=== PATIENT | male | born 1955 | race Caucasian/White ===

== ENCOUNTER 2016-12-05 09:45 | Day surgery (SDC) | payer MEDICARE, SELFPAY ==
[~2016-12-05] VITALS: Ht 180.3 cm; Wt 113.8 kg
[~2016-12-05 09:45] MED LIST: BUPRENORPHINE HC8 MG SL; CEFTIN500 MG PO; CEFUROXIME500 MG PO; COMBIVENT RESPIM4 GM INH; COUGHTAB 400400 MG PO; FLUTICASONE PRO16 GM NAS; GABAPENTIN600 MG; GABAPENTIN600 MG PO; GABAPENTIN800 MG PO; HUMALOG100 UNIT/1 SUB-Q; IBUPROFEN400 MG PO; LANTUS SOL100 UNIT/1; LANTUS100 UNIT/1 SUB-Q; LANTUS100 UNITS/ SUB-Q; LEVAQUIN500 MG PO; LEVAQUIN750 MG PO; METFORMIN HCL1000 MG PO; NAPROSYN500 MG PO; NICOTINE LOZENGE4 MG BUCCAL; NICOTINE PATCH1 EAC1 TD; NORCO 5-325 TA1 EACH PO; NORVASC10 MG PO; PREDNISONE20 MG PO; SERTRALINE HCL50 MG PO; SUDOGEST30 MG PO; SULFAMETHOXAZO1 EAC1 PO; ZOFRAN ODT8 MG PO
[2016-12-05] MEDS ORDERED: MAPAP325 MG PO (14:50)
[2016-12-05] MEDS ORDERED: IBUPROFEN600 MG PO (14:50)
--- NOTE | 2016-12-05 14:50 | NUR ---
12/05/16 1450 Suzanne Jaramillo 1440 PATIENT AWAKE, BUT DROWSY. C/O MILD PAIN. NC AT 3 LITERS. RESP EVEN AND UNLABORED.
[2016-12-05] MEDS ORDERED: NORCO 7.5-3251 EACH PO (14:51)
--- NOTE | 2016-12-21 10:25 | OR ---
[facility] [address], [place] [address] Signed DATE OF SERVICE: 12/05/2016 PREOPERATIVE DIAGNOSES: Stage III squamous cell carcinoma of the lung. History of heroin addiction on buprenorphine maintenance. Poor peripheral access. Hepatitis C. POSTOPERATIVE DIAGNOSES: Stage III squamous cell carcinoma of the lung. History of heroin addiction on buprenorphine maintenance. Poor peripheral access. Hepatitis C. PROCEDURE: Right internal jugular central venous catheter placement (arrow blue tip triple-lumen catheter) for intravenous sedation and administration. Placement of left subclavian BardPort catheter for chemotherapy. Surgeon-directed fluoroscopy. SURGEON: Trish Fermin MD. ANESTHESIA: Local with monitored anesthesia care. ANESTHESIOLOGIST: Nima Kim CRNA and local 1% lidocaine. INDICATION: This 61-year-old white man, who is a patient of Dr. Horta and found to have right-sided lung cancer with extensive carinal adenopathy. He has undergone bronchoscopy by me in the past confirming squamous cell carcinoma of the lung. He has seen Dr. Marcano and a plan for chemotherapy and Palliative Unit intervention has been outlined. The patient does have a complex past medical history, including poor peripheral access related to long-standing IV heroin use and now in a rehabilitation maintenance program with buprenorphine managed by Dr. Martinez in [place]. As he will be undergoing chemotherapy, a Port-A-Cath device is recommended by Dr. Marcano for chemotherapy. As he does have poor peripheral access essentially impossible actually, a preliminary IV access will be necessary to allow for his IV sedation ultimately placement of a permanent left subclavian BardPort device. He understands the risks of bleeding, infection, pneumothorax, and other unforeseen complications related to placement of the device and wished to proceed. Electronically Signed By: TRISH FERMIN MD 12/21/16 1025 PATIENT NAME: SAMAN FELDER OPERATIVE REPORT DATE OF : 55 PHYSICIAN: TRISH FERMIN MD REPORT #: [id number] REPORT IS CONFIDENTIAL AND NOT TO BE RELEASED WITHOUT AUTHORIZATION [facility] [address], [place] [address] Signed FINDINGS: Placement of a right central venous catheter into the jugular vein was without difficulty showing dark nonpulsatile blood in good function. The left subclavian BardPort device was placed without problem as well. Good function is noted at the conclusion of the procedure. Chest x-ray has been performed, but not yet reviewed by me. DESCRIPTION OF PROCEDURE: The patient was brought to the operating room, placed in supine position. His head was turned to the left with arms at the side. The right neck was prepared with a chlorhexidine solution and draped sterilely. 1% lidocaine was injected locally. Using a Seldinger technique, the right internal jugular vein was easily accessed on single pass showing dark nonpulsatile blood. A flexible J-wire was passed down the needle and the needle was removed. The site was incised with an 11 blade and dilated with a balloon dilator enclosed in the Arrow blue tip triple-lumen catheter. He previously inspected and irrigated catheter system was passed over the wire. The wire removed with aspiration and the distal port showed dark nonpulsatile blood. The catheter was flushed with heparinized saline. There was gently withdrawn and an enclosed collar device applied and it was sutured in place with the silk suture and an Opsite was applied. At this point, plans were t hen made for the Port-A-Cath itself. Intravenous antibiotics were administered through the central venous catheter and intravenous sedation administered as well. His head was now placed to the right side. The left upper chest and neck were clipped and prepped with chlorhexidine solution and draped sterilely. 1% lidocaine was injected in the infraclavicular space using Seldinger technique, the left subclavian vein easily accessed showing dark nonpulsatile blood. A flexible J-wire was passed down the needle and the needle was removed. Fluoroscopy was used to confirm that the wire was in the right heart system. A transverse incision was made over the left pectoralis muscle. Dissection was carried through the subcutaneous tissue identifying the pectoralis fascia. A pocket was created inferiorly. At the puncture site with the wire emanating from it, the site was incised with an 11 blade dilator and peel-away introducer were passed over the wire. The wire and dilator were removed showing vigorous retrograde dark nonpulsatile bleeding. Groshong catheter, which was previously inspected and flushed was passed through this peel-away sheath introducer and the sheath removed without problem. The table was ascertained to be in a neutral position and under fluoroscopic control at the tip of the catheter was difficult to identifying it for a small amount of intravenous contrast was applied showing the tip of the catheter well passed to the Electronically Signed By: TRISH FERMIN MD 12/21/16 1025 PATIENT NAME: SAMAN FELDER OPERATIVE REPORT DATE OF : 55 PHYSICIAN: TRISH FERMIN MD REPORT #: [id number] REPORT IS CONFIDENTIAL AND NOT TO BE RELEASED WITHOUT AUTHORIZATION [address] [address] Signed right heart. The catheter was withdrawn under direct visualization and situated in the superior vena cava. Using the dilating tunneling device, the catheter was delivered to the pocket inferiorly trimmed to the appropriate length and secured to the port device using the enclosed collar device per tube inspector's instructions. The port had previously been partially secured to the pectoralis fascia with interrupted 2-0 Vicryl suture. The port was well positioned and additionally secured to the pectoralis fascia with 2-0 Vicryl, so as to avoid migration or flipping of the catheter. Access to the port using an angled Brooks needle showed dark nonpulsatile blood and easy flushing. The pocket was secured with interrupted 2-0 Vicryl and skin closed with running subcuticular 3-0 Vicryl. Angled Brooks needle was once again passed into the device and aspirated and flushed well. Contrast was used to ascertain that the catheter was without any kinks or untoward appearance. Steri-Strips were applied. There was a Mepilex silver sponge dressing. The right internal jugular catheter is left in situ for post-operative management. MD BERNARDO Cruz/Amarjit /[id number] cc: Bart Marcano MD Electronically Signed By: TRISH FERMIN MD 12/21/16 1025 PATIENT NAME: SAMAN FELDER OPERATIVE REPORT DATE OF : 55 PHYSICIAN: TRISH FERMIN MD REPORT #: [id number] REPORT IS CONFIDENTIAL AND NOT TO BE RELEASED WITHOUT AUTHORIZATION
[2017-03-14] MEDS ORDERED: AMOX TR-K400 MG/5 M PO (08:52)
[2017-03-14] MEDS ORDERED: NIFEDIPINE ER60 M1 PO (08:52)
[2017-03-14] MEDS ORDERED: OXYCODONE HCL20 M1 PO (08:54)
[2017-03-14] MEDS ORDERED: ONDANSETRON ODT8 MG PO (08:56)
[2017-03-14] MEDS ORDERED: DEXAMETHASONE4 MG PO (08:57)
[2017-03-14] MEDS ORDERED: LORAZEPAM1 MG PO (08:58)
[2017-05-09] MEDS ORDERED: LASIX20 MG PO (09:13)
== END 2016-12-05 15:25 | disposition home or self-care (01) ==
LOC: OPS 09:45 → DS 09:45 → OPS 11:00 → DS 11:00 → OPS 15:25
PROVIDERS: Surgery
PROC: 05H633Z Insertion of Infusion Device into Left Subclavian Vein, Percutaneous Approach (ICD-10-PCS; 2016-12-05)
PROC: B517YZA Fluoroscopy of Left Subclavian Vein using Other Contrast, Guidance (ICD-10-PCS; 2016-12-05)
PROC: 05HM33Z Insertion of Infusion Device into Right Internal Jugular Vein, Percutaneous Approach (ICD-10-PCS; principal; 2016-12-05 11:00)
PROC: 3E0433Z Introduction of Anti-inflammatory into Central Vein, Percutaneous Approach (ICD-10-PCS; 2016-12-05 11:00)
DX: C34.91 Malignant neoplasm of unspecified part of right bronchus or lung (principal); E11.9 Type 2 diabetes mellitus without complications; F17.210 Nicotine dependence, cigarettes, uncomplicated; F11.20 Opioid dependence, uncomplicated; Z86.19 Personal history of other infectious and parasitic diseases; Z85.118 Personal history of other malignant neoplasm of bronchus and lung; Z90.49 Acquired absence of other specified parts of digestive tract
CPT/HCPCS: 00532; 71010; 77001; C1788; J0690; J1644; J2704; J3010

== ENCOUNTER 2017-03-06 09:17 | Emergency (ER) | payer MEDICARE ==
[~2017-03-06] VITALS: Ht 180.3 cm; Wt 111.4 kg
[~2017-03-06 09:17] MED LIST changes: +IBUPROFEN600 MG PO; +MAPAP325 MG PO; +NORCO 7.5-3251 EACH PO
--- OUTSIDE RECORDS SUMMARY | 2017-03-06 09:23 | XMS ---
Demographics + + + | Address | [address] | | | [place] [address] | + + + | Preferred Language | Unknown | + + + | Marital Status | Unknown | + + + | Scientology Affiliation | Unknown | + + + | Race | Unknown | + + + | Ethnic Group | Unknown | + + + Author + + + | Author | [facility] | + + + | Organization | [facility] | + + + | Address | [address] | | | [place] [address] | + + + | Phone | | + + + Care Team Providers + + + + | Care Airplane Dispatch Clerk Name | Role | Phone | + + + + Unavailable | Unavailable | + + + + PROBLEMS +---------+ + + +--------+ + + | Type | Condition | ICD9-CM | HUS08-AO | Onset | Condition | SNOMED | | | | Code | Code | Dates | Status | Code | +---------+ + + +--------+ + + | Problem | Tobacco | 305.1 | | | Active | 03614376 | | | abuse | | | | | | +---------+ + + +--------+ + + | Problem | Hypertensi | | I10 | | Active | 01429054 | | | on | | | | | | +---------+ + + +--------+ + + | Problem | CHRONIC | 338.29 | | | Active | 94800030 | | | PAIN NEC | | | | | | +---------+ + + +--------+ + + | Problem | Diabetic | E11.42 | | | Active | 688578878 | | | peripheral | | | | | | | | | | | | | | | | neuropathy | | | | | | +---------+ + + +--------+ + + | Problem | Diabetes | E11.9 | | | Active | 540743792 | | | mellitus | | | | | | | | type 2 in | | | | | | | | nonobese | | | | | | +---------+ + + +--------+ + + | Problem | Type 2 | | E11.22 | | Active | 389767369 | | | diabetes | | | | | | | | mellitus | | | | | | | | with | | | | | | | | diabetic | | | | | | | | chronic | | | | | | | | kidney | | | | | | | | disease | | | | | | +---------+ + + +--------+ + + | Problem | Insulin | E10.9 | | | Active | 63410677 | | | dependent | | | | | | | | diabetes | | | | | | | | mellitus | | | | | | | | type IA | | | | | | +---------+ + + +--------+ + + | Problem | Cellulitis | | L03.90 | | Active | 693815502 | +---------+ + + +--------+ + + | Problem | Type 2 | | E11.9 | | Active | 969401229 | | | diabetes | | | | | | | | mellitus | | | | | | | | without | | | | | | | | complicati | | | | | | | | ons | | | | | | +---------+ + + +--------+ + + | Problem | Drug | 304.90 | | | Active | 6871700 | | | addiction | | | | | | | | NOS | | | | | | +---------+ + + +--------+ + + | Problem | Chronic | 338.21 | | | Active | 323083366 | | | pain due | | | | | | | | to trauma | | | | | | +---------+ + + +--------+ + + | Problem | Hepatitis | 070.70 | | | Active | 80736041 | | | C without | | | | | | | | hepatic | | | | | | | | coma, not | | | | | | | | otherwise | | | | | | | | specified | | | | | | +---------+ + + +--------+ + + | Problem | Diabetes | 250.00 | | | Active | 29816754 | | | mellitus | | | | | | | | type II | | | | | | +---------+ + + +--------+ + + | Problem | OPIOID | 304.01 | | | Active | 183154807 | | | DEPENDENCE | | | | | | | | -CONTIN | | | | | | +---------+ + + +--------+ + + ALLERGIES + + + + +---------+ | Substance | Reaction | Event Type | Date | Status | + + + + +---------+ | NZainabKAllanA. | Unknown | Non Drug | Oct, | Unknown | | | | Allergy | | | + + + + +---------+ SOCIAL HISTORY No smoking Hx information available PLAN OF CARE + +---------+ | Activity | Details | + +---------+ +---+ | | +---+ + + + | Follow Up | prn Reason:null | + + + VITAL SIGNS + + + + | Height | 72 in | 2016-11-07 | + + + + | Weight | 255.0 lbs | 2016-11-07 | + + + + | BMI | 34.58 kg/m2 | 2016-11-07 | + + + + | Temperature | 98.8 degrees Fahrenheit | 2016-11-07 | + + + + | Heart Rate | 67 /min | 2016-11-07 | + + + + | Blood pressure systolic | 149 mm Hg | 2016-11-07 | + + + + | Blood pressure diastolic | 76 mm Hg | 2016-11-07 | + + + + MEDICATIONS + + + + + + + +--------+ | Medicati | Instruct | Dosage | Frequenc | Start | End Date | Duration | Status | | on | ions | | y | Date | | | | + + + + + + + +--------+ | Buprenor | Sublingu | 1 tablet | 8h | | | | Active | | phine | al TID | under | | | | | | | HCl 8 MG | | the | | | | | | | | | tongue | | | | | | | | | and | | | | | | | | | allow to | | | | | | | | | | | | | | | | | | dissolve | | | | | | + + + + + + + +--------+ | BD | | USE TO | | | | | Active | | Insulin | | INJECT 5 | | | | | | | Syringe | | TIMES | | | | | | | 30G X | | DAILY | | | | | | | 1/2 | | | | | | | | + + + + + + + +--------+ | Metformi | oral 2 x | TAKE ONE | | | | 30 | Active | | n HCl | a day | TABLET | | | | | | | 1000 MG | | BY MOUTH | | | | | | | Tablet | | TWICE | | | | | | | | | DAILY | | | | | | + + + + + + + +--------+ | Gabapent | | TAKE TWO | | | | | Active | | in 800 | | TABLETS | | | | | | | MG | | BY | | | | | | | | | MOUTH | | | | | | | | | EVERY | | | | | | | | | MORNING | | | | | | | | | AND TWO | | | | | | | | | EVERY | | | | | | | | | EVENING | | | | | | + + + + + + + +--------+ | Ibuprofe | Orally | 1 tablet | 6h | | | | Active | | n 200 MG | every 6 | as | | | | | | | | hrs | needed | | | | | | + + + + + + + +--------+ | Zofran 4 | Orally | 1 tab | | 03 September, | | 10 d | Active | | MG | is take | | | 2017 | | | | | | in am | | | | | | | | | may | | | | | | | | | repeat | | | | | | | | | in 4 hr | | | | | | | + + + + + + + +--------+ | Lantus | subq bid | inject | 12h | | | 30 | Active | | 100UNIT/ | | 30 units | | | | | | + + + + + + + +--------+ | Sertrali | | TAKE ONE | | | | | Active | | ne HCl | | TABLET | | | | | | | 50 MG | | BY MOUTH | | | | | | | | | EVERY | | | | | | | | | DAY | | | | | | + + + + + + + +--------+ RESULTS No Results PROCEDURES + + + + + | Procedure | Date Ordered | Related Diagnosis | Body Site | + + + + + | Est Level III | November 07, 2016 | | | | Intermediate | | | | + + + + + IMMUNIZATIONS No Known Immunizations"
--- NOTE | 2017-03-07 09:56 | EKG ---
[facility] [address] [place] [address] Signed Normal sinus rhythm Normal ECG When compared with ECG of 30-OCT-2016 10:15, Vent. rate has increased BY 36 BPM Confirmed by TREVA HINES MD ([id number]) on 03/07/2017 9:56:00 AM Electronically Signed By: TREVA HINES MD 03/07/17 0956 PATIENT NAME: SAMAN FELDER Electrocardiogram DATE OF : 55 PHYSICIAN: TREVA HINES MD REPORT #: [id number] REPORT IS CONFIDENTIAL AND NOT TO BE RELEASED WITHOUT AUTHORIZATION
[2017-03-14] MEDS ORDERED: NIFEDIPINE ER60 M1 PO (08:52)
[2017-03-14] MEDS ORDERED: AMOX TR-K400 MG/5 M PO (08:52)
[2017-03-14] MEDS ORDERED: OXYCODONE HCL20 M1 PO (08:54)
[2017-03-14] MEDS ORDERED: ONDANSETRON ODT8 MG PO (08:56)
[2017-03-14] MEDS ORDERED: DEXAMETHASONE4 MG PO (08:57)
[2017-03-14] MEDS ORDERED: LORAZEPAM1 MG PO (08:58)
[2017-05-09] MEDS ORDERED: LASIX20 MG PO (09:13)
== END 2017-03-06 15:50 | disposition short-term general hospital (02) ==
LOC: ED 09:17
DX: S01.311A Laceration without foreign body of right ear, initial encounter (principal); C34.90 Malignant neoplasm of unspecified part of unspecified bronchus or lung; R06.00 Dyspnea, unspecified; R79.89 Other specified abnormal findings of blood chemistry; E11.649 Type 2 diabetes mellitus with hypoglycemia without coma; F17.200 Nicotine dependence, unspecified, uncomplicated; R91.8 Other nonspecific abnormal finding of lung field; Z90.49 Acquired absence of other specified parts of digestive tract; Z79.899 Other long term (current) drug therapy; Z79.4 Long term (current) use of insulin; Z79.84 Long term (current) use of oral hypoglycemic drugs; X58.XXXA Exposure to other specified factors, initial encounter
CPT/HCPCS: 36415; 36600; 70450; 71010; 71250; 80053; 82803; 83615; 84484; 85025; 93005; 93010; 94640; 96374; 96376; 99285; G0480; J0295

== ENCOUNTER 2018-06-09 10:43 | Emergency (ER) | payer MEDICARE ==
[~2018-06-09] VITALS: Ht 180.3 cm; Wt 113.4 kg
[~2018-06-09 10:43] MED LIST changes: +ADULT LOW DOSE81 MG PO; +AMOX TR-K400 MG/5 M PO; +DEXAMETHASONE4 MG PO; +FUROSEMIDE80 MG PO; +LASIX20 MG PO; +LORAZEPAM1 MG PO; +MAVYRET 100-401 EACH PO; +NIFEDIPINE ER60 M1 PO; +ONDANSETRON ODT8 MG PO; +OXYCODONE HCL20 M1 PO; +OXYCONTIN40 MG PO
== END 2018-06-09 17:10 | disposition short-term general hospital (02) ==
LOC: ED 10:43
DX: L03.116 Cellulitis of left lower limb (principal); E11.22 Type 2 diabetes mellitus with diabetic chronic kidney disease; N18.6 End stage renal disease; J18.9 Pneumonia, unspecified organism; C34.90 Malignant neoplasm of unspecified part of unspecified bronchus or lung; Z99.2 Dependence on renal dialysis; Z86.19 Personal history of other infectious and parasitic diseases; F17.210 Nicotine dependence, cigarettes, uncomplicated; Z99.81 Dependence on supplemental oxygen; Z90.49 Acquired absence of other specified parts of digestive tract; Z79.4 Long term (current) use of insulin; Z79.82 Long term (current) use of aspirin; Z79.899 Other long term (current) drug therapy
CPT/HCPCS: 36415; 36600; 71045; 74176; 80053; 81001; 82803; 83605; 85025; 87040; 87077; 87186; 93971; 94640; 96365; 96375; 99284-25; J2060; J2543; J7060

== ENCOUNTER 2018-06-30 12:07 | Emergency (ER) | payer MEDICARE ==
[~2018-06-30] VITALS: Ht 180.3 cm; Wt 113.8 kg
--- OUTSIDE RECORDS SUMMARY | 2018-06-30 12:10 | XMS ---
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 E.D. VISIT COUNT (12 MO.) 2 [facility] 1 [facility] 2 [facility] TOTAL 5 NOTE: Visits indicate total known visits. ED/UCC VISIT TRACKING (12 MO.) 06/30/2018 12:08 [facility] [place] TYPE: Emergency COMPLAINT: - POSS MEDICATION OD 06/09/2018 10:44 [facility] [place] TYPE: Emergency COMPLAINT: - BACK PAIN/NO INJURY DIAGNOSES: - Left lower quadrant pain - Dependence on renal dialysis - Acquired absence of other specified parts of digestive tract - examining chair assembler (current) use of aspirin - End stage renal disease - Malignant neoplasm of unspecified part of unspecified bronchus or lung - Personal history of other infectious and parasitic diseases - Type 2 diabetes mellitus with diabetic chronic kidney disease - Cellulitis of left lower limb - Pneumonia, unspecified organism - Dependence on supplemental oxygen - Nicotine dependence, cigarettes, uncomplicated - FDC (current) use of insulin - Other chcf (current) drug therapy [facility]2018 [facility] DIAGNOSES: - Other complication of vascular dialysis catheter, initial encounter - End stage renal disease - Vascular Access Problem - port access problems - Dependence on renal dialysis 04/04/2018 14:19 [facility] [place] TYPE: Emergency DIAGNOSES: - "Im supposed to have this thing in my chest for dialysis changed out, they tried a week ago and today I went for dialysis but they couldnt get it to work" - Cellulitis of left lower limb - Unspecified complication of internal prosthetic device, implant and graft, initial encounter - Vascular Access Problem [facility]2018 [facility] DIAGNOSES: - Pneumonia, unspecified organism - Sepsis, unspecified organism - Respiratory Distress - End stage renal disease - poss OD - Respiratory failure, unspecified, unspecified whether with hypoxia or hypercapnia - Altered Mental Status INPATIENT VISIT TRACKING (12 MO.) 06/09/2018 19:[address] TYPE: Medical Surgical COMPLAINT: - PEUNMONIA DIAGNOSES: 0. Pain in left hip 1. Bloodstream infection due to central venous catheter, initial encounter 2. Pneumonia, unspecified organism 3. Metabolic encephalopathy 4. Psoas muscle abscess 5. Sepsis due to Methicillin resistant Staphylococcus aureus 6. End stage renal disease 7. Hypertensive chronic kidney disease with stage 5 chronic kidney disease or end stage renal disease 8. Malignant neoplasm of unspecified part of unspecified bronchus or lung 9. Osteomyelitis of vertebra, lumbar region 10. Infective myositis, other site 11. Type 2 diabetes mellitus with diabetic chronic kidney disease 12. Hypokalemia 13. Opioid use, unspecified, uncomplicated 14. Disorder of bone, unspecified 15. Type 2 diabetes mellitus with diabetic nephropathy 16. Spinal stenosis, lumbar region without neurogenic claudication 17. Discitis, unspecified, lumbar region 18. Type 2 diabetes mellitus with other specified complication 19. Other disorders of phosphorus metabolism 20. Chronic viral hepatitis C 21. Anemia in chronic kidney disease 22. Dependence on renal dialysis 23. Patient's noncompliance with renal dialysis 24. examining chair assembler (current) use of insulin 04/06/2018 18:42 [facility] TYPE: General Medicine DIAGNOSES: - Other complication of vascular dialysis catheter, initial encounter - End stage renal disease - Hypertensive chronic kidney disease with stage 1 through stage 4 chronic kidney disease, or unspecified chronic kidney disease - Essential (primary) hypertension - Type 2 diabetes mellitus with diabetic chronic kidney disease - Dependence on renal dialysis 01/21/2018 11:46 [facility] TYPE: Medical Surgical DIAGNOSES: - Nephrotic syndrome with unspecified morphologic changes - Opioid dependence with unspecified opioid-induced disorder - Chronic pain syndrome - Chronic viral hepatitis C - Other psychoactive substance abuse, uncomplicated - Pneumonia due to Hemophilus influenzae - Malignant neoplasm of unspecified part of unspecified bronchus or lung - Chronic obstructive pulmonary disease with (acute) exacerbation - Lobar pneumonia, unspecified organism - Malignant neoplasm of unspecified part of right bronchus or lung - Pneumonia, unspecified organism - Type 2 diabetes mellitus without complications - Respiratory failure, unspecified, unspecified whether with hypoxia or hypercapnia - Nicotine dependence, unspecified, uncomplicated - Sepsis, unspecified organism - Acute respiratory failure with hypoxia - Chronic kidney disease, stage 5 - Opioid dependence with other opioid-induced disorder - Personal history of other specified conditions - Essential (primary) hypertension - Acute kidney failure, unspecified - End stage renal disease - Anemia, unspecified - Acute respiratory failure with hypercapnia - Chronic obstructive pulmonary disease, unspecified [email or web address]
== END 2018-06-30 17:30 | disposition home or self-care (01) ==
LOC: ED 12:07
DX: T40.2X1A Poisoning by other opioids, accidental (unintentional), initial encounter (principal); N18.6 End stage renal disease; M86.9 Osteomyelitis, unspecified; E11.9 Type 2 diabetes mellitus without complications; F17.200 Nicotine dependence, unspecified, uncomplicated; Z79.899 Other long term (current) drug therapy; Z79.4 Long term (current) use of insulin; Z79.891 Long term (current) use of opiate analgesic
CPT/HCPCS: 70450; 71045; 80053; 83605; 85025; 96374; 99284-25; J2997

== ENCOUNTER → 2018-07-20 | Emergency (ER) | payer MEDICARE ==
[~2018-07-20] VITALS: Ht 180.3 cm; Wt 97.6 kg
--- OUTSIDE RECORDS SUMMARY | 2018-07-20 10:54 | XMS ---
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 Care History Medical/Surgical 07/06/2018 [facility] Patient is now at [facility] Confirmed 07/06/18 07/01/2018 [facility] - Patient is currently established with [facility]. If patient is seen in the ED during business hours. Please contact CHWs at [facility]. Care Recommendation: This patient has had 5 or more Emergency Department visits in the last 12 months.\\T\\nbsp; Patient requires education on the scope and purpose of the ED as an acute care provider not a Primary Care Provider and should not be utilized for chronic conditions.\\T\\nbsp; These are guidelines and the provider should exercise clinical judgment when providing care. E.D. VISIT COUNT (12 MO.) 2 [facility] 1 [facility] 3 [facility] TOTAL 6 NOTE: Visits indicate total known visits. ED/C VISIT TRACKING (12 MO.) 07/20/2018 10:39 [facility] [place] TYPE: Emergency COMPLAINT: - LETHARGIC/LOW OXYGEN 06/30/2018 12:08 [facility] [place] TYPE: Emergency COMPLAINT: - POSS MEDICATION OD DIAGNOSES: - End stage renal disease - Nicotine dependence, unspecified, uncomplicated - Other remote computer terminal operator (current) drug therapy - Weakness - Poisoning by other opioids, accidental (unintentional), initial encounter - retirement (current) use of opiate analgesic - Osteomyelitis, unspecified - Type 2 diabetes mellitus without complications - oysterman (current) use of insulin 06/09/2018 10:44 [facility] TYPE: Emergency COMPLAINT: - BACK PAIN/NO INJURY DIAGNOSES: - Left lower quadrant pain - Dependence on renal dialysis - Acquired absence of other specified parts of digestive tract - oysterman (current) use of aspirin - End stage renal disease - Malignant neoplasm of unspecified part of unspecified bronchus or lung - Personal history of other infectious and parasitic diseases - Type 2 diabetes mellitus with diabetic chronic kidney disease - Cellulitis of left lower limb - Pneumonia, unspecified organism - Dependence on supplemental oxygen - Nicotine dependence, cigarettes, uncomplicated - oysterman (current) use of insulin - Other remote computer terminal operator (current) drug therapy 04/06/2018 18:42 [facility] TYPE: Emergency DIAGNOSES: - Other complication of vascular dialysis catheter, initial encounter - End stage renal disease - Vascular Access Problem - port access problems - Dependence on renal dialysis [facility]2018 [facility] DIAGNOSES: - "Im supposed to have this thing in my chest for dialysis changed out, they tried a week ago and today I went for dialysis but they couldnt get it to work" - Cellulitis of left lower limb - Unspecified complication of internal prosthetic device, implant and graft, initial encounter - Vascular Access Problem [facility]2018 [facility] DIAGNOSES: - Pneumonia, unspecified organism - Sepsis, unspecified organism - Respiratory Distress - End stage renal disease - poss OD - Respiratory failure, unspecified, unspecified whether with hypoxia or hypercapnia - Altered Mental Status INPATIENT VISIT TRACKING (12 MO.) 06/09/2018 19:15 [facility] [place] TYPE: Medical Surgical COMPLAINT: - PEUNMONIA DIAGNOSES: [...] 23. Patient's noncompliance with renal dialysis 24. oysterman (current) use of insulin 04/06/2018 18:42 [facility] TYPE: General Medicine DIAGNOSES: - Other complication of vascular dialysis catheter, initial encounter - End stage renal disease - Hypertensive chronic kidney disease with stage 1 through stage 4 chronic kidney disease, or unspecified chronic kidney disease - Essential (primary) hypertension - Type 2 diabetes mellitus with diabetic chronic kidney disease - Dependence on renal dialysis 01/21/2018 11:46 [facility] [place] [facility] DIAGNOSES: - Nephrotic syndrome [...] hypercapnia - Chronic obstructive pulmonary disease, unspecified [email or web address]
== END ==
LOC: ED 10:39
DX: J96.90 Respiratory failure, unspecified, unspecified whether with hypoxia or hypercapnia (principal); E11.22 Type 2 diabetes mellitus with diabetic chronic kidney disease; N18.6 End stage renal disease; C34.90 Malignant neoplasm of unspecified part of unspecified bronchus or lung; F17.200 Nicotine dependence, unspecified, uncomplicated; Z79.4 Long term (current) use of insulin; Z79.899 Other long term (current) drug therapy; Z79.82 Long term (current) use of aspirin; Z79.891 Long term (current) use of opiate analgesic; Z99.2 Dependence on renal dialysis
CPT/HCPCS: 36600; 71045; 71250; 80053; 82803; 83605; 85025; 94640; 96365; 96366; 99285-25; J2543; J7060

== ENCOUNTER 2018-08-05 10:26 | Emergency (ER) | payer MEDICARE ==
[~2018-08-05] VITALS: Ht 180.3 cm; Wt 93.9 kg
--- OUTSIDE RECORDS SUMMARY | ~2018-08-05 | XMS | Clinical Summary ---
Demographics + + + | Address | [address] | | | [place] [address] | + + + | Home Phone [...] + | Author | [facility] | + + + | Organization | [facility] | + + + | Address | Unknown | + + + | Phone | Unavailable | + + + Support + + +---------+ + | Name | Relationship | Address | Phone | + + +---------+ + | Sole Gleason | ECON | Unknown | | + + +---------+ + Care Team Providers + +------+ + | Care Ethnic Origins Teacher Name | Role | Phone | + +------+ + | Tigre Dwyer DO | PP | | + +------+ + Source Comments CADEN is fully live on both [facility] and [facility] Allergies No Known Allergies Current Medications + + +-------+---------+------+------+-------+ | Prescription | Sig. | Disp. | Refills | Star | End | Statu | | | | | | t | Date | s | | | | | | Date | | | + + +-------+---------+------+------+-------+ | INSULIN | Inject under the | | | | | Activ | | GLARGINE,HUM.REC.ANL | skin (SUBC). 40units | | | | | e | | OG (LANTUS SUBQ) | 1-2 times daily | | | | | | + + +-------+---------+------+------+-------+ | metformin 1,000 mg | Take 1,000 mg by | | | | | Activ | | Oral Tablet | mouth two times | | | | | e | | | daily. | | | | | | + + +-------+---------+------+------+-------+ | glimepiride 4 mg | Take 4 mg by mouth | | | 05/0 | | Activ | | Oral Tablet | two times daily. | | | 7/20 | | e | | | | | | 10 | | | + + +-------+---------+------+------+-------+ | | Place 1 Tab under | | | | | Activ | | buprenorphine-naloxo | tongue. Take 2 | | | | | e | | ne (SUBOXONE) 8-2 mg | tablets twice daily | | | | | | | Sublingual Tablet, | | | | | | | | Sublingual | | | | | | | + + +-------+---------+------+------+-------+ Active Problems + + + | Problem | Noted Date | + + + | Lumbago | 09/23/2009 | + + + | Low back pain | 09/23/2009 | + + + | Lumbosacral spondylosis without myelopathy | 09/22/2009 | + + + Encounters +--------+--------+ + + + | Date | Type | Specialty | Care Team | Description | +--------+--------+ + + + | 06/17/ | Intake | | | N/A | | 2019 | | | | | +--------+--------+ + + + from Last 3 Months Family History + + +------+ + | [...] on file | | + + + Last Filed Vital Signs + + + + | Vital Sign | Reading | Time Taken | + + + + | Blood Pressure | 119/83 | 09/22/2009 3:02 PM PDT | + + + + | Pulse | 91 | 09/22/2009 3:02 PM PDT | + + + + | Temperature | 36.7 C (98 F) | 09/22/2009 3:02 PM PDT | + + + + | Respiratory Rate | 16 | 09/22/2009 3:02 PM PDT | + + + + | Oxygen Saturation | 97% | 09/22/2009 3:02 PM PDT | + + + + | Inhaled Oxygen | - | - | | Concentration | | | + + + + | Weight | 114.3 kg (252 lb) | 09/22/2009 3:02 PM PDT | + + + + | Height | 180.3 cm (5' 11") | 09/22/2009 3:02 PM PDT | + + + + | Body Mass Index | 35.15 | 09/22/2009 3:02 PM PDT | + + + + Plan of Treatment + + + + + | Health Maintenance | Due Date | Last Done | Comments | + + + + + | Pneumococcal (Adult) | | | | | (1 of 1 - PPSV23) | 5 | | | + + + + + | Influenza (Flu) | | | | | vaccination (#1) | 8 | | | + + + + + Results Not on filefrom Last 3 Months
--- OUTSIDE RECORDS SUMMARY | ~2018-08-05 | XMS | Encounter Summary ---
Demographics + + + | Address | [address] | | | [place] [address] | + + + | Home Phone | | + + + | Preferred Language | Unknown | + + + | Marital Status | Single | + + + | Spiritism Affiliation | 1061 | + + + | Race | Unknown | + + + | Ethnic Group | Unknown | + + + Author + + + | Author | [facility] | + + + | Organization | [facility] | + + + | Address | Unknown | + + + | Phone | Unavailable | + + + Support + + + + + | Name | Relationship | Address | Phone | + + + + + | Sole Gleason | ECON | [place] | | | | | [address] | | + + + + + | Sruthi Gleason | ECON | [place] | | | | | [address] | | + + + + + Care Team Providers + +------+ + | Care Rn Admit Name | Role | Phone | + +------+ + | None, Per Pt | PCP | 000-0000 | + +------+ + Encounter Details +--------+ + + + + | Date | Type | Department | Care Team | Description | +--------+ + + + + | 07/22/ | Procedure | [facility] | | | | 2019 | Pass | [facility] | | | | | | [facility] | | | | | | [address] [facility] | | | | | | [place] [address] | | | | | | [phone] | | | +--------+ + + + + Social History + +-------+ +--------+------+ | Tobacco Use | Types | Packs/Day | Years | Date | | | | | Used | | + +-------+ +--------+------+ | Current Every Day | | 0.5 | 45 | | | Smoker | | | | | + +-------+ +--------+------+ + +---+---+---+ | Smokeless Tobacco: | | | | | Never Used | | | | + +---+---+---+ + + +---------+ + | Alcohol Use | Drinks/We | oz/Week | Comments | | | ek | | | + + +---------+ + | No | | | | + + +---------+ + + + + | Sex Assigned at | Date Recorded | | | | + + + | Not on file | | + + + as of this encounter Plan of Treatment Not on fileas of this encounter Visit Diagnoses Not on filein this encounter"
--- OUTSIDE RECORDS SUMMARY | ~2018-08-05 | XMS | Encounter Summary ---
Demographics + + + | Address | [address] | | | [place] [address] | + + + | Home Phone | | + + + | Preferred Language | Unknown | + + + | Marital Status | Single | + + + | Oriental Orthodox Affiliation | 1061 | + + + | Race | Unknown | + + + | Ethnic Group | Unknown | + + + Author + + + | Author | [facility] | + + + | Organization | [facility] | + + + | Address | Unknown | + + + | Phone | Unavailable | + + + Support + + + + + | Name | Relationship | Address | Phone | + + + + + | Sole Gleason | ECON | [place] | | | | | [address] | | + + + + + | Sruthi Gleason | ECON | [place] | | | | | [address] | | + + + + + Care Team Providers + +------+ + | Care Weed Controller Name | Role | Phone | + +------+ + | None, Per Pt | PCP | 000-0000 | + +------+ + Encounter Details +--------+ + + + + | Date | Type | Department | Care Team | Description | +--------+ + + + + | 06/15/ | Telephone | [facility] | Romelia Paula, | | | 2019 | | Vascular Surgery | [place] | | | | | [address] | | | | | | [place] | | | | | | [address] | | | | | | [phone] | | | +--------+ + + + [...]
--- OUTSIDE RECORDS SUMMARY | ~2018-08-05 | XMS | Encounter Summary ---
Demographics + + + | Address | [address] | | | [place] [address] | + + + | Home Phone | | + + + | Preferred Language | Unknown | + + + | Marital Status | | + + + | Buddhism Affiliation | 1061 | + + + | Race | Unknown | + + + | Ethnic Group | Unknown | + + + Author + + + | Author | [facility] | | | and [place] | + + + | Organization | [facility] | | | and [place] | + + + | Address | Unknown | + + + | Phone | Unavailable | + + + Support + + + + + | Name | Relationship | Address | Phone | + + + + + | Sole Gleason | ECON | [place] | | | | | [address] | | + + + + + | Sruthi Gleason | ECON | [place] | | | | | [address] | | + + + + + | Sole Gleason | ECON | [place] | | | | | [address] | | + + + + + Care Team Providers + +------+ + | Care Structural Biologist Name | Role | Phone | + +------+ + | Jack Durand DO | PCP | | + +------+ + Reason for Visit + + + | Reason | Comments | + + + | Medication Refill | | + + + Encounter Details +--------+--------+ + + + | Date | Type | Department | Care Team | Description | +--------+--------+ + + + | 06/29/ | Refill | [facility] | Krys, | Medication Refill | | 2019 | | [facility] | Bart Cade MD [address] | | | | | [facility] [address] [place] | | | | | [address] [place] | [place] [address] | | | | | [place] [address] | [phone] | | | | | [phone] | | | +--------+--------+ + + + [...] on fileas of this encounter Visit Diagnoses + + | Diagnosis | + + | Malignant neoplasm of lung, unspecified laterality, unspecified part of lung (HCC) - | | Primary | + +"
--- OUTSIDE RECORDS SUMMARY | ~2018-08-05 | XMS | Encounter Summary ---
Demographics + + + | Address | [address] | | | [place] [address] | + + + | Home Phone | | + + + | Preferred Language | Unknown | + + + | Marital Status | Single | + + + | Restoration Affiliation | 1061 | + + + | Race | Unknown | + + + | Ethnic Group | Unknown | + + + Author + + + | Author | [facility] | + + + | Organization | [facility] | + + + | Address | Unknown | + + + | Phone | Unavailable | + + + Support + + + + + | Name | Relationship | Address | Phone | + + + + + | Sole Gleason | ECON | [place] | | | | | [address] | | + + + + + | Sruthi Gleason | ECON | [place] | | | | | [address] | | + + + + + Care Team Providers + +------+ + | Care Manager Er Name | Role | Phone | + +------+ + | None, Per Pt | PCP | 000-0000 | + +------+ + Reason for Visit +--------+ + | Reason | Comments | +--------+ + | Other | HFU | +--------+ + Encounter Details +--------+ + + + + | Date | Type | Department | Care Team | Description | +--------+ + + + + | 07/28/ | Telephone | [facility] | Coby Weiner, | Other (HFU) | | 2018 | | Nephrology [address] | RN | | | | | [facility] | | | | | | [place] | | | | | | [address] | | | | | | [phone] | | | +--------+ + + + [...]
--- OUTSIDE RECORDS SUMMARY | ~2018-08-05 | XMS | Encounter Summary ---
Demographics + + + | Address | [address] | | | [place] [address] | + + + | Home Phone | | + + + | Preferred Language | Unknown | + + + | Marital Status | Single | + + + | Adventism Affiliation | 1061 | + + + | Race | Unknown | + + + | Ethnic Group | Unknown | + + + Author + + + | Author | [facility] | + + + | Organization | [facility] | + + + | Address | Unknown | + + + | Phone | Unavailable | + + + Support + + + + + | Name | Relationship | Address | Phone | + + + + + | Sole Gleason | ECON | [place] | | | | | [address] | | + + + + + | Sruthi Gleason | ECON | [place] | | | | | [address] | | + + + + + Care Team Providers + +------+ + | Care Registered Nurse Cardiac Telemetry Name | Role | Phone | + +------+ + | None, Per Pt | PCP | 000-0000 | + +------+ + Encounter Details +--------+ + + + + | Date | Type | Department | Care Team | Description | +--------+ + + + + | 05/13/ | Telephone | [facility] | Romelia Paula, | | | 2017 | | Vascular Surgery | [place] | | | | | [address] | | | | | | [place] | | | | | | [address] | | | | | | [phone] | | | +--------+ + + + [...] | | + +--------+ + + | US hemodialysis access fistula or | Routin | AVF (arteriovenous | Expected: 05/20/2018 | | graft | e | fistula) (HCC) | (Approximate), | | | | | Expires: 05/13/2019 | + +--------+ + + as of this encounter Visit Diagnoses + + | Diagnosis | + + | AVF (arteriovenous fistula) (HCC) - Primary | + + | Arteriovenous fistula, acquired | + +"
--- OUTSIDE RECORDS SUMMARY | ~2018-08-05 | XMS | Encounter Summary ---
Demographics + + + | Address | [address] | | | [place] [address] | + + + | Home Phone | | + + + | Preferred Language | Unknown | + + + | Marital Status | | + + + | Jainism Affiliation | 1061 | + + + | Race | Unknown | + + + | Ethnic Group | Unknown | + + + Author + + + | Author | [facility] | | | and [place] | + + + | Organization | [facility] | | | and [place] | + + + | Address | Unknown | + + + | Phone | Unavailable | + + + Support + + + + + | Name | Relationship | Address | Phone | + + + + + | Sole Gleason | ECON | [place] | | | | | [address] | | + + + + + | Sruthi Gleason | ECON | [place] | | | | | [address] | | + + + + + | Sole Gleason | ECON | [place] | | | | | [address] | | + + + + + Care Team Providers + +------+ + | Care Dump Grounds Checker Name | Role | Phone | + +------+ + | Jack Durand DO | PCP | | + +------+ + Encounter Details +--------+ + + + + | Date | Type | Department | Care Team | Description | +--------+ + + + + | 07/06/ | Documentati | [facility] [place] | Marcie Nelson | | | 2019 | on | NEPHROLOGY [address] | M, DO [address] | | | | | [address] | [place] | | | | | [place], [place] | [place] | | | | | [address] | [address] | | | | | [phone] | | | +--------+ + + + [...] + + + as of this encounter Progress Notes Katina Arvizu - 07/06/2018 0910 [facility] emergency room progress note, do s: 06-30-2018. Sent to scan.in this encounter Plan of Treatment Not on fileas of this encounter Visit Diagnoses Not on filein this encounter"
--- OUTSIDE RECORDS SUMMARY | ~2018-08-05 | XMS | Clinical Summary ---
Demographics + + + | Address | [address] | | | [place] [address] | + + + | Home Phone [...] Author + + + | Author | [facility] | + + + | Organization | [facility] | + + + | Address | Unknown | + + + | Phone | Unavailable | + + + Support + + + + + | Name | Relationship | Address | Phone | + + + + + | Sole Gleason | ECON | [place] | | | | | [phone] | | + + + + + | Sruthi Gleason | ECON | [place] | | | | | [phone] | | + + + + + Care Team Providers + +------+ + | Care Therapeutic Radiologist Name | Role | Phone | + +------+ + | None, Per Pt | PP | [phone] | + +------+ + Allergies No Known Allergies Current Medications + + + +---------+------+------+-------+ | Prescription | Sig. | Disp. | Refills | Star | End | Statu | | | | | | t | Date | s | | | | | | Date | | | + + + +---------+------+------+-------+ | B-D INS SYRINGE | | | | 07/1 | | Activ | | 0.5CC/30GX1/2" 30G X | | | | 3/20 | | e | | 1/2" 0.5 [...] by mouth 2 | | 5 | 09/ | | Activ | | (ZOFRAN) 8 [...] 80 MG tablet | | | | 07/08 | | e | | | | | | 18 | | | + + + +---------+------+------+-------+ | lisinopril | Take 10 mg by mouth. | | | 01/17 | | Activ | | (ZESTRIL) 10 MG | | | | 2/20 | | e | | tablet | | | | 18 | | | + + + +---------+------+------+-------+ | B Svqeyhu-E-Axgfw | Take 1 tablet by | | | 01/17 | | Activ | | Acid (DIALYVITE | mouth. | | | 08/05 | | e | | TABLET) TABS | | | | 18 | | | + + + +---------+------+------+-------+ | VELPHORO 500 MG | | | | 11/1 | | Activ | | chewable tablet | | | | 8/20 | | e | | | | | | 18 | | | + + + +---------+------+------+-------+ | Cholecalciferol | Take 1,000 Units by | | | | | Activ | | 1000 units capsule | mouth daily. | | | | | e | + + + +---------+------+------+-------+ | | Inhale 2 puffs into | 1 | 1 | 11/2 | 11/2 | Activ | | budesonide-formotero | the [...] | | | | | labs to [phone] | | | | | | + + + +---------+------+------+-------+ | nicotine (NICODERM | Place 1 patch onto | 28 | 0 | 03/0 | 04/0 | Activ | | CQ) 21 MG/24HR | the skin daily for | patch | | 01/05 | 12/05 | e | | | 30 days. | | | 19 | 19 | | + + + +---------+------+------+-------+ | dexamethasone | Take 4 mg by mouth 2 | | | 02/16 | 03/0 | Disco | | (DECADRON) 4 MG | (two) times daily. | | | 01/05 | 11/05 | ntinu | | tablet | | | | 17 | 19 | ed | + + + +---------+------+------+-------+ | oxycodone 20 MG | Take 0.5 tablets by | 28 each | 0 | 10/2 | 03/0 | Disco | | immediate release | mouth every 6 (six) | | | 1/20 | 7/20 | ntinu | | tablet | hours as needed. | | | 17 | 19 | ed | + + + +---------+------+------+-------+ | | Take 1 tablet by | 14 | 0 | 10/2 | 03/0 | Disco | | amoxicillin-clavulan | mouth 2 (two) times | tablet | | 1/20 | 7/20 | ntinu | | ate (AUGMENTIN) | daily. | | | 17 | 19 | ed | | 875-125 MG per | | | | | | | | tablet | | | | | | | + + + +---------+------+------+-------+ | NIFEdipine (ADALAT | Take 1 tablet by | 30 | 11 | 10/2 | 03/0 | Disco | | CC) 60 MG 24 hr | mouth daily. | tablet | | 1/20 | 7/20 | ntinu | | tablet | | | | 17 | 19 | ed | + + + +---------+------+------+-------+ | buprenorphine HCl | buprenorphine HCl 8 | | | | 03/0 | Disco | | 8 MG SUBL | mg sublingual tablet | | | | 7/20 | ntinu | | | | | | | 19 | ed | + + + +---------+------+------+-------+ | doxycycline | doxycycline | | | | 03/0 | Disco | | (MONODOX) 100 MG | monohydrate 100 mg | | | | 7/20 | ntinu | | capsule | capsule | | | | 19 | ed | + + + +---------+------+------+-------+ | furosemide (LASIX) | furosemide 20 mg | | | | 03/0 | Disco | | 20 MG tablet | tablet | | | | 6/20 | ntinu | | | | | | | 19 | ed | + + + +---------+------+------+-------+ | | Mavyret 100 mg-40 mg | | | | 03/0 | Disco | | Glecaprevir-Pibrenta | tablet | | | | 7/20 | ntinu | | svir (MAVYRET) | | | | | 19 | ed | | 100-40 MG TABS | | | | | | | + + + +---------+------+------+-------+ | | Inhale 2 puffs into | 1 | 0 | 11/2 | 03/0 | Disco | | budesonide-formotero | the lungs 2 (two) | Inhaler | | 2/20 | 6/20 | ntinu | | l (SYMBICORT) 80-4.5 | times daily. | | | 18 | 19 | ed | | MCG/ACT inhaler | | | | | | | + + + +---------+------+------+-------+ | oxyCODONE 10 MG | Take 1 tablet by | 30 | 0 | 12/1 | 03/0 | Disco | | tablet | mouth every 6 (six) | tablet | | 3/20 | 7/20 | ntinu | | | hours as needed for | | | 18 | 19 | ed | | | Pain. | | | | | | + [...] | ESRD (end stage renal disease) (HCC) | 04/06/2018 | + + + | Anemia | 04/06/2018 | + + + | Heroin abuse ([facility]) | 04/06/2018 | + + + | Medical non-compliance | 04/06/2018 | + + + | COPD (chronic obstructive pulmonary disease) ([facility]) | 04/06/2018 | + + + | Chronic pain syndrome | 03/06/2017 | + + + | Aspiration pneumonia ([facility]) | 03/06/2017 | + + + | [...] & Plan: Will refer patient to [facility] for | | eval and treat [...] Last Assessment & Plan: Treatment per Dr Cook. | + + [...] + + | 07/28/ | Telephone | | Coby Weiner, | Other (HFU) | | 2019 | | | RN | | +--------+ + + + + | 07/22/ | Procedure | | | | | 2019 | Pass | | | | +--------+ + + + + | 07/20/ | Hospital | | Abel Worrell DO | Sepsis, due to | | 2019 - | Encounter | | Pankaj, | unspecified organism | | | | | MD Naeem | ([facility]) (Primary Dx); | | 07/23/ | | | Saira Marquis MD | ESRD (end stage | | 2018 | | | | renal disease) | | | | | | ([facility]); Anemia, | | | | | | unspecified type; | | | | | | Chronic obstructive | | | | | | pulmonary disease, | | | | | | unspecified COPD | | | | | | type (HCC); Heroin | | | | | | abuse (HCC) | +--------+ + + + + +---+ + | | Discharge | | | Summaries | | | - Benitez, | | | Saira Lozano MD | | | - | | | 07/23/2018 | | | 1:25 PM | | | PST | | | Formatting | | | of this | | | note may be | | | different | | | from the | | | original.[facility] | | [facility] | | | ce: | | | Hospitalist | | | Physician | | | Discharge | | | Summary | | | Patient | | | ID:Shahbaz | | | [place] | | | [place] | | | : | | | [id number]/ | | | | | | y.o.Admit | | | date: | | | 07/20/2018Dis | | | charge | | | date: | | | 07/23/18Admit | | | ting | | | Physician: | | | Naeem | | | Christina | | | MD ephraim | | | Discharge | | | Physician: | | | Saira | | | Benitez, | | | MDConsultan | | | ts: | | | Treatment | | | Team: | | | Consulting | | | Physician: | | | Lior | | | Dm, | | | MDConsultin | | | g | | | Physician: | | | Tammy | | | Jake, | | | DOConsultin | | | g | | | Physician: | | | Michael Haas, | | | | | | MDAdmitting | | | Provider: | | | Naeem | | | [facility] | | | z, | | | MDPrimary | | | Discharge | | | Diagnoses: | | | Principal | | | Problem: | | | Parainfluen | | | zaActive | | | Problems: | | | Hypertensio | | | n Opiate | | | addiction | | | Lung cancer | | | (HCC) | | | COPD | | | (chronic | | | obstructive | | | pulmonary | | | disease) | | | (HCC) ESRD | | | (end stage | | | renal | | | disease) | | | (HCC) | | | Heroin | | | abuse (HCC) | | | Medical | | | non-complia | | | nceHPI and | | | Hospital | | | Course: Dr. | | | | | | [facility] | | | z: The | | | patient is | | | 62 | | | y.o. male | | | with | | | significant | | | past | | | medical | | | history of | | | IV drug | | | abuse, | | | hepatitis | | | C, medical | | | noncomplian | | | ce lung | | | cancer, | | | hypertensio | | | n, ESRD on | | | | | | hemodialysi | | | s, COPD, | | | DM, | | | diabetic | | | neuropathy | | | who | | | presents | | | with | | | dyspnea/tra | | | nsfer from | | | [facility] | | | due to | | | concerns | | | for sepsis | | | and acute | | | on chronic | | | respiratory | | | | | | failureLimi | | | wale | | | history. | | | Patient not | | | able to | | | respond to | | | verbal or | | | painful | | | stimuli. | | | Family at | | | bedside who | | | are | | | helping.Pat | | | ient with a | | | | | | complicated | | | history, | | | apparently, | | | 2 weeks | | | ago he was | | | diagnosed | | | with | | | bacteremia | | | that was | | | thought to | | | be related | | | to his | | | chemotherap | | | y port. It | | | was | | | discontinue | | | d and | | | antibiotic | | | therapy was | | | given | | | with/after | | | dialysis. | | | Subsequentl | | | y, due to | | | worsening | | | back pain, | | | he was seen | | | at [facility] | | | and? | | | vertrbal | | | osteomyelit | | | is versus | | | epidural | | | abscess was | | | diagnosed. | | | Initially, | | | they were | | | thinking | | | about | | | transferrin | | | g the | | | patient to | | | [facility] | | | but, at the | | | end, it | | | was decided | | | by patient | | | and family | | | to receive | | | | | | conservativ | | | e | | | management | | | only.In the | | | last 3 | | | days, the | | | patient has | | | become | | | increasingl | | | y weak, | | | falling and | | | breaking | | | right side | | | ribs. | | | Today, he | | | was found | | | confused, | | | not making | | | sense, and | | | a | | | subsequent | | | decrease in | | | mental | | | status to | | | the point | | | that, right | | | now, he is | | | not able | | | to respond | | | to verbal | | | or tactile | | | stimuli. | | | Positive | | | chills but | | | no | | | objective | | | fever at | | | home. | | | Family | | | denies any | | | new | | | abdominal | | | pain, | | | nausea, | | | vomiting or | | | | | | diarrhea.Fa | | | kita and | | | patient are | | | quite | | | consistent | | | with their | | | desires, | | | which are | | | congruent | | | with | | | paperwork | | | signed by | | | the | | | patient; | | | requesting | | | that the | | | patient is | | | DNR/DNI, | | | limited | | | interventio | | | n, i.e, | | | fluids, | | | antibiotics | | | but no | | | intensive | | | care unit, | | | pressors, | | | intubation, | | | CPR or | | | surgical | | | interventio | | | n. They are | | | clear that | | | they just | | | want a | | | trial of | | | fluids and | | | antibiotics | | | at this | | | point. 3/7 | | | /19 For | | | DischargePa | | | tient | | | admitted | | | for:Patient | | | is 62 y.o. | | | male with | | | | | | significant | | | past | | | medical | | | history of | | | IV drug | | | abuse, lung | | | cancer, | | | hypertensio | | | n, ESRD, | | | COPD, DM, | | | diabetic | | | neuropathy | | | who | | | presents | | | with | | | dyspnea/tra | | | nsfer from | | | [facility] | | | due to | | | concerns | | | for sepsis | | | and acute | | | on chronic | | | respiratory | | | failure. | | | Patient's | | | hemodynamic | | | s | | | stabilized | | | after 500 | | | cc of | | | fluids-CT | | | chest ([facility]p | | | ortal | | | visualizati | | | on. No | | | significant | | | change in | | | the | | | mediastinal | | | and right | | | hilar | | | adenopathy. | | | At least 2 | | | new | | | spiculated | | | nodules in | | | the left | | | lung.Inters | | | titial | | | thickening | | | in both | | | lungs. | | | fractures | | | in the | | | right | | | glenoid, | | | left 7 and | | | eighth | | | ribs, and | | | L1 | | | vertebra, | | | consistent | | | with | | | metastatic | | | disease. | | | Patient's | | | oncologist | | | is DrZainab | | | [place] | | | [place] He | | | has | | | appointment | | | in the | | | upcoming | | | week. -Par | | | ainfluenza | | | Virus with | | | cough and | | | Somnolence. | | | Sepsis | | | ruled | | | out-Complic | | | ated by | | | narcotic | | | drug | | | use--see | | | below for | | | explanation | | | .-Complicat | | | ed history | | | patient was | | | recently | | | found to | | | have | | | bacteremia | | | Lumbar | | | epidural | | | abscess, | | | seen by | | | [facility] who | | | manages | | | patient's | | | IV | | | Vancomycin. | | | -MRI | | | showed | | | continued | | | abscess, | | | therefore | | | Dr. Haas | | | will | | | continue | | | Vanc.-UA, | | | urine | | | culture, | | | BCx 2-MRSA | | | by PCR, | | | sputum | | | studies.-Re | | | spiratory | | | filmarray | | | showed | | | Resp. | | | Syncytial | | | Virus-Lacti | | | c acid | | | level--norm | | | alized-02 | | | sats upper | | | 90's--no | | | pna noted. | | | Somnolence | | | most | | | likely due | | | to narcotic | | | drug use. | | | Patient | | | became A&O | | | within 24 | | | or less | | | hours. He | | | remained | | | Afebrile. | | | Atrial | | | Fibrillatio | | | n with | | | RVRNow in | | | sinus | | | rhythm.No | | | CP, | | | dizziness, | | | or SOB | | | associatedT | | | rop slighly | | | elevated | | | but trended | | | down--most | | | likely due | | | to | | | tacycardia. | | | Last echo | | | 2017 showed | | | preserved | | | left | | | ventricular | | | | | | EF. Lung | | | cancer | | | stage IV. | | | With | | | worsening | | | metastasis, | | | per last | | | CT | | | scanMonitor | | | Patient has | | | upcoming | | | appointment | | | with Dr. | | | Krys | | | Acute on | | | chronic | | | hypoxic | | | respiratory | | | failure. | | | Initially-- | | | 02 sats | | | upper 90's. | | | Most | | | likely | | | secondary | | | to narcotic | | | pain | | | medication | | | COPD, | | | Chronic, | | | not in | | | acute | | | exacerbatio | | | nMonitored | | | ESRD on | | | HD. TIW in | | | [place] | | | [place] | | | logy | | | consulted | | | DM 2SSI | | | Insulin hx | | | of IV | | | heroine | | | abuse and | | | prescriptio | | | n pain | | | medicationP | | | atient has | | | received | | | narcotics | | | and benzos | | | from | | | numerous | | | physicans. | | | He states | | | he receives | | | Oxycontin | | | from Dr. | | | Quakenbush, | | | | | | oncologist, | | | but adds | | | that he may | | | have | | | manipulated | | | him to | | | give him | | | more than | | | needed and | | | as a | | | result, he | | | is not sure | | | he would | | | be welcomed | | | back to | | | his office. | | | His POA | | | stated that | | | in | | | addition to | | | the | | | Oxycontin, | | | he takes | | | Oxycodone | | | 20 mg, 5 | | | tabs q 4-6 | | | hours, PRN, | | | and | | | Oxycodone | | | 10 mg q | | | four hours | | | prn. | | | Patient is | | | uncertain | | | how much | | | oxycodone | | | he takes, | | | however, | | | family | | | member at | | | bedside | | | states he | | | only takes | | | what is | | | prescribed | | | and it is | | | given to | | | him by his | | | POA. It is | | | strongly | | | recommended | | | that | | | patient | | | receives | | | pain | | | medications | | | and benzos | | | from only | | | ONE | | | physician. | | | Hx of | | | hepatitis | | | CMonitor | | | All | | | questions | | | were | | | answered | | | for patient | | | who agreed | | | to plan. | | | Discharged | | | in stable, | | | but guarded | | | | | | condition.P | | | ast Medical | | | History: | | | Past | | | Medical | | | History | | | Diagnosis | | | Date | | | | | | Arthralgia | | | | | | Chronic | | | kidney | | | disease | | | Chronic | | | obstructive | | | pulmonary | | | disease | | | (HCC) | | | Diabetes | | | mellitus | | | type II | | | Diabetic | | | neuropathy | | | (HCC) | | | ESRD (end | | | stage | | | renal | | | disease) | | | (HCC) | | | Hepatitis | | | C | | | Heroin | | | abuse (HCC) | | | | | | | | | Hypertensio | | | n | | | Lung | | | cancer | | | (HCC) | | | Malignant | | | neoplasm | | | (HCC) | | | | | | 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) | | | | | | | | | Osteoarthri | | | tis | | | | | | Osteochondr | | | itis | | | Other | | | chronic | | | pain Past | | | Surgical | | | History | | | Procedure | | | Laterality | | | Date | | | | | | ADENOIDECTO | | | MY | | | AV | | | FISTULA | | | PLACEMENT | | | Right | | | 04/30/2018 | | | Procedure: | | | AV | | | FISTULA; | | | Surgeon: | | | Dallas Jye | | | Poi, MD; | | | Location: | | | [facility] | | | OR; | | | Service: | | | Vascular; | | | Laterality: | | | Right; | | | | | | COLONOSCOPY | | | | | | HARDWARE | | | PRESENT | | | | | | KNEE | | | SURGERY | | | for | | | osteochondr | | | clary | | | MEDIPORT | | | INSERTION, | | | SINGLE | | | UNLISTED | | | PROCEDURE | | | ARTHROSCOPY | | | | | | Discharged | | | Condition: | | | Stable for | | | discharge | | | as stated | | | above.Signi | | | ficant | | | Diagnostic | | | Studies:Mri | | | Lumbar | | | Spine | | | Without | | | ContrastRes | | | ult Date: | | | . | | | New disc | | | space | | | narrowing | | | with | | | increased | | | disc T2 | | | signal and | | | irregularit | | | y at L1-2. | | | Adjacent | | | abnormal | | | increased | | | marrow | | | endplate | | | signal. | | | Findings | | | highly | | | suspicious | | | for L1-2 | | | discitis/os | | | teomyelitis | | | . 2. | | | Progressive | | | disc space | | | narrowing | | | with | | | residual | | | increased | | | disc level | | | signal at | | | L2-3 since | | | 06/13/2018. | | | Residual | | | or | | | recurrent | | | discitis | | | not | | | excluded. | | | 3. There is | | | a new | | | anterior | | | wedge | | | deformity | | | at the | | | level of L2 | | | suggestive | | | of new | | | compression | | | fracture. | | | 4. | | | Increased | | | signal | | | within the | | | right | | | aspect of | | | the L4-5 | | | disc. | | | Early | | | discitis | | | not | | | excluded. | | | 5. There is | | | no | | | evidence of | | | an | | | epidural | | | abscess. 6. | | | The degree | | | of edema | | | and abscess | | | formation | | | within the | | | psoas | | | musculature | | | | | | bilaterally | | | is reduced | | | from prior | | | study. 7. | | | Multilevel | | | degenerativ | | | e disc | | | disease is | | | present | | | with | | | potential | | | impingement | | | of the | | | left L1, | | | bilateral | | | L2, left | | | L3, right | | | L4, | | | bilateral | | | L5 and left | | | S1 nerve | | | root. | | | Dictated | | | by: Madalyn, | | | Norman | | | Signed by: | | | Velasco, | | | Tremaine | | | Sign | | | Date/Time: | | | 07/23/2018 | | | 8:12 AM The | | | | | | radiologist | | | has | | | reviewed | | | the images | | | and | | | edited/appr | | | beena the | | | report. For | | | | | | interventio | | | nal | | | procedures, | | | the | | | signing | | | radiologist | | | was | | | present for | | | the nowak | | | portions of | | | the exam. | | | X-ray Chest | | | 1 | | | ViewResult | | | Date: | | | . | | | Worsening | | | aeration of | | | the right | | | lung which | | | may be | | | secondary | | | to | | | pulmonary | | | edema or | | | pneumonia. | | | 2. Small | | | bilateral | | | pleural | | | effusions. | | | Signed by: | | | Parvin, Jayy | | | Sign | | | Date/Time: | | | 07/22/2018 | | | 7:28 AMEcho | | | Cardiac | | | Adult | | | CompleteRes | | | ult Date: | | | . | | | Indication | | | for study | | | and thus | | | clinical | | | question is | | | unknown. | | | Results as | | | below.Disch | | | arge | | | Vitals:Harmony | | | ls: | | | 07/23/18 | | | 1100 | | | 07/23/18 | | | 1115 | | | 07/23/18 | | | 1125 | | | 07/23/18 | | | 1135 BP: | | | 150/66 | | | 150/73 | | | 175/69 | | | 167/70 BP | | | Location: | | | Left | | | forearm | | | Pulse: 84 | | | 84 77 84 | | | Resp: 18 | | | Temp: | | | 97.7 F | | | (36.5 C) | | | TempSrc: | | | Oral SpO2: | | | 99% 98% | | | 98% 98% | | | Weight: | | | 87.6 kg | | | (193 lb 2 | | | oz) | | | Height: | | | Discharge | | | Exam:Genera | | | l: Well | | | nourished.P | | | sych: | | | Alert and | | | oriented x | | | 3. Calm, | | | cooperative | | | .Cardiovasc | | | ular: | | | Regular | | | rate and | | | rhythm, no | | | murmurs, no | | | thrills. | | | Normal | | | PMI.Respira | | | tory: Clear | | | to | | | auscultatio | | | n, no | | | wheezing or | | | crackles, | | | breathing | | | non | | | labored.Gas | | | trointestin | | | al: Soft, | | | non-tender, | | | | | | non-distend | | | ed, | | | positive | | | bowel | | | sounds. No | | | HSM.Musculo | | | skeletal: | | | No edema in | | | bilateral | | | lower | | | extremities | | | . No joint | | | swelling.Sk | | | in: Warm | | | and dry, no | | | | | | rashes.Neck | | | : No JVD, | | | Trachea | | | midline.Jessica | | | rological: | | | Non focal. | | | Motor | | | grossly | | | intact.LABS | | | : Recent | | | LabsLab | | | | | | 4 | | | | | | 5 | | | | | | 5 WBC 10.57 | | | 17.21* | | | 15.60* RBC | | | 3.16* 3.05* | | | 3.13* HGB | | | 8.6* 8.3* | | | 8.5* HCT | | | 27.3* 26.3* | | | 27.2* MCV | | | 86.4 86.3 | | | 86.8 MCH | | | 27.3 27.1 | | | 27.1 MCHC | | | 31.6* 31.4* | | | 31.2* RDW | | | 48.6 46.8 | | | 50.3 PLT | | | 304 307 240 | | | MPV 7.8 | | | 7.5 7.0 | | | DIFFTYPE | | | AUTOMATED | | | AUTOMATED | | | AUTOMATED | | | Recent | | | LabsLab | | | | | | 4 | | | | | | 9 | | | | | | 5 | | | | | | 5 NA 136 | | | 140 139 143 | | | K 4.4 4.8 | | | 5.5* 5.7* | | | CL 99 100 | | | 101 103 CO2 | | | 28 26 25 | | | 26 BUN 47* | | | 38* 63* 57* | | | CREATININE | | | 5.9* 5.60* | | | 8.6* 7.65* | | | PROT 7.2 | | | -- 7.0 6.4 | | | BILITOT | | | 0.3 -- | | | 0.5 <0.2 | | | ALT 12 -- | | | 14 15 AST | | | 20 -- 31 | | | 36 GLUF | | | 111* 189* | | | 117* 153* | | | Recent | | | LabsLab | | | 75 | | | 0 | | | 20 | | | 9 | | | 52 | | | 9 | | | | | | 5 CKTOTAL | | | -- -- | | | -- 63 | | | TROPONINI | | | 0.053* | | | 0.053* | | | 0.059* -- | | | CKMBINDEX | | | -- -- | | | -- 2.9 No | | | results | | | for | | | input(s): | | | PHOS in the | | | last 168 | | | hours. | | | Recent | | | LabsLab | | | 50 | | | 5 MG 2.4 | | | Invalid | | | input(s): | | | ABGDisposit | | | ion: Home | | | or Self | | | CareFollow | | | up:Per Pt | | | NoneFareed | | | Arif, MD[address] | | | [address] | | | [place] | | | [place] | | | [place] | | | [phone] | | [phone] | | | week | | | Medication | | | List START | | | taking | | | these | | | medications | | | nicotine | | | 21 | | | MG/24HRQTY: | | | 28 | | | patchRefill | | | s: | | | 0Commonly | | | known as: | | | NICODERM | | | CQPlace 1 | | | patch onto | | | the skin | | | daily for | | | 30 | | | days.Start | | | taking on: | | | 07/24/2018 | | | vancomycin | | | 1000 mg | | | injectionQT | | | Y: 7 | | | eachRefills | | | : | | | 3Commonly | | | known as: | | | [id number] | | | 0 mg after | | | each | | | hemodialysi | | | s unitl | | | 08/23/18 [facility] | | | cmp esr crp | | | q | | | [place] | | | Vancomycin | | | trough q | | | Romel | | | Follow up | | | with DR. | | | Waldo in 1 | | | weeks | | | Please call | | | [phone] to | | | schedule | | | follow up | | | Please fax | | | all labs to | | | | | | [phone] | | | 1 CHANGE | | | how you | | | take these | | | medications | | | OxyCODONE | | | 40 MG 12 | | | hr | | | tabletRefil | | | ls: | | | 0Commonly | | | known as: | | | oxyCONTINWh | | | at changed: | | | Another | | | medication | | | with the | | | same name | | | was | | | removed. | | | Continue | | | taking this | | | | | | medication, | | | and follow | | | the | | | directions | | | you see | | | here. | | | CONTINUE | | | taking | | | these | | | medications | | | BD | | | Insulin | | | Syringe U/F | | | 30G X 1/2" | | | 0.5 ML | | | MiscRefills | | | : 0Generic | | | drug: | | | Insulin | | | Syringe-Nee | | | dle U-100 | | | budesonide- | | | formoterol | | | 80-4.5 | | | MCG/ACT | | | inhalerQTY: | | | 1 | | | InhalerRefi | | | lls: | | | 1Commonly | | | known as: | | | SYMBICORTIn | | | rodriguez 2 | | | puffs into | | | the lungs 2 | | | (two) | | | times | | | daily. | | | Cholecalcif | | | johnson 1000 | | | units | | | capsuleRefi | | | lls: 0 | | | DIALYVITE | | | TABLET | | | TabsRefills | | | : 0 | | | Doxercalcif | | | johnson 2 | | | MCG/ML | | | SolnRefills | | | : 0 | | | DULoxetine | | | [address] | | | capsuleRefi | | | lls: | | | 0Commonly | | | known as: | | | CYMBALTA | | | furosemide | | | 80 MG | | | tabletRefil | | | ls: | | | 0Commonly | | | known as: | | | LASIX | | | gabapentin | | | 800 MG | | | tabletRefil | | | ls: | | | 12Commonly | | | known as: | | | NEURONTIN | | | insulin | | | glargine | | | 100 UNIT/ML | | | | | | injectionQT | | | Y: 10 | | | mLRefills: | | | 12Commonly | | | known as: | | | | | | LANTUSInjec | | | t 30 Units | | | into the | | | skin | | | nightly. | | | lansoprazol | | | e 30 MG | | | capsuleRefi | | | lls: | | | 0Commonly | | | known as: | | | PREVACID | | | lisinopril | | | 10 MG | | | tabletRefil | | | ls: | | | 0Commonly | | | known as: | | | ZESTRIL | | | LORazepam | | | 0.5 MG | | | tabletRefil | | | ls: | | | 4Commonly | | | known as: | | | ATIVAN | | | ondansetron | | | 8 MG | | | tabletRefil | | | ls: | | | 5Commonly | | | known as: | | | ZOFRAN | | | sertraline | | | 50 MG | | | tabletRefil | | | ls: | | | 11Commonly | | | known as: | | | ZOLOFT | | | sevelamer | | | 800 MG | | | tabletRefil | | | ls: | | | 0Commonly | | | known as: | | | RENVELA | | | VELPHORO | | | 500 MG | | | chewable | | | tabletRefil | | | ls: | | | 0Generic | | | drug: | | | sucroferric | | | | | | oxyhydroxid | | | e You | | | might also | | | be taking | | | other | | | medications | | | not listed | | | above. If | | | you have | | | questions | | | about any | | | of your | | | other | | | medications | | | , talk to | | | the person | | | who | | | prescribed | | | them or | | | your | | | Primary | | | Care | | | Provider. | | | STOP | | | taking | | | these | | | medications | | | | | | amoxicillin | | | -clavulanat | | | e 875-125 | | | MG per | | | tabletCommo | | | nly known | | | as: | | | AUGMENTIN | | | buprenorphi | | | ne HCl 8 MG | | | Subl | | | doxycycline | | | 100 MG | | | capsuleComm | | | only known | | | as: | | | MONODOX | | | MAVYRET | | | 100-40 MG | | | TabsGeneric | | | drug: | | | Glecaprevir | | | -Pibrentasv | | | ir | | | NIFEdipine | | | 60 MG 24 hr | | | | | | tabletCommo | | | nly known | | | as: ADALAT | | | CC Where | | | to Get | | | Your | | | Medications | | | These | | | medications | | | were sent | | | to [facility] | | | #[phone] - | | | [place], | | | [place] - [address] | | [address], | | | [place] | | | [place] [address] | | | Phone: | | | [phone] | | | [phone] | | | nicotine 21 | | | MG/24HR | | | You can get | | | these | | | medications | | | from any | | | pharmacy | | | Bring a | | | paper | | | prescriptio | | | n for each | | | of these | | | medications | | | | | | vancomycin | | | 1000 mg | | | injection | | | Saira | | | Marquis, | | | MD07/23/2018 | | | 1:29 | | | PMDischarge | | | took >30 | | | minutes, to | | | include | | | final | | | examination | | | , | | | discussion | | | of | | | admission, | | | and | | | preparation | | | of | | | prescriptio | | | ns, | | | instruction | | | s for | | | ongoing | | | care, | | | follow up | | | and | | | dictation | | | of summary. | | | Discharge | | | Summaries | | | - | | | Peter, | | | David C, RN | | | - | | | 07/23/2018 | | | 4:54 PM | | | PST Pt | | | administere | | | d pain | | | medication | | | for pain | | | prior to | | | dishcarge; | | | VSS, | | | central | | | line | | | removed | | | prior to | | | discharge; | | | discharge | | | instruction | | | s and | | | prescriptio | | | ns handed | | | to | | | daughter; | | | pt taken to | | | daughter | | | POV by | | | escort | | | services. | | | David C | | | Peter, | | | RN | +---+ + +--------+ +---+ +---+ | 06/15/ | Telephone | | Romelia Paula, | | | 2018 | | | [place] | | +--------+ +---+ +---+ | 05/13/ | Telephone | | Romelia Paula, | | | 2017 | | | [place] | | +--------+ +---+ +---+ from Last 3 Months Immunizations + + [...] + + + | Blood Pressure | 167/70 | 07/23/2018 11:35 AM PST | + + + + | Pulse | 80 | 07/23/2018 3:32 PM PST | + + + + | Temperature | 36.5 C (97.7 F) | 07/23/2018 11:35 AM PST | + + + + | Respiratory Rate | 16 | 07/23/2018 3:32 PM PST | + + + + | Oxygen Saturation | 100% | 07/23/2018 3:32 PM PST | + + + + | Inhaled Oxygen | - | - | | Concentration | | | + + + + | Weight | 87.6 kg (193 lb 2 | 07/23/2018 11:25 AM PST | | | oz) | | + + + + | Height | 177.8 cm (5' 10") | 07/20/2018 10:02 PM PST | + + + + | Body Mass Index | 27.71 | 07/23/2018 11:25 AM PST | + + + + Plan of [...] | 03/07/2017 | | | (#1) | 8 | | | + + + + + | Hemoglobin A1c | | 07/21/2018 | | | | 9 | | | + + + + + Procedures + +--------+ + + + | Procedure Name | Priori | Date/Time | Associated Diagnosis | Comments | | | ty | | | | + +--------+ + + + | POCT GLUCOSE | Routin | 07/23/2018 | | Results for this | | | e | 4:26 PM | | procedure are in the | | | | PST | | results section. | + +--------+ + + + | POCT GLUCOSE | Routin | 07/23/2018 | | Results for this | | | e | 12:06 PM | | procedure are in the | | | | PST | | results section. | + +--------+ + + + | PROCALCITONIN | Routin | 07/23/2018 | | Results for this | | | e - AM | 7:24 AM | | procedure are in the | | | | PST | | results section. | + +--------+ + + + | SEDIMENTATION RATE, | Routin | 07/23/2018 | | Results for this | | AUTOMATED | e - AM | 7:24 AM | | procedure are in the | | | | PST | | results section. | + +--------+ + + + | C-REACTIVE PROTEIN | Routin | 07/23/2018 | | Results for this | | | e - AM | 7:24 AM | | procedure are in the | | | | PST | | results section. | + +--------+ + + + | COMPREHENSIVE | Routin | 07/23/2018 | | Results for this | | METABOLIC PANEL | e - AM | 7:24 AM | | procedure are in the | | | | PST | | results section. | + +--------+ + + + | CBC W/AUTO DIFF | Routin | 07/23/2018 | | Results for this | | (REFLEX TO MANUAL) | e | 7:24 AM | | procedure are in the | | | | PST | | results section. | + +--------+ + + + | POCT GLUCOSE | Routin | 07/23/2018 | | Results for this | | | e | 5:30 AM | | procedure are in the | | | | PST | | results section. | + +--------+ + + + | MRI LUMBAR SPINE WO | Routin | 07/23/2018 | | Results for this | | CONTRAST | e | 2:14 AM | | procedure are in the | | | | PST | | results section. | + +--------+ + + + | POCT GLUCOSE | Routin | 07/22/2018 | | Results for this | | | e | 8:46 PM | | procedure are in the | | | | PST | | results section. | + +--------+ + + + | POCT GLUCOSE | Routin | 07/22/2018 | | Results for this | | | e | 7:11 PM | | procedure are in the | | | | PST | | results section. | + +--------+ + + + | TROPONIN I | Timed | 07/22/2018 | | Results for this | | | | 5:50 PM | | procedure are in the | | | | PST | | results section. | + +--------+ + + + | POCT GLUCOSE | Routin | 07/22/2018 | | Results for this | | | e | 4:52 PM | | procedure are in the | | | | PST | | results section. | + +--------+ + + + | ECHO CARDIAC ADULT | Routin | 07/22/2018 | | Results for this | | COMPLETE | e | 2:38 PM | | procedure are in the | | | | PST | | results section. | + +--------+ + + + | POCT GLUCOSE | Routin | 07/22/2018 | | Results for this | | | e | 1:00 PM | | procedure are in the | | | | PST | | results section. | + +--------+ + + + | TROPONIN I | Timed | 07/22/2018 | | Results for this | | | | 12:09 PM | | procedure are in the | | | | PST | | results section. | + +--------+ + + + | POCT GLUCOSE | Routin | 07/22/2018 | | Results for this | | | e | 11:27 AM | | procedure are in the | | | | PST | | results section. | + +--------+ + + + | XR CHEST 1 VIEW | STAT | 07/22/2018 | | Results for this | | | | 7:19 AM | | procedure are in the | | | | PST | | results section. | + +--------+ + + + | HC CENTRAL VENOUS | Routin | 07/22/2018 | Sepsis, due to | Results for this | | CATH INSERT 5YR+ | e | 7:15 AM | unspecified organism | procedure are in the | | | | PST | ([facility]) ESRD (end | results section. | | | | | stage renal disease) | | | | | | ([facility]) Heroin abuse | | | | | | ([facility]) | | + +--------+ + + + | POCT GLUCOSE | Routin | 07/22/2018 | | Results for this | | | e | 5:31 AM | | procedure are in the | | | | PST | | results section. | + +--------+ + + + | BASIC METABOLIC | STAT | 07/22/2018 | | Results for this | | PANEL | | 5:29 AM | | procedure are in the | | | | PST | | results section. | + +--------+ + + + | TROPONIN I | Timed | 07/22/2018 | | Results for this | | | | 5:29 AM | | procedure are in the | | | | PST | | results section. | + +--------+ + + + | EKG STANDARD 12 LEAD | STAT | 07/22/2018 | | Results for this | | | | 5:28 AM | | procedure are in the | | | | PST | | results section. | + +--------+ + + + | POCT GLUCOSE | Routin | 07/21/2018 | | Results for this | | | e | 8:51 PM | | procedure are in the | | | | PST | | results section. | + +--------+ + + + | URINALYSIS (REFLEX | STAT | 07/21/2018 | | Results for this | | TO MICRO) | | 8:30 PM | | procedure are in the | | | | PST | | results section. | + +--------+ + + + | URINE CULTURE | Timed | 07/21/2018 | | Results for this | | | | 8:30 PM | | procedure are in the | | | | PST | | results section. | + +--------+ + + + | POCT GLUCOSE | Routin | 07/21/2018 | | Results for this | | | e | 4:31 PM | | procedure are in the | | | | PST | | results section. | + +--------+ + + + | [facility] SEPTIC LACTIC | STAT | 07/21/2018 | | Results for this | | ACID | | 3:03 PM | | procedure are in the | | | | PST | | results section. | + +--------+ + + + | POCT GLUCOSE | Routin | 07/21/2018 | | Results for this | | | e | 11:40 AM | | procedure are in the | | | | PST | | results section. | + +--------+ + + + | [facility]ACT[facility] | STAT | 07/21/2018 | | Results for this | | ACID | | 11:39 AM | | procedure are in the | | | | PST | | results section. | + +--------+ + + + | [facility] SEPT[facility] LACT[facility] | STAT | 07/21/2018 | | Results for this | | ACID | | 8:42 AM | | procedure are in the | | | | PST | | results section. | + +--------+ + + + | POCT GLUCOSE | Routin | 07/21/2018 | | Results for this | | | e | 6:29 AM | | procedure are in the | | | | PST | | results section. | + +--------+ + + + | [facility] SEPTIC LACTIC | STAT | 07/21/2018 | | Results for this | | ACID | | 5:10 AM | | procedure are in the | | | | PST | | results section. | + +--------+ + + + | HEPATITIS | STAT | 07/21/2018 | | Results for this | | PANEL,CHRONIC | | 5:05 AM | | procedure are in the | | | | PST | | results section. | + +--------+ + + + | BILIRUBIN, DIRECT | Routin | 07/21/2018 | | Results for this | | | e - AM | 5:05 AM | | procedure are in the | | | | PST | | results section. | + +--------+ + + + | HEMOGLOBIN A1C | Routin | 07/21/2018 | | Results for this | | | e - AM | 5:05 AM | | procedure are in the | | | | PST | | results section. | + +--------+ + + + | COMPREHENSIVE | Routin | 07/21/2018 | | Results for this | | METABOLIC PANEL | e - AM | 5:05 AM | | procedure are in the | | | | PST | | results section. | + +--------+ + + + | MAGNESIUM | Routin | 07/21/2018 | | Results for this | | | e - AM | 5:05 AM | | procedure are in the | | | | PST | | results section. | + +--------+ + + + | CBC W/AUTO DIFF | Routin | 07/21/2018 | | Results for this | | (REFLEX TO MANUAL) | e - AM | 5:05 AM | | procedure are in the | | | | PST | | results section. | + +--------+ + + + | POCT GLUCOSE | Routin | 07/21/2018 | | Results for this | | | e | 12:58 AM | | procedure are in the | | | | PST | | results section. | + +--------+ + + + | [facility] SEPT[facility] LACTIC | STAT | 07/21/2018 | | Results for this | | ACID | | 12:43 AM | | procedure are in the | | | | PST | | results section. | + +--------+ + + + | BLOOD CULTURE, SET 2 | Timed | 07/21/2018 | | Results for this | | | | 12:43 AM | | procedure are in the | | | | PST | | results section. | + +--------+ + + + | RESPIRATORY | Timed | 07/21/2018 | | Results for this | | FILMARRAY | | 12:41 AM | | procedure are in the | | | | PST | | results section. | + +--------+ + + + | MRSA BY PCR | Timed | 07/21/2018 | | Results for this | | | | 12:05 AM | | procedure are in the | | | | PST | | results section. | + +--------+ + + + | POCT GLUCOSE | Routin | 07/20/2018 | | Results for this | | | e | 10:14 PM | | procedure are in the | | | | PST | | results section. | + +--------+ + + + | [facility] SEPTIC LACTIC | STAT | 07/20/2018 | | Results for this | | ACID | | 8:05 PM | | procedure are in the | | | | PST | | results section. | + +--------+ + + + | [facility] CARD PANEL W/O | STAT | 07/20/2018 | | Results for this | | TRP (ED ONLY) | | 8:05 PM | | procedure are in the | | | | PST | | results section. | + +--------+ + + + | BLOOD CULTURE, SET 1 | STAT | 07/20/2018 | | Results for this | | | | 8:05 PM | | procedure are in the | | | | PST | | results section. | + +--------+ + + + | POC ARTERIAL BLOOD | Routin | 07/20/2018 | | Results for this | | GAS | e | 6:59 PM | | procedure are in the | | | | PST | | results section. | + +--------+ + + + | ABG DRAW | STAT | 07/20/2018 | | | | | | 6:43 PM | | | | | | PST | | | + +--------+ + + + | ED INFORMATION | Routin | 07/20/2018 | | Results for this | | EXCHANGE | e | 4:54 PM | | procedure are in the | | | | PST | | results section. | + +--------+ + + + from Last 3 Months Results POCT glucose (07/23/2018 4:26 PM)Only the most recent of 15 results within the time period is included. + + + + + | Component | Value | Ref Range | Performed At | + + + + + | GLUCOSE,POC SCREEN | 97Comment: Testing | 65 - 99 mg/dL | [facility] | | | performed at [facility];[address] [facility];[place], [place] | | | | | [address] | | | + + + + + + + + + + | Performing | Address | City/State/Zipcode | Phone Number | | Organization | | | | + + + + + | [facility] | [address] | [place] [address] | | + + + + + PROCALCITONIN (07/23/2018 7:24 AM) + + + + + | Component | Value | Ref Range | Performed At | + + + + + | PROCALCITONIN | 6.06 (H)Comment: | <0.5 ng/mL | [facility] | | | INTERPRETIVE | | | | | INFORMATION: PROCALCI | | | | | TONIN PCT <= 0.5 | | | | | ng/mL: Low risk | | | | | for progression to | | | | | severe | | | | | systemic bacteria | | | | | l infection (severe | | | | | sepsis/septic | | | | | shock). Does not | | | | | exclude an infection, | | | | | because | | | | | localized infecti | | | | | ons may be associated | | | | | with such low | | | | | levels. If PCT is | | | | | measured very early | | | | | after | | | | | bacterial challen | | | | | ge (usually <6 hours), | | | | | results may still | | | | | be low and should | | | | | re-assess PCT 6-24 | | | | | hours later. PCT >0.5 | | | | | and <= 2 | | | | | ng/mL: Moderate | | | | | risk for progression to | | | | | severe | | | | | systemic infectio | | | | | n (severe sepsis/septic | | | | | shock). Other | | | | | conditions are known to | | | | | elevate PCT, patient | | | | | should be | | | | | closely monitored both | | | | | clinically and | | | | | by re-assessing | | | | | PCT within 6-24 hours. | | | | | PCT > 2 | | | | | ng/mL: High | | | | | likelihood for | | | | | progression to severe | | | | | systemic bacteria | | | | | l infection (severe | | | | | sepsis/septic shock). | | | | | PCT >= 10 | | | | | ng/mL: High | | | | | likelihood of severe | | | | | sepsis or septic | | | | | shock.Testing performed | | | | | at [facility];[address] [place] [address] | | | | | [facility];[place] [address] | | | + + + + + + + + + + | Performing | Address | City/State/Zipcode | Phone Number | | Organization | | | | + + + + + | [facility] | [address] | [place] [address] | | + + + + + Sedimentation rate, automated (07/23/2018 7:24 AM) + + + + + | Component | Value | Ref Range | Performed At | + + + + + | ESR | 116 (H)Comment: Testing | 0 - 20 mm/Hr | [facility] | | | performed at [facility], [address] | LABORATORY | | | [address], | | | | | [place] [address] | | | + + + + + + + | Specimen | + + | Blood | + + + + + + + | Performing | Address | City/State/Zipcode | Phone Number | | Organization | | | | + + + + + | [facility] | [address] [facility] | [place] [address] | [phone] | | LABORATORY | [address] | | | + + + + + CBC w/auto diff (reflex to manual) (07/23/2018 7:24 AM)Only the most recent of 2 results w fredrickin the time period is included. + + + + + | Component | Value | Ref Range | Performed At | + + + + + | WBC | 10.57 | 3.80 - 11.00 K/uL | [facility] | | | | | LABORATORY | + + + + + | RBC | 3.16 (L) | 4.20 - 5.70 M/uL | [facility] | | | | | LABORATORY | + + + + + | HGB | 8.6 (L) | 13.2 - 17.0 g/dL | [facility] | | | | | LABORATORY | + + + + + | HCT | 27.3 (L) | 39.0 - 50.0 % | [facility] | | | | | LABORATORY | + + + + + | MCV | 86.4 | 80.0 - 100.0 fl | [facility] | | | | | LABORATORY | + + + + + | MCH | 27.3 | 27.0 - 34.0 pg | [facility] | | | | | LABORATORY | + + + + + | MCHC | 31.6 (L) | 32.0 - 35.5 g/dL | [facility] | | | | | LABORATORY | + + + + + | RDW SD | 48.6 | 37 - 53 fl | [facility] | | | | | LABORATORY | + + + + + | PLT | 304 | 150 - 400 K/uL | [facility] | | | | | LABORATORY | + + + + + | MPV | 7.8 | fl | [facility] | | | | | LABORATORY | + + + + + | DIFF TYPE | AUTOMATED | | [facility] | | | | | LABORATORY | + + + + + | NEUTROPHILS | 78.55 | % | [facility] | | | | | LABORATORY | + + + + + | LYMPHOCYTES | 14.30 | % | [facility] | | | | | LABORATORY | + + + + + | MONOCYTES | 6.76 | % | [facility] | | | | | LABORATORY | + + + + + | EOSINOPHILS | 0.01 | % | [facility] | | | | | LABORATORY | + + + + + | BASOPHILS | 0.38 | % | [facility] | | | | | LABORATORY | + + + + + | NEUTROPHILS ABS | 8.30 (H) | 1.90 - 7.40 K/uL | [facility] | | | | | LABORATORY | + + + + + | LYMPHOCYTES ABS | 1.51 | 1.00 - 3.90 K/uL | [facility] | | | | | LABORATORY | + + + + + | MONOCYTES ABS | 0.71 | 0.00 - 0.80 K/uL | [facility] | | | | | LABORATORY | + + + + + | EOSINOPHILS ABS | 0.00 | 0.00 - 0.50 K/uL | [facility] | | | | | LABORATORY | + + + + + | BASOPHILS ABS | 0.04Comment: Testing | 0.00 - 0.10 K/uL | [facility] | | | performed at [facility], [address] | LABORATORY | | | [address], | | | | | [place] [address] | | | + + + + + + + | Specimen | + + | Blood | + + + + + + + | Performing | Address | City/State/Zipcode | Phone Number | | Organization | | | | + + + + + | [facility] | [address] [place] [address] | [place] [address] | [phone] | | LABORATORY | [address] | | | + + + + + C-reactive protein (07/23/2018 7:24 AM) + + + + + | Component | Value | Ref Range | Performed At | + + + + + | CRP | 10.8 (H)Comment: Testing | <0.5 mg/dL | [facility] | | | performed at [facility], [address] | LABORATORY | | | [address], | | | | | [place] [address] | | | + + + + + + + | Specimen | + + | Blood | + + + + + + + | Performing | Address | City/State/Zipcode | Phone Number | | Organization | | | | + + + + + | [facility] | [address] [facility] | [place] [address] | [phone] | | LABORATORY | [address] | | | + + + + + Comprehensive metabolic panel (07/23/2018 7:24 AM)Only the most recent of 2 results within the time period is included. + + + + + | Component | Value | Ref Range | Performed At | + + + + + | SODIUM | 136 | 135 - 145 mmol/L | [facility] | | | | | LABORATORY | + + + + + | POTASSIUM | 4.4 | 3.5 - 4.9 mmol/L | [facility] | | | | | LABORATORY | + + + + + | CHLORIDE | 99 | 99 - 109 mmol/L | [facility] | | | | | LABORATORY | + + + + + | CO2 | 28 | 23 - 32 mmol/L | [facility] | | | | | LABORATORY | + + + + + | ANION GAP AGAP | 13 | 5 - 20 mmol/L | [facility] | | | | | LABORATORY | + + + + + | GLUCOSE | 111 (H) | 65 - 99 mg/dL | [facility] | | | | | LABORATORY | + + + + + | BUN | 47 (H) | 8 - 25 mg/dL | [facility] | | | | | LABORATORY | + + + + + | CREATININE | 5.9 (H) | 0.70 - 1.30 mg/dL | [facility] | | | | | LABORATORY | + + + + + | BUN/CREAT | 8 | | [facility] | | | | | LABORATORY | + + + + + | CALCIUM | 8.3 (L) | 8.5 - 10.5 mg/dL | [facility] | | | | | LABORATORY | + + + + + | TOTAL PROTEIN | 7.2 | 6.3 - 8.2 g/dL | [facility] | | | | | LABORATORY | + + + + + | Albumin | 1.7 (L) | 3.3 - 4.8 g/dL | [facility] | | | | | LABORATORY | + + + + + | GLOBULIN | 5.5 (H) | 1.3 - 4.9 g/dL | [facility] | | | | | LABORATORY | + + + + + | A/G | 0.3 (L) | 1.0 - 2.4 | [facility] | | | | | LABORATORY | + + + + + | TBIL | 0.3 | 0.1 - 1.5 mg/dL | [facility] | | | | | LABORATORY | + + + + + | ALK PHOS | 152 (H) | 35 - 115 U/L | [facility] | | | | | LABORATORY | + + + + + | AST | 20 | 10 - 45 U/L | [facility] | | | | | LABORATORY | + + + + + | ALT | 12 | 10 - 65 U/L | [facility] | | | | | LABORATORY | + + + + + | EGFR | 10 (L)Comment: GFR <60: | >60 mL/min/1.73m2 | [...] the | | | | | MDRD IDCA traceable | | | | | equation.Testing | | | | | performed at [facility], [address] | | | | [facility], | | | | | [place] [address] | | | + + + + + + + | Specimen | + + | Blood | + + + + + + + | Performing | Address | City/State/Zipcode | Phone Number | | Organization | | | | + + + + + | [facility] | [address] | [place] [address] | [phone] | | LABORATORY | [address] | | | + + + + + MRI lumbar spine without contrast (07/23/2018 2:14 AM) + + + | Impressions | Performed At | + + + | 1. New disc space narrowing with increased disc T2 signal and | [facility] | | irregularity at L1-2. Adjacent abnormal increased marrow endplate | RADIOLOGY | | signal. Findings highly suspicious for L1-2 discitis/osteomyelitis. | | | 2. Progressive disc space narrowing with residual increased disc | | | level signal at L2-3 since 06/13/2018. Residual or recurrent | | | discitis not excluded. 3. There is a new anterior wedge deformity at | | | the level of L2 suggestive of new compression fracture. 4. | | | Increased signal within the right aspect of the L4-5 disc. Early | | | discitis not excluded. 5. There is no evidence of an epidural | | | abscess. 6. The degree of edema and abscess formation within the | | | psoas musculature bilaterally is reduced from prior study. 7. | | | Multilevel degenerative disc disease is present with potential | | | impingement of the left L1, bilateral L2, left L3, right L4, bilateral | | | L5 and left S1 nerve root. Dictated by: Norman Bergman Signed by: | | | Tremaine Velasco Date/Time: 07/23/2018 8:12 AM The radiologist | | | has reviewed the images and edited/approved the report. For | | | interventional procedures, the signing radiologist was present for | | | the [place] portions of the exam. | | + + + + + + | Narrative | Performed At | + + + | MRI LUMBAR SPINE WITHOUT CONTRAST CLINICAL INFORMATION: Back | [facility] | | pain. History of epidural abscess. COMPARISON: MRI LUMBAR SPINE | RADIOLOGY | | WITHOUT CONTRAST (06/13/2018); PROCEDURE: Sagittal T2, axial T2, | | | sagittal T1, axial T1, sagittal STIR sequences. FINDINGS: Alignment: | | | Mild straightening of the normal lumbar lordosis is present. No | | | subluxation is present. Vertebrae and vertebral marrow signal: There | | | is progressive/new discogenic edema along the adjacent endplates of | | | L1-2. There is demonstration of a new anterior vertebral body | | | height compression deformity at the level of L2 with approximately | | | 30% vertebral body height loss. There is progressive edema noted | | | along the adjacent endplates of L2-3. T1 shortening along the | | | posterior body of L5 on the right is similar to prior study. There | | | is developing discogenic edema along the superior endplate of L5. | | | Conus and imaged portions of the caudal cord: Conus terminates at L1-2 | | | disc level. No epidural fluid collection. Lumbar disc levels: | | | L1-2: There is a large circumferential disc contributing to moderate | | | spinal canal and bilateral subarticular recess | | | stenosis. Surrounding perivertebral edema is progressed from | | | previous examination. There may be impingement of the transiting | | | bilateral L2 nerve roots secondary to subarticular recess | | | stenosis. There is moderate left and mild right neural foraminal | | | narrowing. Annular fissuring of the disc is present. There is | | | equivocal impingement of the exiting left L1 nerve root. L2-3: A | | | large circumferential disc is noted with mild bilateral facet | | | hypertrophy. This contributes to severe right and moderate left | | | subarticular recess stenosis. There is mild spinal canal narrowing | | | at this level. There is demonstration of moderate right and severe | | | left neural foraminal narrowing. There is potential impingement | | | of the left L2 nerve root, slightly worsened in appearance from | | | previous exam. L3-4: A moderate circumferential disc is noted with | | | moderate bilateral facet arthropathy. There is mild spinal | | | stenosis. Mild left and moderate right subarticular recess | | | narrowing is demonstrated. This appears similar to the comparison | | | examination with equivocal impingement of the transiting right L4 | | | nerve root. There is moderate left and mild right neural foraminal | | | stenosis. There is equivocal impingement of the exiting left L3 | | | nerve root, unchanged. L4-5: There is a moderate circumferential disc | | | with moderate bilateral facet arthropathy and ligamentum flavum | | | thickening. There is severe right and moderate left subarticular | | | recess narrowing. The transiting bilateral L5 nerve root contacts | | | disc material. There is moderate spinal stenosis at this | | | level. There is moderate right and mild left neural foraminal | | | narrowing. There is equivocal impingement of the exiting right L4 | | | nerve root, similar to prior study. L5-S1: There is a mild | | | circumferential disc with a prominent left lateral osteophyte. The | | | appearance is similar to prior study. There is severe left and | | | moderate right subarticular recess narrowing with equivocal | | | impingement of the transiting left S1 nerve root. This appears | | | similar to prior study. There is moderate left and mild right | | | neural foraminal stenosis. Paraspinal musculature and paravertebral | | | soft tissues: A fluid collection along the left psoas musculature | | | appears reduced in size from comparison examination. The degree of | | | edema within the left psoas is reduced. There is also edema noted | | | along the right psoas musculature. A small fluid collection to | | | the right of the L2-3 disc now measures 13 x 9 mm, reduced in | | | size. There is resolution of a fluid collection seen on the left | | | side at L2-3 from prior study. Multiple hyperintense T2 lesions are | | | seen throughout the renal cortex consistent with scattered | | | cysts. No hydronephrosis is noted. The visualized aorta and IVC | | | are normal. There is moderate fatty atrophy of the paraspinous | | | musculature. There is generalized paraspinous muscular edema | | | posteriorly, increased from previous exam. | | + + + + + | Procedure Note | + + | Eddi, Rad Results In - 07/23/2018 8:16 AM PST MRI LUMBAR SPINE WITHOUT CONTRAST | | CLINICAL INFORMATION: | | Back pain. History of epidural abscess. | | COMPARISON: | | MRI LUMBAR SPINE WITHOUT CONTRAST (06/13/2018); | | PROCEDURE: | | Sagittal T2, axial T2, sagittal T1, axial T1, sagittal STIR sequences. | | FINDINGS: | | Alignment: Mild straightening of the normal lumbar lordosis is present. | | No subluxation is present. | | Vertebrae and vertebral marrow signal: There is progressive/new | | discogenic edema along the adjacent endplates of L1-2. There is | | demonstration of a new anterior vertebral body height compression | | deformity at the level of L2 with approximately 30% vertebral body | | height loss. There is progressive edema noted along the adjacent | | endplates of L2-3. T1 shortening along the posterior body of L5 on the | | right is similar to prior study. There is developing discogenic edema | | along the superior endplate of L5. | | Conus and imaged portions of the caudal cord: Conus terminates at L1-2 | | disc level. No epidural fluid collection. | | Lumbar disc levels: | | L1-2: There is a large circumferential disc contributing to moderate | | spinal canal and bilateral subarticular recess stenosis. Surrounding | | perivertebral edema is progressed from previous examination. There may | | be impingement of the transiting bilateral L2 nerve roots secondary to | | subarticular recess stenosis. There is moderate left and mild right | | neural foraminal narrowing. Annular fissuring of the disc is present. | | There is equivocal impingement of the exiting left L1 nerve root. | | L2-3: A large circumferential disc is noted with mild bilateral facet | | hypertrophy. This contributes to severe right and moderate left | | subarticular recess stenosis. There is mild spinal canal narrowing at | | this level. There is demonstration of moderate right and severe left | | neural foraminal narrowing. There is potential impingement of the left | | L2 nerve root, slightly worsened in appearance from previous exam. | | L3-4: A moderate circumferential disc is noted with moderate bilateral | | facet arthropathy. There is mild spinal stenosis. Mild left and | | moderate right subarticular recess narrowing is demonstrated. This | | appears similar to the comparison examination with equivocal | | impingement of the transiting right L4 nerve root. There is moderate | | left and mild right neural foraminal stenosis. There is equivocal | | impingement of the exiting left L3 nerve root, unchanged. | | L4-5: There is a moderate circumferential disc with moderate bilateral | | facet arthropathy and ligamentum flavum thickening. There is severe | | right and moderate left subarticular recess narrowing. The transiting | | bilateral L5 nerve root contacts disc material. There is moderate | | spinal stenosis at this level. There is moderate right and mild left | | neural foraminal narrowing. There is equivocal impingement of the | | exiting right L4 nerve root, similar to prior study. | | L5-S1: There is a mild circumferential disc with a prominent left | | lateral osteophyte. The appearance is similar to prior study. There | | is severe left and moderate right subarticular recess narrowing with | | equivocal impingement of the transiting left S1 nerve root. This | | appears similar to prior study. There is moderate left and mild right | | neural foraminal stenosis. | | Paraspinal musculature and paravertebral soft tissues: A fluid | | collection along the left psoas musculature appears reduced in size | | from comparison examination. The degree of edema within the left psoas | | is reduced. There is also edema noted along the right psoas | | musculature. A small fluid collection to the right of the L2-3 disc | | now measures 13 x 9 mm, reduced in size. There is resolution of a | | fluid collection seen on the left side at L2-3 from prior study. | | Multiple hyperintense T2 lesions are seen throughout the renal cortex | | consistent with scattered cysts. No hydronephrosis is noted. The | | visualized aorta and IVC are normal. There is moderate fatty atrophy | | of the paraspinous musculature. There is generalized paraspinous | | muscular edema posteriorly, increased from previous exam. | | IMPRESSION: | | 1. New disc space narrowing with increased disc T2 signal and | | irregularity at L1-2. Adjacent abnormal increased marrow endplate | | signal. Findings highly suspicious for L1-2 discitis/osteomyelitis. | | 2. Progressive disc space narrowing with residual increased disc level | | signal at L2-3 since 06/13/2018. Residual or recurrent discitis not | | excluded. | | 3. There is a new anterior wedge deformity at the level of L2 | | suggestive of new compression fracture. | | 4. Increased signal within the right aspect of the L4-5 disc. Early | | discitis not excluded. | | 5. There is no evidence of an epidural abscess. | | 6. The degree of edema and abscess formation within the psoas | | musculature bilaterally is reduced from prior study. | | 7. Multilevel degenerative disc disease is present with potential | | impingement of the left L1, bilateral L2, left L3, right L4, bilateral | | L5 and left S1 nerve root. | | Dictated by: Norman Bergman | | Signed by: Tremaine Velasco | | Sign Date/Time: 07/23/2018 8:12 AM | | The radiologist has reviewed the images and edited/approved | | the report. For interventional procedures, the signing | | radiologist was present for the nowak portions of the exam. | + + + + + + + | Performing | Address | City/State/Zipcode | Phone Number | | Organization | | | | + + + + + | [facility] | [address] | [place] [address] | | + + + + + Troponin I (07/22/2018 5:50 PM)Only the most recent of 3 results within the time period is included. + + + + + | Component | Value | Ref Range | Performed At | + + + + + | TROPONIN I | 0.053 (H)Comment: 0.04 | 0.00 - 0.04 ng/mL | [facility] | | | ng/mL or | | | | | less Nega | | | | | tive, repeat testing in | | | | | four to six hour if | | | | | clinically indicted0.05 | | | | | to 0.77 | | | | | ng/mL Keyla | | | | | picious for myocardial | | | | | injury. Serial | | | | | measurements may be | | | | | necessary to confirm or | | | | | exclude the diagnosis of | | | | | acute coronary | | | | | syndrome. Repeat testing | | | | | in four to six hours if | | | | | indicated.0.78 or | | | | | greater | | | | | ng/mL Consistent | | | | | with myocardial injury. | | | | | Clinical and laboratory | | | | | correlation recommended. | | | | | NOTE NEW REFERENCE | | | | | RANGETesting performed | | | | | at [facility];[address];[place] [address] | | | + + + + + + + | Specimen | + + | Blood | + + + + + + + | Performing | Address | City/State/Zipcode | Phone Number | | Organization | | | | + + + + + | [facility] | [address] | [place] [address] | | + + + + + Echo cardiac adult complete (07/22/2018 2:38 PM) + +-------+ + + | Component | Value | Ref Range | Performed At | + +-------+ + + | LV EF | 60 | 50 - 70 % | [facility] | | | | | RADIOLOGY | + +-------+ + + + + + | Impressions | Performed At | + + + | 1. Indication for study and thus clinical question is unknown. | [facility] | | Results as below. | RADIOLOGY | + + + + + + | Narrative | Performed At | + + + | Patient Name: SHAHBAZ GLEASON Date of : 1955 | [facility] | | Performing Physician: Kilo | RADIOLOGY | | Sandra GALLEGO | | | | | | ------REPORT ADDENDED------ INDICATIONS abnormal ekg | | | CONCLUSIONS 1. Indication for study and thus clinical | | | question is unknown. Results as below. FINDINGS -------- [no | | | group]: Indication for study and thus clinical question is unknown. | | | Results as below. ECG rhythm: Sinus rhythm. Study: A 2-dimensional | | | transthoracic echocardiogram with m-mode, spectral and color flow | | | Doppler was perfomed. Study: This was a technically difficult study | | | with suboptimal views. Left Ventricle: Overall left ventricular | | | systolic function is normal with, an EF between 55 - 60 %. Left | | | Ventricle: The left ventricle cavity size is normal. Left Ventricle: | | | There is mild concentric left ventricular hypertrophy. Left | | | Ventricle: The diastolic filling pattern indicates impaired relaxation | | | consistent with mild dysfunction (Grade I). Right Ventricle: The | | | right ventricle is normal in size. Right Ventricle: The right | | | ventricular systolic function is normal. Left Atrium: The left atrial | | | size is normal Left Atrium: , and the LA measures 3.4cm. Right | | | Atrium: The right atrium is mildly enlarged. Right Atrium: and the | | | right atrium measures 5.6cm Mitral Valve: There is trace mitral | | | regurgitation. Mitral Valve: Mild thickening of the anterior mitral | | | valve leaflet. Mitral Valve: There is mild thickening of the | | | posterior mitral valve leaflet. Tricuspid Valve: The tricuspid valve | | | appears structurally normal. Tricuspid Valve: Trace tricuspid | | | regurgitation present. Pulmonic Valve: The pulmonic valve was not | | | well visualized. Pericardium: There is no pericardial effusion. | | | IVC/Hepatic Veins: The IVC is dilated (>2.5cm) and does not | | | collapse with sniff, consistent with central venous pressures of | | | >20mmHg. Aorta: The ascending aorta is dilated measuring up to {4.2 | | | cm}. Mass: No mass visualized Thrombus: No clot visualized | | | MEASUREMENTS Ao asc: 4.19 cm Ao sinus: 3.18 | | | cm Ao st junct: 2.83 cm IVC: 2.61 cm LA Major: 5.06 cm | | | EDV(Teich): 138.37 ml IVSd: 1.08 cm LVIDd: 5.35 cm | | | LVPWd: 0.97 cm LVOT Diam: 2.08 cm %FS: 22.35 % | | | EF(Teich): 44.64 % ESV(Teich): 76.59 ml IVSs: 1.28 cm | | | LVIDs: 4.15 cm LVPWs: 1.57 cm SV(Teich): 61.77 ml RA | | | Major: 5.57 cm RVIDd: 3.63 cm RVOT Diam: 6.01 cm LVEF | | | MOD A2C: 49.89 % SV MOD A2C: 37.69 ml LVEF MOD A4C: | | | 48.79 % SV MOD A4C: 86.68 ml EF Biplane: 55.01 % LVEDV MOD | | | BP: 145.48 ml LVESV MOD BP: 65.44 ml LVEDV MOD A2C: | | | 75.54 ml LVLd A2C: 8.41 cm LVEDV MOD A4C: 177.62 ml LVLd | | | A4C: 9.57 cm LVESV MOD A2C: 37.85 ml LVLs A2C: 7.32 cm | | | LVESV MOD A4C: 90.94 ml LVLs A4C: 8.60 cm LAESV(A-L): | | | 41.75 ml LAESV Index (A-L): 20.26 ml/m2 LAAs A2C: 13.44 cm2 | | | LAESV A-L A2C: 38.63 ml LALs A2C: 3.97 cm LAAs A4C: | | | 14.53 cm2 LAESV A-L A4C: 37.19 ml LALs A4C: 4.82 cm | | | Nancy: 17.39 cm2 RAEDV A-L: 50.29 ml RAEDV MOD: 48.76 ml | | | RALd: 5.10 cm Ao Diam: 3.33 cm AV Cusp: 1.52 cm LA | | | Diam: 3.39 cm LA/Ao: 1.02 TAPSE: 1.62 cm HR: | | | 101.11 BPM AV maxP.30 mmHg AV meanP.07 mmHg AV | | | Vmax: 1.14 m/s AV Vmean: 0.83 m/s AV VTI: 19.34 cm KELLY | | | Vmax: 2.47 cm2 KELLY (VTI): 2.27 cm2 AVAI Vmax: 0.00 | | | cm2/m2 AVAI (VTI): 0.00 cm2/m2 LVCI Dopp: 1.67 l/minm2 LVCO | | | Dopp: 3.44 l/min HR: 78.14 BPM LVOT maxP.77 mmHg | | | LVOT meanP.41 mmHg LVSI Dopp: 21.37 ml/m2 LVSV Dopp: | | | 44.03 ml LVOT Vmax: 0.83 m/s LVOT Vmean: 0.55 m/s LVOT | | | VTI: 12.95 cm MV A Shin: 0.81 m/s MV DecT: 232.36 ms MV | | | E Shin: 0.73 m/s MV E/A Ratio: 0.89 MV PHT: 54.88 ms | | | MVA By PHT: 4.00 cm2 MV A Dur: 154.13 ms MV maxP.70 | | | mmHg MV meanP.25 mmHg MV Vmax: 0.82 m/s MV Vmean: | | | 0.53 m/s MV VTI: 23.23 cm MVA (VTI): 1.89 cm2 Septal | | | e': 0.05 m/s Septal E/e': 13.85 Lateral e': 0.09 m/s | | | Lateral E/e': 7.48 HR: 81.15 BPM PV maxP.16 mmHg | | | PV meanP.74 mmHg PV Vmax: 0.54 m/s PV Vmean: 0.42 | | | m/s PV VTI: 10.23 cm RAP: 20 mmHg RVSP: 41.30 mmHg TR | | | maxP.30 mmHg TR Vmax: 2.30 m/s Test Examiner: AB | | | Authenticated by: Kilo Bowens MD Report Date/Time: 07-22-2018 | | | 16:53:19 | | + + + + + | Procedure Note | + + | Eddi, Rad Results In - 07/22/2018 4:53 PM PST Patient Name: Paolo GLEASON of | | : 1955ccession: [id number] Physician: Kilo Bowens | | MD ------REPORT | | ADDENDED------INDICATIONS abnormal ekgCONCLUSIONS 1. Indication for | | study and thus clinical question is unknown. Results as below.FINDINGS--------[no | | group]: Indication for study and thus clinical question is unknown. Results as below.ECG | | rhythm: Sinus rhythm.Study: A 2-dimensional transthoracic echocardiogram with m-mode, | | spectral and color flow Doppler was perfomed. Study: This was a technically difficult | | study with suboptimal views.Left Ventricle: Overall left ventricular systolic function | | is normal with, an EF between 55 - 60 %. Left Ventricle: The left ventricle cavity size | | is normal. Left Ventricle: There is mild concentric left ventricular hypertrophy. Left | | Ventricle: The diastolic filling pattern indicates impaired relaxation consistent with | | mild dysfunction (Grade I).Right Ventricle: The right ventricle is normal in size. Right | | Ventricle: The right ventricular systolic function is normal.Left Atrium: The left | | atrial size is normalLeft Atrium: , and the LA measures 3.4cm.Right Atrium: The right | | atrium is mildly enlarged. Right Atrium: and the right atrium measures 5.6cmMitral | | Valve: There is trace mitral regurgitation. Mitral Valve: Mild thickening of the | | anterior mitral valve leaflet. Mitral Valve: There is mild thickening of the posterior | | mitral valve leaflet.Tricuspid Valve: The tricuspid valve appears structurally normal. | | Tricuspid Valve: Trace tricuspid regurgitation present.Pulmonic Valve: The pulmonic | | valve was not well visualized.Pericardium: There is no pericardial effusion.IVC/Hepatic | | Veins: The IVC is dilated (>2.5cm) and does not collapse with sniff, consistent with | | central venous pressures of >20mmHg.Aorta: The ascending aorta is dilated measuring up | | to {4.2 cm}.Mass: No mass visualizedThrombus: No clot | | visualizedMEASUREMENTS Ao asc: 4.19 cmAo sinus: 3.[address] junct: | | 2.83 cmIVC: 2.61 cmLA Major: 5.06 cmEDV(Teich): 138.37 mlIVSd: 1.08 cmLVIDd: | | 5.35 cmLVPWd: 0.97 cmLVOT Diam: 2.08 cm%FS: 22.35 %EF(Teich): 44.64 %ESV(Teich): | | 76.59 mlIVSs: 1.28 cmLVIDs: 4.15 cmLVPWs: 1.57 cmSV(Teich): 61.77 mlRA Major: | | 5.57 cmRVIDd: 3.63 cmRVOT Diam: 6.01 cmLVEF MOD A2C: 49.89 %SV MOD A2C: 37.69 | | mlLVEF MOD A4C: 48.79 %SV MOD A4C: 86.68 mlEF Biplane: 55.01 %LVEDV MOD BP: | | 145.48 mlLVESV MOD BP: 65.44 mlLVEDV MOD A2C: 75.54 mlLVLd A2C: 8.41 cmLVEDV MOD | | A4C: 177.62 mlLVLd A4C: 9.57 cmLVESV MOD A2C: 37.85 mlLVLs A2C: 7.32 cmLVESV MOD | | A4C: 90.94 mlLVLs A4C: 8.60 cmLAESV(A-L): 41.75 mlLAESV Index (A-L): 20.26 | | ml/m2LAAs A2C: 13.44 [id number] A-L A2C: 38.63 mlLALs A2C: 3.97 cmLAAs A4C: 14.53 | | [id number] A-L A4C: 37.19 mlLALs A4C: 4.82 cmRAAd: 17.39 [id number] A-L: 50.29 | | mlRAEDV MOD: 48.76 mlRALd: 5.10 cmAo Diam: 3.33 cmAV Cusp: 1.52 cmLA Diam: | | 3.39 cmLA/Ao: 1.02 TAPSE: 1.62 cmHR: 101.11 BPMAV maxP.30 mmHgAV meanPG: | | 3.07 mmHgAV Vmax: 1.14 m/Donna Vmean: 0.83 m/Donna VTI: 19.34 cmAVA Vmax: 2.47 | | cm2AVA (VTI): 2.27 [id number] Vmax: 0.00 cm2/m2AVAI (VTI): 0.00 cm2/m2LVCI Dopp: | | 1.67 l/[id number] Dopp: 3.44 l/minHR: 78.14 BPMLVOT maxP.77 mmHgLVOT meanPG: | | 1.41 mmHgLVSI Dopp: 21.37 ml/m2LVSV Dopp: 44.03 mlLVOT Vmax: 0.83 m/sLVOT Vmean: | | 0.55 m/sLVOT VTI: 12.95 cmMV A Shin: 0.81 m/sMV DecT: 232.36 msMV E Shin: 0.73 | | m/sMV E/A Ratio: 0.89 MV PHT: 54.88 msMVA By PHT: 4.00 cm2MV A Dur: 154.13 msMV | | maxP.70 mmHgMV meanP.25 mmHgMV Vmax: 0.82 m/sMV Vmean: 0.53 m/sMV VTI: | | 23.23 cmMVA (VTI): 1.89 pp7Bdcdnd e': 0.05 m/sSeptal E/e': 13.85 Lateral e': | | 0.09 m/sLateral E/e': 7.48 HR: 81.15 BPMPV maxP.16 mmHgPV meanP.74 | | mmHgPV Vmax: 0.54 m/sPV Vmean: 0.42 m/sPV VTI: 10.23 cmRAP: 20 mmHgRVSP: 41.30 | | mmHgTR maxP.30 mmHgTR Vmax: 2.30 m/sSonographer: ABAuthenticated by: | | Kilo Bowens MDReport Date/Time: 07-22-2018 16:53:19IMPRESSION:1. Indication for | | study and thus clinical question is unknown. Results as below. | |Ao st junct: 2.83 cm | |IVC: 2.61 cm | |LA Major: 5.06 cm | |EDV(Teich): 138.37 ml | |IVSd: 1.08 cm | |LVIDd: 5.35 cm | |LVPWd: 0.97 cm | |LVOT Diam: 2.08 cm | |%FS: 22.35 % | |EF(Teich): 44.64 % | |ESV(Teich): 76.59 ml | |IVSs: 1.28 cm | |LVIDs: 4.15 cm | |LVPWs: 1.57 cm | |SV(Teich): 61.77 ml | |RA Major: 5.57 cm | |RVIDd: 3.63 cm | |RVOT Diam: 6.01 cm | |LVEF MOD A2C: 49.89 % | |SV MOD A2C: 37.69 ml | |LVEF MOD A4C: 48.79 % | |SV MOD A4C: 86.68 ml | |EF Biplane: 55.01 % | |LVEDV MOD BP: 145.48 ml | |LVESV MOD BP: 65.44 ml | |LVEDV MOD A2C: 75.54 ml | |LVLd A2C: 8.41 cm | |LVEDV MOD A4C: 177.62 ml | |LVLd A4C: 9.57 cm | |LVESV MOD A2C: 37.85 ml | |LVLs A2C: 7.32 cm | |LVESV MOD A4C: 90.94 ml | |LVLs A4C: 8.60 cm | |LAESV(A-L): 41.75 ml | |LAESV Index (A-L): 20.26 ml/m2 | |LAAs A2C: 13.44 cm2 | |LAESV A-L A2C: 38.63 ml | |LALs A2C: 3.97 cm | |LAAs A4C: 14.53 cm2 | |LAESV A-L A4C: 37.19 ml | |LALs A4C: 4.82 cm | |Nancy: 17.39 cm2 | |RAEDV A-L: 50.29 ml | |RAEDV MOD: 48.76 ml | |RALd: 5.10 cm | |Ao Diam: 3.33 cm | |AV Cusp: 1.52 cm | |LA Diam: 3.39 cm | |LA/Ao: 1.02 | |TAPSE: 1.62 cm | |HR: 101.11 BPM | |AV maxP.30 mmHg | |AV meanP.07 mmHg | |AV Vmax: 1.14 m/s | |AV Vmean: 0.83 m/s | |AV VTI: 19.34 cm | |KELLY Vmax: 2.47 cm2 | |KELLY (VTI): 2.27 cm2 | |AVAI Vmax: 0.00 cm2/m2 | |AVAI (VTI): 0.00 cm2/m2 | |LVCI Dopp: 1.67 l/minm2 | |LVCO Dopp: 3.44 l/min | |HR: 78.14 BPM | |LVOT maxP.77 mmHg | |LVOT meanP.41 mmHg | |LVSI Dopp: 21.37 ml/m2 | |LVSV Dopp: 44.03 ml | |LVOT Vmax: 0.83 m/s | |LVOT Vmean: 0.55 m/s | |LVOT VTI: 12.95 cm | |MV A Shin: 0.81 m/s | |MV DecT: 232.36 ms | |MV E Shin: 0.73 m/s | |MV E/A Ratio: 0.89 | |MV PHT: 54.88 ms | |MVA By PHT: 4.00 cm2 | |MV A Dur: 154.13 ms | |MV maxP.70 mmHg | |MV meanP.25 mmHg | |MV Vmax: 0.82 m/s | |MV Vmean: 0.53 m/s | |MV VTI: 23.23 cm | |MVA (VTI): 1.89 cm2 | |Septal e': 0.05 m/s | |Septal E/e': 13.85 | |Lateral e': 0.09 m/s | |Lateral E/e': 7.48 | |HR: 81.15 BPM | |PV maxP.16 mmHg | |PV meanP.74 mmHg | |PV Vmax: 0.54 m/s | |PV Vmean: 0.42 m/s | |PV VTI: 10.23 cm | |RAP: 20 mmHg | |RVSP: 41.30 mmHg | |TR maxP.30 mmHg | |TR Vmax: 2.30 m/s | | | |Test Examiner: AB | |Authenticated by: Kilo Bowens MD | |Report Date/Time: 07-22-2018 16:53:19 | | | |IMPRESSION: | |1. Indication for study and thus clinical question is unknown. Results as below. | + + + + + + + | Performing | Address | City/State/Zipcode | Phone Number | | Organization | | | | + + + + + | [facility] | [address] | [place] [address] | | + + + + + X-ray chest 1 view (07/22/2018 7:19 AM) + + + | Impressions | Performed At | + + + | 1. Worsening aeration of the right lung which may be secondary to | [facility] | | pulmonary edema or pneumonia. 2. Small bilateral pleural effusions. | RADIOLOGY | | Signed by: Jayy Melendrez Sign Date/Time: 07/22/2018 7:28 AM | | + + + + + + | Narrative | Performed At | + + + | CHEST ONE VIEW CLINICAL INFORMATION: Tube and line position. | [facility] | | COMPARISON: XR CHEST 1 VIEW (04/06/2018); IR TUNNELED CATHETER | RADIOLOGY | | REPLACEMENT SAME ACCESS (03/27/2018); FINDINGS: The heart is mildly | | | enlarged. Dual lumen central venous catheter tip terminates at the | | | level of the superior vena cava. The catheter appears mildly | | | retracted from the prior exam. Central pulmonary venous | | | congestion. Bilateral interstitial prominence, right greater than | | | left. Right mid and lower lung airspace opacities. Small | | | bilateral pleural effusions. No pneumothorax is seen. | | + + + + + | Procedure Note | + + | Melecio Montague Results In - 07/22/2018 7:31 AM PST CHEST ONE VIEW | | CLINICAL INFORMATION: | | Tube and line position. | | COMPARISON: | | XR CHEST 1 VIEW (04/06/2018); IR TUNNELED CATHETER REPLACEMENT SAME | | ACCESS (03/27/2018); | | FINDINGS: | | The heart is mildly enlarged. Dual lumen central venous catheter tip | | terminates at the level of the superior vena cava. The catheter | | appears mildly retracted from the prior exam. Central pulmonary venous | | congestion. Bilateral interstitial prominence, right greater than | | left. Right mid and lower lung airspace opacities. Small bilateral | | pleural effusions. No pneumothorax is seen. | | IMPRESSION: | | 1. Worsening aeration of the right lung which may be secondary to | | pulmonary edema or pneumonia. | | 2. Small bilateral pleural effusions. | | Signed by: Jayy Melendrez | | Sign Date/Time: 07/22/2018 7:28 AM | + + + + + + + | Performing | Address | City/State/[facility] | Phone Number | | Organization | | | | + + + + + | [facility] | [address] | [place] [address] | | + + + + + Central line (07/22/2018 7:15 AM) + + + | Narrative | Performed At | + + + | Tammy Campuzano DO 07/22/2018 7:46 AM Central Line | | | Date/Time: 07/22/2018 7:05 AM Performed by: TAMMY CAMPUZANO Authorized | | | by: TAMMY CAMPUZANO Consent: Verbal consent obtained. Written consent | | | obtained. Risks and benefits: risks, benefits and alternatives were | | | discussed Consent given by: patient Patient understanding: patient | | | states understanding of the procedure being performed Patient | | | consent: the patient's understanding of the procedure matches | | | consent given Required items: required blood products, implants, | | | devices, and special equipment available Patient identity | | | confirmed: verbally with patient Time out: Immediately prior to | | | procedure a "time out" was called to verify the correct patient, | | | procedure, equipment, office support assistant and site/side marked as | | | required. Indications: vascular access Anesthesia: Local | | | Anesthetic: lidocaine 1% without epinephrine Sedation: Patient | | | sedated: no Preparation: skin prepped with ChloraPrep Skin prep | | | agent dried: skin prep agent completely dried prior to procedure | | | Sterile barriers: all five maximum sterile barriers used - cap, mask, | | | sterile gown, sterile gloves, and large sterile sheet Hand hygiene: | | | hand hygiene performed prior to central venous catheter insertion | | | Location details: right internal jugular Patient position: flat | | | Catheter type: triple lumen Catheter size: 7 Fr Ultrasound guidance: | | | yes Sterile ultrasound techniques: sterile gel and sterile probe | | | covers were used Number of attempts: 1 Successful placement: yes | | | Post-procedure: line sutured Assessment: placement verified by | | | x-ray, no pneumothorax on x-ray, blood return through all | | | ports and free fluid flow (guidewire verified in vein; picture in | | | chart) Patient tolerance: Patient tolerated the procedure well with | | | no immediate complications | | + + + Basic metabolic panel (07/22/2018 5:29 AM) + + + + + | Component | Value | Ref Range | Performed At | + + + + + | SODIUM | 140 | 135 - 145 mmol/L | [facility] | + + + + + | POTASSIUM | 4.8 | 3.5 - 4.9 mmol/L | [facility] | + + + + + | CHLORIDE | 100 | 99 - 109 mmol/L | [facility] | + + + + + | CO2 | 26 | 23 - 32 mmol/L | [facility] | + + + + + | ANION GAP AGAP | 19 | 5 - 20 mmol/L | [facility] | + + + + + | GLUCOSE | 189 (H) | 65 - 99 mg/dL | [facility] | + + + + + | BUN | 38 (H) | 8 - 25 mg/dL | [facility] | + + + + + | CREATININE | 5.60 (H) | 0.70 - 1.30 mg/dL | [facility] | + + + + + | BUN/CREAT | 7 | | [facility] | + + + + + | CALCIUM | 7.8 (L) | 8.5 - 10.5 mg/dL | [facility] | + + + + + | EGFR | 10 (L)Comment: GFR <60: | >60 mL/min/1.73m2 | [facility] | | | CHRONIC KIDNEY DISEASE, [...] the | | | | | MDRD IDCA traceable | | | | | equation.Testing | | | | | performed at [facility];[address] | | | | | [facility];[place], [place] | | | | | [address] | | | + + + + + + + | Specimen | + + | Blood | + + + + + + + | Performing | Address | City/State/Zipcode | Phone Number | | Organization | | | | + + + + + | [facility] | [address] | [place] [address] | | + + + + + EKG STANDARD 12 LEAD (07/22/2018 5:28 AM) + + + + + | Component | Value | Ref Range | Performed At | + + + + + | Ventricular Rate | 147 | BPM | [facility] | + + + + + | Atrial Rate | 214 | BPM | [facility] | + + + + + | QRS Duration | 94 | ms | [facility] | + + + + + | Q-T Interval | 312 | ms | [facility] | + + + + + | QTC Calculation | 488 | ms | [facility] | | (Bezet) | | | | + + + + + | Calculated R [place] | -50 | degrees | [facility] | + + + + + | Calculated T [place] | 54 | degrees | [facility] | + + + + + | Diagnosis | Atrial fibrillation with | | [facility] | | | rapid ventricular | | | | | responseLeft anterior | | | | | fascicular | | | | | blockNonspecific ST and | | | | | T wave | | | | | abnormalityAbnormal | | | | | ECGWhen compared with | | | | | ECG of 06-APR-2018 | | | | | 19:38,Atrial | | | | | fibrillation has | | | | | replaced Sinus | | | | | rhythmVent. rate has | | | | | increased BY 66 | | | | | BPMNonspecific T wave | | | | | abnormality now evident | | | | | in Anterior | | | | | leadsConfirmed by SANDRA | | | | | TEJINDER GALLEGO ([id number]) on | | | | | 07/22/2018 3:08:01 PM | | | + + + + + + + + + + | Performing | Address | City/State/Zipcode | Phone Number | | Organization | | | | + + + + + | [facility] | [address] | [place] [address] | | + + + + + Urinalysis (reflex to micro) (07/21/2018 8:30 PM) + + + + + | Component | Value | Ref Range | Performed At | + + + + + | COLOR UA | ANNMARIE | | [facility] | + + + + + | CLARITY | CLOUDY | | [facility] | + + + + + | Specific Greer, UA | 1.020 | 1.002 - 1.030 | [facility] | + + + + + | LEUKOCYTE ESTERASE | TRACE (A) | NEGATIVE | [facility] | + + + + + | NITRITE | NEGATIVE | NEGATIVE | [facility] | + + + + + | UROBILINOGEN | NORMAL | <1.1 mg/dL | [facility] | + + + + + | PROTEIN | 100 (A) | NEGATIVE mg/dL | [facility] | + + + + + | PH,URINE | 6.0 | 5.0 - 8.0 | [facility] | + + + + + | BLOOD | MODERATE (A) | NEGATIVE | [facility] | + + + + + | KETONES | NEGATIVE | NEGATIVE mg/dL | [facility] | + + + + + | BILIRUBIN | NEGATIVE | NEGATIVE | [facility] | + + + + + | GLUCOSE | 50 (A) | NEGATIVE mg/dL | [facility] | + + + + + | WBC | 26-49 | 0 - 5 /hpf | [facility] | + + + + + | RBC | 16-25 | 0 - 2 /hpf | [facility] | + + + + + | BACTERIA | 1+ (A) | NONE SEEN | [facility] | + + + + + | EPITHELIAL | 26-49 | /lpf | [facility] | + + + + + | Mucus, UA | 1+ | | [facility] | + + + + + | Hyaline Cast | 3-5Comment: Testing | | [facility] | | | performed at [facility] | | | | | [address];[place] | | | | | [address] | | | + + + + + + + | Specimen | + + | Urine - Urine, Clean | | Catch | + + + + + + + | Performing | Address | City/State/Zipcode | Phone Number | | Organization | | | | + + + + + | [facility] | [address] | [place] [address] | | + + + + + Urine culture (07/21/2018 8:30 PM) + + + + + | Component | Value | Ref Range | Performed At | + + + + + | Specimen Description | URINE,CLEAN CATCH | | [facility] | | | | | [facility] | + + + + + | CULTURE | NO GROWTH | | [facility] | | | | | [facility] | + + + + + + + | Specimen | + + | Urine - Urine, Clean | | Catch | + + + + + + + | Performing | Address | City/State/Zipcode | Phone Number | | Organization | | | | + + + + + | [facility] | [address] | [place] [address] | [phone] | | LABORATORY | [address] | | | + + + + + Septic Lactic Acid (07/21/2018 3:03 PM)Only the most recent of 6 results within the time sarthak rajput is included. + + + + + | Component | Value | Ref Range | Performed At | + + + + + | LACTIC ACID | 1.4Comment: Testing | 0.4 - 2.0 mmol/L | [facility] | | | performed at [facility] | | | | | [facility];[place], [place] | | | | | [address] | | | + + + + + + + + + + | Performing | Address | City/State/Zipcode | Phone Number | | Organization | | | | + + + + + | [facility] | [address] | [place] [address] | | + + + + + Hepatitis panel, Chronic (Reflex) (07/21/2018 5:05 AM) + + + + + | Component | Value | Ref Range | Performed At | + + + + + | Hep A Total Ab | NON REACTIVE | NON REACTIVE | [facility] | | | | | [facility] | + + + + + | HEP B SURFACE AG | NON REACTIVE | NON REACTIVE | [facility] | | | | | [facility] | + + + + + | HEP B CORE AB,TOTAL | NON REACTIVE | NON REACTIVE | [facility] | | | | | LAB[facility] | + + + + + | HEP B SURFACE | <0.35Comment: | <1.00 IV | [facility] | | ANTIBODY | <1.00 | | LABORATORY | | | Non Immune1.00 OR | | | | | MORE Indicates | | | | | vaccine response or | | | | | response to HBV | | | | | infection. An Index | | | | | Value (IV) of 1.00 is | | | | | equivalent to 10 | | | | | mIU/mL. Samples with | | | | | an IV of 1.00 or greater | | | | | are considered reactive | | | | | (protected) in | | | | | accordance with CDC | | | | | Guidelines. | | | + + + + + | HEPATITIS C | REACTIVE (A)Comment: | NON REACTIVE | [facility] | | | THIS IS A REPORTABLE | | LAB[facility]ATORY | | | DISEASE. PLEASE CONTACT | | | | | YOUR COUNTY/STATE | | | | | HEALTH DEPARTMENT. | | | + + + + + | HEPATITIS INTERP | Serology suggests | | [facility] | | | current or past HCV | | LABORATORY | | | infection, by initial | | | | | screening, false | | | | | positive screening | | | | | reactions are known to | | | | | occur. No evidence of | | | | | HAV or HBV | | | | | infection.Comment: | | | | | Testing performed at | | | | | [facility], [address] [place] [address] | | | | | [place] | | | | | [address] | | | + + + + + + + + + + | Performing | Address | City/State/Zipcode | Phone Number | | Organization | | | | + + + + + | [facility] | [address] | [place] [address] | [phone] | | LABORATORY | [address] | | | + + + + + Magnesium (07/21/2018 5:05 AM) + + + + + | Component | Value | Ref Range | Performed At | + + + + + | MAGNESIUM | 2.4Comment: Testing | 1.7 - 2.4 mg/dL | [facility] | | | performed at [facility], [address] | | LABORATORY | | | [place], | | | | | [place] [address] | | | + + + + + + + | Specimen | + + | Blood | + + + + + + + | Performing | Address | City/State/Zipcode | Phone Number | | Organization | | | | + + + + + | [facility] | [address] | [place] [address] | [phone] | | LABORATORY | [address] | | | + + + + + Glycohemoglobin A1C (07/21/2018 5:05 AM) + + + + + | Component | Value | Ref Range | Performed At | + + + + + | HEMOGLOBIN A1C | 5.6Comment: HbA1c method | 4.0 - 6.0 % | [facility] | | | is certified by [employer] | | LABORATORY | | | and traceable to the | | | | | DCCT reference | | | | | method.ADA guidelines | | | | | indicate: | | | | | Prediabetes: 5.7 - | | | | | 6.4 Diabetes: | | | | | >6.4 Glycemic | | | | | control for adults with | | | | | diabetes: <7.0Effective | | | | | 06/03/2018: Note New | | | | | Method | | | + + + + + | ESTIMATED AVG | 114Comment: Estimated | <154 mg/dL | [facility] | | GLUCOSE | Average Glucose | | LABORATORY | | | calculated from | | | | | hemoglobin A1c by use of | | | | | the ADA recommended | | | | | formula.Testing | | | | | performed at [facility], [address] | | | | | [facility], | | | | | [place] [address] | | | + + + + + + + | Specimen | + + | Blood | + + + + + + + | Performing | Address | City/State/Zipcode | Phone Number | | Organization | | | | + + + + + | [facility] | [address] | [place] [address] | [phone] | | LABORATORY | [address] | | | + + + + + Bili, direct (07/21/2018 5:05 AM) + + + + + | Component | Value | Ref Range | Performed At | + + + + + | BILI, DIRECT | 0.1Comment: Testing | 0.0 - 0.3 mg/dL | [facility] | | | performed at [facility], [address] | | LABORATORY | | | [facility], | | | | | [place] [address] | | | + + + + + + + + + + | Performing | Address | City/State/Zipcode | Phone Number | | Organization | | | | + + + + + | [facility] | [address] | [place] [address] | [phone] | | LABORATORY | [address] | | | + + + + + Blood Culture Set 2 (07/21/2018 12:43 AM) + + + + + | Component | Value | Ref Range | Performed At | + + + + + | Specimen Description | BLOOD | | [facility] | | | | | LABORATORY | + + + + + | SPECIAL REQUESTS | R FOOT | | [facility] | + + + + + | CULTURE | NO GROWTH 6 DAYS | | [facility] | | | | | LABORATORY | + + + + + + + | Specimen | + + | Blood - Blood | + + + + + + + | Performing | Address | City/State/Zipcode | Phone Number | | Organization | | | | + + + + + | [facility] | [address] | [place] [address] | [phone] | | LABORATORY | [address]vd. | | | + + + + + | [facility] | [address] | [place] [address] | | + + + + + Respiratory Filmarray (07/21/2018 12:41 AM) + + + + + | Component | Value | Ref Range | Performed At | + + + + + | ADENOVIRUS | Not Detected | Not Detected | [facility] | | | | | LABORATORY | + + + + + | CORONAVIRUS 229E | Not Detected | Not Detected | [facility] | | | | | LABORATORY | + + + + + | CORONAVIRUS HKU1 | Not Detected | Not Detected | [facility] | | | | | LABORATORY | + + + + + | CORONAVIRUS NL63 | Not Detected | Not Detected | [facility] | | | | | LABORATORY | + + + + + | CORONAVIRUS OC43 | Not Detected | Not Detected | [facility] | | | | | LABORATORY | + + + + + | HUMAN | Not Detected | Not Detected | [facility] | | METAPNEUMOVIRUS | | | LABORATORY | + + + + + | HUMAN RHINO/ENTERO | Not Detected | Not Detected | [facility] | | | | | LABORATORY | + + + + + | INFLUENZA A | Not Detected | Not Detected | [facility] | | | | | LABORATORY | + + + + + | INFLUENZA B | Not Detected | Not Detected | [facility] | | | | | LABORATORY | + + + + + | PARAINFLUENZA 1 | Not Detected | Not Detected | [facility] | | | | | LABORATORY | + + + + + | PARAINFLUENZA 2 | Not Detected | Not Detected | [facility] | | | | | LABORATORY | + + + + + | PARAINFLUENZA 3 | Not Detected | Not Detected | [facility] | | | | | LABORATORY | + + + + + | PARAINFLUENZA 4 | Not Detected | Not Detected | [facility] | | | | | LABORATORY | + + + + + | RESP SYNCYTIAL VIRUS | DETECTED (A) | Not Detected | [facility] | | | | | LABORATORY | + + + + + | BORDETELLA PERTUSSIS | Not Detected | Not Detected | [facility] | | | | | LABORATORY | + + + + + | CHLAMYDIAE | Not Detected | Not Detected | [facility] | | PNEUMONIAE | | | LABORATORY | + + + + + | MYCOPLASMA | Not Detected | Not Detected | [facility] | | PNEUMONIAE | | | LABORATORY | + + + + + | RESP PANEL INTERP | Testing performed by | | [facility] | | | Molecular | | LABORATORY | | | MethodologyComment: | | | | | Testing performed at | | | | | [facility], [address] | | | | | [place] | | | | | [address] | | | + + + + + + + | Specimen | + + | Nasal Swab | + + + + + + + | Performing | Address | City/State/Zipcode | Phone Number | | Organization | | | | + + + + + | [facility] | [address] | [place] [address] | [phone] | | LABORATORY | [address] | | | + + + + + MRSA by PCR (07/21/2018 12:05 AM) + + + + + | Component | Value | Ref Range | Performed At | + + + + + | SOURCE | NARES(NOSE) | | [facility] | + + + + + | MRSA PCR | NEGATIVEComment: Testing | NEGATIVE | [facility] | | | performed at [facility];[address] | | | | | [address];[place] | | | | | [address] | | | + + + + + + + | Specimen | + + | Nasopharyngeal - | | Michaeles(Nose) | + + + + + + + | Performing | Address | City/State/Zipcode | Phone Number | | Organization | | | | + + + + + | [facility] | [address] | [place] [address] | | + + + + + Cardiac Panel (07/20/2018 8:05 PM) + + + + + | Component | Value | Ref Range | Performed At | + + + + + | WBC | 15.60 (H) | 3.80 - 11.00 K/uL | [facility] | + + + + + | RBC | 3.13 (L) | 4.20 - 5.70 M/uL | [facility] | + + + + + | HGB | 8.5 (L) | 13.2 - 17.0 g/dL | [facility] | + + + + + | HCT | 27.2 (L) | 39.0 - 50.0 % | [facility] | + + + + + | MCV | 86.8 | 80.0 - 100.0 fl | [facility] | + + + + + | MCH | 27.1 | 27.0 - 34.0 pg | [facility] | + + + + + | MCHC | 31.2 (L) | 32.0 - 35.5 g/dL | [facility] | + + + + + | RDW SD | 50.3 | 37 - 53 fl | [facility] | + + + + + | PLT | 240 | 150 - 400 K/uL | [facility] | + + + + + | MPV | 7.0 | fl | [facility] | + + + + + | DIFF TYPE | AUTOMATED | | [facility] | + + + + + | NEUTROPHILS | 73.03 | % | [facility] | + + + + + | LYMPHOCYTES | 19.21 | % | [facility] | + + + + + | MONOCYTES | 7.15 | % | [facility] | + + + + + | EOSINOPHILS | 0.07 | % | [facility] | + + + + + | BASOPHILS | 0.54 | % | [facility] | + + + + + | NEUTROPHILS ABS | 11.40 (H) | 1.90 - 7.40 K/uL | [facility] | + + + + + | LYMPHOCYTES ABS | 3.00 | 1.00 - 3.90 K/uL | [facility] | + + + + + | MONOCYTES ABS | 1.12 (H) | 0.00 - 0.80 K/uL | [facility] | + + + + + | EOSINOPHILS ABS | 0.01 | 0.00 - 0.50 K/uL | [facility] | + + + + + | BASOPHILS ABS | 0.09 | 0.00 - 0.10 K/uL | [facility] | + + + + + | SODIUM | 143 | 135 - 145 mmol/L | [facility] | + + + + + | POTASSIUM | 5.7 (H) | 3.5 - 4.9 mmol/L | [facility] | + + + + + | CHLORIDE | 103 | 99 - 109 mmol/L | [facility] | + + + + + | CO2 | 26 | 23 - 32 mmol/L | [facility] | + + + + + | ANION GAP AGAP | 20 | 5 - 20 mmol/L | [facility] | + + + + + | GLUCOSE | 153 (H) | 65 - 99 mg/dL | [facility] | + + + + + | BUN | 57 (H) | 8 - 25 mg/dL | [facility] | + + + + + | CREATININE | 7.65 (H) | 0.70 - 1.30 mg/dL | [facility] | + + + + + | BUN/CREAT | 7 | | [facility] | + + + + + | CALCIUM | 7.5 (L) | 8.5 - 10.5 mg/dL | [facility] | + + + + + | TOTAL PROTEIN | 6.4 | 6.3 - 8.2 g/dL | [facility] | + + + + + | Albumin | 2.5 (L) | 3.3 - 4.8 g/dL | [facility] | + + + + + | GLOBULIN | 3.9 | 1.3 - 4.9 g/dL | [facility] | + + + + + | A/G | 0.6 (L) | 1.0 - 2.4 | [facility] | + + + + + | TBIL | <0.2 | 0.1 - 1.5 mg/dL | [facility] | + + + + + | ALK PHOS | 172 (H) | 35 - 115 U/L | [facility] | + + + + + | AST | 36 | 10 - 45 U/L | [facility] | + + + + + | ALT | 15 | 10 - 65 U/L | [facility] | + + + + + | EGFR | 7 (L)Comment: GFR <60: | >60 mL/min/1.73m2 | [facility] | | | CHRONIC KIDNEY DISEASE, [...] IDMS traceable | | | | | equation. | | | + + + + + | CPK | 63 | 55 - 400 U/L | [facility] | + + + + + | INR | 1.1Comment: REFERENCE | | [facility] | | | RANGE:0.9 - | | | | | 1.2 NON-ANTICOAGULATE | | | | | D2.0 - 3.0 ALL OTHER | | | | | THERAPEUTIC | | | | | INDICATIONS2.5 - 3.5 | | | | | MECHANICAL HEART VALVES, | | | | | RECURRENT OR SYSTEMIC | | | | | EMBOLISM | | | + + + + + | APTT | 29 | 23 - 32 seconds | [facility] | + + + + + | MMB | 1.8 | 0.5 - 3.6 ng/mL | [facility] | + + + + + | CK-MB Index | 2.9Comment: CK INDEX | | [facility] | | | INTERPRETATION: | | | | | MMB | | | | | ng/mL & Relative | | | | | IndexNon-AMI | | | | | < or = | | | | | 5.0 N | | | | | AGray Zone | | | | | >5.0 < | | | | | or = | | | | | 4.0AMI | | | | | | | | | | >5.0 | | | | | >4.0Testing | | | | | performed at [facility];[address] | | | | | [address];[place] | | | | | [address] | | | + + + + + + + + + + | Performing | Address | City/State/Zipcode | Phone Number | | Organization | | | | + + + + + | [facility] | [address] | [place] [address] | | + + + + + Blood Culture Set 1 (07/20/2018 8:05 PM) + + + + + | Component | Value | Ref Range | Performed At | + + + + + | Specimen Description | BLOOD | | [facility] | | | | | LABORATORY | + + + + + | SPECIAL REQUESTS | LAC | | [facility] | + + + + + | CULTURE | NO GROWTH 6 DAYS | | [facility] | | | | | LABORATORY | + + + + + + + | Specimen | + + | Blood - Blood | + + + + + + + | Performing | Address | City/State/Zipcode | Phone Number | | Organization | | | | + + + + + | [facility] | [address] | [place] [address] | [phone] | | LABORATORY | [address] | | | + + + + + | [facility] | [address] | [place] [address] | | + + + + + POC Arterial Blood Gas (07/20/2018 6:59 PM) + + + + + | Component | Value | Ref Range | Performed At | + + + + + | POC FIO2 | 70 | % | [facility] | + + + + + | pH, Art | 7.347 (L) | 7.350 - 7.450 | [facility] | + + + + + | POC PCO2 | 48 (H) | 35 - 45 mmHg | [facility] | + + + + + | POC p02 | 102 | 80 - 105 mmHg | [facility] | + + + + + | POC HCO3 | 27 (H) | 22 - 26 mmol/L | [facility] | + + + + + | POC TCO2 | 28 (H) | 23 - 27 mEq/L | [facility] | + + + + + | POC BASE EXCESS | 1 | 0 - 3 mEq/L | [facility] | + + + + + | POC S02 | 97 | 95 - 98 % | [facility] | + + + + + | POC COMMENTS | Modified Hari Test | | [facility] | | | passedComment: Testing | | | | | performed at [facility] | | | | | [address];[place], [place] | | | | | [address] | | | + + + + + + + + + + | Performing | Address | City/State/Zipcode | Phone Number | | Organization | | | | + + + + + | [facility] | [address] | [place] [address] | | + + + + + ED INFORMATION EXCHANGE (07/20/2018 4:54 PM) + + + | Narrative | Performed At | + + + | [id number] Criteria Met Care | ED | | Guidelines 2 in 2 Security and Safety Date Location Type | INFORMATION | | Specifics 06/30/18 12:08 PM [facility] Physical | EXCHANGE | | Other Details: IRIS CREATED Security Events (18 Mo.) | | | Count Physical 1 Total 1 ED Care Guidelines There are | | | currently no ED Care Guidelines for this patient. Please check your | | | facility's medical records system. Care History Medical/Surgical | | | 07/06/18 12:00 AM [facility] Patient is now at [facility]. Confirmed 07/06/18 07/01/18 12:00 AM [facility] | | | [facility] Patient is currently established with | | | [facility]. If patient is seen in the ED during business hours. | | | Please contact [facility] at [facility]. Care Recommendation: | | | This patient has had 5 or more Emergency Department visits in the last | | | 12 months.Patient requires education on the scope and purpose of the | | | ED as an acute care provider not a Primary Care Provider and should | | | not be utilized for chronic conditions. These are guidelines and the | | | provider should exercise clinical judgment when providing care. | | | Prescription Drug Report (12 Mo.) PDMP query found no report. | | | E.D. Visit Count (12 mo.) Facility Visits Low Acuity [facility] | | | [facility] 3 0 [facility] 1 0 | | | [facility] 3 0 Total 7 0 Note: Visits indicate | | | total known visits. Medicaid Low Acuity Dx are the number of primary | | | diagnoses on the Medicaid's Low Acuity dx list. Recent | | | Emergency Department Visit Summary Date Facility City State Type | | | Diagnoses or Chief Complaint Jul 20, 2018 [facility] Susan Tijerina. | | | [place] [facility] [place] | | | Emergency Chief Complaint: LETHARGIC/LOW OXYGEN [facility] 2018 [facility] [place] 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 [place] [facility] Left lower | | | quadrant pain Dependence on renal dialysis Acquired | | | absence of other specified parts of digestive tract ferry terminal agent | | | (current) use of aspirin End stage renal disease | | | Malignant neoplasm of unspecified part of unspecified bronchus or lung | | | Personal history of other infectious and parasitic diseases | | | Type 2 diabetes mellitus with diabetic chronic kidney disease | | | Cellulitis of left lower limb Pneumonia, unspecified | | | organism Apr 06, 2018 [facility] Susan [place]. [place] | | | Emergency port access problems Vascular Access Problem | | | End stage renal disease Dependence on renal dialysis | | | Other complication of vascular dialysis catheter, initial | | | encounter Apr 04, 2018 [facility] [place]. [place] | | | Emergency "Im supposed to have this thing in my chest for | | | dialysis changed out, they tried a week ago and today I went for | | | dialysis but they couldnt get it to work" Vascular Access | | | Problem Cellulitis of left lower limb Unspecified | | | complication of internal prosthetic device, implant and graft, initial | | | encounter Jan 21, 2018 [facility] [place]. [place] | | | Emergency poss OD Respiratory Distress Altered | | | Mental Status Pneumonia, unspecified organism | | | Respiratory failure, unspecified, unspecified whether with hypoxia or | | | hypercapnia Sepsis, unspecified organism End stage renal | | | disease Recent Inpatient Visit Summary Date Facility City | | | State Type Diagnoses or Chief Complaint Jun 09, 2018 [facility] | | | [place]. [place] Medical Surgical 0. Pain in left hip | | | 1. Bloodstream infection due to central venous catheter, | | | initial encounter 2. Pneumonia, unspecified organism 3. | | | Metabolic encephalopathy 4. Psoas muscle abscess 5. | | | Sepsis due to Methicillin resistant Staphylococcus aureus 6. | | | End stage renal disease 7. Hypertensive chronic kidney disease | | | with stage 5 chronic kidney disease or end stage renal disease | | | 8. Malignant neoplasm of unspecified part of unspecified bronchus or | | | lung 9. Osteomyelitis of vertebra, lumbar region Apr 06, | | | 2017 [facility] [place]. [place] General Medicine Other | | | complication of vascular dialysis catheter, initial encounter | | | End stage renal disease Dependence on renal dialysis | | | Hypertensive chronic kidney disease with stage 1 through stage 4 | | | chronic kidney disease, or unspecified chronic kidney disease | | | Essential (primary) hypertension Type 2 diabetes mellitus with | | | diabetic chronic kidney disease Jan 21, 2018 [facility] | | | [place]. [place] Medical Surgical End stage renal disease | | | Sepsis, unspecified organism Respiratory failure, | | | unspecified, unspecified whether with hypoxia or hypercapnia | | | Pneumonia, unspecified organism Acute kidney failure, | | | unspecified Acute respiratory failure with hypoxia | | | Nicotine dependence, unspecified, uncomplicated Chronic | | | obstructive pulmonary disease, unspecified Opioid dependence | | | with other opioid-induced disorder Chronic kidney disease, | | | stage 5 Care Providers Provider PRC Type Phone Fax Service | | | Dates RAKAN HOFF DO Internal Medicine Jul 01, 2018 - | | | Current JOHN OQUENDO Primary Care Nov 16, 2013 - | | | Current mycirQle Portal This patient has registered at the | | | [facility] Emergency Department For more | | | information visit: | | | [email or web address] | | | [email or web address] The above information is provided for the sole purpose of | | | patient treatment. Use of this information beyond the terms of Data | | | Sharing Memorandum of Understanding and License Agreement is | | | prohibited. In certain cases not all visits may be represented. | | | Consult the aforementioned facilities for additional information. | | | 2019 [facility] - [place], [place] - | | | [email or web address] | | + + + + + | Procedure Note | + + | Interface, Lab - 07/20/2018 4:56 PM PST Formatting of this note may be different | | from the original.[id number] [facility] Care Guidelines 2 in | | 2Security and SafetyDate Location Type Specifics 06/30/18 12:08 PM [facility] | | Hospital Physical Other Details: IRIS CREATED Security Events (18 Mo.) Count Physical | | 1 Total 1 ED Care GuidelinesThere are currently no ED Care Guidelines for this patient. | | Please check your facility's medical records system.Care HistoryMedical/Surgical07/06/18 | | [facility] | | Confirmed 12:00 AM [facility] Patient is currently | | established with [facility]. If patient is seen in the ED during business hours. | | Please contact [facility]Ws at [facility].Care Recommendation:This patient has had 5 or | | more Emergency Department visits in the last 12 months.Patient requires education on the | | scope and purpose of the ED as an acute care provider not a Primary Care Provider and | | should not be utilized for chronic conditions.These are guidelines and the provider | | should exercise clinical judgment when providing care.Prescription Drug Report (12 | | Mo.)PDMP query found no report.E.D. Visit Count (12 mo.)Facility Visits Low Acuity | | [facility] 3 0 [facility] 1 0 [facility]. | | [facility] 3 0 Total 7 0 Note: Visits indicate total known visits. Medicaid Low | | Acuity Dx are the number of primary diagnoses on the Medicaid's Low Acuity dx list. | | Recent Emergency Department Visit SummaryDate Facility City State Type Diagnoses or | | Chief Complaint Jul 20, 2018 [facility] [place] Emergency Jul [facility], [facility] [place] Emergency Chief Complaint: LETHARGIC/LOW OXYGEN Jun 30, 2018 | | 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 [place]. [place] Emergency Left lower quadrant pain Dependence on | | renal dialysis Acquired absence of other specified parts of digestive tract Long | | term (current) use of aspirin End stage renal disease Malignant neoplasm of | | unspecified part of unspecified bronchus or lung Personal history of other infectious | | and parasitic diseases Type 2 diabetes mellitus with diabetic chronic kidney disease | | Cellulitis of left lower limb Pneumonia, unspecified organism Apr 06, 2018 | | [facility] [place] [place] Emergency port access problems Vascular Access | | Problem End stage renal disease Dependence on renal dialysis Other complication | | of vascular dialysis catheter, initial encounter Apr 04, 2018 [facility] [place] | | [place] Emergency "Im supposed to have this thing in my chest for dialysis changed | | out, they tried a week ago and today I went for dialysis but they couldnt get it to | | work" Vascular Access Problem Cellulitis of left lower limb Unspecified | | complication of internal prosthetic device, implant and graft, initial encounter [facility] | [facility] [place] [facility] OD Respiratory Distress | | Altered Mental Status Pneumonia, unspecified organism Respiratory failure, | | unspecified, unspecified whether with hypoxia or hypercapnia Sepsis, unspecified | | organism End stage renal disease Recent Inpatient Visit SummaryDate Facility City | | State Type Diagnoses or Chief Complaint Jun 09, 2018 [place]. [place] | | Medical Surgical 0. Pain in left hip 1. Bloodstream infection due to central | | venous catheter, initial encounter 2. Pneumonia, unspecified organism 3. Metabolic | | encephalopathy 4. Psoas muscle abscess 5. Sepsis due to Methicillin resistant | | Staphylococcus aureus 6. End stage renal disease 7. Hypertensive chronic kidney | | disease with stage 5 chronic kidney disease or end stage renal disease 8. Malignant | | neoplasm of unspecified part of unspecified bronchus or lung 9. Osteomyelitis of | | vertebra, lumbar region Apr 06, 2018 [facility] [place]. [place] General [place] | | Other complication of vascular dialysis catheter, initial encounter End stage renal | | disease Dependence on renal dialysis Hypertensive chronic kidney disease with | | stage 1 through stage 4 chronic kidney disease, or unspecified chronic kidney disease | | Essential (primary) hypertension Type 2 diabetes mellitus with diabetic chronic | | kidney disease [facility] [place] [facility] End | | stage renal disease Sepsis, unspecified organism Respiratory failure, unspecified, | | unspecified whether with hypoxia or hypercapnia Pneumonia, unspecified organism | | Acute kidney failure, unspecified Acute respiratory failure with hypoxia Nicotine | | dependence, unspecified, uncomplicated Chronic obstructive pulmonary disease, | | unspecified Opioid dependence with other opioid-induced disorder Chronic kidney | | disease, stage 5 Care ProvidersProvider PRC Type Phone Fax Service Dates RAKAN HOFF, | | DO Internal Medicine Jul 01, 2018 - Current [facility]QUENDO Primary Care Nov 16, | | 2013 [facility] | [facility] Emergency Department For more information visit: | | [email or web address] The above | | information is provided for the sole purpose of patient treatment. Use of this | | information beyond the terms of Data Sharing Memorandum of Understanding and License | | Agreement is prohibited. In certain cases not all visits may be represented. Consult the | | aforementioned facilities for additional information. 2018 [employer] | | [employer] - [place], [place] - [email or web address] | | Cellulitis of left lower limb | | Pneumonia, unspecified organism | | | |Apr 06, 2018 [facility] [place]. [place] Emergency | | port access problems | | Vascular Access Problem | | End stage renal disease | | Dependence on renal dialysis | | Other complication of vascular dialysis catheter, initial encounter | | | |Apr 04, 2018 [facility] [place]. [place] Emergency | | "Im supposed to have this thing in my chest for dialysis changed out, they tried a week a go and today I went for dialysis but they couldnt get it to work" | | Vascular Access Problem | | Cellulitis of left lower limb | | Unspecified complication of internal prosthetic device, implant and graft, initial encou nter | | | |[facility] [place] [facility] | | poss OD | | Respiratory Distress | | Altered Mental Status | | Pneumonia, unspecified organism | | Respiratory failure, unspecified, unspecified whether with hypoxia or hypercapnia | | Sepsis, unspecified organism | | End stage renal disease | | | | | | | |Recent Inpatient Visit Summary | |Date Facility [facility] State Type Diagnoses or Chief Complaint | |Jun 09, 2018 [place] Medical Surgical | | 0. Pain in left hip | | 1. Bloodstream infection due to central venous catheter, initial encounter | | 2. Pneumonia, unspecified organism | | 3. Metabolic encephalopathy | | 4. Psoas muscle abscess | | 5. Sepsis due to Methicillin resistant Staphylococcus aureus | | 6. End stage renal disease | | 7. Hypertensive chronic kidney disease with stage 5 chronic kidney disease or end stage renal disease | | 8. Malignant neoplasm of unspecified part of unspecified bronchus or lung | | 9. Osteomyelitis of vertebra, lumbar region | | | |Apr 06, 2018 [facility] [place] General Medicine | | Other complication of vascular dialysis catheter, initial encounter | | End stage renal disease | | Dependence on renal dialysis | | Hypertensive chronic kidney disease with stage 1 through stage 4 chronic kidney disease, or unspecified chronic kidney disease | | Essential (primary) hypertension | | Type 2 diabetes mellitus with diabetic chronic kidney disease | | | |Jan 21, 2018 [place] [facility] [place] Medical [place] | | End stage renal disease | | Sepsis, unspecified organism | | Respiratory failure, unspecified, unspecified whether with hypoxia or hypercapnia | | Pneumonia, unspecified organism | | Acute kidney failure, unspecified | | Acute respiratory failure with hypoxia | | Nicotine dependence, unspecified, uncomplicated | | Chronic obstructive pulmonary disease, unspecified | | Opioid dependence with other opioid-induced disorder | | Chronic kidney disease, stage 5 | | | | | | | |Care Providers | |Provider PRC Type Phone Fax Service Dates | |RAKAN HOFF DO Internal Medicine Jul 01, 2018 - Current | |JOHN OQUENDO Primary Care Nov 16, 2013 - Current | | | |mycirQle Portal | |This patient has registered at the [facility] Emergency Department | |For more information visit: [email or web address] | |The above information is provided for the sole purpose of patient treatment. Use of this in formation beyond the terms of Data Sharing Memorandum of Understanding and License Agreement is prohibited. In | |certain cases not all visits may be represented. Consult the aforementioned facilities for additional information. | |2019 [facility] - [place], [place] - [email or web address] | + + + +---------+ + + | Performing | Address | City/State/Zipcode | Phone Number | | Organization | | | | + +---------+ + + | ED INFORMATION | | | | | EXCHANGE | | | | + +---------+ + [...] [place] - MOD[place] | [place] - | [id number] | [employer] | | | | | [...] | Self | [birth year] | Home: | [address] | | | al/Fam | | [phone] | [phone] [place] | | | [place] | | | [phone] | [address] | + +--------+ +--------+ + +
--- OUTSIDE RECORDS SUMMARY | ~2018-08-05 | XMS | Encounter Summary ---
Demographics + + + | Address | [address] | | | [place] [address] | + + + | Home Phone | | + + + | Preferred Language | Unknown | + + + | Marital Status | Single | + + + | Taoist Affiliation | Unknown | + + + | Race | White | + + + | Ethnic Group | Not or | + + + Author + + + | Author | [facility] | + + + | Organization | [facility] | + + + | Address | Unknown | + + + | Phone | Unavailable | + + + Support + + +---------+ + | Name | Relationship | Address | Phone | + + +---------+ + | Sole Gleason | ECON | Unknown | | + + +---------+ + Care Team Providers + +------+ + | Care Skin Fitter Name | Role | Phone | + [...] | | | | | [place], | | | | | | [place] [address] | | | +--------+--------+ + + + [...]
--- OUTSIDE RECORDS SUMMARY | ~2018-08-05 | XMS | Encounter Summary ---
Demographics + + + | Address | [address] | | | [place] [address] | + + + | Home Phone | | + + + | Preferred Language | Unknown | + + + | Marital Status | | + + + | Zoroastrian Affiliation | 1061 | + + + | Race | Unknown | + + + | Ethnic Group | Unknown | + + + Author + + + | Author | [facility] | | | and [place] | + + + | Organization | [facility] | | | and [place] | + + + | Address | Unknown | + + + | Phone | Unavailable | + + + Support + + + + + | Name | Relationship | Address | Phone | + + + + + | Sole Gleason | ECON | [place] | | | | | [address] | | + + + + + | Sruthi Gleason | ECON | [place] | | | | | [address] | | + + + + + | Sole Gleason | ECON | [place] | | | | | [address] | | + + + + + Care Team Providers + +------+ + | Care High School Social Studies Tutor Name | Role | Phone | + [...] + + + | Authorized | | Nephrology | Diagnoses | Kizzy, | Omar, | | | | | ESRD (end | DO Jack | Marcie Lozano DO | | | | | stage renal | [address] | [address] | | | | | disease) on | [address] | [place]ar [place] | | | | | dialysis | [address] | [address] | | | | | ([facility]) | [place], | [place] | | | | | Procedures | [place] | [address] Phone: | | | | | [place] OFFICE | [address] | [phone] | | | | | OUTPATIENT | Phone: | Fax: | | | | | VISIT 25 | [phone] | [phone] | | | | | MINUTES CT | Fax: | | | | | | ESRD RELATED | [phone] | | | | | | SVC MONTHLY | | | | | | | 20&/> YR | | | | | | | OLD 4/> | | | | | | | VISITS | | | + +--------+ + + + + Encounter Details +--------+ + + + + | Date | Type | Department | Care Team | Description | +--------+ + + + + | 07/10/ | Off-Site | [facility] | Marcie Nelson | ESRD (end stage | | 2019 | Visit | NEPHROLOGY [address] | M, DO [address] | renal disease) ([facility]) | | | | [address] | [place] | (Primary Dx) | | | | [place] | [place] | | | | | [address] | [address] | | | | | [phone] | | | +--------+ + + + [...] + + + | Blood Pressure | 120/53 | 07/10/20186 PST | + + + + | Pulse | - | - | + + + + | Temperature | 36.1 C (97 F) | 07/10/20186 PST | + + + + | Respiratory Rate | - | - | + + + + | Oxygen Saturation | - | - | + + + + | Inhaled Oxygen | - | - | | Concentration | | | + + + + | Weight | - | - | + + + + | Height | - | - | + + + + | Body Mass Index | - | - | + + + + in this encounter Marcie Christian DO - 07/10/2018 8285 PSTFormatting of this note may be different from the original. Subjective: DIALYSIS NOTE Patient ID: Shahbaz Gleason is a 62 y.o. male. 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 Due to unstable home environment he was admitted earlier this month to [facility]. However, he checked himself out AMA. Unfortunately, here on dialysis Shahbaz is repeatedly somnolent, difficult to arouse with re current myoclonus and evidence of untreated JOSEPH. He frequently moves his fistula arm during treatment in an unsafe manner and has come close to dislodging his dialysis needles, multip le times. I discussed with him that I don't think his current level of benzodiazepines and opiates are in his best interest. I also discussed with him that I think he would be better served in a more structured environment but he refuses to accept this. He still unfortunat dale, has very high intradialytic weight gains which placed him at risk for a dilated Cardiomyopathy, or ventricular arrhythmias, long-term. PAST MEDICAL HISTORY: 1. 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 2. History of Hypertension 1 year per the patient. 3. History of HCV with serum cryoglobulins in the past. 4. History IVDA, verbally states that he is in abstinence. 5. Ongoing nicotine addiction with probable background COPD. 6. History of CKD secondary to above, with the pt beginning thrice weekly HD on 01/23/2018. Outpatient Prescriptions Marked as Taking for the 07/10/18 encounter (Off-Site Visit) with Marta Nelson, DO Medication Sig Dispense Refill DULoxetine (CYMBALTA) 60 [...] tablet 0 LORazepam (ATIVAN) 0.5 mg tablet Take 2 tablets by mouth every 4 hours as needed (for n ausea, anxiety or restlessness). 60 tablet 4 methoxy polyethylene glycol-epoetin beta (MIRCERA) 50 mcg/0.3 mL injection Inject 0.45 mLs under the skin every 14 days. oxyCODONE (ROXICODONE) 5 mg tablet Take 1 tablet by mouth every 6 hours as needed. 30 t ablet 0 renal multivitamin (DIALYVITE, VOL-CARE) TABS Take 1 tablet by mouth Daily. 30 tablet 0 Review of Systems Objective: BP 120/53 | Temp 36.1 C (97 F) EDW 88.5 kg Physical Exam Heart: Regular rate and rhythm with no S3, S4, murmur or rub. Lungs: Prolonged expiratory phase, with fine inspiratory rales lower 1/4 both lungs, no wh eezes. Abdomen: soft, obese, nontender, NABS. Extremities: 1-2+ edema, dystrophic skin changes from old heroin use, however,(+) AVF in R UE with a strong bruit and thrill. LAB: BUN 57, Cr 7.4, K+ 5.1, HCO3 25, albumin 2.1, Hb 8.2, TSat = 11%, ferritin 1001, HbA1 c not listed?, spKT/V = 1.09 Assessment: 1. ESRD-- below target . However, he frequently signs himself off before completion of h is entire 4 hour treatment . I discussed with him at length that he would be better served with 4.5-5 hour treatments to help optimize his adequacy, urea clearance, and fluid removal. However he is declining these today 2. Hypertension-- good control, however hampered by excessive intradialytic fluid gains. 3. 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 I think it ma y be reasonable to give him modest doses of erythropoietin beta to target his Hb >10 g/dl. 4. Nutrition--His nutrition is suboptimal likely due to under dialysis and noncompliance with her treatment schedule? 5. COPD with ongoing nicotine addiction-- unfortunately still smokes minimally despite adv ice to quit. 6. Transplantation-- his opiate dependence and lack of social support would be barriers, a s well as active bronchogenic CA. 7. NSCLC-- managed by Dr. Bart Marcano. 8. Type 2 DM-- will reorder his HbA1c. Not clear if he performs home glucoscans. He decl maria guadalupe to bring in a home glucose log despite multiple requests? Plan: 1. Will recheck his HbA1c in the next 2 weeks. 2. I discussed with Shahbaz that I think he would be better served in a structured environm ent i.e. SNF, or an assisted living center? I think a minimum this could help with his nutr ition? 3. Clinically, he believes that his NSCLC is in remission. Will recheck him in one week. : [employer] [place], [place] Bart Buchanan MD, FACS in this encounter Plan of Treatment Not on fileas of this encounter Visit Diagnoses + + | Diagnosis | + + | ESRD (end stage renal disease) (HCC) - Primary | + + | End stage renal disease | + +
--- OUTSIDE RECORDS SUMMARY | ~2018-08-05 | XMS | Encounter Summary ---
Demographics + + + | Address | [address] | | | [place] [address] | + + + | Home Phone | | + + + | Preferred Language | Unknown | + + + | Marital Status | Single | + + + | Lutheran Affiliation | [id number] | + + + | Race | Unknown | + + + | Ethnic Group | Unknown | + + + Author + + + | Author | [facility] | + + + | Organization | [facility] | + + + | Address | Unknown | + + + | Phone | Unavailable | + + + Support + + + + + | Name | Relationship | Address | Phone | + + + + + | Sole Gleason | ECON | [place] | | | | | [address] | | + + + + + | Sruthi Gleason | ECON | [place], [place] | | | | | [address] | | + + + + + Care Team Providers + +------+ + | Care Engineer Conductor Name | Role | Phone | + +------+ + | None, Per Pt | PCP | [id number] | + +------+ + Reason for Visit + + + | Reason | Comments | + + + | Shortness of Breath | Xfer from [facility] d/t DONNA, possible pneumonia. Hx Lung CA. | + + + Auth/Cert +--------+--------+ + + + + | Status | Reason | Specialty | Diagnoses / | Referred By | Referred To | | | | | Procedures | Contact | Contact | +--------+--------+ + + + + | | | Internal | | | [facility] | | | | Medicine | | | [facility] | | | | | | | [facility] [address] | | | | | | | [address] | | | | | | | [place], [place] | | | | | | | [address] Phone: | | | | | | | [phone] | +--------+--------+ + + + + Encounter Details +--------+ + + + + | Date | Type | Department | Care Team | Description | +--------+ + + + + | 07/20/ | Hospital | [facility] | Abel Worrell, DO | Sepsis, due to | | 2019 - | Encounter | [facility] | Emergency | unspecified organism | | | | [facility] | Department [address] | (HCC) (Primary Dx); | | 07/23/ | | [address] | [address] | ESRD (end stage | | 2019 | | [place] [address] | [place] [address] | renal disease) | | | | [phone] | [phone] | ([facility]); Anemia, | | | | | | unspecified type; | | | | | Pankaj, | Chronic obstructive | | | | | MD Naeem [address] | pulmonary disease, | | | | | [address] | unspecified COPD | | | | | [place] [address] | type ([facility]); Heroin | | | | | [phone] | abuse ([facility]) | | | | | | | | | | | Saira Marquis MD | | | | | | [address] | | | | | | [place] [address] | | | | | | [phone] | | | | | | | | +--------+ + [...] AM PST | + + + + in this encounter Discharge Summaries David Green RN - 07/23/2018 4:54 PM PSTPt administered pain medication for pain henny or to dishcarge; VSS, central line removed prior to discharge; discharge instructions and pr escriptions handed to daughter; pt taken to daughter POV by escort services. DONYA Golden Dawn M, MD - 07/23/2018 1:25 PM PSTFormatting of this note may be different from the original. [facility] Service: Hospitalist Physician Discharge Summary Patient ID: Shahbaz Gleason [id number] y.o. Admit date: 07/20/2018 Discharge date: 07/23/18 Admitting Physician: Naeem Lira MD Discharge Physician: Saira Marquis MD Consultants: Treatment Team: Consulting Physician: Lior Carvalho MD Consulting Physician: Tammy Campuzano DO Consulting Physician: Michael Haas MD Admitting Provider: Naeem Lira MD Primary Discharge Diagnoses: Principal Problem: Parainfluenza Active Problems: Hypertension Opiate addiction Lung cancer (HCC) COPD (chronic obstructive pulmonary disease) (HCC) ESRD (end stage renal disease) (HCC) Heroin abuse (HCC) Medical non-compliance HPI and Hospital Course: Dr. Lira: The patient is 62 y.o.malewith significant past medical history of I V drug abuse, hepatitis C, medical noncompliance lung cancer, hypertension, ESRDon hemodia lysis, COPD, DM, diabetic neuropathywho presents with dyspnea/transfer from [facility] due to concerns for sepsis and acute on chronic respiratory failure Limited history. Patient not able to respond to verbal or painful stimuli. Family at [facility] who are helping. Patient with a complicated history, apparently, 2 weeks ago he was diagnosed with bacteremi a that was thought to be related to his chemotherapy port. It was discontinued and antibioti c therapy was given with/after dialysis. Subsequently, due to worsening back pain, he was se en at [facility] and? vertrbal osteomyelitis versus epidural abscess was diagnosed. Inemlvina potter, they were thinking about transferring the patient to [place] but, at the end, it was decided by patient and family to receive conservative management only. In the last 3 days, the patient has become increasingly weak, falling and breaking right si de ribs. Today, he was found confused, not making sense, and a subsequent decrease in mental status to the point that, right now, he is not able to respond to verbal or tactile stimuli . Positive chills but no objective fever at home. Family denies any new abdominal pain, naus ea, vomiting or diarrhea. Family and patient are quite consistent with their desires, which are congruent with paperw ork signed by the patient; requesting that the patient is DNR/DNI, limited intervention, i.e , fluids, antibiotics but no intensive care unit, pressors, intubation, CPR or surgical inte rvention. They are clear that they just want a trial of fluids and antibiotics at this point . 07/23/18 For Discharge Patient admitted for: Patient is 62 y.o. malewith significant past medical history of IV drug abuse, lung cance r, hypertension, ESRD, COPD, DM, diabetic neuropathywho presents with dyspnea/transfer [facility] due to concerns for sepsis and acute on chronic respiratory failure. Patient's hemodynamics stabilized after 500 cc of fluids -CT chest ([facility])-portal visualization. No significant change in the mediast inal and right hilar adenopathy. At least 2 new spiculated nodules in the left lung.Intersti tial thickening in both lungs. fracturesin the right glenoid, left 7 and eighth ribs, and L1 vertebra, consistent with metastatic disease. Patient's oncologist is Dr. Marcano of [place]. He has appointment in the upcoming week. -Parainfluenza Virus with cough and Somnolence. Sepsis ruled out -Complicated by narcotic drug use--see below for explanation. -Complicated history patient was recently found to have bacteremia Lumbar epidural abscess , seen by Dr. Haas who manages patient's IV Vancomycin. -MRI showed continued abscess, therefore Dr. Haas will continue Vanc. -UA, urine culture, BCx 2 -MRSA by PCR, sputum studies. -Respiratory filmarray showed Resp. Syncytial Virus -Lactic acid level--normalized -02 sats upper 90's--no pna noted. Somnolence most likely due to narcotic drug use. Patien t became A&O within 24 or less hours. He remained Afebrile. Atrial Fibrillation with RVR Now in sinus rhythm. No CP, dizziness, or SOB associated Trop slighly elevated but trended down--most likely due to tacycardia. Last echo 2017 showed preserved left ventricular EF. Lung cancer stage IV. With worsening metastasis, per last CT scan Monitor Patient has upcoming appointment with Dr. Marcano Acute on chronic hypoxic respiratory failure. Initially--02 sats upper 90's. Most likely secondary to narcotic pain medication COPD, Chronic, not in acute exacerbation Monitored ESRD on HD. TIW in [place] Nephrology consulted DM 2 SSI Insulin hx of IV heroine abuse and prescription pain medication Patient has received narcotics and benzos from numerous physicans. He states he receives Ox ycontin from Dr. Escalante, oncologist, but adds that he may have manipulated him to give h im more than needed and as a result, he is not sure he would be welcomed back to his office. His POA stated that in addition to the Oxycontin, he takes Oxycodone 20 mg, 5 tabs q 4-6 ho urs, PRN, and Oxycodone 10 mg q four hours prn. Patient is uncertain how much oxycodone he takes, however, family member at bedside states he only takes what is prescribed and it is given to him by his POA. It is strongly recommended that patient receives pain medications and benzos from only ONE physician. Hx of hepatitis C Monitor All questions were answered for patient who agreed to plan. Discharged in stable, but guar ded condition. Past Medical History: Past Medical History Diagnosis Date Arthralgia Chronic kidney disease Chronic obstructive pulmonary disease (HCC) Diabetes mellitus type II Diabetic neuropathy (HCC) ESRD (end stage renal disease) (HCC) Hepatitis C Heroin abuse (HCC) Hypertension Lung cancer (HCC) Malignant neoplasm (HCC) Neuromyopathy (HCC) Osteoarthritis Osteochondritis Other chronic pain Past Surgical History Procedure Laterality Date ADENOIDECTOMY AV FISTULA PLACEMENT Right 04/30/2018 Procedure: AV FISTULA; Surgeon: Dallas Velasqeuz MD; Location: [facility] MAIN OR; Service: Vascu lar; Laterality: Right; COLONOSCOPY HARDWARE PRESENT KNEE SURGERY for osteochondroma MEDIPORT INSERTION, SINGLE UNLISTED PROCEDURE ARTHROSCOPY Discharged Condition: Stable for discharge as stated above. Significant Diagnostic Studies: Mri Lumbar Spine Without Contrast Result Date: 07/23/2018 1. New disc space narrowing with increased disc T2 signal and irregularity at L1-2. Adjace nt abnormal increased marrow endplate signal. Findings highly suspicious for L1-2 discitis/ osteomyelitis. 2. Progressive disc space narrowing with residual increased disc level signal at L2-3 since 06/13/2018. Residual or recurrent discitis not excluded. 3. There is a new a nterior wedge deformity at the level of L2 suggestive of new compression fracture. 4. Increa sed signal within the right aspect of the L4-5 disc. Early discitis not excluded. 5. There is no evidence of an epidural abscess. 6. The degree of edema and abscess formation within t he psoas musculature bilaterally is reduced from prior study. 7. Multilevel degenerative dis c disease is present with potential impingement of the left L1, bilateral L2, left L3, right L4, bilateral L5 and left S1 nerve root. Dictated by: Norman Bergman Signed by: Wolf Velasco Sign Date/Time: 07/23/2018 8:12 AM The radiologist has reviewed the images and edited/ approved the report. For interventional procedures, the signing radiologist was present for the nowak portions of the exam. X-ray Chest 1 View Result Date: 07/22/2018 1. Worsening aeration of the right lung which may be secondary to pulmonary edema or pneumo connor. 2. Small bilateral pleural effusions. Signed by: Jayy Melendrez Sign Date/Time: 07/22/2018 7:28 AM Echo Cardiac Adult Complete Result Date: 07/22/2018 1. Indication for study and thus clinical question is unknown. Results as below. Discharge Vitals: Vitals: 07/23/18 1100 07/23/18 1115 07/23/18 1125 07/23/18 1135 BP: 150/66 150/73 175/69 167/70 BP Location: Left forearm Pulse: 84 84 77 84 Resp: 18 Temp: 97.7 F (36.5 C) TempSrc: Oral SpO2: 99% 98% 98% 98% Weight: 87.6 kg (193 lb 2 oz) Height: Discharge Exam: General: Well nourished. Psych: Alert and oriented x 3. Calm, cooperative. Cardiovascular: Regular rate and rhythm, no murmurs, no thrills. Normal PMI. Respiratory: Clear to auscultation, no wheezing or crackles, breathing non labored. Gastrointestinal: Soft, non-tender, non-distended, positive bowel sounds. No HSM. Musculoskeletal: No edema in bilateral lower extremities. No joint swelling. Skin: Warm and dry, no rashes. Neck: No JVD, Trachea midline. Neurological: Non focal. Motor grossly intact. LABS: Recent Labs Lab 07/23/18 0707/21/18 0505 07/20/182004 WBC 10.57 17.21* 15.60* RBC 3.16* 3.05* 3.13* HGB 8.6* 8.3* 8.5* HCT 27.3* 26.3* 27.2* MCV 86.4 86.3 86.8 MCH 27.3 27.1 27.1 MCHC 31.6* 31.4* 31.2* RDW 48.6 46.8 50.3 PLT 304 307 240 MPV 7.8 7.5 7.0 DIFFTYPE AUTOMATED AUTOMATED AUTOMATED Recent Labs Lab 07/23/18 0724 07/22/18 0529 07/21/18 0505 07/20/182004 NA 136 140 139 143 K 4.4 4.8 5.5* 5.7* CL 99 100 101 103 CO2 28 26 25 26 BUN 47* 38* 63* 57* CREATININE 5.9* 5.60* 8.6* 7.65* PROT 7.2 -- 7.0 6.4 BILITOT 0.3 -- 0.5 <0.2 ALT 12 -- 14 15 AST 20 -- 31 36 GLUF 111* 189* 117* 153* Recent Labs Lab 07/22/18 1750 07/22/18 1209 07/22/18 0529 07/20/182004 CKTOTAL -- -- -- 63 TROPONINI 0.053* 0.053* 0.059* -- CKMBINDEX -- -- -- 2.9 No results for input(s): PHOS in the last 168 hours. Recent Labs Lab 07/21/18 0505 MG 2.4 Invalid input(s): ABG Disposition: Home or Self Care Follow up: Per Pt None Lior Carvalho MD [address] [facility] [address] In 1 week Medication List START taking these medications nicotine 21 MG/24HR QTY: 28 patch Refills: 0 Commonly known as: NICODERM CQ Place 1 patch onto the skin daily for 30 days. Start taking on: 07/24/2018 vancomycin 1000 mg injection QTY: 7 each Refills: 3 Commonly known as: VANCOCIN 1000 mg after each hemodialysis unitl 08/23/18 Cbc cmp esr crp q Fridayand Vancomycin trough q Friday Follow up with DR. Haas in 1 weeks Please call to schedule follow up Please fax all labs to [phone] CHANGE how you take these medications OxyCODONE 40 MG 12 hr tablet Refills: 0 Commonly known as: oxyCONTIN What changed: Another medication with the same name was removed. Continue taking this medi cation, and follow the directions you see here. CONTINUE taking these medications BD Insulin Syringe U/F 30G X 1/2" 0.5 ML Misc Refills: 0 Generic drug: Insulin Syringe-Needle U-100 budesonide-formoterol 80-4.5 MCG/ACT inhaler QTY: 1 Inhaler Refills: 1 Commonly known as: SYMBICORT Inhale 2 puffs into the lungs 2 (two) times daily. Cholecalciferol 1000 units capsule Refills: 0 DIALYVITE TABLET Tabs Refills: 0 Doxercalciferol 2 MCG/ML Soln Refills: [address] capsule Refills: 0 Commonly known as: CYMBALTA furosemide 80 MG tablet Refills: 0 Commonly known as: LASIX gabapentin 800 MG tablet Refills: 12 Commonly known as: NEURONTIN insulin glargine 100 UNIT/ML injection QTY: 10 mL Refills: 12 Commonly known as: LANTUS Inject 30 Units into the skin nightly. lansoprazole 30 MG capsule Refills: 0 Commonly known as: PREVACID lisinopril 10 MG tablet Refills: 0 Commonly known as: ZESTRIL LORazepam 0.5 MG tablet Refills: 4 Commonly known as: ATIVAN ondansetron 8 MG tablet Refills: 5 Commonly known as: ZOFRAN sertraline 50 MG tablet Refills: 11 Commonly known as: ZOLOFT sevelamer 800 MG tablet Refills: 0 Commonly known as: RENVELA VELPHORO 500 MG chewable tablet Refills: 0 Generic drug: sucroferric oxyhydroxide You might also be taking other medications not listed above. If you have questions about an y of your other medications, talk to the person who prescribed them or your Primary Care Pro vider. STOP taking these medications amoxicillin-clavulanate 875-125 MG per tablet Commonly known as: AUGMENTIN buprenorphine HCl 8 MG Subl doxycycline 100 MG capsule Commonly known as: MONODOX MAVYRET 100-40 MG Tabs Generic drug: Glecaprevir-Pibrentasvir NIFEdipine 60 MG 24 hr tablet Commonly known as: ADALAT CC Where to Get Your Medications These medications were sent to [id number] - [place], [place] - [address], [place] [address] nicotine 21 MG/24HR You can get these medications from any pharmacy Bring a paper prescription for each of these medications vancomycin 1000 mg injection Saira Marquis MD 07/23/2018 1:29 PM Discharge took >30 minutes, to include final examination, discussion of admission, and pre paration of prescriptions, instructions for ongoing care, follow up and dictation of summary . in this encounter Discharge Instructions David Green RN - 07/23/2018Formatting of this note may be different from the origina l. Diet for Chronic Kidney Disease Following a special diet when you have kidney disease can help you stay as healthy as possi power. Your healthcare provider or dietitian should make a special diet plan just for you. Eating right Here are some good eating rules to follow: Protein.Eating protein is important for your body. But too much protein can put a stra in on your kidneys. Eating less protein may slow the progression of chronic kidney disease. Foods high in protein include meat, fish, eggs, cheese, and other dairy products. A register ed dietitian can help you plan a diet that has the right amount of protein for you. Sodium. Having too much salt in your diet can make your body hold onto (retain) water. A sk your provider or dietitian how much sodium per day you are allowed. This will help you av oid fluid buildup in your body (fluid retention). It can also help control high blood pressu re. Learn to read food labels to know how much sodium is in one serving. Foods high in salt include processed meats, canned and boxed foods, sauces, salted chips and snacks, pickled fo ods, frozen dinners, and restaurant and fast food. Fluids. If you have advanced kidney disease, you will need to limit the water and fluids you drink. If you don t, then too much water will build up in your body. The exact amount of fluid you can drink depends on how well your kidneys are working. Ask your provider how much water you can safely drink each day. Potassium. In advanced kidney disease, your potassium level can go dangerously high. Thi s affects your heart. It can cause an irregular heartbeat (arrhythmia). Ask your provider or dietitian if you should limit potassium in your diet. Foods high in potassium include dairy products (milk, yogurt, cheese), dried beans, bananas, oranges, potatoes, tomatoes, spinach , cantaloupe, honeydew melon, dried fruits, and nuts. Calcium.Calcium is important to build strong bones. But foods high in calcium are also high in phosphorus, which can take calcium from your bones. Limiting foods high in phosphor us will help keep calcium in your bones. Ask your provider how much calcium you should get e ach day. Phosphorus. In advanced kidney disease, your phosphorus level can go dangerously high. T his affects many systems in the body and can damage your heart. Limit your intake of phospho rush-rich foods. These include dried beans and peas, nuts, peanut butter, cocoa, beer, cola d rinks, and dairy products. Date Last Reviewed: 12/18/201519997282-[address] [place] [address], [place] [address]. All righ ts reserved. This information is not intended as a substitute for professional medical care. Always follow your healthcare professional's instructions. Understanding the Risks and Side Effects of Opioid Medicines When opioids are taken as prescribed, they are usually safe and can help manage pain effect ively. But they do come with risks and side effects that are important to understand. Of the risks that can occur with opioid treatment, opioid overdoseis the most serious. Overdose means taking a too high dose. For this reason, it is critical that you and your loved ones u nderstand the signs and symptoms of an opioid overdose and what to do if it occurs. Risks of opioid medicines If you take opioids regularly for a long time, there is a risk of forming a tolerance or de pendence to the medicines. There is also the risk of forming an addiction. But this is much less common when opioids are taken as directed under the care of a healthcare provider. Unde rstanding the differences between tolerance, dependence, and addiction is important. This he lps you know what to expect when taking opioids and know what to do if you think you may be addicted. Tolerance means that your body needs higher doses than before to get the same pain relie f effects. Most people who take opioids for longer than a few weeks will form a tolerance. T his is normal. Your healthcare provider will work with you to manage tolerance and ensure th at your pain is still controlled. Dependence means your body will have withdrawal symptoms if you reduce or stop taking th e medicine. These symptoms can include sleeplessness, rapid heartbeat, rapid breathing, and diarrhea. Forming a dependence is common for people taking opioids regularly for a long time . When it is time to stop taking the medicine, your healthcare provider will work closely wi th you to taper the medicine to lessen withdrawal symptoms. You should never stop taking or reduce the amount of medicine you are used to taking without talking to your healthcare prov ider. Note: Dependence is not the same thing as addiction. Addiction occurs when a person has the urge to seek out the medicine and can't stop usin g it despite the harm and negative effects it might cause. Some people, such as those who villafuerte ve a history of drug misuse, are at higher risk for addiction. Your healthcare provider will follow up with you regularly and also monitor you for signs of addiction. If you think you are forming an addiction to your medicine, call your healthcare provider right away. What is opioid-use disorder? Opioid-use disorder is a risk of taking opioid medicines. It may be diagnosed if a person s hows a pattern of taking opioids despite negative consequences such as: The opioid interferes with life, family or work obligations (this includes avoiding situ ations because of opioid use) The opioid causes physical or psychological problems Continued and increased amount of time spent attempting to obtain, use and recover from opioid use Unsuccessful attempts to cut down or stop opioid use Using a higher amount of opioid than prescribed or using it in unsafe situations (such a s driving) Unmanaged signs and symptoms of tolerance or withdrawal If you or your family suspect opioid-use disorder, contact your healthcare provider right a way. They can help you assess the problem and provide treatment if needed. Risk for overdose Opioids affect the part of the brain that controls breathing. An overdose of opioids can sl ow breathing down too much and even stop a person s breathing. This can be fatal. Call 911 right away if an overdose is suspected in any person. Three nowak signs and symptoms of opioid overdose are: Narrowing of dark circles in the middle of eyes (pinpoint pupils) Slowed or stopped breathing Unconsciousness (this is when a person passes out and does not respond) Other signs and symptoms to look for include: Limp body Pale face Clammy skin Purple or blue color of the lips and fingernails Vomiting Your healthcare provider may prescribe a medicine called naloxone in case of opioid overdos e. When given within a certain period of time after an overdose, naloxone can help reverse t he life-threatening effects of the opioid. Emergency care will still be needed. Side effects of opioid medicines Some side effects are common when taking opioids. These include constipation, nausea, sleep iness, impaired motor skills, and problems emptying the bladder (urinary retention). Opioid medicines can also cause problems with memory, thinking, and judgment, especially in older a dults. If you have any of these side effects, talk with your healthcare provider or pharmacist. Th carmela can provide advice for managing them. This might include: Reducing the dose of your opioid medicine (never do this without talking with your healt hcare provider) Trying a different type or brand of opioid medicine Adding a drug to treat the side effect In some cases, your healthcare provider may take measures to help prevent side effects that are likely to occur. For instance, to help prevent constipation, your healthcare provider m ay prescribe a laxative or stool softener at the same time you start opioid treatment. More serious or longer-lasting side effects can occur when you don t take opioids exactly as directed. Misusing opioids can lead to liver and brain damage. To avoid these side effec ts: Never take more opioids than prescribed by your healthcare provider. Never combine opioids with non-prescribed medicines. Never use street drugs or drink alcohol while taking opioids. Don't take opioids in combination with benzodiazepines. Serious risks are associated wit h combining opioids with benzodiazepines. These risks include extreme sleepiness, slowed jenna athing, and . Let your healthcare provider know if you are taking benzodiazepines. When to call your healthcare provider You will be carefully monitored during treatment with opioid medicines. But you should call your healthcare provider right away if you have any of these symptoms: New pain, pain that gets worse, or pain that doesn t get better even after you take yo ur medicine Side effects, such as constipation or nausea, that keep you from daily activities Extreme sleepiness Breathing problems Date Last Reviewed: 12/17/[id number] [employer]. [address] [place] [address]. All righ ts reserved. This information is not intended as a substitute for professional medical care. Always follow your healthcare professional's instructions. Home Health: I certify that Shahbaz Gleason is under my care and that I had a face to face e ncounter on 07/23/18 that meets the physician [facility]. I certify that based on my findings , the patient is in need of intermittent skilled se rvices and a plan for furnishing these services to include, but not limited to the services listed in the questions below: Primary diagnosis for home health: pneumonia. Additional diagnosis: dyspnea. Services needed: Nursing- medication management, teaching- CKD, opioids. PT/OT- deconditio latrice- strength training/home regimen. ST-dysphagia- decrease risk of aspiration. Patient is homebound because he cannot leave home without assistance of another individual and leaving the home requires a considerable and taxing effort. Physician assuming care for Home Health services: Dr Hoff. Certifying/Referring Provider: Dr Marquis NPI # [id number] _ Date: ____5-3-96 The following attachments cannot be sent through Care Everywhere.Nicotine skin patches ([facility])Vancomycin injection (Spanish)in this encounter Medications at Time of Discharge + + + +---------+ + + | Medication | Sig. | Disp. | Refills | Start | End Date | | | | | | Date | | + + + +---------+ + + | B [id number] | Take 1 tablet by | | [...] + + + +---------+ + + | nicotine (NICODERM | Place 1 patch onto | 28 | 0 | 07/25/19 | | | CQ) 21 MG/24HR | the skin daily for | patch | | 19 | 9 | | | 30 days. | | | | | + + [...] | | | | | labs to [phone] | | | | | + + + +---------+ + + | VELPHORO 500 MG | | | | 04/05/20 | | | chewable tablet | | | | 18 | | + + + +---------+ + + as of this encounter Progress Notes Demi Robledo - 07/23/2018 4:54 PM PSTChaplain referral/follow up. Patient and family ex pressing relief that patient is being d/c today. No needs expressed.Kilo Hurtado, RP H - 07/23/2018 12:36 PM PSTFormatting of this note may be different from the original. Vancomycin Monitoring S: Pharmacy to dose vancomycin per protocol. Diagnosis: Sepsis, lumbar spine abscess and osteomyelitis Vancomycin Day: 42 O: Lab Results Component Value Date/Time CREATININE 5.9 (H) 07/23/2018 07:24 AM WBC 10.57 07/23/2018 07:24 AM Wt= 87.6 kg, CrCl= HD, Tmax afeb, Cultures= Urine NGTD, Bloodx2 [id number], Respiratory filmarray - Resp Syncytial Virus posi tive; MRSA PCR neg; . Other Abx= none. Current Vancomycin Dose = 1000 mg IV post HD A: Trough goal: 15- 20 ug/mL. Patient has been on vancomycin prior to hospitalization and the plan is to continue for another month. No documented levels have been listed. Will orde r a random level. It is unknown when the next HD session will be; will schedule a random lev el tonight to allow for post HD vancomycin dose to redistribute appropriately. P: Continue vancomycin 1000 mg IV post HD. Order written to draw level @ 2000 on 07/23/18. Pharmacist: Lior Zapien MD - 07/23/2018 9:42 AM PSTFormatting of this note may be different from the original. [facility] Service: NEPHROLOGY Dialysis/ Progress Note Shahbaz Mcpherson Victorino 62 y.o. [id number] male Per PT None Hospital Day: LOS: 3 days 62-year-old [place] patient gentleman with past medical history significant for lung canc er noncompliant, history of IV drug abuse, hepatitis C, end-stage renal disease on hemodialy sis, COPD, type II diabetes, diabetic neuropathy transferred from [facility] due to sepsis and respiratory failure. Per family and patient desire DO NOT RESUSCITATE/DO NOT INTUBATE with limited intervention including fluids antibiotic but no ICU care pressors intubation CPR or surgical intervention . Nephrology consulted for evaluation and management of ESRD ONSET Chronic severity severe Associated with fluid electrolyte acid base imbalances Assess need for hd/uf Seen and examined on hd with hd rn alexx tolerating hd/ uf well Access functioning well HD FLOW SHEET REVIEWED More awake and alert No cp, n, v, d, fever, h/a Past Medical History Diagnosis Date Arthralgia Chronic kidney disease Chronic obstructive pulmonary disease (HCC) Diabetes mellitus type II Diabetic neuropathy (HCC) ESRD (end stage renal disease) (HCC) Hepatitis C Heroin abuse (HCC) Hypertension Lung cancer (HCC) Malignant neoplasm (HCC) Neuromyopathy (HCC) Osteoarthritis Osteochondritis Other chronic pain Past Surgical History Procedure Laterality Date ADENOIDECTOMY AV FISTULA PLACEMENT Right 04/30/2018 Procedure: AV FISTULA; Surgeon: Dallas Velasquez MD; Location: [facility] MAIN OR; Service: Vascu lar; Laterality: Right; COLONOSCOPY HARDWARE PRESENT KNEE SURGERY for osteochondroma MEDIPORT INSERTION, SINGLE UNLISTED PROCEDURE ARTHROSCOPY Prescriptions Prior to Admission Medication Sig Dispense Refill Last Dose B Pglfjvp-U-Yswbn Acid (DIALYVITE TABLET) TABS Take 1 tablet by mouth. Taking at Unkn own time budesonide-formoterol (SYMBICORT) 80-4.5 MCG/ACT inhaler Inhale 2 puffs into the lungs 2 (two) times daily. 1 Inhaler 1 Taking at Unknown time doxycycline (MONODOX) 100 MG capsule doxycycline monohydrate 100 mg capsule Taking at Unknown time DULoxetine (CYMBALTA) [address] capsule Take 60 mg by mouth. Taking at Unknown time furosemide (LASIX) 80 MG tablet Take 80 mg by mouth. Taking at Unknown time gabapentin (NEURONTIN) 800 MG tablet Take 100 mg by mouth 2 (two) times daily. 12 Taki ng Different at Unknown time lisinopril (ZESTRIL) 10 MG tablet Take 10 mg by mouth. Taking at Unknown time LORazepam (ATIVAN) 0.5 MG tablet Take 0.5 mg by mouth every 4 (four) hours as needed fo r Anxiety (1-2 tablets). 4 Taking Different at Unknown time OxyCODONE (OXYCONTIN) 40 MG 12 hr tablet 0 Taking at Unknown time oxycodone 20 MG immediate release tablet Take 0.5 tablets by mouth every 6 (six) hours as needed. (Patient taking differently: Take 20 mg by mouth every 4 (four) hours as needed ( 2-3 tablets).) 28 each 0 Taking Different at Unknown time sevelamer (RENVELA) 800 MG tablet Take 800 mg by mouth 3 (three) times daily with meals . Taking at Unknown time amoxicillin-clavulanate (AUGMENTIN) 875-125 MG per tablet Take 1 tablet by mouth 2 (two ) times daily. (Patient not taking: Reported on 04/30/2018) 14 tablet 0 Not Taking at Unknow n time B-D INS SYRINGE 0.5CC/30GX1/2" 30G X 1/2" 0.5 ML MISC Not Taking at Unknown time buprenorphine HCl 8 MG SUBL buprenorphine HCl 8 mg sublingual tablet Not Taking at Un known time Cholecalciferol 1000 units capsule Take 1,000 Units by mouth daily. Not Taking at Unk nown time Doxercalciferol 2 MCG/ML SOLN Inject 0.5 mcg into the vein. Not Taking at Unknown dimitri e Glecaprevir-Pibrentasvir (MAVYRET) 100-40 MG TABS Mavyret 100 mg-40 mg tablet Not Pravin ing at Unknown time insulin glargine (LANTUS) 100 UNIT/ML injection Inject 30 Units into the skin nightly. (Patient not taking: Reported on 04/30/2018) 10 mL 12 Not Taking at Unknown time lansoprazole (PREVACID) 30 MG capsule Take 30 mg by mouth nightly. Not Taking at Unkn own time NIFEdipine (ADALAT CC) 60 MG 24 hr tablet Take 1 tablet by mouth daily. 30 tablet 11 at Unknown time ondansetron (ZOFRAN) 8 MG tablet Take 8 mg by mouth 2 (two) times daily as needed. 5 N ot Taking at Unknown time oxyCODONE 10 MG tablet Take 1 tablet by mouth every 6 (six) hours as needed for Pain. ( Patient not taking: Reported on 07/22/2018) 30 tablet 0 Not Taking at Unknown time sertraline (ZOLOFT) 50 MG tablet Take 50 mg by mouth daily. 11 Not Taking at Unknown t ivan VELPHORO 500 MG chewable tablet Not Taking at Unknown time No Known Allergies Family History Problem Relation Age of Onset Cancer Mother breast Diabetes Mother Cancer Father colon Malig hypertherm Neg Hx Social History Social History Marital status: Single Spouse name: N/A Number of children: 4 Years of education: N/A Occupational History Not on file. 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 Education: 11 yrs. Scheduled Medications budesonide-formoterol 2 puff Inhalation 2 times daily DULoxetine 60 mg Oral Daily famotidine 20 mg Oral Daily Or famotidine 20 mg Intravenous Daily gabapentin 100 mg Oral Nightly gabapentin 100 mg Oral See Admin Instructions heparin (porcine) 4,500 Units Intracatheter Once in dialysis heparin (porcine) 5000 unit/0.5mL 5,000 Units Subcutaneous 2 times per day insulin glargine 10 Units Subcutaneous Nightly insulin lispro (human) 0-3 Units Subcutaneous Nightly insulin lispro (human) 0-6 Units Subcutaneous TID AC ipratropium-albuterol 3 mL Nebulization Q6H lisinopril 10 mg Oral Daily nicotine 1 patch Transdermal Daily vancomycin 1,000 mg Intravenous See Admin Instructions Continuous Infusions dextrose diltiazem Stopped (07/22/18 0637) PRN Medications Allergy: No Known Allergies OBJECTIVE Vital Signs: BP 159/74 | Pulse 74 | Temp 97.6 F (36.4 C) (Oral) | Resp 18 | Ht 1.778 m (5' 10") | Wt 89.6 kg (197 lb 8.5 oz) | SpO2 97% | BMI 28.34 kg/m I&O Detailed Table: I/O last 3 completed shifts: In: - Out: 50 [Urine:50] Weight change: Examination: seen with hd rn alexx/ pt APPEARANCE: The patient is lying in no distress on O2, awake and alert VITALS: Reviewed as listed. HEENT: NC/AT. +ve pale conjunctiva LUNGS: GOOD A/E on auscultation bilaterally, no respiratory distress. HEART: S1, S2, no pericardial rub noted ABDOMEN: Full, soft, no tenderness. EXTREMITIES: no pedal edema noted. NEUROLOGIC: No gross focal motor deficit noted. PSYCH: cannot assess given change in MS/ obtunded R IJ Tunneled hd catheter functioning well LABS: Recent Results (from the past 24 hour(s)) POCT glucose Collection Time: 07/22/18 11:27 AM Result Value Ref Range GLUCOSE,POC SCREEN 155 (H) 65 - 99 mg/dL Troponin I Collection Time: 07/22/18 12:09 PM Result Value Ref Range TROPONIN I 0.053 (H) 0.00 - 0.04 ng/mL POCT glucose Collection Time: 07/22/18 1:00 PM Result Value Ref Range GLUCOSE,POC SCREEN 156 (H) 65 - 99 mg/dL Echo cardiac adult complete Collection Time: 07/22/18 2:38 PM Result Value Ref Range LV EF 60 50 - 70 % POCT glucose Collection Time: 07/22/18 4:52 PM Result Value Ref Range GLUCOSE,POC SCREEN 162 (H) 65 - 99 mg/dL Troponin I Collection Time: 07/22/18 5:50 PM Result Value Ref Range TROPONIN I 0.053 (H) 0.00 - 0.04 ng/mL POCT glucose Collection Time: 07/22/18 7:11 PM Result Value Ref Range GLUCOSE,POC SCREEN 174 (H) 65 - 99 mg/dL POCT glucose Collection Time: 07/22/18 8:46 PM Result Value Ref Range GLUCOSE,POC SCREEN 148 (H) 65 - 99 mg/dL POCT glucose Collection Time: 07/23/18 5:30 AM Result Value Ref Range GLUCOSE,POC SCREEN 153 (H) 65 - 99 mg/dL CBC w/auto diff (reflex to manual) Collection Time: 07/23/18 7:24 AM Result Value Ref Range WBC 10.57 3.80 - 11.00 K/uL RBC 3.16 (L) 4.20 - 5.70 M/uL HGB 8.6 (L) 13.2 - 17.0 g/dL HCT 27.3 (L) 39.0 - 50.0 % MCV 86.4 80.0 - 100.0 fl MCH 27.3 27.0 - 34.0 pg MCHC 31.6 (L) 32.0 - 35.5 g/dL RDW SD 48.6 37 - 53 fl PLT 304 150 - 400 K/uL MPV 7.8 fl DIFF TYPE AUTOMATED NEUTROPHILS 78.55 % LYMPHOCYTES 14.30 % MONOCYTES 6.76 % EOSINOPHILS 0.01 % BASOPHILS 0.38 % NEUTROPHILS ABS 8.30 (H) 1.90 - 7.40 K/uL LYMPHOCYTES ABS 1.51 1.00 - 3.90 K/uL MONOCYTES ABS 0.71 0.00 - 0.80 K/uL EOSINOPHILS ABS 0.00 0.00 - 0.50 K/uL BASOPHILS ABS 0.04 0.00 - 0.10 K/uL Comprehensive metabolic panel Collection Time: 07/23/18 7:24 AM Result Value Ref Range SODIUM 136 135 - 145 mmol/L POTASSIUM 4.4 3.5 - 4.9 mmol/L CHLORIDE 99 99 - 109 mmol/L CO2 28 23 - 32 mmol/L ANION GAP AGAP 13 5 - 20 mmol/L GLUCOSE 111 (H) 65 - 99 mg/dL BUN 47 (H) 8 - 25 mg/dL CREATININE 5.9 (H) 0.70 - 1.30 mg/dL BUN/CREAT 8 CALCIUM 8.3 (L) 8.5 - 10.5 mg/dL TOTAL PROTEIN 7.2 6.3 - 8.2 g/dL Albumin 1.7 (L) 3.3 - 4.8 g/dL GLOBULIN 5.5 (H) 1.3 - 4.9 g/dL A/G 0.3 (L) 1.0 - 2.4 TBIL 0.3 0.1 - 1.5 mg/dL ALK PHOS 152 (H) 35 - 115 U/L AST 20 10 - 45 U/L ALT 12 10 - 65 U/L EGFR 10 (L) >60 mL/min/1.73m2 C-reactive protein Collection Time: 07/23/18 7:24 AM Result Value Ref Range CRP 10.8 (H) <0.5 mg/dL Sedimentation rate, automated Collection Time: 07/23/18 7:24 AM Result Value Ref Range ESR 116 (H) 0 - 20 mm/Hr Procalcitonin Collection Time: 07/23/18 7:24 AM Result Value Ref Range PROCALCITONIN 6.06 (H) <0.5 ng/mL IMAGING: Mri Lumbar Spine Without Contrast Result Date: 07/23/2018 MRI LUMBAR SPINE WITHOUT CONTRAST CLINICAL INFORMATION: Back pain. History of epidural abs cess. COMPARISON: MRI LUMBAR SPINE WITHOUT CONTRAST (06/13/2018); PROCEDURE: Sagittal T2, axi al T2, sagittal T1, axial T1, sagittal STIR sequences. FINDINGS: Alignment: Mild straighteni ng of the normal lumbar lordosis is present. No subluxation is present. Vertebrae and verteb ral marrow signal: There is progressive/new discogenic edema along the adjacent endplates of L1-2. There is demonstration of a new anterior vertebral body height compression deformity at the level of L2 with approximately 30% vertebral body height loss. There is progressive edema noted along the adjacent endplates of L2-3. T1 shortening along the posterior body o f L5 on the right is similar to prior study. There is developing discogenic edema along the superior endplate of L5. Conus and imaged portions of the caudal cord: Conus terminates at L1-2 disc level. No epidural fluid collection. Lumbar disc levels: L1-2: There is a large c ircumferential disc contributing to moderate spinal canal and bilateral subarticular recess stenosis. Surrounding perivertebral edema is progressed from previous examination. There m ay be impingement of the transiting bilateral L2 nerve roots secondary to subarticular reces s stenosis. There is moderate left and mild right neural foraminal narrowing. Annular fiss uring of the disc is present. There is equivocal impingement of the exiting left L1 nerve ro ot. L2-3: A large circumferential disc is noted with mild bilateral facet hypertrophy. This contributes to severe right and moderate left subarticular recess stenosis. There is mild spinal canal narrowing at this level. There is demonstration of moderate right and severe l eft neural foraminal narrowing. There is potential impingement of the left L2 nerve root, s lightly worsened in appearance from previous exam. L3-4: A moderate circumferential disc is noted with moderate bilateral facet arthropathy. There is mild spinal stenosis. Mild left and moderate right subarticular recess narrowing is demonstrated. This appears similar to t he comparison examination with equivocal impingement of the transiting right L4 nerve root. There is moderate left and mild right neural foraminal stenosis. There is equivocal imping ement of the exiting left L3 nerve root, unchanged. L4-5: There is a moderate circumferentia l disc with moderate bilateral facet arthropathy and ligamentum flavum thickening. There is severe right and moderate left subarticular recess narrowing. The transiting bilateral L5 nerve root contacts disc material. There is moderate spinal stenosis at this level. There is moderate right and mild left neural foraminal narrowing. There is equivocal impingement of the exiting right L4 nerve root, similar to prior study. L5-S1: There is a mild circumfer ential disc with a prominent left lateral osteophyte. The appearance is similar to prior st udy. There is severe left and moderate right subarticular recess narrowing with equivocal i mpingement of the transiting left S1 nerve root. This appears similar to prior study. Ther e is moderate left and mild right neural foraminal stenosis. Paraspinal musculature and para vertebral soft tissues: A fluid collection along the left psoas musculature appears reduced in size from comparison examination. The degree of edema within the left psoas is reduced. There is also edema noted along the right psoas musculature. A small fluid collection to t he right of the L2-3 disc now measures 13 x 9 mm, reduced in size. There is resolution of a fluid collection seen on the left side at L2-3 from prior study. Multiple hyperintense T2 l esions are seen throughout the renal cortex consistent with scattered cysts. No hydronephro sis is noted. The visualized aorta and IVC are normal. There is moderate fatty atrophy of the paraspinous musculature. There is generalized paraspinous muscular edema posteriorly, i ncreased from previous exam. 1. New disc space narrowing with increased disc T2 signal and irregularity at L1-2. Adjace nt abnormal increased marrow endplate signal. Findings highly suspicious for L1-2 discitis/ osteomyelitis. 2. Progressive disc space narrowing with residual increased disc level signal at L2-3 since 06/13/2018. Residual or recurrent discitis not excluded. 3. There is a new a nterior wedge deformity at the level of L2 suggestive of new compression fracture. 4. Increa sed signal within the right aspect of the L4-5 disc. Early discitis not excluded. 5. There is no evidence of an epidural abscess. 6. The degree of edema and abscess formation within t he psoas musculature bilaterally is reduced from prior study. 7. Multilevel degenerative dis c disease is present with potential impingement of the left L1, bilateral L2, left L3, right L4, bilateral L5 and left S1 nerve root. Dictated by: Norman Bergman Signed by: Wolf Velasco Date/Time: 07/23/2018 8:12 AM The radiologist has reviewed the images and edited/ approved the report. For interventional procedures, the signing radiologist was present for the nowak portions of the exam. X-ray Chest 1 View Result Date: 07/22/2018 CHEST ONE VIEW CLINICAL INFORMATION: Tube and line position. COMPARISON: XR CHEST 1 VIEW (1 06/06/2017); IR TUNNELED CATHETER REPLACEMENT SAME ACCESS (03/27/2018); FINDINGS: The heart is mildly enlarged. Dual lumen central venous catheter tip terminates at the level of the sup erior vena cava. The catheter appears mildly retracted from the prior exam. Central pulmon jacky venous congestion. Bilateral interstitial prominence, right greater than left. Right m id and lower lung airspace opacities. Small bilateral pleural effusions. No pneumothorax i s seen. 1. Worsening aeration of the right lung which may be secondary to pulmonary edema or pneumo connor. 2. Small bilateral pleural effusions. Signed by: Jayy Melendrez Sign Date/Time: 07/22/2018 7:28 AM Echo Cardiac Adult Complete Result Date: 07/22/2018 Patient Name: SHAHBAZ GLEASON Date of : 1955 [facility] Geni jilliancian: Kilo Flores MD ------REPORT ADDENDED------ INDICATIONS abnormal ekg CONCLUSIONS --------- -- 1. Indication for study and thus clinical question is unknown. Results as below. FINDINGS -------- [no group]: Indication for study and thus clinical question is unknown. Results as below. ECG rhythm: Sinus rhythm. Study: A 2-dimensional transthoracic echocardiogram with m -mode, spectral and color flow Doppler was perfomed. Study: This was a technically difficult study with suboptimal views. Left Ventricle: Overall left ventricular systolic function is normal with, an EF between 55 - 60 %. Left Ventricle: The left ventricle cavity size is norm al. Left Ventricle: There is mild concentric left ventricular hypertrophy. Left Ventricle: T he diastolic filling pattern indicates impaired relaxation consistent with mild dysfunction (Grade I). Right Ventricle: The right ventricle is normal in size. Right Ventricle: The righ t ventricular systolic function is normal. Left Atrium: The left atrial size is normal Left Atrium: , and the LA measures 3.4cm. Right Atrium: The right atrium is mildly enlarged. Righ t Atrium: and the right atrium measures 5.6cm Mitral Valve: There is trace mitral regurgitat ion. Mitral Valve: Mild thickening of the anterior mitral valve leaflet. Mitral Valve: There is mild thickening of the posterior mitral valve leaflet. Tricuspid Valve: The tricuspid va lve appears structurally normal. Tricuspid Valve: Trace tricuspid regurgitation present. Pul maddi Valve: The pulmonic valve was not well visualized. Pericardium: There is no pericardia l effusion. IVC/Hepatic Veins: The IVC is dilated (>2.5cm) and does not collapse with sn iff, consistent with central venous pressures of >20mmHg. Aorta: The ascending aorta is dila wale measuring up to . Mass: No mass visualized Thrombus: No clot visualized MEASUREMENTS --- Ao asc: 4.19 cm Ao sinus: 3.[address] junct: 2.83 cm IVC: 2.61 cm LA Ma bhupinder: 5.06 cm EDV(Teich): 138.37 ml IVSd: 1.08 cm LVIDd: 5.35 cm LVPWd: 0.97 cm LVO T Diam: 2.08 cm %FS: 22.35 % EF(Teich): 44.64 % ESV(Teich): 76.59 ml IVSs: 1.28 cm LVIDs: 4.15 cm LVPWs: 1.57 cm SV(Teich): 61.77 ml RA Major: 5.57 cm RVIDd: 3.63 c m RVOT Diam: 6.01 cm LVEF MOD A2C: 49.89 % SV MOD A2C: 37.69 ml LVEF MOD A4C: 48.79 % SV MOD A4C: 86.68 ml EF Biplane: 55.01 % LVEDV MOD BP: 145.48 ml LVESV MOD BP: 65. 44 ml LVEDV MOD A2C: 75.54 ml LVLd A2C: 8.41 cm LVEDV MOD A4C: 177.62 ml LVLd A4C: 9 .57 cm LVESV MOD A2C: 37.85 ml LVLs A2C: 7.32 cm LVESV MOD A4C: 90.94 ml LVLs A4C: 8 .60 cm LAESV(A-L): 41.75 ml LAESV Index (A-L): 20.26 ml/m2 LAAs A2C: 13.44 cm2 LAESV A -L A2C: 38.63 ml LALs A2C: 3.97 cm LAAs A4C: 14.53 cm2 LAESV A-L A4C: 37.19 ml LALs A4C: 4.82 cm Nancy: 17.39 cm2 RAEDV A-L: 50.29 ml RAEDV MOD: 48.76 ml RALd: 5.10 cm Ao Diam: 3.33 cm AV Cusp: 1.52 cm LA Diam: 3.39 cm LA/Ao: 1.02 TAPSE: 1.62 cm HR: 101.11 BPM AV maxP.30 mmHg AV meanP.07 mmHg AV Vmax: 1.14 m/s AV Vmean: 0 .83 m/s AV VTI: 19.34 cm KELLY Vmax: 2.47 cm2 KELLY (VTI): 2.27 cm2 AVAI Vmax: 0.00 cm2/ m2 AVAI (VTI): 0.00 cm2/m2 LVCI Dopp: 1.67 l/minm2 LVCO Dopp: 3.44 l/min HR: 78.14 B PM LVOT maxP.77 mmHg LVOT meanP.41 mmHg LVSI Dopp: 21.37 ml/m2 LVSV Dopp: 44 .03 ml LVOT Vmax: 0.83 m/s LVOT Vmean: 0.55 m/s LVOT VTI: 12.95 cm MV A Shin: 0.81 m/ s MV DecT: 232.36 ms MV E Shin: 0.73 m/s MV E/A Ratio: 0.89 MV PHT: 54.88 ms MVA By P HT: 4.00 cm2 MV A Dur: 154.13 ms MV maxP.70 mmHg MV meanP.25 mmHg MV Vmax: 0.82 m/s MV Vmean: 0.53 m/s MV VTI: 23.23 cm MVA (VTI): 1.89 cm2 Septal e': 0.05 m/ s Septal E/e': 13.85 Lateral e': 0.09 m/s Lateral E/e': 7.48 HR: 81.15 BPM PV maxP.16 mmHg PV meanP.74 mmHg PV Vmax: 0.54 m/s PV Vmean: 0.42 m/s PV VTI: 10.23 cm RAP: 20 mmHg RVSP: 41.30 mmHg TR maxP.30 mmHg TR Vmax: 2.30 m/s Respiratory Supervisor : Authenticated by: Kilo Flores MD Report Date/Time: 07-22-2018 16:53:19 1. Indication for study and thus clinical question is unknown. Results as below. Patient's old records, imaging and labs were reviewed in detail and summarized. PROBLEM LIST Principal Problem: Sepsis (HCC) Active Problems: Hypertension COPD (chronic obstructive pulmonary disease) (HCC) ESRD (end stage renal disease) (HCC) Heroin abuse (HCC) ASSESSMENT & PLAN ESRD ON HD Seen and examined on hd tolerating hd/ uf well Access functioning well HD FLOW SHEET REVIEWED Assess daily for need for hd & uf Orders in the chart Fluid restriction 1.2 litres/24 hours Strict I & O Daily RFP Renal diet Daily weights will help with subsequent hd with uf Dose all meds per protocol for ESRD on hd HYPERKALEMIA improved Getting hd now Low k diet Watch k level closely Telemetry Lab Results Component Value Date K 4.4 07/23/2018 K 4.8 07/22/2018 K 5.5 (H) 07/21/2018 ANEMIA in ESRD improving EPOGEN TO KEEP HGB 10-11 on hd Lab Results Component Value Date HGB 8.6 (L) 07/23/2018 HGB 8.3 (L) 07/21/2018 HGB 8.5 (L) 07/20/2018 HYPERTENSION Controlled WATCH BP CLOSELY DURING HOSPITALIZATION LOW NA DIET Will adjust BP meds according to BP readings BP Readings from Last 3 Encounters: 07/23/18 159/74 04/30/18 182/81 04/30/18 123/70 DM-2 Optimum Glycemic Control HYPERPHOSPHATEMIA LOW P DIET Lab Results Component Value Date PHOS 5.0 (H) 04/07/2018 PHOS 3.3 03/08/2017 PHOS 3.6 03/07/2017 HYPOALBUMINEMIA INCREASE PROTEIN INTAKE Lab Results Component Value Date ALB 1.7 (L) 07/23/2018 ALB 1.5 (L) 07/21/2018 ALB 2.5 (L) 07/20/2018 CASE DISCUSSED IN DETAIL WITH PATIENT/ care team, ANSWERS ALL QUESTIONS IN DETAIL, VERBALIZ ES UNDERSTANDING LIOR CARVALHO MD 07/23/2018 Per PT None Seen earlier and charting completed later Dictation software, [employer], used which may contain error for similar sounding words even af ter review. Personal communication requested for any clarification. Jaylen Mota - 07/22/2018 6:31 PM PSTFamily-requested visit. Pt in bed on oxygen. Several f am members present, left soon to "let you guys talk." Pt said he's "dying soon," gave brief hx of illness over past 3 months. Chp provided compassionate, listening presence, empowering pt to explore unresolved fear, guilt, relationship problems. Pt quite open re: years-old co nflict w/best friend. Pt spoke of vivid dream/hallucination of being chased by 2 formerly cl ose friends. Chp helped explore feelings underneath dream experience. Pt quite thoughtful, s orting through forgiveness from friend(s), God, & himself - made good progress on end-of-lif e type inner conflicts. Further chap visits would be useful for pt. Group Exercise Class Instructor Lior Amaya MD - 07/22/2018 5:26 PM PSTFormatting of this note may be different from the original. [facility] Service: NEPHROLOGY Progress Note Shahbaz Gleason 62 y.o. [id number] male Per PT None Hospital Day: LOS: 2 days 62-year-old white[place] patient gentleman with past medical history significant for lung canc er noncompliant, history of IV drug abuse, hepatitis C, end-stage renal disease on hemodialy sis, COPD, type II diabetes, diabetic neuropathy transferred from [facility] due to sepsis and respiratory failure. Per family and patient desire DO NOT RESUSCITATE/DO NOT INTUBATE with limited intervention including fluids antibiotic but no ICU care pressors intubation CPR or surgical intervention . Nephrology consulted for evaluation and management of ESRD ONSET Chronic severity severe Associated with fluid electrolyte acid base imbalances Assess need for hd/uf Seen and examined Feels weak, more awake No cp, n, v, d, fever, h/a Past Medical History Diagnosis Date Arthralgia Chronic kidney disease Chronic obstructive pulmonary disease (HCC) Diabetes mellitus type II Diabetic neuropathy (HCC) ESRD (end stage renal disease) (HCC) Hepatitis C Heroin abuse (HCC) Hypertension Lung cancer (HCC) Malignant neoplasm (HCC) Neuromyopathy (HCC) Osteoarthritis Osteochondritis Other chronic pain Past Surgical History Procedure Laterality Date ADENOIDECTOMY AV FISTULA PLACEMENT Right 04/30/2018 Procedure: AV FISTULA; Surgeon: Dallas Velasquez MD; Location: [facility] MAIN OR; Service: Vascu lar; Laterality: Right; COLONOSCOPY HARDWARE PRESENT KNEE SURGERY for osteochondroma MEDIPORT INSERTION, SINGLE UNLISTED PROCEDURE ARTHROSCOPY Prescriptions Prior to Admission Medication Sig Dispense Refill Last Dose amoxicillin-clavulanate (AUGMENTIN) 875-125 MG per tablet Take 1 tablet by mouth 2 (two ) times daily. (Patient not taking: Reported on 04/30/2018) 14 tablet 0 Not Taking B Nmdatkb-J-Faldc Acid (DIALYVITE TABLET) TABS Take 1 tablet by mouth. 04/29/2018 at Unknown time B-D INS SYRINGE 0.5CC/30GX1/2" 30G X 1/2" 0.5 ML MISC Taking budesonide-formoterol (SYMBICORT) 80-4.5 MCG/ACT inhaler Inhale 2 puffs into the lungs 2 (two) times daily. 1 Inhaler 1 Taking at Unknown time budesonide-formoterol (SYMBICORT) 80-4.5 MCG/ACT inhaler Inhale 2 puffs into the lungs 2 (two) times daily. 1 Inhaler 0 04/28/2018 buprenorphine HCl 8 MG SUBL buprenorphine HCl 8 mg sublingual tablet Not Taking at Un known time Cholecalciferol 1000 units capsule Take 1,000 Units by mouth daily. 04/29/2018 at Unk nown time dexamethasone (DECADRON) 4 MG tablet Take 4 mg by mouth 2 (two) times daily. Taking a t Unknown time Doxercalciferol 2 MCG/ML SOLN Inject 0.5 mcg into the vein. Taking doxycycline (MONODOX) 100 MG capsule doxycycline monohydrate 100 mg capsule 12/12/201 8 at Unknown time DULoxetine (CYMBALTA) [address] capsule Take 60 mg by mouth. 04/29/2018 at Unknown dimitri e furosemide (LASIX) 20 MG tablet furosemide 20 mg tablet Taking at Unknown time furosemide (LASIX) 80 MG tablet Take 80 mg by mouth. 04/29/2018 at Unknown time gabapentin (NEURONTIN) 800 MG tablet Take 800 mg by mouth 2 (two) times daily. 12 04/18 at Unknown time Glecaprevir-Pibrentasvir (MAVYRET) 100-40 MG TABS Mavyret 100 mg-40 mg tablet 018 at Unknown time insulin glargine (LANTUS) 100 UNIT/ML injection Inject 30 Units into the skin nightly. (Patient not taking: Reported on 04/30/2018) 10 mL 12 Not Taking at Unknown time lansoprazole (PREVACID) 30 MG capsule Take 30 mg by mouth nightly. Not Taking at Unkn own time lisinopril (ZESTRIL) 10 MG tablet Take 10 mg by mouth. 04/29/2018 at Unknown time LORazepam (ATIVAN) 0.5 MG tablet 4 Taking Different at Unknown time NIFEdipine (ADALAT CC) 60 MG 24 hr tablet Take 1 tablet by mouth daily. 30 tablet 11 at Unknown time ondansetron (ZOFRAN) 8 MG tablet Take 8 mg by mouth 2 (two) times daily as needed. 5 T aking at Unknown time OxyCODONE (OXYCONTIN) 40 MG 12 hr tablet 0 Taking at Unknown time oxyCODONE 10 MG tablet Take 1 tablet by mouth every 6 (six) hours as needed for Pain. 3 0 tablet 0 oxycodone 20 MG immediate release tablet Take 0.5 tablets by mouth every 6 (six) hours as needed. 28 each 0 Taking Different at Unknown time sertraline (ZOLOFT) 50 MG tablet Take 50 mg by mouth daily. 11 04/29/2018 at Unknown t ivan VELPHORO 500 MG chewable tablet Not Taking at Unknown time No Known Allergies Family History Problem Relation Age of Onset Cancer Mother breast Diabetes Mother Cancer Father colon Malig hypertherm Neg Hx Social History Social History Marital status: Single Spouse name: N/A Number of children: 4 Years of education: N/A Occupational History Not on file. 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 Education: 11 yrs. Scheduled Medications budesonide-formoterol 2 puff Inhalation 2 times daily cefepime 1 g Intravenous Q24H dexamethasone 4 mg Oral BID WC DULoxetine 60 mg Oral Daily famotidine 20 mg Oral Daily Or famotidine 20 mg Intravenous Daily gabapentin 100 mg Oral Nightly gabapentin 100 mg Oral See Admin Instructions heparin (porcine) 5000 unit/0.5mL 5,000 Units Subcutaneous 2 times per day insulin glargine 10 Units Subcutaneous Nightly insulin lispro (human) 0-3 Units Subcutaneous Nightly insulin lispro (human) 0-6 Units Subcutaneous TID AC ipratropium-albuterol 3 mL Nebulization Q6H lisinopril 10 mg Oral Daily nicotine 1 patch Transdermal Daily vancomycin 1,000 mg Intravenous See Admin Instructions Continuous Infusions dextrose diltiazem Stopped (07/22/18 0637) PRN Medications Allergy: No Known Allergies OBJECTIVE Vital Signs: BP 176/77 (BP Location: Left upper arm) | Pulse 104 | Temp 98.1 F (36.7 C) (Oral) | Resp 20 | Ht 1.778 m (5' 10") | Wt 88.6 kg (195 lb 5.2 oz) | SpO2 91% | BMI 28.03 kg/m I&O Detailed Table: I/O last 3 completed shifts: In: 1700 [Other:1700] Out: 5550 [Urine:50; Other:5500] Weight change: 1.42 kg (3 lb 2.1 oz) Examination: seen with hd rn APPEARANCE: The patient is lying in no distress on O2, more awake and alert VITALS: Reviewed as listed. HEENT: NC/AT. +ve pale conjunctiva LUNGS: Scattered wheezes on auscultation bilaterally HEART: S1, S2, no pericardial rub noted. +ve tachycardia ABDOMEN: Full, soft, no tenderness. EXTREMITIES: no pedal edema noted. NEUROLOGIC: No gross focal motor deficit noted. R IJ Tunneled hd catheter in place LABS: Recent Results (from the past 24 hour(s)) Urinalysis (reflex to micro) Collection Time: 07/21/18 8:30 PM Result Value Ref Range COLOR UA ANNMARIE CLARITY CLOUDY Specific [place], UA 1.020 1.002 - 1.030 LEUKOCYTE ESTERASE TRACE (A) NEGATIVE NITRITE NEGATIVE NEGATIVE UROBILINOGEN NORMAL <1.1 mg/dL PROTEIN 100 (A) NEGATIVE mg/dL PH,URINE 6.0 5.0 - 8.0 BLOOD MODERATE (A) NEGATIVE KETONES NEGATIVE NEGATIVE mg/dL BILIRUBIN NEGATIVE NEGATIVE GLUCOSE 50 (A) NEGATIVE mg/dL WBC 26-49 0 - 5 /hpf RBC 16-25 0 - 2 /hpf BACTERIA 1+ (A) NONE SEEN EPITHELIAL 26-49 /lpf Mucus, UA 1+ Hyaline Cast 3-5 POCT glucose Collection Time: 07/21/18 8:51 PM Result Value Ref Range GLUCOSE,POC SCREEN 139 (H) 65 - 99 mg/dL EKG standard 12 lead Collection Time: 07/22/18 5:28 AM Result Value Ref Range Ventricular Rate 147 BPM Atrial Rate 214 BPM QRS Duration 94 ms Q-T Interval 312 ms QTC Calculation (Bezet) 488 ms Calculated R [employer] -50 degrees Calculated T [employer] 54 degrees Diagnosis Atrial fibrillation with rapid ventricular response Left anterior fascicular block Nonspecific ST and T wave abnormality Abnormal ECG When compared with ECG of 06-APR-2018 19:38, Atrial fibrillation has replaced Sinus rhythm Vent. rate has increased BY 66 BPM Nonspecific T wave abnormality now evident in Anterior leads Confirmed by TEJINDER FLORES MD ([id number]) on 07/22/2018 3:08:01 PM Troponin I Collection Time: 07/22/18 5:29 AM Result Value Ref Range TROPONIN I 0.059 (H) 0.00 - 0.04 ng/mL Basic metabolic panel Collection Time: 07/22/18 5:29 AM Result Value Ref Range SODIUM 140 135 - 145 mmol/L POTASSIUM 4.8 3.5 - 4.9 mmol/L CHLORIDE 100 99 - 109 mmol/L CO2 26 23 - 32 mmol/L ANION GAP AGAP 19 5 - 20 mmol/L GLUCOSE 189 (H) 65 - 99 mg/dL BUN 38 (H) 8 - 25 mg/dL CREATININE 5.60 (H) 0.70 - 1.30 mg/dL BUN/CREAT 7 CALCIUM 7.8 (L) 8.5 - 10.5 mg/dL EGFR 10 (L) >60 mL/min/1.73m2 POCT glucose Collection Time: 07/22/18 5:31 AM Result Value Ref Range GLUCOSE,POC SCREEN 186 (H) 65 - 99 mg/dL POCT glucose Collection Time: 07/22/18 11:27 AM Result Value Ref Range GLUCOSE,POC SCREEN 155 (H) 65 - 99 mg/dL Troponin I Collection Time: 07/22/18 12:09 PM Result Value Ref Range TROPONIN I 0.053 (H) 0.00 - 0.04 ng/mL POCT glucose Collection Time: 07/22/18 1:00 PM Result Value Ref Range GLUCOSE,POC SCREEN 156 (H) 65 - 99 mg/dL Echo cardiac adult complete Collection Time: 07/22/18 2:38 PM Result Value Ref Range LV EF 60 50 - 70 % POCT glucose Collection Time: 07/22/18 4:52 PM Result Value Ref Range GLUCOSE,POC SCREEN 162 (H) 65 - 99 mg/dL IMAGING: X-ray Chest 1 View Result Date: 07/22/2018 CHEST ONE VIEW CLINICAL INFORMATION: Tube and line position. COMPARISON: XR CHEST 1 VIEW (1 06/06/2017); IR TUNNELED CATHETER REPLACEMENT SAME ACCESS (03/27/2018); FINDINGS: The heart is mildly enlarged. Dual lumen central venous catheter tip terminates at the level of the sup erior vena cava. The catheter appears mildly retracted from the prior exam. Central pulmon jacky venous congestion. Bilateral interstitial prominence, right greater than left. Right m id and lower lung airspace opacities. Small bilateral pleural effusions. No pneumothorax i s seen. 1. Worsening aeration of the right lung which may be secondary to pulmonary edema or pneumo connor. 2. Small bilateral pleural effusions. Signed by: Jayy Melendrez Sign Date/Time: 07/22/2018 7:28 AM Echo Cardiac Adult Complete Result Date: 07/22/2018 Patient Name: SHAHBAZ GLEASON Date of : 1955 Judy carbajal: Kilo Flores MD ------REPORT ADDENDED------ INDICATIONS abnormal ekg CONCLUSIONS --------- -- 1. Indication for study and thus clinical question is unknown. Results as below. FINDINGS -------- [no group]: Indication for study and thus clinical question is unknown. Results as below. ECG rhythm: Sinus rhythm. Study: A 2-dimensional transthoracic echocardiogram with m -mode, spectral and color flow Doppler was perfomed. Study: This was a technically difficult study with suboptimal views. Left Ventricle: Overall left ventricular systolic function is normal with, an EF between 55 - 60 %. Left Ventricle: The left ventricle cavity size is norm al. Left Ventricle: There is mild concentric left ventricular hypertrophy. Left Ventricle: T he diastolic filling pattern indicates impaired relaxation consistent with mild dysfunction (Grade I). Right Ventricle: The right ventricle is normal in size. Right Ventricle: The righ t ventricular systolic function is normal. Left Atrium: The left atrial size is normal Left Atrium: , and the LA measures 3.4cm. Right Atrium: The right atrium is mildly enlarged. Righ t Atrium: and the right atrium measures 5.6cm Mitral Valve: There is trace mitral regurgitat ion. Mitral Valve: Mild thickening of the anterior mitral valve leaflet. Mitral Valve: There is mild thickening of the posterior mitral valve leaflet. Tricuspid Valve: The tricuspid va lve appears structurally normal. Tricuspid Valve: Trace tricuspid regurgitation present. Pul maddi Valve: The pulmonic valve was not well visualized. Pericardium: There is no pericardia l effusion. IVC/Hepatic Veins: The IVC is dilated (>2.5cm) and does not collapse with sn iff, consistent with central venous pressures of >20mmHg. Aorta: The ascending aorta is dila wale measuring up to . Mass: No mass visualized Thrombus: No clot visualized MEASUREMENTS --- Ao asc: 4.19 cm Ao sinus: 3.[address] junct: 2.83 cm IVC: 2.61 cm LA Ma bhupinder: 5.06 cm EDV(Teich): 138.37 ml IVSd: 1.08 cm LVIDd: 5.35 cm LVPWd: 0.97 cm LVO T Diam: 2.08 cm %FS: 22.35 % EF(Teich): 44.64 % ESV(Teich): 76.59 ml IVSs: 1.28 cm LVIDs: 4.15 cm LVPWs: 1.57 cm SV(Teich): 61.77 ml RA Major: 5.57 cm RVIDd: 3.63 c m RVOT Diam: 6.01 cm LVEF MOD A2C: 49.89 % SV MOD A2C: 37.69 ml LVEF MOD A4C: 48.79 % SV MOD A4C: 86.68 ml EF Biplane: 55.01 % LVEDV MOD BP: 145.48 ml LVESV MOD BP: 65. 44 ml LVEDV MOD A2C: 75.54 ml LVLd A2C: 8.41 cm LVEDV MOD A4C: 177.62 ml LVLd A4C: 9 .57 cm LVESV MOD A2C: 37.85 ml LVLs A2C: 7.32 cm LVESV MOD A4C: 90.94 ml LVLs A4C: 8 .60 cm LAESV(A-L): 41.75 ml LAESV Index (A-L): 20.26 ml/m2 LAAs A2C: 13.44 cm2 LAESV A -L A2C: 38.63 ml LALs A2C: 3.97 cm LAAs A4C: 14.53 cm2 LAESV A-L A4C: 37.19 ml LALs A4C: 4.82 cm Nancy: 17.39 cm2 RAEDV A-L: 50.29 ml RAEDV MOD: 48.76 ml RALd: 5.10 cm Ao Diam: 3.33 cm AV Cusp: 1.52 cm LA Diam: 3.39 cm LA/Ao: 1.02 TAPSE: 1.62 cm HR: 101.11 BPM AV maxP.30 mmHg AV meanP.07 mmHg AV Vmax: 1.14 m/s AV Vmean: 0 .83 m/s AV VTI: 19.34 cm KELLY Vmax: 2.47 cm2 KELLY (VTI): 2.27 cm2 AVAI Vmax: 0.00 cm2/ m2 AVAI (VTI): 0.00 cm2/m2 LVCI Dopp: 1.67 l/minm2 LVCO Dopp: 3.44 l/min HR: 78.14 B PM LVOT maxP.77 mmHg LVOT meanP.41 mmHg LVSI Dopp: 21.37 ml/m2 LVSV Dopp: 44 .03 ml LVOT Vmax: 0.83 m/s LVOT Vmean: 0.55 m/s LVOT VTI: 12.95 cm MV A Shin: 0.81 m/ s MV DecT: 232.36 ms MV E Shin: 0.73 m/s MV E/A Ratio: 0.89 MV PHT: 54.88 ms MVA By P HT: 4.00 cm2 MV A Dur: 154.13 ms MV maxP.70 mmHg MV meanP.25 mmHg MV Vmax: 0.82 m/s MV Vmean: 0.53 m/s MV VTI: 23.23 cm MVA (VTI): 1.89 cm2 Septal e': 0.05 m/ s Septal E/e': 13.85 Lateral e': 0.09 m/s Lateral E/e': 7.48 HR: 81.15 BPM PV maxP.16 mmHg PV meanP.74 mmHg PV Vmax: 0.54 m/s PV Vmean: 0.42 m/s PV VTI: 10.23 cm RAP: 20 mmHg RVSP: 41.30 mmHg TR maxP.30 mmHg TR Vmax: 2.30 m/s Respiratory Supervisor : Authenticated by: Kilo Flores MD Report Date/Time: 07-22-2018 16:53:19 1. Indication for study and thus clinical question is unknown. Results as below. Patient's old records, imaging and labs were reviewed in detail and summarized. PROBLEM LIST Principal Problem: Sepsis (HCC) Active Problems: Hypertension COPD (chronic obstructive pulmonary disease) (HCC) ESRD (end stage renal disease) (HCC) Heroin abuse (HCC) ASSESSMENT & PLAN ESRD ON HD No need for hd/ uf from fluid electrolyte acid base balance point of view Assess daily for need for hd & uf Plan for hd/ uf in am Orders in the chart Fluid restriction 1.2 litres/24 hours Strict I & O Daily RFP Renal diet Daily weights will help with subsequent hd with uf Dose all meds per protocol for ESRD on hd HYPERKALEMIA Improved s/p hd Low k diet Watch k level closely Lab Results Component Value Date K 4.8 07/22/2018 K 5.5 (H) 07/21/2018 K 5.7 (H) 07/20/2018 ANEMIA in ESRD stable EPOGEN TO KEEP HGB 10-11 on hd Lab Results Component Value Date HGB 8.3 (L) 07/21/2018 HGB 8.5 (L) 07/20/2018 HGB 12.2 (L) 04/09/2018 HYPERTENSION Labile WATCH BP CLOSELY DURING HOSPITALIZATION LOW NA DIET Will adjust BP meds according to BP readings BP Readings from Last 3 Encounters: 07/22/18 176/77 04/30/18 182/81 04/30/18 123/70 DM-2 Optimum Glycemic Control HYPERPHOSPHATEMIA Worsening LOW P DIET Lab Results Component Value Date PHOS 5.0 (H) 04/07/2018 PHOS 3.3 03/08/2017 PHOS 3.6 03/07/2017 HYPOALBUMINEMIA INCREASE PROTEIN INTAKE Lab Results Component Value Date ALB 1.5 (L) 07/21/2018 ALB 2.5 (L) 07/20/2018 ALB 2.6 (L) 04/09/2018 CASE DISCUSSED IN DETAIL WITH PATIENT/ care team, ANSWERS ALL QUESTIONS IN DETAIL, VERBALIZ ES UNDERSTANDING LIOR CARVALHO MD 07/22/2018 Per PT None Seen earlier and charting completed later Dictation software, [employer], used which may contain error for similar sounding words even af ter review. Personal communication requested for any clarification. Saira Marquis MD - 07/22/2018 5:38 AM PSTFormatting of this note may be different from the original. [facility] Service: Hospitalist Progress Note Hospital Day: LOS: 2 days SUBJECTIVE Patient Summary Dr. Lira: The patient is 62 y.o. male with significant past medical history of IV drug abuse, hepatitis C, medical noncompliance lung cancer, hypertensi on, ESRD on hemodialysis, COPD, DM, diabetic neuropathy who presents with dyspnea/transfer f [facility] due to concerns for sepsis and acute on chronic respiratory failure Limited history. Patient not able to respond to verbal or painful stimuli. Family at [facility] who are helping. Patient with a complicated history, apparently, 2 weeks ago he was diagnosed with bacteremi a that was thought to be related to his chemotherapy port. It was discontinued and antibioti c therapy was given with/after dialysis. Subsequently, due to worsening back pain, he was se en at [facility] and? vertrbal osteomyelitis versus epidural abscess was diagnosed. Sanchez potter, they were thinking about transferring the patient to [place] but, at the end, it was decided by patient and family to receive conservative management only. In the last 3 days, the patient has become increasingly weak, falling and breaking right si de ribs. Today, he was found confused, not making sense, and a subsequent decrease in mental status to the point that, right now, he is not able to respond to verbal or tactile stimuli . Positive chills but no objective fever at home. Family denies any new abdominal pain, naus ea, vomiting or diarrhea. Family and patient are quite consistent with their desires, which are congruent with paperw ork signed by the patient; requesting that the patient is DNR/DNI, limited intervention, i.e , fluids, antibiotics but no intensive care unit, pressors, intubation, CPR or surgical inte rvention. They are clear that they just want a trial of fluids and antibiotics at this point . 07/22/18 Appears frail, however more awake today. Afebrile. Scheduled Medications budesonide-formoterol 2 puff Inhalation 2 times daily cefepime 1 g Intravenous Q24H dexamethasone 4 mg Oral BID WC DULoxetine 60 mg Oral Daily famotidine 20 mg Oral Daily Or famotidine 20 mg Intravenous Daily gabapentin 100 mg Oral Nightly gabapentin 100 mg Oral See Admin Instructions heparin (porcine) 5000 unit/0.5mL 5,000 Units Subcutaneous 2 times per day insulin glargine 10 Units Subcutaneous Nightly insulin lispro (human) 0-3 Units Subcutaneous Nightly insulin lispro (human) 0-6 Units Subcutaneous TID AC ipratropium-albuterol 3 mL Nebulization Q6H lisinopril 10 mg Oral Daily nicotine 1 patch Transdermal Daily vancomycin 1,000 mg Intravenous See Admin Instructions Continuous Infusions dextrose diltiazem Stopped (07/22/18 0637) PRN Medications acetaminophen OR acetaminophen, dextrose, dextrose, dextrose, glucagon, glucagon, HYDRO morphone OR HYDROmorphone, ondansetron OR ondansetron, oxyCODONE, polyethylene glyco l, sodium chloride (bolus), zolpidem OBJECTIVE Vital Signs: BP 125/59 (BP Location: Left forearm) | Pulse 81 | Temp 98.4 F (36.9 C) (Oral) | Res p 18 | Ht 1.778 m (5' 10") | Wt 88.6 kg (195 lb 5.2 oz) | SpO2 94% | BMI 28.03 kg/m Patient Vitals for the past 24 hrs: BP Temp Temp src Pulse Resp SpO2 07/22/18 1308 - - - 81 18 94 % 07/22/18 1300 - - - 80 18 96 % 07/22/18 1126 125/59 98.4 F (36.9 C) Oral 81 18 98 % 07/22/18 0807 133/70 98.7 F (37.1 C) Oral 85 18 90 % 07/22/18 0729 - - - 90 18 95 % 07/22/18 0722 - - - 91 18 96 % 07/22/18 0645 141/69 - - 101 - - 07/22/18 0631 147/70 - - 101 - 96 % 07/22/18 0630 - - - 108 - (!) 77 % 07/22/18 0629 - - - 171 - - 07/22/18 0625 129/63 - - 177 - - 07/22/18 0620 120/67 - - 178 - 94 % 07/22/18 0616 123/72 - - 186 - 95 % 07/22/18 0611 (!) 169/105 - - 184 - 97 % 07/22/18 0607 92/62 - - 183 - 96 % 07/22/18 0604 (!) 88/53 - - 168 - 97 % 07/22/18 0600 95/55 - - 173 - 96 % 07/22/18 0555 96/55 - - 179 - 94 % 07/22/18 0553 (!) 86/62 - - 178 - 95 % 07/22/18 0549 109/65 - - 174 - 94 % 07/22/18 0544 109/69 - - 147 - 95 % 07/22/18 0540 109/69 - - 146 - - 07/22/18 0457 (!) 142/93 - - 155 - 95 % 07/22/18 0456 (!) 142/93 98 F (36.7 C) Oral 155 20 99 % 07/22/18 0455 - - - 157 - 100 % 07/22/18 0100 - - - - - (!) 89 % 07/22/18 0059 - - - 84 22 90 % 07/21/18 2340 141/68 99.4 F (37.4 C) Axillary 87 24 90 % 07/21/182048 131/75 98.5 F (36.9 C) - 101 20 95 % 07/21/18 1924 - - - 95 20 95 % 07/21/18 1620 128/65 98.1 F (36.7 C) Oral 92 20 90 % 07/21/18 1336 - - - 88 18 95 % Intake/Output Summary (Last 24 hours) at 07/22/181332 Last data filed at 07/21/182048 Gross per 24 hour Intake 0 ml Output 50 ml Net -50 ml Physical Exam Constitutional: No distress. Appears frail and older than stated age HENT: Head: Normocephalic and atraumatic. Eyes: Pupils are equal, round, and reactive to light. EOM are normal. No scleral icterus. Pulmonary/Chest: Effort normal. He has wheezes. Abdomina/Gl: Soft. Bowel sounds are normal. He exhibits no distension. There is no tenderne ss. There is no guarding. Skin: Skin is warm and dry. Psychiatric: He has a normal mood and affect. Judgment normal. Vitals reviewed. DATA Recent Labs Lab 07/21/1850407/20/182004 WBC 17.21* 15.60* RBC 3.05* 3.13* HGB 8.3* 8.5* HCT 26.3* 27.2* MCV 86.3 86.8 MCH 27.1 27.1 MCHC 31.4* 31.2* RDW 46.8 50.3 PLT 307 240 MPV 7.5 7.0 DIFFTYPE AUTOMATED AUTOMATED Recent Labs Lab 07/22/1829 07/21/18 0505 07/20/182004 NA 140 139 143 K 4.8 5.5* 5.7* CL 100 101 103 CO2 26 25 26 BUN 38* 63* 57* CREATININE 5.60* 8.6* 7.65* PROT -- 7.0 6.4 BILITOT -- 0.5 <0.2 ALT -- 14 15 AST -- 31 36 GLUF 189* 117* 153* Recent Labs Lab 07/22/18 1209 07/22/18 0529 07/20/182004 CKTOTAL -- -- 63 TROPONINI 0.053* 0.059* -- CKMBINDEX -- -- 2.9 No results for input(s): PHOS in the last 168 hours. Recent Labs Lab 07/21/18 0505 MG 2.4 Invalid input(s): ABG No results for input(s): CALCIUM in the last 168 hours. No results found. PROBLEM LIST Principal Problem: Sepsis (HCC) Active Problems: Hypertension COPD (chronic obstructive pulmonary disease) (HCC) ESRD (end stage renal disease) ([facility]) Heroin abuse ([facility]) ASSESSMENT & PLAN Patient is 62 y.o. male with significant past medical history of IV drug abuse, lung cancer , hypertension, ESRD, COPD, DM, diabetic neuropathy who presents with dyspnea/transfer from [facility] due to concerns for sepsis and acute on chronic respiratory failure. Rock carter's hemodynamics stabilized after 500 cc of fluids -CT chest ([facility])-portal visualization. No significant change in the mediast inal and right hilar adenopathy. At least 2 new spiculated nodules in the left lung.Intersti tial thickening in both lungs. fractures in the right glenoid, left 7 and eighth ribs, and L 1 vertebra, consistent with metastatic disease. Patient's oncologist is Dr. Marcano of [facility]. He has appointment in the upcoming week. -Sepsis. -Complicated history appears that patient was recently found to have bacteremia and ? Verte bral or epidural abscess seeding for the last 2 weeks. -Limited information from family and patient -Appreciate ID consult with Dr. Haas -Patient and family were clear with their wishes on admit-- they just wanted a trial of IV antibiotics and fluids. 07/22/18. Currently want full medical care, however DNR/I -NO surgical intervention -UA, urine culture, BCx 2 -MRSA by PCR, sputum studies. -Respiratory filmarray shows Resp. Syncytial Virus -Will follow lactic acid level--normalized -IV vancomycin and cefepime initiated. Further antibiotic management pending ID consult tomorrow -Since no surgery is needed (family and patient have agreed against it). Will not repeat im aging and wait for images from [facility] Atrial Fibrillation with RVR Overnight, now in sinus rhythm. Mo CP, dizziness, or SOB associated Trop slighly elevated but trending down--most likely due to tacycardia. Echo pending Last echo 2016 showed preserved left ventricular EF. Lung cancer stage IV. With worsening metastasis, per last CT scan Monitor Patient has upcoming appointment with Dr. Marcano Acute on chronic hypoxic respiratory failure. Due to above. Sepsis, Duonebs. Monitor COPD, Chronic, not in acute exacerbation Pneumonia. ? Pneumonia. ? Pulmonary seeding from line infection vs aspiration ESRD on HD. TIW in [place] Nephrology consult DM 2 SSI Insulin hx of IV heroine abuse Monitor Hx of hepatitis C Monitor DVT GI prophylaxis Code status - DNR DNI/ limited intervention - NO surgery, NO pressors, NO ICU, NO intubatio n or CPR Prognosis - Poor. Family aware Disposition: Code Status: DNR/DNI Saira Marquis MD 07/22/2018 1:33 PM Samantha Lozano, [facility] - 07/21/2018 12:49 PM PSTFormatting of this note may be different from the original. Clinical Pharmacy Note: Pharmacy Dosing Vancomycin; Day 2 Subjective: Shahbaz Gleason 62 y.o. male Objective: Ht Readings from Last 1 Encounters: 07/20/18 1.778 m (5' 10") Wt Readings from Last 1 Encounters: 07/21/18 93.5 kg (206 lb 2.1 oz) Serum creatinine: 8.6 mg/dL (H) 07/21/18 0505 Estimated creatinine clearance: 10.2 mL/min (A) No results found for: VANCORANDOM No results found for: VANCOTROUGH Assessment: INDICATION: Sepsis Patient received HD today. Once order for vancomycin 1000mg was given during the last hour of HD. Plan per Protocol: Will continue dose: Vancomycin 1000 mg during the last hour of HD. Pharmacy will continue to monitor for changes in renal function and adjust accordingly. Samantha Lozano PharmD 07/21/2018 12:47 PM Lior Carvalho MD - 07/21/2018 10:30 AM PSTFormatting of this note may be different from the original. [facility] Service: NEPHROLOGY Dialysis/ Progress Note Shahbaz Gleason 62 y.o. [id number] male Per PT None Hospital Day: LOS: 1 day 62-year-old [place] patient gentleman with past medical history significant for lung canc er noncompliant, history of IV drug abuse, hepatitis C, end-stage renal disease on hemodialy sis, COPD, type II diabetes, diabetic neuropathy transferred from [facility] due to sepsis and respiratory failure. Per family and patient desire DO NOT RESUSCITATE/DO NOT INTUBATE with limited intervention including fluids antibiotic but no ICU care pressors intubation CPR or surgical intervention . Nephrology consulted for evaluation and management of ESRD ONSET Chronic severity severe Associated with fluid electrolyte acid base imbalances Assess need for hd/uf Seen and examined on hd tolerating hd/ uf well Access functioning well HD FLOW SHEET REVIEWED More awake but confused No cp, n, v, d, fever, h/a Past Medical History Diagnosis Date Arthralgia Chronic kidney disease Chronic obstructive pulmonary disease (HCC) Diabetes mellitus type II Diabetic neuropathy (HCC) ESRD (end stage renal disease) (HCC) Hepatitis C Heroin abuse (HCC) Hypertension Lung cancer (HCC) Malignant neoplasm (HCC) Neuromyopathy (HCC) Osteoarthritis Osteochondritis Other chronic pain Past Surgical History Procedure Laterality Date ADENOIDECTOMY AV FISTULA PLACEMENT Right 04/30/2018 Procedure: AV FISTULA; Surgeon: Dallas Velasquez MD; Location: [facility] MAIN OR; Service: Vascu lar; Laterality: Right; COLONOSCOPY HARDWARE PRESENT KNEE SURGERY for osteochondroma MEDIPORT INSERTION, SINGLE UNLISTED PROCEDURE ARTHROSCOPY Prescriptions Prior to Admission Medication Sig Dispense Refill Last Dose amoxicillin-clavulanate (AUGMENTIN) 875-125 MG per tablet Take 1 tablet by mouth 2 (two ) times daily. (Patient not taking: Reported on 04/30/2018) 14 tablet 0 Not Taking B Njnuqsx-M-Kwidg Acid (DIALYVITE TABLET) TABS Take 1 tablet by mouth. 04/29/2018 at Unknown time B-D INS SYRINGE 0.5CC/30GX1/2" 30G X 1/2" 0.5 ML MISC Taking budesonide-formoterol (SYMBICORT) 80-4.5 MCG/ACT inhaler Inhale 2 puffs into the lungs 2 (two) times daily. 1 Inhaler 1 Taking at Unknown time budesonide-formoterol (SYMBICORT) 80-4.5 MCG/ACT inhaler Inhale 2 puffs into the lungs 2 (two) times daily. 1 Inhaler 0 04/28/2018 buprenorphine HCl 8 MG SUBL buprenorphine HCl 8 mg sublingual tablet Not Taking at Un known time Cholecalciferol 1000 units capsule Take 1,000 Units by mouth daily. 04/29/2018 at Unk nown time dexamethasone (DECADRON) 4 MG tablet Take 4 mg by mouth 2 (two) times daily. Taking a t Unknown time Doxercalciferol 2 MCG/ML SOLN Inject 0.5 mcg into the vein. Taking doxycycline (MONODOX) 100 MG capsule doxycycline monohydrate 100 mg capsule 8 at Unknown time DULoxetine (CYMBALTA) [address] capsule Take 60 mg by mouth. 04/29/2018 at Unknown dimitri e furosemide (LASIX) 20 MG tablet furosemide 20 mg tablet Taking at Unknown time furosemide (LASIX) 80 MG tablet Take 80 mg by mouth. 04/29/2018 at Unknown time gabapentin (NEURONTIN) 800 MG tablet Take 800 mg by mouth 2 (two) times daily. 12 04/18 at Unknown time Glecaprevir-Pibrentasvir (MAVYRET) 100-40 MG TABS Mavyret 100 mg-40 mg tablet 018 at Unknown time insulin glargine (LANTUS) 100 UNIT/ML injection Inject 30 Units into the skin nightly. (Patient not taking: Reported on 04/30/2018) 10 mL 12 Not Taking at Unknown time lansoprazole (PREVACID) 30 MG capsule Take 30 mg by mouth nightly. Not Taking at Unkn own time lisinopril (ZESTRIL) 10 MG tablet Take 10 mg by mouth. 04/29/2018 at Unknown time LORazepam (ATIVAN) 0.5 MG tablet 4 Taking Different at Unknown time NIFEdipine (ADALAT CC) 60 MG 24 hr tablet Take 1 tablet by mouth daily. 30 tablet 11 at Unknown time ondansetron (ZOFRAN) 8 MG tablet Take 8 mg by mouth 2 (two) times daily as needed. 5 T aking at Unknown time OxyCODONE (OXYCONTIN) 40 MG 12 hr tablet 0 Taking at Unknown time oxyCODONE 10 MG tablet Take 1 tablet by mouth every 6 (six) hours as needed for Pain. 3 0 tablet 0 oxycodone 20 MG immediate release tablet Take 0.5 tablets by mouth every 6 (six) hours as needed. 28 each 0 Taking Different at Unknown time sertraline (ZOLOFT) 50 MG tablet Take 50 mg by mouth daily. 11 04/29/2018 at Unknown t ivan VELPHORO 500 MG chewable tablet Not Taking at Unknown time No Known Allergies Family History Problem Relation Age of Onset Cancer Mother breast Diabetes Mother Cancer Father colon Malig hypertherm Neg Hx Social History Social History Marital status: Single Spouse name: N/A Number of children: 4 Years of education: N/A Occupational History Not on file. 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 Education: 11 yrs. Scheduled Medications budesonide-formoterol 2 puff Inhalation 2 times daily cefepime 1 g Intravenous Q24H dexamethasone 4 mg Oral BID WC DULoxetine 60 mg Oral Daily famotidine 20 mg Oral Daily Or famotidine 20 mg Intravenous Daily gabapentin 100 mg Oral Nightly gabapentin 100 mg Oral See Admin Instructions heparin (porcine) 5000 unit/0.5mL 5,000 Units Subcutaneous 2 times per day insulin glargine 10 Units Subcutaneous Nightly insulin lispro (human) 0-3 Units Subcutaneous Nightly insulin lispro (human) 0-6 Units Subcutaneous TID AC ipratropium-albuterol 3 mL Nebulization Q6H lisinopril 10 mg Oral Daily nicotine 1 patch Transdermal Daily vancomycin 1,000 mg Intravenous See Admin Instructions Continuous Infusions dextrose PRN Medications Allergy: No Known Allergies OBJECTIVE Vital Signs: BP 131/75 (BP Location: Left forearm) | Pulse 101 | Temp 98.5 F (36.9 C) | Resp 20 | Ht 1.778 m (5' 10") | Wt 88.6 kg (195 lb 5.2 oz) | SpO2 95% | BMI 28.03 kg/m I&O Detailed Table: I/O last 3 completed shifts: In: 1700 [Other:1700] Out: 5500 [Other:5500] Weight change: Examination: seen with hd rn APPEARANCE: The patient is lying in no distress on O2, very frail appearing VITALS: Reviewed as listed. HEENT: NC/AT. +ve pale conjunctiva LUNGS: coarse bs on auscultation bilaterally HEART: S1, S2, no pericardial rub noted. +ve tachycardia ABDOMEN: Full, soft, no tenderness. EXTREMITIES: no pedal edema noted. NEUROLOGIC: No gross focal motor deficit noted. PSYCH: cannot assess given change in MS/ obtunded R IJ Tunneled hd catheter functioning well LABS: Recent Results (from the past 24 hour(s)) POCT glucose Collection Time: 07/20/18 10:14 PM Result Value Ref Range GLUCOSE,POC SCREEN 127 (H) 65 - 99 mg/dL MRSA by PCR Collection Time: 07/21/18 12:05 AM Result Value Ref Range SOURCE NARES(NOSE) MRSA PCR NEGATIVE NEGATIVE Respiratory Filmarray Collection Time: 07/21/18 12:41 AM Result Value Ref Range ADENOVIRUS Not Detected Not Detected CORONAVIRUS 229E Not Detected Not Detected CORONAVIRUS HKU1 Not Detected Not Detected CORONAVIRUS NL63 Not Detected Not Detected CORONAVIRUS OC43 Not Detected Not Detected HUMAN METAPNEUMOVIRUS Not Detected Not Detected HUMAN RHINO/ENTERO Not Detected Not Detected INFLUENZA A Not Detected Not Detected INFLUENZA B Not Detected Not Detected PARAINFLUENZA 1 Not Detected Not Detected PARAINFLUENZA 2 Not Detected Not Detected PARAINFLUENZA 3 Not Detected Not Detected PARAINFLUENZA 4 Not Detected Not Detected RESP SYNCYTIAL VIRUS DETECTED (A) Not Detected BORDETELLA PERTUSSIS Not Detected Not Detected CHLAMYDIAE PNEUMONIAE Not Detected Not Detected MYCOPLASMA PNEUMONIAE Not Detected Not Detected RESP PANEL INTERP Testing performed by Molecular Methodology Septic Lactic Acid Collection Time: 07/21/18 12:43 AM Result Value Ref Range LACTIC ACID 1.6 0.4 - 2.0 mmol/L POCT glucose Collection Time: 07/21/18 12:58 AM Result Value Ref Range GLUCOSE,POC SCREEN 124 (H) 65 - 99 mg/dL CBC W/Auto Diff (Reflex to Manual) Collection Time: 07/21/18 5:05 AM Result Value Ref Range WBC 17.21 (H) 3.80 - 11.00 K/uL RBC 3.05 (L) 4.20 - 5.70 M/uL HGB 8.3 (L) 13.2 - 17.0 g/dL HCT 26.3 (L) 39.0 - 50.0 % MCV 86.3 80.0 - 100.0 fl MCH 27.1 27.0 - 34.0 pg MCHC 31.4 (L) 32.0 - 35.5 g/dL RDW SD 46.8 37 - 53 fl PLT 307 150 - 400 K/uL MPV 7.5 fl DIFF TYPE AUTOMATED NEUTROPHILS 77.14 % LYMPHOCYTES 16.31 % MONOCYTES 6.07 % EOSINOPHILS 0.30 % BASOPHILS 0.18 % NEUTROPHILS ABS 13.28 (H) 1.90 - 7.40 K/uL LYMPHOCYTES ABS 2.81 1.00 - 3.90 K/uL MONOCYTES ABS 1.05 (H) 0.00 - 0.80 K/uL EOSINOPHILS ABS 0.05 0.00 - 0.50 K/uL BASOPHILS ABS 0.03 0.00 - 0.10 K/uL Magnesium Collection Time: 07/21/18 5:05 AM Result Value Ref Range MAGNESIUM 2.4 1.7 - 2.4 mg/dL Comprehensive Metabolic Panel Collection Time: 07/21/18 5:05 AM Result Value Ref Range SODIUM 139 135 - 145 mmol/L POTASSIUM 5.5 (H) 3.5 - 4.9 mmol/L CHLORIDE 101 99 - 109 mmol/L CO2 25 23 - 32 mmol/L ANION GAP AGAP 19 5 - 20 mmol/L GLUCOSE 117 (H) 65 - 99 mg/dL BUN 63 (H) 8 - 25 mg/dL CREATININE 8.6 (H) 0.70 - 1.30 mg/dL BUN/CREAT 7 CALCIUM 8.3 (L) 8.5 - 10.5 mg/dL TOTAL PROTEIN 7.0 6.3 - 8.2 g/dL Albumin 1.5 (L) 3.3 - 4.8 g/dL GLOBULIN 5.5 (H) 1.3 - 4.9 g/dL A/G 0.3 (L) 1.0 - 2.4 TBIL 0.5 0.1 - 1.5 mg/dL ALK PHOS 170 (H) 35 - 115 U/L AST 31 10 - 45 U/L ALT 14 10 - 65 U/L EGFR 6 (L) >60 mL/min/1.73m2 Glycohemoglobin A1C Collection Time: 07/21/18 5:05 AM Result Value Ref Range HEMOGLOBIN A1C 5.6 4.0 - 6.0 % ESTIMATED AVG GLUCOSE 114 <154 mg/dL Bili, direct Collection Time: 07/21/18 5:05 AM Result Value Ref Range BILI, DIRECT 0.1 0.0 - 0.3 mg/dL Hepatitis panel, Chronic (Reflex) Collection Time: 07/21/18 5:05 AM Result Value Ref Range Hep A Total Ab NON REACTIVE NON REACTIVE HEP B SURFACE AG NON REACTIVE NON REACTIVE HEP B CORE AB,TOTAL NON REACTIVE NON REACTIVE HEP B SURFACE ANTIBODY <0.35 <1.00 IV HEPATITIS C REACTIVE (A) NON REACTIVE HEPATITIS INTERP Serology suggests current or past HCV infection, by initial screening, false positive scr eening reactions are known to occur. No evidence of HAV or HBV infection. Septic Lactic Acid Collection Time: 07/21/18 5:10 AM Result Value Ref Range LACTIC ACID 1.2 0.4 - 2.0 mmol/L POCT glucose Collection Time: 07/21/18 6:29 AM Result Value Ref Range GLUCOSE,POC SCREEN 125 (H) 65 - 99 mg/dL Septic Lactic Acid Collection Time: 07/21/18 8:42 AM Result Value Ref Range LACTIC ACID 1.1 0.4 - 2.0 mmol/L Septic Lactic Acid Collection Time: 07/21/18 11:39 AM Result Value Ref Range LACTIC ACID 0.8 0.4 - 2.0 mmol/L POCT glucose Collection Time: 07/21/18 11:40 AM Result Value Ref Range GLUCOSE,POC SCREEN 109 (H) 65 - 99 mg/dL Septic Lactic Acid Collection Time: 07/21/18 3:03 PM Result Value Ref Range LACTIC ACID 1.4 0.4 - 2.0 mmol/L POCT glucose Collection Time: 07/21/18 4:31 PM Result Value Ref Range GLUCOSE,POC SCREEN 125 (H) 65 - 99 mg/dL Urinalysis (reflex to micro) Collection Time: 07/21/18 8:30 PM Result Value Ref Range COLOR UA ANNMARIE CLARITY CLOUDY Specific [place], UA 1.020 1.002 - 1.030 LEUKOCYTE ESTERASE TRACE (A) NEGATIVE NITRITE NEGATIVE NEGATIVE UROBILINOGEN NORMAL <1.1 mg/dL PROTEIN 100 (A) NEGATIVE mg/dL PH,URINE 6.0 5.0 - 8.0 BLOOD MODERATE (A) NEGATIVE KETONES NEGATIVE NEGATIVE mg/dL BILIRUBIN NEGATIVE NEGATIVE GLUCOSE 50 (A) NEGATIVE mg/dL WBC 26-49 0 - 5 /hpf RBC 16-25 0 - 2 /hpf BACTERIA 1+ (A) NONE SEEN EPITHELIAL 26-49 /lpf Mucus, UA 1+ Hyaline Cast 3-5 IMAGING: No results found. Patient's old records, imaging and labs were reviewed in detail and summarized. PROBLEM LIST Principal Problem: Sepsis (HCC) Active Problems: Hypertension COPD (chronic obstructive pulmonary disease) (HCC) ESRD (end stage renal disease) ([facility]) Heroin abuse (HCC) ASSESSMENT & PLAN ESRD ON HD Seen and examined on hd tolerating hd/ uf well Access functioning well HD FLOW SHEET REVIEWED Assess daily for need for hd & uf Orders in the chart Fluid restriction 1.2 litres/24 hours Strict I & O Daily RFP Renal diet Daily weights will help with subsequent hd with uf Dose all meds per protocol for ESRD on hd HYPERKALEMIA Getting hd now Low k diet Watch k level closely Telemetry Lab Results Component Value Date K 5.5 (H) 07/21/2018 K 5.7 (H) 07/20/2018 K 4.1 04/30/2018 ANEMIA in ESRD EPOGEN TO KEEP HGB 10-11 on hd Lab Results Component Value Date HGB 8.3 (L) 07/21/2018 HGB 8.5 (L) 07/20/2018 HGB 12.2 (L) 04/09/2018 HYPERTENSION Controlled WATCH BP CLOSELY DURING HOSPITALIZATION LOW NA DIET Will adjust BP meds according to BP readings BP Readings from Last 3 Encounters: 07/21/18 131/75 04/30/18 182/81 04/30/18 123/70 DM-2 Optimum Glycemic Control HYPERPHOSPHATEMIA LOW P DIET RESUME PO4 BINDERS once more awake Lab Results Component Value Date PHOS 5.0 (H) 04/07/2018 PHOS 3.3 03/08/2017 PHOS 3.6 03/07/2017 HYPOALBUMINEMIA INCREASE PROTEIN INTAKE Lab Results Component Value Date ALB 1.5 (L) 07/21/2018 ALB 2.5 (L) 07/20/2018 ALB 2.6 (L) 04/09/2018 CASE DISCUSSED IN DETAIL WITH PATIENT/ care team, ANSWERS ALL QUESTIONS IN DETAIL, VERBALIZ ES UNDERSTANDING LIOR CARVALHO MD 07/21/2018 Per PT None Seen earlier and charting completed later Dictation software, [employer], used which may contain error for similar sounding words even af ter review. Personal communication requested for any clarification. Saira Marquis MD - 07/21/2018 5:43 AM PSTFormatting of this note may be different from the original. [facility] Service: Hospitalist Progress Note Hospital Day: LOS: 1 day SUBJECTIVE Patient Summary Dr. Lira: The patient is 62 y.o. male with significant past medical history of IV drug abuse, hepatitis C, medical noncompliance lung cancer, hypertensi on, ESRD on hemodialysis, COPD, DM, diabetic neuropathy who presents with dyspnea/transfer f [facility] due to concerns for sepsis and acute on chronic respiratory failure Limited history. Patient not able to respond to verbal or painful stimuli. Family at [facility] who are helping. Patient with a complicated history, apparently, 2 weeks ago he was diagnosed with bacteremi a that was thought to be related to his chemotherapy port. It was discontinued and antibioti c therapy was given with/after dialysis. Subsequently, due to worsening back pain, he was se en at [facility] and? vertrbal osteomyelitis versus epidural abscess was diagnosed. [facility] potter, they were thinking about transferring the patient to [place] but, at the end, it was decided by patient and family to receive conservative management only. In the last 3 days, the patient has become increasingly weak, falling and breaking right si de ribs. Today, he was found confused, not making sense, and a subsequent decrease in mental status to the point that, right now, he is not able to respond to verbal or tactile stimuli . Positive chills but no objective fever at home. Family denies any new abdominal pain, naus ea, vomiting or diarrhea. Family and patient are quite consistent with their desires, which are congruent with paperw ork signed by the patient; requesting that the patient is DNR/DNI, limited intervention, i.e , fluids, antibiotics but no intensive care unit, pressors, intubation, CPR or surgical inte rvention. They are clear that they just want a trial of fluids and antibiotics at this point . 07/21/18 Appears frail. Afebrile. Responds to more aggressive stimuli Scheduled Medications budesonide-formoterol 2 puff Inhalation 2 times daily cefepime 1 g Intravenous Q24H dexamethasone 4 mg Oral BID WC DULoxetine 60 mg Oral Daily famotidine 20 mg Oral Daily Or famotidine 20 mg Intravenous Daily gabapentin 100 mg Oral Nightly gabapentin 100 mg Oral See Admin Instructions heparin (porcine) 5000 unit/0.5mL 5,000 Units Subcutaneous 2 times per day insulin glargine 10 Units Subcutaneous Nightly insulin lispro (human) 0-3 Units Subcutaneous Nightly insulin lispro (human) 0-6 Units Subcutaneous TID AC ipratropium-albuterol 3 mL Nebulization Q6H lisinopril 10 mg Oral Daily vancomycin 1,000 mg Intravenous See Admin Instructions Continuous Infusions dextrose PRN Medications acetaminophen OR acetaminophen, dextrose, dextrose, dextrose, glucagon, glucagon, HYDRO morphone OR HYDROmorphone, ondansetron OR ondansetron, oxyCODONE, polyethylene glyco l, sodium chloride (bolus), zolpidem OBJECTIVE Vital Signs: BP 100/50 (BP Location: Left forearm) | Pulse 88 | Temp 97.8 F (36.6 C) (Oral) | Res p 18 | Ht 1.778 m (5' 10") | Wt 88.6 kg (195 lb 5.2 oz) | SpO2 95% | BMI 28.03 kg/m Patient Vitals for the past 24 hrs: BP Temp Temp src Pulse Resp SpO2 Height Weight 07/21/18 1336 - - - 88 18 95 % - - 07/21/18 1327 - - - 89 20 98 % - - 07/21/18 1257 100/50 97.8 F (36.6 C) Oral 89 20 99 % - - 07/21/18 1245 110/56 - - 92 - 94 % - 88.6 kg (195 lb 5.2 oz) 07/21/18 1230 134/54 - - 89 - 96 % - - 07/21/18 1215 112/67 - - 91 - 97 % - - 07/21/18 1200 137/70 - - 89 - 96 % - - 07/21/18 1145 100/55 - - 88 - 98 % - - 07/21/18 1130 102/58 - - 93 - 92 % - - 07/21/18 1115 107/59 - - 88 - 97 % - - 07/21/18 1100 101/61 - - 87 - 100 % - - 07/21/18 1045 104/58 - - 87 - 95 % - - 07/21/18 1030 112/62 - - 86 - 95 % - - 07/21/18 1015 104/56 - - 87 - 96 % - - 07/21/18 1000 133/70 - - 89 - 95 % - - 07/21/18 0945 111/63 - - 87 - 96 % - - 07/21/18 0930 111/57 - - 84 - 97 % - - 07/21/18 0915 117/61 - - 83 - 93 % - - 07/21/18 0900 128/64 - - 82 - 96 % - - 07/21/18 0845 100/56 - - 80 20 100 % - - 07/21/18 0830 100/56 98.5 F (36.9 C) Oral - 20 96 % - 93.5 kg (206 lb 2.1 oz) 07/21/18 0723 117/67 98.7 F (37.1 C) Oral 80 20 93 % - - 07/21/18 0718 - - - 79 - 93 % - - 07/21/18 0708 - - - 77 18 97 % - - 07/21/18 0437 107/64 - - - - - - - 07/21/18 0417 (!) 86/49 97.9 F (36.6 C) Axillary 77 20 96 % - - 07/21/18 0023 - - - - - 92 % - - 07/21/18 0022 - - - 72 20 92 % - - 07/20/18 2252 97/52 99.2 F (37.3 C) Axillary 76 18 97 % - - 07/20/18 2202 109/58 98.2 F (36.8 C) Axillary 76 16 - 1.778 m (5' 10") 92.1 kg (203 lb) 07/20/182135 - - - 76 (!) 34 96 % - - 07/20/182134 104/80 - - 76 (!) 31 (!) 89 % - - 07/20/182126 - - - 76 18 98 % - - 07/20/182108 110/56 - - 76 15 - - - 07/20/182038 101/56 - - 78 28 100 % - - 07/20/182036 111/57 - - 78 - 100 % - - 07/20/182008 114/62 - - - - 100 % - - 07/20/181917 - - - 74 20 94 % - - 07/20/181911 117/61 - - 78 - 95 % - - 07/20/181909 - - - 76 22 97 % - - 07/20/181899 108/58 - - 78 24 98 % - - 07/20/18 1850 (!) 82/53 - - 88 25 95 % - - 07/20/18 1827 97/56 99.1 F (37.3 C) - 78 22 96 % - - Intake/Output Summary (Last 24 hours) at 07/21/18 1548 Last data filed at 07/21/18 1245 Gross per 24 hour Intake 1700 ml Output 5500 ml Net -3800 ml Physical Exam Constitutional: No distress. Appears frail and older than stated age HENT: Head: Normocephalic and atraumatic. Eyes: Pupils are equal, round, and reactive to light. EOM are normal. No scleral icterus. Pulmonary/Chest: Effort normal. He has wheezes. Abdomina/Gl: Soft. Bowel sounds are normal. Skin: Skin is warm and dry. Psychiatric: He has a normal mood and affect. Judgment normal. Vitals reviewed. DATA Recent Labs Lab 07/21/18 0505 07/20/182004 WBC 17.21* 15.60* RBC 3.05* 3.13* HGB 8.3* 8.5* HCT 26.3* 27.2* MCV 86.3 86.8 MCH 27.1 27.1 MCHC 31.4* 31.2* RDW 46.8 50.3 PLT 307 240 MPV 7.5 7.0 DIFFTYPE AUTOMATED AUTOMATED Recent Labs Lab 07/21/18 0505 07/20/182004 NA 139 143 K 5.5* 5.7* CL 101 103 CO2 25 26 BUN 63* 57* CREATININE 8.6* 7.65* PROT 7.0 6.4 BILITOT 0.5 <0.2 ALT 14 15 AST 31 36 GLUF 117* 153* Recent Labs Lab 07/20/182004 CKTOTAL 63 CKMBINDEX 2.9 No results for input(s): PHOS in the last 168 hours. Recent Labs Lab 07/21/18 0505 MG 2.4 Invalid input(s): ABG No results for input(s): CALCIUM in the last 168 hours. No results found. PROBLEM LIST Principal Problem: Sepsis (HCC) Active Problems: Hypertension COPD (chronic obstructive pulmonary disease) (HCC) ESRD (end stage renal disease) (HCC) Heroin abuse (HCC) ASSESSMENT & PLAN Patient is 62 y.o. male with significant past medical history of IV drug abuse, lung cancer , hypertension, ESRD, COPD, DM, diabetic neuropathy who presents with dyspnea/transfer from [facility] due to concerns for sepsis and acute on chronic respiratory failure. Rock carter's hemodynamics stabilized after 500 cc of fluids -CT chest ([facility])-portal visualization. No significant change in the mediast inal and right hilar adenopathy. At least 2 new spiculated nodules in the left lung.Intersti tial thickening in both lungs. fractures in the right glenoid, left 7 and eighth ribs, and L 1 vertebra, consistent with metastatic disease -Sepsis. -Complicated history appears that patient was recently found to have bacteremia and ? Verte bral or epidural abscess seeding for the last 2 weeks. -Patient and family are clear with their wishes and, at this point, they just want a trial of IV antibiotics and fluids. -NO surgical intervention -UA, urine culture, BCx 2 -MRSA by PCR, sputum studies, respiratory filmarray -Will follow lactic acid level--normalized -IV vancomycin and cefepime. Further antibiotic management pending above results -Since no surgery is needed (family and patient have agreed against it). Will not repeat im aging and wait for images from [facility] Lung cancer stage IV. With worsening metastasis, per last CT scan Monitor Acute on chronic hypoxic respiratory failure. Due to above. Sepsis, Duonebs. Monitor COPD, Chronic, not in acute exacerbation Pneumonia. ? Pneumonia. ? Pulmonary seeding from line infection vs aspiration ESRD on HD. TIW in [place] Nephrology consult DM 2 SSI Insulin hx of IV heroine abuse Monitor Hx of hepatitis C Monitor DVT GI prophylaxis Code status - DNR DNI/ limited intervention - NO surgery, NO pressors, NO ICU, NO intubatio n or CPR Prognosis - Poor. Family aware Disposition: Code Status: DNR/DNI Saira Marquis MD 07/21/2018 3:48 PM in this encounter Plan of Treatment Not [...] the | | | | PST | (HCC) ESRD (end | results section. | | | | | stage renal disease) | | | | | | (HCC) Heroin abuse | | | | | | (HCC) | | + +--------+ + + [...] | + +--------+ + + + | [facility] CARD PANEL W/O | STAT | 07/20/2018 [...] + + + in this encounter Results POCT glucose (07/23/2018 4:26 PM) + + + + + | Component | Value | Ref Range | Performed At | + + + + + | GLUCOSE,POC SCREEN | 97Comment: Testing | 65 - 99 mg/dL | [facility] | | | performed at [facility];[address] | [address];[place] | | | | | [address] | | | + + + + + + + + + + | Performing | Address | City/State/Zipcode | Phone Number | | Organization | | | | + + + + + | [facility] | [address] | [place] [address] | | + + + + + POCT glucose (07/23/2018 12:06 PM) + + + + + | Component | Value | Ref Range | Performed At | + + + + + | GLUCOSE,POC SCREEN | 104 (H)Comment: Testing | 65 - 99 mg/dL | [facility] | | | performed at [facility];[address] | | | | | [address];[place] | | | | | [address] | | | + + + + + + + + + + | Performing | Address | City/State/Zipcode | Phone Number | | Organization | | | | + + + + + | [facility] | [address] | [place] [address] | | + + + + + CBC w/auto diff (reflex to manual) (07/23/2018 7:24 AM) + + + + [...] | [facility] | | | performed at [facility], [address] | | LABORATORY | | | [facility], | | | | | [place] [address] | | | + + + + + + + | Specimen | + + | Blood | + + + + + + + | Performing | Address | City/State/Zipcode | Phone Number | | Organization | | | | + + + + + | [facility] | [address] | [place] [address] | [phone] | | LABORATORY | [address] | | | + + + + + PROCALCITONIN (07/23/2018 7:24 AM) + + + + + | Component | Value | Ref Range | Performed At | + + + + + | PROCALCITONIN | 6.06 (H)Comment: | <0.5 ng/mL | [facility] | | | INTERPRETIVE | | [...] performed | | | | | at [facility];[address];[place] [address] | | | + + + + + + + + + + | Performing | Address | City/State/Zipcode | Phone Number | | Organization | | | | + + + + + | [facility] | [address] | [place] [address] | | + + + + + Sedimentation rate, automated (07/23/2018 7:24 AM) + + + + + | Component | Value | Ref Range | Performed At | + + + + + | ESR | 116 (H)Comment: Testing | 0 - 20 mm/Hr | [facility] | | | performed at [facility], [address] | | LABORATORY | | | [facility] [address], | | | | | [place] [address] | | | + + + + + + + | Specimen | + + | Blood | + + + + + + + | Performing | Address | City/State/Zipcode | Phone Number | | Organization | | | | + + + + + | [facility] | [address] | [place] [address] | [phone] | | LABORATORY | [address] | | | + + + + + C-reactive protein (07/23/2018 7:24 AM) + + + + + | Component | Value | Ref Range | Performed At | + + + + + | CRP | 10.8 (H)Comment: Testing | <0.5 mg/dL | [facility] | | | performed at [facility], [address] | | LABORATORY | | | [address], | | | | | [place] [address] | | | + + + + + + + | Specimen | + + | Blood | + + + + + + + | Performing | Address | City/State/Zipcode | Phone Number | | Organization | | | | + + + + + | [facility] | [address] | [place] [address] | [phone] | | LABORATORY | [address]vd[address] | | | + + + + + Comprehensive metabolic panel (07/23/2018 7:24 AM) + + + + [...] | | | | | performed at [facility], [address] | | | | | [facility], | | | | | [place] [address] | | | + + + + + + + | Specimen | + + | Blood | + + + + + + + | Performing | Address | City/State/Zipcode | Phone Number | | Organization | | | | + + + + + | [facility] | [address] | [place] [address] | [phone] | | LABORATORY | [address] | | | + + + + + POCT glucose (07/23/2018 5:30 AM) + + + + + | Component | Value | Ref Range | Performed At | + + + + + | GLUCOSE,POC SCREEN | 153 (H)Comment: Testing | 65 - 99 mg/dL | [facility] | | | performed at [facility];[address] | | | | | [address];[place] | | | | | [address] | | | + + + + + + + + + + | Performing | Address | City/State/Zipcode | Phone Number | | Organization | | | | + + + + + | [facility] | [address] | [place] [address] | | + + + + + [...] | + + + + + | [facility] | [address] | [place] [address] | | + + + + + POCT glucose (07/22/2018 8:46 PM) + + + + + | Component | Value | Ref Range | Performed At | + + + + + | GLUCOSE,POC SCREEN | 148 (H)Comment: Testing | 65 - 99 mg/dL | [facility] | | | performed at [facility];[address] | | | | | [address];[place] | | | | | [address] | | | + + + + + + + + + + | Performing | Address | City/State/Zipcode | Phone Number | | Organization | | | | + + + + + | [facility] | [address] | [place] [address] | | + + + + + POCT glucose (07/22/2018 7:11 PM) + + + + + | Component | Value | Ref Range | Performed At | + + + + + | GLUCOSE,POC SCREEN | 174 (H)Comment: Testing | 65 - 99 mg/dL | [facility] | | | performed at [facility];[address] | | | | | [address];[place] | | | | | [address] | | | + + + + + + + + + + | Performing | Address | City/State/Zipcode | Phone Number | | Organization | | | | + + + + + | [facility] | [address] | [place] [address] | | + + + + + Troponin I (07/22/2018 5:50 PM) + + + + + | Component | Value | Ref Range | Performed At | + + + + + | TROPONIN I | 0.053 (H)Comment: 0.04 | 0.00 - 0.04 ng/mL | [facility] | | | ng/mL or | | | | | less Nega | | | | | tive, repeat testing in | | | | | four to six hour if | | | | | clinically indicted0.05 | | | | | to 0.77 | | | | | ng/mL Keyal | | | | | picious for [...] performed | | | | | at [facility];[address];[place] [address] | | | + + + + + + + | Specimen | + + | Blood | + + + + + + + | Performing | Address | City/State/Zipcode | Phone Number | | Organization | | | | + + + + + | [facility] | [address] | [place] [address] | | + + + + + POCT glucose (07/22/2018 4:52 PM) + + + + + | Component | Value | Ref Range | Performed At | + + + + + | GLUCOSE,POC SCREEN | 162 (H)Comment: Testing | 65 - 99 mg/dL | [facility] | | | performed at [facility];[address] | | | | | [address];[place], [place] | | | | | [address] | | | + + + + + + + + + + | Performing | Address | City/State/Zipcode | Phone Number | | Organization | | | | + + + + + | [facility] | [address] | [place] [address] | | + + + + + [...] and thus clinical question is unknown. | [facility] | | Results as below. | RADIOLOGY | + + + + + + | Narrative | Performed At | + + + | Patient Name: SHAHBAZ GLEASON Date of : 1955 [facility] | | Performing Physician: Kilo | RADIOLOGY [...] | maxP.30 mmHg TR Vmax: 2.30 m/s Respiratory Supervisor: AB | | | Authenticated by: Kilo Flores MD Report Date/Time: 07-22-2018 | | | 16:53:19 | | + + + + + | Procedure Note | + + | Eddi, Rad Results In - 07/22/2018 4:53 PM PST Patient Name: Paolo GLEASON of | | : 1955ccession: [id number] Physician: Kilo Flores | | MD ------REPORT | | ADDENDED------INDICATIONS [...] (A-L): 20.26 | | ml/m2LAAs A2C: 13.44 [id number] A-L A2C: 38.63 mlLALs A2C: 3.97 cmLAAs A4C: 14.53 | | ui6AUFEP A-L A4C: 37.19 mlLALs A4C: 4.82 cmRAAd: 17.39 bs5UXGDY A-L: 50.29 | | mlRAEDV MOD: 48.76 mlRALd: 5.10 cmAo Diam: 3.33 cmAV Cusp: 1.52 cmLA Diam: | | 3.39 cmLA/Ao: 1.02 TAPSE: 1.62 cmHR: 101.11 BPMAV maxP.30 mmHgAV meanPG: | | 3.07 mmHgAV Vmax: 1.14 m/Donna Vmean: 0.83 m/Donna VTI: 19.34 cmAVA Vmax: 2.47 | | cm2AVA (VTI): 2.27 kw3PSCX Vmax: 0.00 cm2/m2AVAI (VTI): 0.00 cm2/m2LVCI Dopp: | | 1.67 l/xnbx6KKUM Dopp: 3.44 l/minHR: 78.14 BPMLVOT maxP.77 mmHgLVOT [...] VTI: | | 23.23 cmMVA (VTI): 1.89 ot4Clamnt e': 0.05 m/sSeptal E/e': 13.85 Lateral e': | | 0.09 m/sLateral E/e': 7.48 HR: 81.15 BPMPV maxP.16 mmHgPV meanP.74 | | mmHgPV Vmax: 0.54 m/sPV Vmean: 0.42 m/sPV VTI: 10.23 cmRAP: 20 mmHgRVSP: 41.30 | | mmHgTR maxP.30 mmHgTR Vmax: 2.30 m/sSonographer: ABAuthenticated by: | | Kilo Flores [facility] Date/Time: 07-22-2018 16:53:19IMPRESSION:1. Indication for | | [...] |TR Vmax: 2.30 m/s | | | |Respiratory Supervisor: AB | |Authenticated by: Kilo Flores MD | |Report Date/Time: 07-22-2018 16:53:19 | | | |IMPRESSION: | |1. Indication for study and thus clinical question is unknown. Results as below. | + + + + + + + | Performing | Address | City/State/Zipcode | Phone Number | | Organization | | | | + + + + + | [facility] | [address] | [place] [address] | | + + + + + POCT glucose (07/22/2018 1:00 PM) + + + + + | Component | Value | Ref Range | Performed At | + + + + + | GLUCOSE,POC SCREEN | 156 (H)Comment: Testing | 65 - 99 mg/dL | [facility] | | | performed at [facility];[address] | [address];[place] | | | | | [address] | | | + + + + + + + + + + | Performing | Address | City/State/Zipcode | Phone Number | | Organization | | | | + + + + + | [facility] | [address] | [place] [address] | | + + + + + Troponin I (07/22/2018 12:09 PM) + + + + + | Component | Value | Ref Range | Performed At | + + + + + | TROPONIN I | 0.053 (H)Comment: 0.04 | 0.00 - 0.04 ng/mL | [facility] | | | ng/mL or | [...] performed | | | | | at [facility] [address] | | | | | [facility];[place] [address] | | | + + + + + + + | Specimen | + + | Blood | + + + + + + + | Performing | Address | City/State/Zipcode | Phone Number | | Organization | | | | + + + + + | [facility] | [address] | [place] [address] | | + + + + + POCT glucose (07/22/2018 11:27 AM) + + + + + | Component | Value | Ref Range | Performed At | + + + + + | GLUCOSE,POC SCREEN | 155 (H)Comment: Testing | 65 - 99 mg/dL | [facility] | | | performed at [facility];[address];[place] | | | | | [address] | | | + + + + + + + + + + | Performing | Address | City/State/Zipcode | Phone Number | | Organization | | | | + + + + + | [facility] | [address] | [place] [address] | | + + + + + X-ray chest 1 view (07/22/2018 7:19 AM) + + + | Impressions | Performed At | + + + | 1. Worsening aeration of the right lung which may be secondary to | [facility] | | pulmonary edema or pneumonia. 2. Small bilateral pleural effusions. | RADIOLOGY | | Signed by: Jayy Mleendrez Sign Date/Time: 07/22/2018 7:28 AM | | [...] | Eddi, Rad Results In - 07/22/2018 7:31 AM PST [...] | + + + + + | [facility] | [address] | [place] [address] | | + + + + + Central line (07/22/2018 7:15 AM) + + + | Narrative | Performed At | + + + | DO Martir Bonilla/6/2019 7:46 AM Central Line | | | [...] correct patient, | | | procedure, equipment, administrative support assoc and site/side marked as | | | [...] immediate complications | | + + + POCT glucose (07/22/2018 5:31 AM) + + + + + | Component | Value | Ref Range | Performed At | + + + + + | GLUCOSE,POC SCREEN | 186 (H)Comment: Testing | 65 - 99 mg/dL | [facility] | | | performed at [facility];[address] | | | | | [address] [facility];[place], [place] | | | | | [address] | | | + + + + + + + + + + | Performing | Address | City/State/Zipcode | Phone Number | | Organization | | | | + + + + + | [facility] | [address] | [place] [address] | | + + + + + Basic metabolic panel (07/22/2018 5:29 AM) + + + + + | Component | Value | Ref Range | Performed At | + + + + + | SODIUM | 140 | 135 - 145 mmol/L | [facility] | + + + + + | POTASSIUM | 4.8 | 3.5 - 4.9 mmol/L | [facility] | + + + + + | CHLORIDE | 100 | 99 - 109 mmol/L | [facility] [...] (H) | 0.70 - 1.30 mg/dL | [facility] | + + + + + | BUN/CREAT | 7 | | [facility] | + + + + + | CALCIUM | 7.8 (L) | 8.5 - 10.5 mg/dL | [facility] | + + + + + | EGFR | 10 (L)Comment: GFR <60: | >60 mL/min/1.73m2 | [facility] | | | CHRONIC [...] | | | | | performed at [facility];[address] | | | | | [facility];[place], [place] | | | | | [address] | | | + + + + + + + | Specimen | + + | Blood | + + + + + + + | Performing | Address | City/State/Zipcode | Phone Number | | Organization | | | | + + + + + | [facility] | [address] | [place] [place] [address] | | + + + + + Troponin I (07/22/2018 5:29 AM) + + + + + | Component | Value | Ref Range | Performed At | + + + + + | TROPONIN I | 0.059 (H)Comment: 0.04 | 0.00 - 0.04 ng/mL | [facility] | | | ng/mL or | [...] performed | | | | | at [facility] [address] | | | | | [address];[place] [address] | | | + + + + + + + | Specimen | + + | Blood | + + + + + + + | Performing | Address | City/State/Zipcode | Phone Number | | Organization | | | | + + + + + | [facility] | [address] | [place] [address] | | + + + + + EK STANDARD 12 LEAD (07/22/2018 5:28 AM) + + + + + | Component | Value | Ref Range | Performed At | + + + + + | Ventricular Rate | 147 | BPM | [facility] | + + + + + | Atrial Rate | 214 | BPM | [facility] | + + + + + | QRS Duration | 94 | ms | [facility] | + + + + + | Q-T Interval | 312 | ms | [facility] | + + + + + | QTC Calculation | 488 | ms | [facility] | | (Bezet) | | | | + + + + + | Calculated R [employer] | -50 | degrees | [facility] | + + + + + | Calculated T [employer] | 54 | degrees | [facility] | + + + + + | Diagnosis | Atrial fibrillation with | | [facility] | | | rapid ventricular | [...] | + + + + + | [facility] | [address] | [place] [address] | | + + + + + POCT glucose (07/21/2018 8:51 PM) + + + + + | Component | Value | Ref Range | Performed At | + + + + + | GLUCOSE,POC SCREEN | 139 (H)Comment: Testing | 65 - 99 mg/dL | [facility] | | | performed at [facility];[address] | | | | | [address];[place] | | | | | [address] | | | + + + + + + + + + + | Performing | Address | City/State/Zipcode | Phone Number | | Organization | | | | + + + + + | [facility] | [address] | [place] [address] | | + + + + + [...] | + + + + + | [facility] | [address] | [place] [address] | [phone] | | LABORATORY | [address] | | | + + + + + Urinalysis (reflex to micro) (07/21/2018 8:30 PM) + + + + + | Component | Value | Ref Range | Performed At | + + + + + | COLOR UA | ANNMARIE | | [facility] | + + + + + | CLARITY | CLOUDY | | [facility] | + + + + + | Specific [place], UA | 1.020 | 1.002 - 1.030 | [facility] | + + + + + | LEUKOCYTE ESTERASE | TRACE (A) | NEGATIVE | [facility] | + + + + + | NITRITE | NEGATIVE | NEGATIVE | [facility] | + + + + + | UROBILINOGEN | NORMAL | <1.1 mg/dL | [facility] | + + + + + | PROTEIN | 100 (A) | NEGATIVE mg/dL | [facility] | + + + + + | PH,URINE | 6.0 | 5.0 - 8.0 | [facility] | + + + + + | BLOOD | MODERATE (A) | NEGATIVE | [facility] | + + + [...] | 1+ (A) | NONE SEEN | [facility] | + + + + + | EPITHELIAL | 26-49 | /lpf | [facility] | + + + + + | Mucus, UA | 1+ | | [facility] | + + + + + | Hyaline Cast | 3-5Comment: Testing | | [facility] | | | performed at [facility];[address] | | | | | [address];[place] | | | | | [address] | | | + + + + + + + | Specimen | + + | Urine - Urine, Clean | | Catch | + + + + + + + | Performing | Address | City/State/Zipcode | Phone Number | | Organization | | | | + + + + + | [facility] | [address] | [place] [address] | | + + + + + POCT glucose (07/21/2018 4:31 PM) + + + + + | Component | Value | Ref Range | Performed At | + + + + + | GLUCOSE,POC SCREEN | 125 (H)Comment: Testing | 65 - 99 mg/dL | [facility] | | | performed at [facility];[address] | [address];[place] | | | | | [address] | | | + + + + + + + + + + | Performing | Address | City/State/Zipcode | Phone Number | | Organization | | | | + + + + + | [facility] | [address] | [place] [address] | | + + + + + Septic Lactic Acid (07/21/2018 3:03 PM) + + + + + | Component | Value | Ref Range | Performed At | + + + + + | LACTIC ACID | 1.4Comment: Testing | 0.4 - 2.0 mmol/L | [facility] | | | performed at [facility];[address] | | | | | [address];[place] | | | | | [address] | | | + + + + + + + + + + | Performing | Address | City/State/Zipcode | Phone Number | | Organization | | | | + + + + + | [facility] | [address] | [place] [address] | | + + + + + POCT glucose (07/21/2018 11:40 AM) + + + + + | Component | Value | Ref Range | Performed At | + + + + + | GLUCOSE,POC SCREEN | 109 (H)Comment: Testing | 65 - 99 mg/dL | [facility] | | | performed at [facility];[address] | | | | | [address];[place], [place] | | | | | [address] | | | + + + + + + + + + + | Performing | Address | City/State/Zipcode | Phone Number | | Organization | | | | + + + + + | [facility] | [address] | [place] [address] | | + + + + + Septic Lactic Acid (07/21/2018 11:39 AM) + + + + + | Component | Value | Ref Range | Performed At | + + + + + | LACTIC ACID | 0.8Comment: Testing | 0.4 - 2.0 mmol/L | [facility] | | | performed at [facility];[address] | | | | | [facility] [facility];[place] | | | | | [address] | | | + + + + + + + + + + | Performing | Address | City/State/Zipcode | Phone Number | | Organization | | | | + + + + + | [facility] | [address] | [place] [address] | | + + + + + Septic Lactic Acid (07/21/2018 8:42 AM) + + + + + | Component | Value | Ref Range | Performed At | + + + + + | LACTIC ACID | 1.1Comment: Testing | 0.4 - 2.0 mmol/L | [facility] | | | performed at [facility];[address] | | | | | [address];[place] | | | | | [address] | | | + + + + + + + + + + | Performing | Address | City/State/Zipcode | Phone Number | | Organization | | | | + + + + + | [facility] | [address] | [place] [address] | | + + + + + POCT glucose (07/21/2018 6:29 AM) + + + + + | Component | Value | Ref Range | Performed At | + + + + + | GLUCOSE,POC SCREEN | 125 (H)Comment: Testing | 65 - 99 mg/dL | [facility] | | | performed at [facility];[address] | | | | | [address];[place] | | | | | [address] | | | + + + + + + + + + + | Performing | Address | City/State/Zipcode | Phone Number | | Organization | | | | + + + + + | [facility] | [address] [facility] | [place] [address] | | + + + + + Septic Lactic Acid (07/21/2018 5:10 AM) + + + + + | Component | Value | Ref Range | Performed At | + + + + + | LACTIC ACID | 1.2Comment: Testing | 0.4 - 2.0 mmol/L | [facility] | | | performed at [facility];[address] | | | | | [address];[place] | | | | | [address] | | | + + + + + + + + + + | Performing | Address | City/State/Zipcode | Phone Number | | Organization | | | | + + + + + | [facility] | [address] | [place] [address] | | + + + + + [...] performed at | | | | | [facility], [address] [facility] | | | | | [place] | | | | | [address] | | | + + + + + + + + + + | Performing | Address | City/State/Zipcode | Phone Number | | Organization | | | | + + + + + | [facility] | [address] | [place] [address] | [phone] | | LABORATORY | [address] | | | + + + + + renetta Costello (07/21/2018 5:) + + + + + | Component | Value | Ref Range | Performed At | + + + + + | RENETTA COSTELLO | 0.1Comment: Testing | 0.0 - 0.3 mg/dL | [facility] | | | performed at [facility], [address] | | LABORATORY | | | [facility], | | | | | [place] [address] | | | + + + + + + + + + + | Performing | Address | City/State/Zipcode | Phone Number | | Organization | | | | + + + + + | [facility] | [address] [place] [address] | [place] [address] | [phone] | | LABORATORY | [address] | | | + + + + + Glycohemoglobin A1C (07/21/2018 5:05 AM) + + + + + | Component | Value | Ref Range | Performed At | + + + + + | HEMOGLOBIN A1C | 5.6Comment: HbA1c method | 4.0 - 6.0 % | [facility] | | | is certified by [facility] | | LABORATORY | | | and [...] | 114Comment: Estimated | <154 mg/dL | [facility] | | GLUCOSE | Average Glucose | | LABORATORY | | | calculated from | | | | | hemoglobin A1c by use of | | | | | the ADA recommended | | | | | formula.Testing | | | | | performed at [facility], [address] | | | | [facility], | | | | | [place] [address] | | | + + + + + + + | Specimen | + + | Blood | + + + + + + + | Performing | Address | City/State/Zipcode | Phone Number | | Organization | | | | + + + + + | [facility] | [address] [facility] | [place] [address] | [phone] | | LABORATORY | [address] | | | + + + + + Comprehensive Metabolic Panel (07/21/2018 5:05 AM) + + + + + | Component | Value | Ref Range | Performed At | + + + + + | SODIUM | 139 | 135 - 145 mmol/L | [facility] | | | | | LABORATORY | + + + + + | POTASSIUM | 5.5 (H) | 3.5 - 4.9 mmol/L | [facility] | | | | | LABORATORY | + + + + + | CHLORIDE | 101 | 99 - 109 mmol/L | [facility] | | | | | LABORATORY | + + + + + | CO2 | 25 | 23 - 32 mmol/L | [facility] | | | | | LABORATORY | + + + + + | ANION GAP AGAP | 19 | 5 - 20 mmol/L | [facility] | | | | | LABORATORY | + + + + + | GLUCOSE | 117 (H) | 65 - 99 mg/dL | [facility] | | | | | LABORATORY | + + + + + | BUN | 63 (H) | 8 - 25 mg/dL | [facility] | | | | | LABORATORY | + + + + + | CREATININE | 8.6 (H) | 0.70 - 1.30 mg/dL | [facility] | | | | | LABORATORY | + + + + + | BUN/CREAT | 7 | | [facility] | | | | | LABORATORY | + + + + + | CALCIUM | 8.3 (L) | 8.5 - 10.5 mg/dL | [facility] | | | | | LABORATORY | + + + + + | TOTAL PROTEIN | 7.0 | 6.3 - 8.2 g/dL | [facility] | | | | | LABORATORY | + + + + + | Albumin | 1.5 (L) | 3.3 - 4.8 g/dL | [...] + + + + | TBIL | 0.5 | 0.1 - 1.5 mg/dL | [facility] | | | | | LABORATORY | + + + + + | ALK PHOS | 170 (H) | 35 - 115 U/L | [facility] | | | | | LABORATORY | + + + + + | AST | 31 | 10 - 45 U/L | [facility] | | | | | LABORATORY | + + + + + | ALT | 14 | 10 - 65 U/L | [facility] | | | | | LABORATORY | + + + + + | EGFR | 6 (L)Comment: GFR <60: | >60 mL/min/1.73m2 | [...] the | | | | | MDRD IDNV traceable | | | | | equation.Testing | | | | | performed at [facility], [address] | | | | [facility], | | | | | [place] [address] | | | + + + + + + + | Specimen | + + | Blood | + + + + + + + | Performing | Address | City/State/Zipcode | Phone Number | | Organization | | | | + + + + + | [facility] | [address] | [place] [address] | [phone] | | LABORATORY | [address]vd[address] | | | + + + + + Magnesium (07/21/2018 5:05 AM) + + + + + | Component | Value | Ref Range | Performed At | + + + + + | MAGNESIUM | 2.4Comment: Testing | 1.7 - 2.4 mg/dL | [facility] | | | performed at L, [address] | | LABORATORY | | | [facility], | | | | | [place] [address] | | | + + + + + + + | Specimen | + + | Blood | + + + + + + + | Performing | Address | City/State/Zipcode | Phone Number | | Organization | | | | + + + + + | [facility] | [address] | [place] [address] | [phone] | | LABORATORY | Blvd. | | | + + + + + CBC W/Auto Diff (Reflex to Manual) (07/21/2018 5:05 AM) + + + + + | Component | Value | Ref Range | Performed At | + + + + + | WBC | 17.21 (H) | 3.80 - 11.00 K/uL | [facility] | | | | | LABORATORY | + + + + + | RBC | 3.05 (L) | 4.20 - 5.70 M/uL | [facility] | | | | | LABORATORY | + + + + + | HGB | 8.3 (L) | 13.2 - 17.0 g/dL | [facility] | | | | | LABORATORY | + + + + + | HCT | 26.3 (L) | 39.0 - 50.0 % | [facility] | | | | | LABORATORY | + + + + + | MCV | 86.3 | 80.0 - 100.0 fl | [facility] | | | | | LABORATORY | + + + + + | MCH | 27.1 | 27.0 - 34.0 pg | [facility] | | | | | LABORATORY | + + + + + | MCHC | 31.4 (L) | 32.0 - 35.5 g/dL | [facility] | | | | | LABORATORY | + + + + + | RDW SD | 46.8 | 37 - 53 fl | [facility] | | | | | LABORATORY | + + + + + | PLT | 307 | 150 - 400 K/uL | [facility] | | | | | LABORATORY | + + + + + | MPV | 7.5 | fl | [facility] | | | | | LABORATORY | + + + + + | DIFF TYPE | AUTOMATED | | [facility] | | | | | LABORATORY | + + + + + | NEUTROPHILS | 77.14 | % | [facility] | | | | | LABORATORY | + + + + + | LYMPHOCYTES | 16.31 | % | [facility] | | | | | LABORATORY | + + + + + | MONOCYTES | 6.07 | % | [facility] | | | | | LABORATORY | + + + + + | EOSINOPHILS | 0.30 | % | [facility] | | | | | LABORATORY | + + + + + | BASOPHILS | 0.18 | % | [facility] | | | | | LABORATORY | + + + + + | NEUTROPHILS ABS | 13.28 (H) | 1.90 - 7.40 K/uL | [facility] | | | | | LABORATORY | + + + + + | LYMPHOCYTES ABS | 2.81 | 1.00 - 3.90 K/uL | [facility] | | | | | LABORATORY | + + + + + | MONOCYTES ABS | 1.05 (H) | 0.00 - 0.80 K/uL | [facility] | | | | | LABORATORY | + + + + + | EOSINOPHILS ABS | 0.05 | 0.00 - 0.50 K/uL | [facility] | | | | | LABORATORY | + + + + + | BASOPHILS ABS | 0.03Comment: Testing | 0.00 - 0.10 K/uL | [facility] | | | performed at [facility], [facility] [address] | | LABORATORY | | | [address], | | | | | [place] [address] | | | + + + + + + + | Specimen | + + | Blood | + + + + + + + | Performing | Address | City/State/Zipcode | Phone Number | | Organization | | | | + + + + + | [facility] | [address] | [place] [address] | [phone] | | LABORATORY | [address]vd[address] | | | + + + + + POCT glucose (07/21/2018 12:58 AM) + + + + + | Component | Value | Ref Range | Performed At | + + + + + | GLUCOSE,POC SCREEN | 124 (H)Comment: Testing | 65 - 99 mg/dL | [facility] | | | performed at [facility];[address] | | | | | [address];[place], [place] | | | | | [address] | | | + + + + + + + + + + | Performing | Address | City/State/Zipcode | Phone Number | | Organization | | | | + + + + + | [facility] | [address] | [place] [address] | | + + + + + Septic Lactic Acid (07/21/2018 12:43 AM) + + + + + | Component | Value | Ref Range | Performed At | + + + + + | LACTIC ACID | 1.6Comment: Testing | 0.4 - 2.0 mmol/L | [facility] | | | performed at [facility];[address] | | | | [address];[place] | | | | | [address] | | | + + + + + + + + + + | Performing | Address | City/State/Zipcode | Phone Number | | Organization | | | | + + + + + | [facility] | [address] | [place] [address] | | + + + + + Blood Culture Set 2 (07/21/2018 12:43 AM) + + + + + | Component | Value | Ref Range | Performed At | + + + + + | Specimen Description | BLOOD | | [facility] | | | | | LABORATORY | + + + + + | SPECIAL REQUESTS | R FOOT | | [facility] | + + + + + [...] + + + | [facility] | [address] | [place] [address] | [phone] | | LABORATORY | Blvd. | | | + + + + + | [facility] | [address] | [place] [address] | | + + + + + [...] performed at | | | | | [facility], [address] | | | | | [place] | | | | | [address] | | | + + + + + + + | Specimen | + + | Nasal Swab | + + + + + + + | Performing | Address | City/State/Zipcode | Phone Number | | Organization | | | | + + + + + | [facility] | [address] | [place] [address] | [phone] | | LABORATORY | [place] | | | + + + + + MRSA by PCR (07/21/2018 12:05 AM) + + + + + | Component | Value | Ref Range | Performed At | + + + + + | SOURCE | NARES(NOSE) | | [facility] | + + + + + | MRSA PCR | NEGATIVEComment: Testing | NEGATIVE | [facility] | | | performed at [facility];[address] | | | | | [address];[place] | | | | | [address] | | | + + + + + + + | Specimen | + + | Nasopharyngeal - | | Rosanne(Nose) | + + + + + + + | Performing | Address | City/State/Zipcode | Phone Number | | Organization | | | | + + + + + | [facility] | [address] | [place] [address] | | + + + + + POCT glucose (07/20/2018 10:14 PM) + + + + + | Component | Value | Ref Range | Performed At | + + + + + | GLUCOSE,POC SCREEN | 127 (H)Comment: Testing | 65 - 99 mg/dL | [facility] | | | performed at [facility];[address] | [address];[place] | | | | | [address] | | | + + + + + + + + + + | Performing | Address | City/State/Zipcode | Phone Number | | Organization | | | | + + + + + | [facility] | [address] | [place] [address] | | + + + + + Septic Lactic Acid (07/20/2018 8:05 PM) + + + + + | Component | Value | Ref Range | Performed At | + + + + + | LACTIC ACID | 1.7Comment: Testing | 0.4 - 2.0 mmol/L | [facility] | | | performed at [facility];[address] | | | | | [address];[place] | | | | | [address] | | | + + + + + + + + + + | Performing | Address | City/State/Zipcode | Phone Number | | Organization | | | | + + + + + | [facility] | [address] | [place] [address] | | + + + + + [...] | + + + + + | [facility] | [address] | [place] [address] | [phone] | | LABORATORY | [place]. | | | + + + + + | [facility] | [address] | [place] [address] | | + + + + + Cardiac Panel (07/20/2018 8:05 PM) + + + + + | Component | Value | Ref Range | Performed At | + + + + + | WBC | 15.60 (H) | 3.80 - 11.00 K/uL | [facility] | + + + + + | RBC | 3.13 (L) | 4.20 - 5.70 M/uL | [facility] | + + + + + | HGB | 8.5 (L) | 13.2 - 17.0 g/dL | [facility] | + + + + + | HCT | 27.2 (L) | 39.0 - 50.0 % | [facility] | + + + + + | MCV | 86.8 | 80.0 - 100.0 fl | [facility] | + + + + + | MCH | 27.1 | 27.0 - 34.0 pg | [facility] | + + + + + | MCHC | 31.2 (L) | 32.0 - 35.5 g/dL | [facility] | + + + + + | RDW SD | 50.3 | 37 - 53 fl | [facility] | + + + + + | PLT | 240 | 150 - 400 K/uL | [facility] | + + + + + | MPV | 7.0 | fl | [facility] | + + + + + | DIFF TYPE | AUTOMATED | | [facility] | + + + + + | NEUTROPHILS | 73.03 | % | [facility] | + + + + + | LYMPHOCYTES | 19.21 | % | [facility] | + + + + + | MONOCYTES | 7.15 | % | [facility] | + + + + + | EOSINOPHILS | 0.07 | % | [facility] | + + + + + | BASOPHILS | 0.54 | % | [facility] | + + + + + | NEUTROPHILS ABS | 11.40 (H) | 1.90 - 7.40 K/uL | [facility] | + + + + + | LYMPHOCYTES ABS | 3.00 | 1.00 - 3.90 K/uL | [facility] | + + + + + | MONOCYTES ABS | 1.12 (H) | 0.00 - 0.80 K/uL | [facility] | + + + [...] (H) | 3.5 - 4.9 mmol/L | [facility] | + + [...] (H) | 65 - 99 mg/dL | [facility] [...] 6.4 | 6.3 - 8.2 g/dL | [facility] | + + + + + | Albumin | 2.5 (L) | 3.3 - 4.8 g/dL | [facility] | + + + + + | GLOBULIN | 3.9 | 1.3 - 4.9 g/dL | [facility] | + + + + + | A/G | 0.6 (L) | 1.0 - 2.4 | [facility] | + + + + + | TBIL | <0.2 | 0.1 - 1.5 mg/dL | [facility] | + + + + + | ALK PHOS | 172 (H) | 35 - 115 U/L | [facility] | + + + + + | AST | 36 | 10 - 45 U/L | [facility] | + + + + + | ALT | 15 | 10 - 65 U/L | [facility] | + + + + + | EGFR | 7 (L)Comment: GFR <60: | >60 mL/min/1.73m2 | [facility] | | | CHRONIC [...] 63 | 55 - 400 U/L | [facility] | + + + + + | INR | 1.1Comment: REFERENCE | | [facility] | | | RANGE:0.9 - | [...] 29 | 23 - 32 seconds | [facility] | + + + + + | MMB | 1.8 | 0.5 - 3.6 ng/mL | [facility] | + + + + + | CK-MB Index | 2.9Comment: CK INDEX | | [facility] | | | INTERPRETATION: | | [...] | | | | | performed at [facility];[address] | | | | | [address];[place] | | | | | [address] | | | + + + + + + + + + + | Performing | Address | City/State/Zipcode | Phone Number | | Organization | | | | + + + + + | [facility] | [address] | [place] [address] | | + + + + + POC Arterial Blood Gas (07/20/2018 6:59 PM) + + + + + | Component | Value | Ref Range | Performed At | + + + + + | POC FIO2 | 70 | % | [facility] | + + + + + | pH, Art | 7.347 (L) | 7.350 - 7.450 | [facility] | + + + + + | POC PCO2 | 48 (H) | 35 - 45 mmHg | [facility] | + + + + + | POC p02 | 102 | 80 - 105 mmHg | [facility] | + + + + + | POC HCO3 | 27 (H) | 22 - 26 mmol/L | [facility] | + + + + + | POC TCO2 | 28 (H) | 23 - 27 mEq/L | [facility] | + + + + + | POC BASE EXCESS | 1 | 0 - 3 mEq/L | [facility] | + + + + + | POC S02 | 97 | 95 - 98 % | [facility] | + + + + + | POC COMMENTS | Modified Hari Test | | [facility] | | | passedComment: Testing | | | | | performed at [facility] | | | | | [address];[place] | | | | | [address] | | | + + + + + + + + + + | Performing | Address | City/State/Zipcode | Phone Number | | Organization | | | | + + + + + | [facility] | [address] | [place] [address] | | + + + + + ED INFORMATION EXCHANGE (07/20/2018 4:54 PM) + + + | Narrative | Performed At | + + + | [id number] [id number] Criteria Met Care | ED | | Guidelines 2 in 2 Security and Safety Date Location Type | INFORMATION | | Specifics 06/30/18 12:08 PM [facility] Physical | EXCHANGE | | Other Details: IRIS CREATED Security Events (18 Mo.) | | | Count Physical 1 Total 1 ED Care Guidelines There are | | | currently no ED Care Guidelines for this patient. Please check your | | | facility's medical records system. Care History Medical/Surgical | | | 07/06/18 12:00 AM [facility] Patient is now at [place] | | | [facility]. Confirmed 07/06/18 07/01/18 12:00 AM [facility] | | | [facility] Patient is currently established with | | | [facility]. If patient is seen in the ED during business hours. | | | Please contact CHWs at [facility]. Care Recommendation: | | [...] Count (12 mo.) Facility Visits Low Acuity [facility] | | | [facility] 3 0 [facility] 1 0 | | | [facility] 3 0 Total 7 0 Note: Visits indicate | | | total known visits. Medicaid Low Acuity Dx are the number of primary | | | diagnoses on the Medicaid's Low Acuity dx list. Recent | | | Emergency Department Visit Summary Date Facility City State Type | | | Diagnoses or Chief Complaint Jul 20, 2018 [facility] Susan Tijerina. | | | [place] Emergency Jul 20, 2018 [facility] L[place]. [place]. [place] | | | Emergency Chief Complaint: LETHARGIC/LOW OXYGEN Jun 30, 2018 | | | [facility] H. [place]endl. 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 [place] Emergency Left lower | | | quadrant pain Dependence on renal dialysis Acquired | | | absence of other specified parts of digestive tract FPC | | | (current) use of aspirin [...] | | | organism Apr 06, 2018 [facility] Susan [place]. [place] | | | Emergency port access problems Vascular Access Problem | | | End stage renal disease Dependence on renal dialysis | | | Other complication of vascular dialysis catheter, initial | | | encounter Apr 04, 2018 [facility] Susan T[place]. [place] | | | Emergency "Im supposed to [...] | | | encounter Jan 21, [address] [facility] [place]. [place] | | | Emergency poss OD Respiratory [...] 2018 [facility] | | | [place]. [place] Medical Surgical 0. Pain in left hip [...] region Apr 06, | | | 2017 [facility] Susan Tijerina. [place] General Medicine Other | | | complication [...] diabetic chronic kidney disease Jan 21, 2018 [facility] | | | Susan Gibbs. [place] Medical Surgical End stage renal disease | [...] Fax Service | | | Dates RAKAN HOFF, DO Internal Medicine Jul 01, 2018 - | | | Current JOHN OQUENDO Primary Care Nov 16, 2013 - | | | Current [employer] [facility] This patient has registered at the | | | [facility] Emergency Department For more | | | information visit: | | | [email or web address] | | | [email or web address] The above information [...] for additional information. | | | 2019 [employer]. - [place], [place] - | | | [email or web address] | | + + + + + | Procedure Note | + + | [place], Lab - 07/20/2018 4:56 PM PST Formatting of this note may be different | | from the original.[id number] [id number] Met Care Guidelines 2 in | | 2Security and SafetyDate Location Type Specifics 06/30/18 12:08 PM [facility] | | Hospital Physical Other Details: IRIS CREATED Security Events (18 Mo.) Count Physical | | 1 Total 1 ED Care GuidelinesThere are currently no ED Care Guidelines for this patient. | | Please check your facility's medical records system.Care HistoryMedical/Surgical07/06/18 | | [facility] | | Confirmed 12:00 AM [facility] Patient is currently | | established with [facility]. If patient is seen in the ED during business hours. | | Please contact CHWs at [facility].Care Recommendation:This patient has had [...] (12 mo.)Facility Visits Low Acuity | | [facility] 3 0 [facility] 1 0 [facility]. | | [facility] 3 0 Total 7 0 Note: Visits indicate total known visits. Medicaid Low | | Acuity Dx are the number of primary diagnoses on the Medicaid's Low Acuity dx list. | | Recent Emergency Department Visit SummaryDate Facility City State Type Diagnoses or | | Chief Complaint Jul 20, 2018 [facility] Susan [place]ijer[place]. [place] Emergency Jul [facility], [facility] [place] [place] Emergency Chief Complaint: LETHARGIC/LOW OXYGEN Jun 30, 2018 | | [facility] H. [place]. [place] Emergency End stage renal disease Nicotine | | dependence, unspecified, uncomplicated Other ocean transportation intermediary (current) drug therapy | | Weakness Poisoning by other opioids, accidental (unintentional), initial encounter | | FPC (current) use of opiate analgesic Osteomyelitis, unspecified Type 2 | | diabetes mellitus without complications FPC (current) use of insulin Jun 09, | | 2019 [facility] [place]. [place] Emergency Left lower quadrant pain Dependence [...] unspecified organism Apr 06, 2018 | | [place] Emergency port access problems Vascular Access | | Problem End stage renal disease Dependence on renal dialysis Other complication | | of vascular dialysis catheter, initial encounter Apr 04, 2018 [facility] [place] | | [place] Emergency "Im supposed to have this thing in my chest for dialysis changed | | out, they tried a week ago and today I went for dialysis but they couldnt get it to | | work" Vascular Access Problem Cellulitis of left lower limb Unspecified | | complication of internal prosthetic device, implant and graft, initial encounter Jan 21, | | 2017 [facility] Susan Gibbs. [place] Emergency poss OD Respiratory Distress | | Altered Mental Status Pneumonia, unspecified organism Respiratory failure, | | unspecified, unspecified whether with hypoxia or hypercapnia Sepsis, unspecified | | organism End stage renal disease Recent Inpatient Visit SummaryDate Facility City | | State Type Diagnoses or Chief Complaint Jun 09, 2018 [place]. [place] | | Medical Surgical 0. 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 [place] Medical Surgical End | | stage renal [...] Nov 16, | | 2013 - Current BluespecThis patient has registered at the [facility] | [facility] Emergency Department For more information visit: | | [email or web address] The above | | information is provided for the sole purpose of patient treatment. Use of this | | information beyond the terms of Data Sharing Memorandum of Understanding and License | | Agreement is prohibited. In certain cases not all visits may be represented. Consult the | | aforementioned facilities for additional information. 2019 [employer] | | [employer] - [place], [place] - [email or web address] | | Cellulitis of left lower limb | | Pneumonia, unspecified organism | | | |[facility] 06[facility] [place] Emergency | | port access problems | | Vascular Access Problem | | End stage renal disease | | Dependence on renal dialysis | | Other complication of vascular dialysis catheter, initial encounter | | | |Apr 04, 2018 [facility] [place] Emergency | | "Im supposed to have [...] nter | | | |Jan 21, [address] [facility] Gibbs. [place] Emergency | | poss OD | | Respiratory Distress | | Altered Mental Status | | Pneumonia, unspecified organism | | Respiratory failure, unspecified, unspecified whether with hypoxia or hypercapnia | | Sepsis, unspecified organism | | End stage renal disease | | | | | | | |Recent Inpatient Visit Summary | |Date Facility City State Type Diagnoses or Chief Complaint | |Jun 09, 2018 [place]. [place] Medical Surgical | | 0. Pain in [...] region | | | |[facility] [place] [facility] | | Other complication of [...] disease | | | |Jan 21, 2018 [facility] Susan Gibbs. [place] Medical Surgical | | End stage renal [...] 16, 2013 - Current | | | |Collective Portal | |This patient has registered at the [facility] Emergency Department | |For more information visit: [email or web address] | |The above information is provided for the sole purpose of patient treatment. Use of this in formation beyond the terms of Data Sharing Memorandum of Understanding and License Agreement is prohibited. In | |certain cases not all visits may be represented. Consult the aforementioned facilities for additional information. | |2019 [employer] - [place], [place] - [email or web address] | + + + +---------+ + + | Performing | Address | City/State/Zipcode | Phone Number | | Organization | | | | + +---------+ + + | ED INFORMATION | | | | | EXCHANGE | | | | + +---------+ + + in this encounter Visit Diagnoses + + | Diagnosis | + + | Parainfluenza - Primary | + + | Other specified diseases due to viruses | + + | Sepsis, due to unspecified organism (HCC) | + + | ESRD (end stage renal disease) (HCC) | + + | End stage renal disease | + + | Anemia, unspecified type | + + | Chronic obstructive pulmonary disease, unspecified COPD type (HCC) | + + | Heroin abuse (HCC) | + + | Hypertension | + + | Unspecified essential hypertension | + + | Medical non-compliance | + + | Personal history of noncompliance with medical treatment, presenting hazards to health | + + | Lung cancer (HCC) | + + | Malignant neoplasm of bronchus and lung, unspecified site | + + | Opiate addiction | + + | Opioid type dependence, unspecified | + + Admitting Diagnoses + + | Diagnosis | + + | ESRD (end stage renal disease) (HCC) | + + | End stage renal disease | + + | Heroin abuse (HCC) | + + | Sepsis, due to unspecified organism (HCC) | + + | Chronic obstructive pulmonary disease, unspecified COPD type (HCC) | + + | Anemia, unspecified type | + + Administered Medications + +--------+---------+------+------+------+ | Medication Order | MAR | Action | Dose | Rate | Site | | | Action | Date | | | | + +--------+---------+------+------+------+ + +---+ | acetaminophen (TYLENOL) | | | suppository 650 mg 650 mg, | | | Rectal, Every 6 Hours PRN, Mild | | | Pain (1-3), Fever, Starting Mon | | | 07/20/18 at 2158 | | + +---+ | | | + +---+ | acetaminophen (TYLENOL) tablet | | | 650 mg 650 mg, Oral, Every 6 | | | Hours PRN, Mild Pain (1-3), | | | Fever, Starting 07/20/18 at | | | 2158 | | + +---+ | | | + +---+ + +---------+ +------+---+---+ | albumin human 25 % solution 25 | New Bag | 07/21/2018 | 25 g | | | | g 25 g, Intravenous, Once, Mon | | 00:32 | | | | | 07/20/18 at 2230, For 1 dose | | PST | | | | + +---------+ +------+---+---+ +---+---+ | | | +---+---+ + +-------+ +---------+---+---+ | budesonide-formoterol | Given | 07/22/2018 | 2 puffs | | | | (SYMBICORT) 80-4.5 MCG/ACT | | 10:46 | | | | | inhaler 2 puff 2 puff, | | PST | | | | | Inhalation, 2 Times Daily, First | | | | | | | dose on Fri07/20/18 at 2300 | | | | | | + +-------+ +---------+---+---+ +-------+ +---------+---+---+ | Given | 07/22/2018 | 2 puffs | | | | | 20:41 | | | | | | PST | | | | +-------+ +---------+---+---+ | Given | 07/23/2018 | 2 puffs | | | | | 11:49 | | | | | | PST | | | | +-------+ +---------+---+---+ +---+---+ | | | +---+---+ + +-------+ +-----+-------+---+ | ceFEPIme (MAXIPIME) 1 g in | Given | 07/21/2018 | 1 g | 100 | | | sodium chloride (IV) 0.9 % 50 mL | | 00:44 | | mL/hr | | | IVPB 1 g, Intravenous, | | PST | | | | | Administer over 30 Minutes, Every | | | | | | | 24 Hours, First dose on Mon | | | | | | | 07/20/18 at 2300 | | | | | | + +-------+ +-----+-------+---+ +-------+ +-----+-------+---+ | Given | 07/21/2018 | 1 g | 100 | | | | 23:40 | | mL/hr | | | | PST | | | | +-------+ +-----+-------+---+ +---+---+ | | | +---+---+ + +-------+ +------+---+---+ | dexamethasone (DECADRON) tablet | Given | 07/21/2018 | 4 mg | | | | 4 mg 4 mg, Oral, 2 Times Daily | | 17:23 | | | | | With Meals, First dose on Fri | | PST | | | | | 07/21/18 at 0800 | | | | | | + +-------+ +------+---+---+ +-------+ +------+---+---+ | Given | 07/22/2018 | 4 mg | | | | | 08:29 | | | | | | PST | | | | +-------+ +------+---+---+ + +---+ | | | + +---+ | dextrose 10 % infusion at | | | 0-100 mL/hr, Intravenous, | | | Continuous PRN, Hypoglycemia, | | | Starting 07/20/18 at 2216, For | | | BG 70 or less run infusion at 100 | | | mL/ hr. Discontinue when BG | | | increases to 100 mg/dl or greater | | | x 2-3 hours and patient is | | | eating. Call provider if BG not | | | maintained after 2-3 hours. | | + +---+ | | | + +---+ | dextrose 50 % solution 12 mL | | | 12 mL, Intravenous, PRN, | | | Hypoglycemia (BG < 70 mg/dL), | | | Starting [facility] 07/20/18 at 2216 | | + +---+ | | | + +---+ | dextrose 50 % solution 25 mL | | | 25 mL, Intravenous, PRN, | | | Hypoglycemia (BG < 70 mg/dL), | | | Starting [facility] 07/20/18 at 2216 | | + +---+ | | | + +---+ + +-------+ +-------+---+---+ | diltiazem (CARDIZEM) injection | Given | 07/22/2018 | 10 mg | | | | 10 mg 10 mg, Intravenous, Once, | | 05:40 | | | | | 07/22/18 at 0600, For 1 dose | | PST | | | | + +-------+ +-------+---+---+ + +---+ | | | + +---+ | dilTIAZem in NS 1 mg/mL | | | (CARDIZEM) infusion 0-15 mg/hr | | | (0-15 mL/hr), Intravenous, at | | | 0-15 mL/hr, Titrated, Starting | | | 07/22/18 at 0700, Notify | | | physician for bolus dose if HR | | | greater than 120 bpm and SBP | | | greater than 100 mmHg or MAX dose | | | ineffective. In emergent | | | situations, more rapid titration | | | may be clinically indicated. If | | | second cardiac drip needed, | | | patient to be transferred to | | | critical care. Turn drip off | | | one hour after patient is | | | converted to PO immediate release | | | tablet to provide for a steady | | | blood level. | | + +---+ | | | + +---+ + +-------+ +-------+---+---+ | DULoxetine (CYMBALTA) DR | Given | 07/22/2018 | 60 mg | | | | capsule 60 mg 60 mg, Oral, | | 08:29 | | | | | Daily, First dose on Fri07/21/18 | | PST | | | | | at 0900 | | | | | | + +-------+ +-------+---+---+ +-------+ +-------+---+---+ | Given | 07/23/2018 | 60 mg | | | | | 11:50 | | | | | | PST | | | | +-------+ +-------+---+---+ +---+---+ | | | +---+---+ + +-------+ +---------+---+---+ | epoetin charisma (PROCRIT) | Given | 07/21/2018 | 20,000 | | | | injection 20,000 Units 20,000 | | 09:30 | Units | | | | Units, Intravenous, Once In | | PST | | | | | Dialysis, Fri07/21/18 at 0830, For | | | | | | | 1 dose, DIALYSIS | | | | | | + +-------+ +---------+---+---+ +---+---+ | | | +---+---+ + +-------+ +---------+---+---+ | epoetin charisma (PROCRIT) | Given | 07/23/2018 | 20,000 | | | | injection 20,000 Units 20,000 | | 11:00 | Units | | | | Units, Intravenous, Once In | | PST | | | | | Dialysis, [facility] 07/23/18 at 1100, For | | | | | | | 1 dose, DIALYSIS | | | | | | + +-------+ +---------+---+---+ +---+---+ | | | +---+---+ + +-------+ +-------+---+---+ | famotidine (PEPCID) injection | Given | 07/21/2018 | 20 mg | | | | 20 mg 20 mg, Intravenous, Daily, | | 00:55 | | | | | First dose on Fri07/20/18 at | | PST | | | | | 2230, Prior to administration, | | | | | | | prepare a 20 mg dose by diluting | | | | | | | 2 mL of famotidine 10 mg/mL to 10 | | | | | | | mL with normal saline. Give over | | | | | | | 2 minutes. | | | | | | + +-------+ +-------+---+---+ +---+---+ | | | +---+---+ + +-------+ +-------+---+---+ | famotidine (PEPCID) tablet 20 | Given | 07/21/2018 | 20 mg | | | | mg 20 mg, Oral, Daily, First | | 20:50 | | | | | dose on Fri07/20/18 at 2230 | | PST | | | | + +-------+ +-------+---+---+ +-------+ +-------+---+---+ | Given | 07/22/2018 | 20 mg | | | | | 20:40 | | | | | | PST | | | | +-------+ +-------+---+---+ +---+---+ | | | +---+---+ + +-------+ +--------+---+---+ | gabapentin (NEURONTIN) capsule | Given | 07/21/2018 | 100 mg | | | | 100 mg 100 mg, Oral, Nightly, | | 20:50 | | | | | First dose on Fri07/20/18 at 2300 | | PST | | | | + +-------+ +--------+---+---+ +-------+ +--------+---+---+ | Given | 07/22/2018 | 100 mg | | | | | 20:40 | | | | | | PST | | | | +-------+ +--------+---+---+ + +---+ | | | + +---+ | gabapentin (NEURONTIN) capsule | | | 100 mg 100 mg, Oral, See Admin | | | Instructions, Starting Fri07/20/18 | | | at 2236 | | + +---+ | | | + +---+ | glucagon (GLUCAGEN) injection | | | 0.5 mg 0.5 mg, Intramuscular, | | | PRN, Hypoglycemia, (BG < 70 | | | mg/dL), Starting Fri07/20/18 at | | | 2216 | | + +---+ | | | + +---+ | glucagon (GLUCAGEN) injection 1 | | | mg 1 mg, Intramuscular, PRN, | | | Hypoglycemia, (BG < 70 mg/dL), | | | Starting 07/20/18 at 2216 | | + +---+ | | | + +---+ + +-------+ +--------+---+---+ | heparin (porcine) 1000 unit/mL | Given | 07/21/2018 | 4,500 | | | | injection 4,500 Units 4,500 | | 12:50 | Units | | | | Units, Intracatheter, Once In | | PST | | | | | Dialysis, [facility] 07/21/18 at 1330, For | | | | | | | 1 dose, DIALYSIS | | | | | | + +-------+ +--------+---+---+ +---+---+ | | | +---+---+ + +-------+ +--------+---+---+ | heparin (porcine) 1000 unit/mL | Given | 07/23/2018 | 4,500 | | | | injection 4,500 Units 4,500 | | 11:30 | Units | | | | Units, Intracatheter, Once In | | PST | | | | | Dialysis, [facility] 07/23/18 at 1130, For | | | | | | | 1 dose, DIALYSIS | | | | | | + +-------+ +--------+---+---+ +---+---+ | | | +---+---+ + +-------+ +--------+---+---+ | heparin (porcine) 5000 | Given | 07/22/2018 | 5,000 | | | | unit/0.5mL injection 5,000 Units | | 08:28 | Units | | | | 5,000 Units, Subcutaneous, Every | | PST | | | | | 12 Hours Scheduled (2 times per | | | | | | | day), First dose on Fri07/20/18 at | | | | | | | 2230 | | | | | | + +-------+ +--------+---+---+ +-------+ +--------+---+---+ | Given | 07/22/2018 | 5,000 | | | | | 20:41 | Units | | | | | PST | | | | +-------+ +--------+---+---+ | Given | 07/23/2018 | 5,000 | | | | | 14:00 | Units | | | | | PST | | | | +-------+ +--------+---+---+ + +---+ | | | + +---+ | HYDROmorphone (DILAUDID) | | | injection 0.5 mg 0.5 mg, | | | Intravenous, Every 3 Hours PRN, | | | Moderate Pain (4-6), Starting Mon | | | 07/20/18 at 2158 | | + +---+ | | | + +---+ + +-------+ +------+---+---+ | HYDROmorphone (DILAUDID) | Given | 07/21/2018 | 1 mg | | | | injection 1 mg 1 mg, | | 15:10 | | | | | Intravenous, Every 3 Hours PRN, | | PST | | | | | Severe Pain (7-10), Starting Mon | | | | | | | 07/20/18 at 2158 | | | | | | + +-------+ +------+---+---+ +-------+ +------+---+---+ | Given | 07/21/2018 | 1 mg | | | | | 23:48 | | | | | | PST | | | | +-------+ +------+---+---+ +---+---+ | | | +---+---+ + +-------+ + +---+---+ | insulin glargine (LANTUS) | Given | 07/21/2018 | 10 Units | | | | injection 10 Units 10 Units, | | 20:52 | | | | | Subcutaneous, Nightly, First dose | | PST | | | | | on Fri07/20/18 at 2300 | | | | | | + +-------+ + +---+---+ +-------+ + +---+---+ | Given | 07/22/2018 | 10 Units | | | | | 20:47 | | | | | | PST | | | | +-------+ + +---+---+ +---+---+ | | | +---+---+ + +-------+ +---------+---+---+ | insulin lispro (human) | Given | 07/22/2018 | 0 Units | | | | (HUMALOG) injection 0-3 Units | | 20:47 | | | | | 0-3 Units, Subcutaneous, Nightly, | | PST | | | | | First dose on Fri07/20/18 at 2300 | | | | | | + +-------+ +---------+---+---+ +---+---+ | | | +---+---+ + +-------+ +---------+---+---+ | insulin lispro (human) | Given | 07/22/2018 | 1 Units | | | | (HUMALOG) injection 0-6 Units | | 13:02 | | | | | 0-6 Units, Subcutaneous, 3 Times | | PST | | | | | Daily Before Meals, First dose on | | | | | | | 07/21/18 at 0630 | | | | | | + +-------+ +---------+---+---+ +-------+ +---------+---+---+ | Given | 07/22/2018 | 1 Units | | | | | 19:12 | | | | | | PST | | | | +-------+ +---------+---+---+ | Given | 07/23/2018 | 1 Units | | | | | 05:32 | | | | | | PST | | | | +-------+ +---------+---+---+ +---+---+ | | | +---+---+ + +-------+ +-------+---+---+ | ipratropium-albuterol (DUO-NEB) | Given | 07/23/2018 | 3 mLs | | | | 0.5-2.5 mg/3mL nebulizer | | 03:21 | | | | | solution 3 mL 3 mL, | | PST | | | | | Nebulization, Every 6 Hours, | | | | | | | First dose on Fri07/21/18 at 0000 | | | | | | + +-------+ +-------+---+---+ +-------+ +-------+---+---+ | Given | 07/23/2018 | 3 mLs | | | | | 08:38 | | | | | | PST | | | | +-------+ +-------+---+---+ | Given | 07/23/2018 | 3 mLs | | | | | 15:23 | | | | | | PST | | | | +-------+ +-------+---+---+ +---+---+ | | | +---+---+ + +-------+ +-------+---+---+ | lisinopril (ZESTRIL) tablet 10 | Given | 07/23/2018 | 10 mg | | | | mg 10 mg, Oral, Daily, First | | 11:50 | | | | | dose on Fri07/21/18 at 0900 | | PST | | | | + +-------+ +-------+---+---+ +---+---+ | | | +---+---+ + +-------+ +------+---+---+ | LORazepam (ATIVAN) tablet 1 mg | Given | 07/22/2018 | 1 mg | | | | 1 mg, Oral, 4 Times Daily PRN, | | 20:40 | | | | | Anxiety, Starting 07/22/18 at | | PST | | | | | 1754 | | | | | | + +-------+ +------+---+---+ +---+---+ | | | +---+---+ + +---------+ +---------+---+ + | nicotine (NICODERM CQ) 21 | Patch | 07/21/2018 | 1 patch | | Left Arm | | MG/24HR patch 1 patch 1 patch, | Applied | 18:28 | | | | | Transdermal, Daily, First dose on | | PST | | | | | 07/21/18 at 1830 | | | | | | + +---------+ +---------+---+ + + + +---------+---+--------+ | Patch Applied | 07/22/2018 | 1 patch | | Right | | | 08:30 | | | Arm | | | PST | | | | + + +---------+---+--------+ | Patch Applied | 07/23/2018 | 1 patch | | Right | | | 10:41 | | | Arm | | | PST | | | | + + +---------+---+--------+ + +---+ | | | + +---+ | ondansetron (ZOFRAN) injection | | | 4 mg 4 mg, Intravenous, Every 6 | | | Hours PRN, Nausea, Vomiting, | | | Starting 07/20/18 at 2158 | | + +---+ | | | + +---+ | ondansetron (ZOFRAN-ODT) | | | disintegrating tablet 4 mg 4 mg, | | | Oral, Every 6 Hours PRN, Nausea, | | | Vomiting, Starting 07/20/18 at | | | 2158 | | + +---+ | | | + +---+ + +-------+ +-------+---+---+ | oxyCODONE (ROXICODONE) | Given | 07/23/2018 | 10 mg | | | | immediate release tablet 10 mg | | 05:31 | | | | | 10 mg, Oral, Every 6 Hours PRN, | | PST | | | | | Severe Pain (7-10), Starting Mon | | | | | | | 07/20/18 at 2158 | | | | | | + +-------+ +-------+---+---+ +-------+ +-------+---+---+ | Given | 07/23/2018 | 10 mg | | | | | 11:50 | | | | | | PST | | | | +-------+ +-------+---+---+ | Given | 07/23/2018 | 10 mg | | | | | 16:37 | | | | | | PST | | | | +-------+ +-------+---+---+ +---+---+ | | | +---+---+ + +-------+ +------+---+---+ | polyethylene glycol (GLYCOLAX) | Given | 07/22/2018 | 17 g | | | | packet 17 g 17 g, Oral, Daily | | 21:07 | | | | | PRN, Constipation, Starting Mon | | PST | | | | | 07/20/18 at 2158 | | | | | | + +-------+ +------+---+---+ + +---+ | | | + +---+ | sodium chloride (bolus) 0.9 % | | | 200 mL 200 mL, Intravenous, | | | Every 15 Min PRN, Prevent | | | clotting, Starting 07/21/18 at | | | 0803 | | + +---+ | | | + +---+ + +-------+ +---------+---+---+ | sodium chloride (bolus) 0.9 % | Given | 07/22/2018 | 500 mLs | | | | 500 mL 500 mL, Intravenous, | | 07:03 | | | | | Once, 07/22/18 at 0730, For 1 | | PST | | | | | dose | | | | | | + +-------+ +---------+---+---+ +---+---+ | | | +---+---+ + +-------+ + +---+---+ | vancomycin (VANCOCIN) 1000 | Given | 07/23/2018 | 1,000 mg | | | | mg/250 mL IVPB 1,000 mg, | | 14:01 | | | | | Intravenous, Administer over 60 | | PST | | | | | Minutes, See Admin Instructions, | | | | | | | Starting Fri07/21/18 at 0000, | | | | | | | Administer dose during last hour | | | | | | | or immediately following each | | | | | | | hemodialysis session. Use Rx | | | | | | | button to message [facility] for | | | | | | | dose. | | | | | | + +-------+ + +---+---+ +---+---+ | | | +---+---+ + +-------+ + +---+---+ | vancomycin (VANCOCIN) 1000 | Given | 07/21/2018 | 1,000 mg | | | | mg/250 mL IVPB 1,000 mg, | | 11:45 | | | | | Intravenous, Administer over 60 | | PST | | | | | Minutes, Once, Fri07/21/18 at | | | | | | | 1230, For 1 dose, Administer dose | | | | | | | during last hour or immediately | | | | | | | following each hemodialysis | | | | | | | session. Use Rx button to message | | | | | | | pharmacy for dose. | | | | | | + +-------+ + +---+---+ +---+---+ | | | +---+---+ + +-------+ + +---+---+ | vancomycin (VANCOCIN) 2 g/250 | Given | 07/21/2018 | 2,000 mg | | | | mL IVPB 2,000 mg, Intravenous, | | 00:43 | | | | | Administer over 120 Minutes, | | PST | | | | | Once, 07/20/18 at 2300, For 1 | | | | | | | dose | | | | | | + +-------+ + +---+---+ +---+---+ | | | +---+---+ in this encounter
--- OUTSIDE RECORDS SUMMARY | ~2018-08-05 | XMS | Clinical Summary ---
Demographics + + + | Address | [address] | | | [place] [address] | + + + | Home Phone [...] + + + + + | Sole Felder | ECON | [place] | | | | | [phone] | | + + + + + | Sruthi Felder | ECON | [place] | | | | | [phone] | | + + + + + | Sole Felder | ECON | [place] | | | | | [phone] | | + + + + + Care Team Providers + +------+ + | Care Fiber Design Engineer Name | Role | Phone | + +------+ + | Jack Durand DO | PP | | + +------+ + Allergies No Known Allergies Current Medications + + +---------+---------+------+------+-------+ | Prescription | Sig. | Disp. | Refills | Star | End | Statu | | | | | | t | Date | s | | | | | | Date | | | + + +---------+---------+------+------+-------+ | Insulin | BD Insulin Syringe | | | | | Activ | | Syringe-Needle [...] | | | | | + + +---------+---------+------+------+-------+ | DULoxetine | Take 60 mg by mouth | | | | | Activ | | (CYMBALTA) [address] | Daily. | | | | | e | | capsule | | | | | | | + + +---------+---------+------+------+-------+ | oxyCODONE | Take 1 tablet by | 30 | 0 | 09/1 | | Activ | | (ROXICODONE) 5 mg | mouth every 6 hours | tablet | | 2/20 | | e | | tablet | as needed. | | | 18 | | | + + +---------+---------+------+------+-------+ | lisinopril | Take 1 tablet by | 30 | 0 | 09/1 | | Activ | | (PRINIVIL, ZESTRIL) | mouth Daily. | tablet | | 2/20 | | e | | 10 mg tablet | | | | 18 | | | + + +---------+---------+------+------+-------+ | renal multivitamin | Take 1 tablet by | 30 | 0 | 09/1 | | Activ | | (DIALYVITE, | mouth Daily. | tablet | | 3/20 | | e | | VOL-CARE) TABS | | | | 18 | | | + + +---------+---------+------+------+-------+ | insulin glargine | Inject 10 Units | 10 mL | 0 | 09/1 | | Activ | | (LANTUS) 100 | under the skin | | | 2/20 | | e | | units/mL injection | nightly. | | | 18 | | | | (vial) | | | | | | | + + +---------+---------+------+------+-------+ | furosemide (LASIX) | Take 1 tablet by | 60 | 0 | 09/1 | | Activ | | 80 mg tablet | mouth 2 times daily. | tablet | | 2/20 | | e | | | | | | 18 | | | + + +---------+---------+------+------+-------+ | gabapentin | Take 1 capsule by | 90 | 0 | 10/2 | | Activ | | (NEURONTIN) 100 mg | mouth 2 times daily. | capsule | | 9/20 | | e | | capsule | | | | 18 | | | + + +---------+---------+------+------+-------+ | LORazepam (ATIVAN) | Take 2 tablets by | 60 | 4 | 02/1 | | Activ | | 0.5 mg | mouth every 4 hours | tablet | | 06/07 | | e | | tabletIndications: | as needed (for | | | 19 | | | | Malignant neoplasm | nausea, anxiety or | | | | | | | of lung, unspecified | restlessness). | | | | | | | laterality, | | | | | | | | unspecified part of | | | | | | | | lung (HCC) | | | | | | | + + +---------+---------+------+------+-------+ | methoxy | Inject 0.45 mLs | | | 07/17 | | Activ | | polyethylene | under the skin every | | | 12/05 | | e | | glycol-epoetin beta | 14 days. | | | 19 | | | | (MIRCERA) 50 mcg/0.3 | | | | | | | | mL injection | | | | | | | + + +---------+---------+------+------+-------+ | Doxercalciferol | Inject 0.5 mcg into | | | | 1 | Disco | | (HECTOROL IV) | the vein Three times | | | | 12/05 | ntinu | | | a week. | | | | 19 | ed | + + +---------+---------+------+------+-------+ | epoetin charisma | Inject 8,000 Units | | | | 07/17 | Disco | | (EPOGEN,PROCRIT) | under the skin Three | | | | / | ntinu | | 3,000 units/mL | times a week. | | | | 19 | ed | | injection | | | | | | | + + +---------+---------+------+------+-------+ Active Problems + + + | Problem | Noted Date | + + + | Chronic back pain | 01/21/2018 | + + + | IV drug abuse (HCC) | 01/21/2018 | + + + + + | Overview: Heroin when he "runs out of Oxycodone" | + + + + + | Acute respiratory failure (HCC) | 01/21/2018 | + + + | KASSANDRA (acute kidney injury) (HCC) | 01/21/2018 | + + + | History of heroin abuse | 01/16/2018 | + + + | Macroglobulinemia (HCC) | 01/16/2018 | + + + | Poor venous access | 01/16/2018 | + + + | Chronic kidney disease, stage III (moderate) (HCC) | 01/15/2018 | + + + | Chronic hepatitis C (HCC) | 01/15/2018 | + + + | Type 2 diabetes mellitus, with long-term current use of insulin | 01/15/2018 | | (HCC) | | + + + | Peripheral neuropathy | 01/15/2018 | + + + | Nephrotic syndrome | 01/15/2018 | + + + | Glomerulonephritis | 01/15/2018 | + + + | ESRD (end stage renal disease) (HCC) | 01/15/2018 | + + + | Squamous cell lung cancer (HCC) | 01/15/2018 | + + + + + | Overview: With regionally and distant notable metastatic | | disease. | + + + + + | Neoplasm related pain | 08/25/2017 | + + + | Chronic pain syndrome | 03/06/2017 | + + + | COPD (chronic obstructive pulmonary disease) (HCC) | 03/06/2017 | + + + | Malignant neoplasm of lung (HCC) | 03/06/2017 | + + + | Smoker | 03/06/2017 | + + + | Troponin level elevated | 03/06/2017 | + + + | Solitary pulmonary nodule | 10/28/2016 | + + + | Opiate addiction (HCC) | 03/14/2011 | + + + | Diabetic neuropathy (HCC) | 01/01/2011 | + + + + + | Overview: Last Assessment & Plan: | | Treatment per Dr Antonio | + + + + + | [...] + + | Right lower lobe pneumonia (HCC) | 01/22/20 | | | | 18 | 8 | + + + + Encounters +--------+ + + + + | Date | Type | Specialty | Care Team | Description | +--------+ + + + + | 07/10/ | Off-Site | | Marcie Nelson | ESRD (end stage | | 2018 | Visit | | M, DO | renal disease) (HCC) | | | | | | (Primary Dx) | +--------+ + + + + | 07/06/ | Documentati | | Marcie Nelson | | | 2019 | on | | M, DO | | +--------+ + + + + | 06/29/ | Refill | | Krys, | Medication Refill | | [...] + | Blood Pressure | 120/53 | 07/10/20181245 PST | + + + + | Pulse | 79 | 01/28/20181314 PDT | + + + + | Temperature | 36.1 C (97 F) | 07/10/20181245 PST | + + + + | Respiratory Rate | 20 | 01/28/20181314 PDT | + + + + | Oxygen Saturation | 91% | 01/28/2018 1315 PDT | + + + + | Inhaled Oxygen | - | - | | Concentration | | | + + + + | Weight | 105 kg (231 lb 7.7 | 04/27/20181258 PST | | | oz) | | + + + + | Height | 177.8 cm (5' 10") | 01/21/2018 1159 PDT | + + + + | Body Mass Index | 33.21 | 04/27/2018 1259 PST | + + + + Plan [...] + + + + | Hemoglobin A1c Q3 | | 09/18/2016, 05/22/2015 | | | Months | 7 | | | + + + + + | Vaccine: Influenza | | 03/07/2017 | | | (#1) | 8 | | | + + + + + | Hepatitis C | Completed | 01/26/2018, 01/26/2018, | | | Screening | | 01/25/2018, Additional history | | | | | exists | | + + + + + Results Not on filefrom Last 3 Months Insurance + +--------+ +--------+-------+---------+ | Payer | Benefi | Subscriber | Type | Phone | Address | | | t Plan | ID | | | | | | / | | | | | | | Group | | | | | + +--------+ +--------+-------+---------+ | [employer] | [employer] | [id number] | Medica | | | | | HEALTH | | re | | | | | MDCR | | | | | + +--------+ +--------+-------+---------+ + +--------+ +--------+ + + | Guarantor Name | Accoun | Relation to | Date | Phone | Billing Address | | | t Type | Patient | of | | | | | | | | | | + +--------+ +--------+ + + | SHAHBAZ FELDER | Person | Self [birth year] Home: | [address] | | | al/Fam | | [phone] | [phone] [place] | | | [place] | | [phone] | [phone] | + +--------+ +--------+ + +
[~2018-08-05 10:26] MED LIST changes: +DIALYVITE 3,001 EACH PO; +NEURONTIN800 MG PO; +SYMBICORT 16010.2 GM INH
--- OUTSIDE RECORDS SUMMARY | 2018-08-05 10:28 | XMS ---
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 Care History Medical/Surgical 07/06/2018 [facility] Patient is now at [facility] Confirmed 07/06/18 07/01/2018 [facility] - Patient is currently established with [facility]. If patient is seen in the ED during business hours. Please contact CHWs at [facility]. Care Recommendation: This patient has had 5 [...] providing care. E.D. VISIT COUNT (12 MO.) 3 [facility] 1 [facility] 4 [facility] TOTAL 8 NOTE: Visits indicate total known visits. ED/UCC VISIT TRACKING (12 MO.) 08/05/2018 10:26 [facility] [place] TYPE: Emergency COMPLAINT: - WEAKNESS/LOC 07/20/2018 18:27 [facility] TYPE: Emergency DIAGNOSES: - Shortness of Breath 07/20/2018 10:39 [facility] TYPE: Emergency COMPLAINT: - LETHARGIC/LOW OXYGEN DIAGNOSES: - Shortness of breath - Dependence on renal dialysis - End stage renal disease - Type 2 diabetes mellitus with diabetic chronic kidney disease - Nicotine dependence, unspecified, uncomplicated - Malignant neoplasm of unspecified part of unspecified bronchus or lung - shelter (current) use of opiate analgesic - Respiratory failure, unspecified, unspecified whether with hypoxia or hypercapnia - shelter (current) use of insulin - Other residential (current) drug therapy - shelter (current) use of aspirin 06/30/2018 12:08 [facility] TYPE: Emergency COMPLAINT: - POSS MEDICATION OD DIAGNOSES: - End stage renal disease - Nicotine dependence, unspecified, uncomplicated - Other door closer mechanic (current) drug therapy - Weakness - Poisoning by other opioids, accidental (unintentional), initial encounter - cyber incident responder (current) use of opiate analgesic - Osteomyelitis, unspecified - Type 2 diabetes mellitus without complications - shelter (current) use of insulin 06/09/2018 10:44 [facility] [place] TYPE: Emergency COMPLAINT: - BACK PAIN/NO INJURY DIAGNOSES: - Left lower quadrant pain - Dependence on renal dialysis - Acquired absence of other specified parts of digestive tract - cyber incident responder (current) use of aspirin - End stage renal disease - Malignant neoplasm of unspecified part of unspecified bronchus or lung - Personal history of other infectious and parasitic diseases - Type 2 diabetes mellitus with diabetic chronic kidney disease - Cellulitis of left lower limb - Pneumonia, unspecified organism - Dependence on supplemental oxygen - Nicotine dependence, cigarettes, uncomplicated - shelter (current) use of insulin - Other residential (current) drug therapy 04/06/2018 18:42 [facility] TYPE: Emergency DIAGNOSES: - Other complication of vascular dialysis catheter, initial encounter - End stage renal disease - Vascular Access Problem - port access problems - Dependence on renal dialysis [facility] DIAGNOSES: - "Im supposed to have this thing in my chest for dialysis changed out, they tried a week ago and today I went for dialysis but they couldnt get it to work" - Cellulitis of left lower limb - Unspecified complication of internal prosthetic device, implant and graft, initial encounter - Vascular Access Problem [facility] DIAGNOSES: - Pneumonia, unspecified organism - Sepsis, unspecified organism - Respiratory Distress - End stage renal disease - poss OD - Respiratory failure, unspecified, unspecified whether with hypoxia or hypercapnia - Altered Mental Status INPATIENT VISIT TRACKING (12 MO.) 07/20[facility]2018 [facility] DIAGNOSES: - Chronic obstructive pulmonary disease, unspecified - Opioid abuse, uncomplicated - Anemia, unspecified - End stage renal disease - Shortness of Breath - Sepsis, unspecified organism 06/09/2018 19:15 [facility] TYPE: Medical Surgical COMPLAINT: - PEUNMONIA DIAGNOSES: [...] 23. Patient's noncompliance with renal dialysis 24. cyber incident responder (current) use of insulin 04/06/2018 18:42 [facility] [place]: General [facility] DIAGNOSES: - Other complication of vascular dialysis catheter, initial encounter - End stage renal disease - Hypertensive chronic kidney disease with stage 1 through stage 4 chronic kidney disease, or unspecified chronic kidney disease - Essential (primary) hypertension - Type 2 diabetes mellitus with diabetic chronic kidney disease - Dependence on renal dialysis 01/21/2018 11:46 [facility] Bernie [facility] TYPE: Medical Surgical DIAGNOSES: - Nephrotic [...] hypercapnia - Chronic obstructive pulmonary disease, unspecified [email or web address]
[2018-08-05] MEDS ORDERED: VITAMIN D1000 UNIT PO (10:36)
[2018-08-05] MEDS ORDERED: NICOTINE1 EAC2 TD (10:37)
[2018-08-05] MEDS ORDERED: RENVELA800 MG PO (10:38)
[2018-08-05] MEDS ORDERED: CYMBALTA60 MG PO (10:39)
[2018-08-05] MEDS ORDERED: VANCOMYCIN HCL1 GM IV (10:40)
[2018-08-05] MEDS ORDERED: VELPHORO500 MG PO (10:40)
== END 2018-08-05 12:41 | disposition home or self-care (01) ==
LOC: ED 10:26
DX: E11.22 Type 2 diabetes mellitus with diabetic chronic kidney disease (principal); N18.9 Chronic kidney disease, unspecified; C34.90 Malignant neoplasm of unspecified part of unspecified bronchus or lung; R41.0 Disorientation, unspecified; Z87.891 Personal history of nicotine dependence; Z79.4 Long term (current) use of insulin; Z79.899 Other long term (current) drug therapy; Z79.891 Long term (current) use of opiate analgesic; Z79.82 Long term (current) use of aspirin; Z99.2 Dependence on renal dialysis
CPT/HCPCS: 36415; 71045; 80053; 85025; 87502; 96374; 99285-25; J2310

== ENCOUNTER 2019-02-11 12:21 | Emergency (ER) | payer MEDICARE ==
[~2019-02-11] VITALS: Ht 182.9 cm; Wt 93.3 kg
[~2019-02-11 12:21] MED LIST changes: +CYMBALTA60 MG PO; +IMODIUM MULTI-1 EACH PO; +NICOTINE1 EAC2 TD; +ONDANSETRON HCL4 MG PO; +OXYCODON-ACETA1 EAC2 PO; +RENVELA800 MG PO; +TYLENOL325 MG PO; +VANCOMYCIN HCL1 GM IV; +VELPHORO500 MG PO; +VITAMIN D1000 UNIT PO
--- NOTE | 2019-02-12 12:34 | EKG ---
[facility] [address] [place] [address] Signed Normal sinus rhythm Left anterior fascicular block Abnormal ECG When compared with ECG of 09-NOV-2018 09:55, Nonspecific T wave abnormality now evident in Inferior leads Confirmed by TREVA HINES MD ([id number]) on 02/12/2019 12:34:05 PM Electronically Signed By: TREVA HINES MD 02/12/19 1234 PATIENT NAME: SAMAN FELDER Electrocardiogram DATE OF : 55 PHYSICIAN: TREVA HINES MD REPORT #: [id number] REPORT IS CONFIDENTIAL AND NOT TO BE RELEASED WITHOUT AUTHORIZATION
== END 2019-02-11 19:08 | disposition home or self-care (01) ==
LOC: ED 12:21
DX: E11.22 Type 2 diabetes mellitus with diabetic chronic kidney disease (principal); N18.9 Chronic kidney disease, unspecified; F13.10 Sedative, hypnotic or anxiolytic abuse, uncomplicated; C34.90 Malignant neoplasm of unspecified part of unspecified bronchus or lung; Z87.891 Personal history of nicotine dependence; Z79.82 Long term (current) use of aspirin; Z79.899 Other long term (current) drug therapy
CPT/HCPCS: 71045; 74176; 80053; 84484; 85025; 93005; 93010; 96360; 96361; 99285-25; G0480; J7040

== ENCOUNTER 2019-02-17 06:16 | Emergency (ER) | payer MEDICARE ==
[~2019-02-17] VITALS: Ht 182.9 cm; Wt 93.0 kg
--- OUTSIDE RECORDS SUMMARY | ~2019-02-17 | XMS | Clinical Summary ---
Demographics + + + | Address | [address] | | | [place] [address] | + + + | Home Phone | | + + + | Preferred Language | Unknown | + + + | Marital Status | Single | + + + | Confucianist Affiliation | Unknown | + + + | Race | White | + + + | Ethnic Group | Not or | + + + Author + + + | Author | [facility] | + + + | Organization | [facility] | + + + | Address | Unknown | + + + | Phone | Unavailable | + + + Support + + +---------+ + | Name | Relationship | Address | Phone | + + +---------+ + | Sole Gleason | ECON | Unknown | | + + +---------+ + Care Team Providers + +------+ + | Care Produce Specialist Name | Role | Phone | + +------+ + | Tigre Dwyer DO | PCP | | + +------+ + Source Comments CADEN is fully live on both [facility] Ambulatory and [facility] InPatient.[facility] Allergies No Known Allergies Medications + + + +---------+------+------+-------+ | Medication | Sig | Dispensed | Refills | Star | End | Statu | | | | | | t | Date | s | | | | | | Date | | | + + + +---------+------+------+-------+ | INSULIN | Inject under the | | 0 | | | Activ | | GLARGINE,HUM.REC.ANL | skin (SUBC). 40units | | | | | e | | OG (LANTUS SUBQ) | 1-2 times daily | | | | | | + + + +---------+------+------+-------+ | metformin 1,000 mg | Take 1,000 mg by | | 0 | | | Activ | | Oral Tablet | mouth two times | | | | | e | | | daily. | | | | | | + + + +---------+------+------+-------+ | glimepiride 4 mg | Take 4 mg by mouth | | 0 | 05/0 | | Activ | | Oral Tablet | two times daily. | | | 7/20 | | e | | | | | | 10 | | | + + + +---------+------+------+-------+ | | Place 1 Tab under | | 0 | | | Activ | | buprenorphine-naloxo | tongue. Take 2 | | | | | e | | ne (SUBOXONE) 8-2 mg | tablets twice daily | | | | | | | Sublingual Tablet, | | | | | | | | Sublingual | | | | | | | + + + +---------+------+------+-------+ Active Problems + + + | Problem | Noted Date | + + + | Lumbago | 09/23/2009 | + + + | Low back pain | 09/23/2009 | + + + | Lumbosacral spondylosis without myelopathy | 09/22/2009 | + + + Family History + + +------+ + | Medical History | Relation | Name | Comments | + + +------+ + | Diabetes | Mother | | | + + +------+ + + +------+--------+ + | Relation | Name | Status | Comments | + +------+--------+ + | Mother | | | | + +------+--------+ + Social History + + + +--------+------+ | Tobacco Use | Types | Packs/Day | Years | Date | | | | | Used | | + + + +--------+------+ | Current Every Day | Cigarettes | 1 | 40 | | | Smoker | | | | | + + + +--------+------+ + + +---------+ + | Alcohol Use | Drinks/Week | oz/Week | Comments | + + +---------+ + | No [...] recent travel history available. | + + Last Filed Vital Signs + + + + + | Vital Sign | Reading | Time Taken | Comments | + + + + + | Blood Pressure | 119/83 | 09/22/2009 3:02 PM | | | | | PDT | | + + + + + | Pulse | 91 | 09/22/2009 3:02 PM | | | | | PDT | | + + + + + | Temperature | 36.7 C (98 F) | 09/22/2009 3:02 PM | | | | | PDT | | + + + + + | Respiratory Rate | 16 | 09/22/2009 3:02 PM | | | | | PDT | | + + + + + | Oxygen Saturation | 97% | 09/22/2009 3:02 PM | | | | | PDT | | + + + + + | Inhaled Oxygen | - | - | | | Concentration | | | | + + + + + | Weight | 114.3 kg (252 lb) | 09/22/2009 3:02 PM | | | | | PDT | | + + + + + | Height | 180.3 cm (5' 11") | 09/22/2009 3:02 PM | | | | | PDT | | + + + + + | Body Mass Index | 35.15 | 09/22/2009 3:02 PM | | | | | PDT | | + + + + + Plan of Treatment + + + + + | Health Maintenance | Due Date | Last Done | Comments | + + + + + | Pneumococcal | | | | | vaccination (1 of 1 | 2 | | | | - PPSV23) | | | | + + + + + | Influenza (Flu) | | | | | vaccination (#1) | 9 | | | + + + + + Results Not on filefrom Last 3 Months
--- OUTSIDE RECORDS SUMMARY | ~2019-02-17 | XMS | Encounter Summary ---
Demographics + + + | Address | [address] | | | [place] [address] | + + + | Home Phone | | + + + | Preferred Language | Unknown | + + + | Marital Status | | + + + | Scientologist Affiliation | [id number] | + + + | Race | Unknown | + + + | Ethnic Group | Unknown | + + + Author + + + | Author | [facility] | | | and [place] | + + + | Organization | [facility] | | | and [place] | + + + | Address | Unknown | + + + | Phone | Unavailable | + + + Support + + + + + | Name | Relationship | Address | Phone | + + + + + | Sole Gleason | ECON | [place] | | | | | [address] | | + + + + + | Sruthi Gleason | ECON | [place] | | | | | [phone] | | + + + + + | Sole Gleason | ECON | [place] | | | | | [address] | | + + + + + Care Team Providers + +------+ + | Care Receiver Name | Role | Phone | + +------+ + | Jack Durand DO | PCP | | + +------+ + Encounter Details +--------+ + + + + | Date | Type | Department | Care Team | Description | +--------+ + + + + | // | Orders Only | [facility] | Gertrudis Vivar, DNP | | | 2019 | | VASCULAR SURGERY | [address] | | | | | [address] | [place], [place] | | | | | [place] | [address] | | | | | [place], [place] | | | | | | [address] | | | | | | [phone] | | | +--------+ + + + + [...] +---+---+---+ + + | Comments: switched to rosettee amanda, last month | + + + + [...] + + documented as of this encounter Plan of Treatment Not on filedocumented as of this encounter Procedures + +--------+ + + + | Procedure Name | Priori | Date/Time | Associated Diagnosis | Comments | | | ty | | | | + +--------+ + + + | VAS HEMODIALYSIS | Routin | 12/21/2018 | | Results for this | | GRAFT FISTULA | e | 9:31 PDT | | procedure are in the | | | | | | results section. | + +--------+ + + + documented in this encounter Results VAS Hemodialysis Graft Fistula (12/21/2018 9:31 PDT) + + | Specimen | + + | | + + + + + | Impressions | Performed At | + + + | 1. Patent right brachiobasilic AVF post transposition 11/26/2018. 2. | | | Volume of flow within normal limits. 3. Tandem stenoses basilic vein | | | at the distal humerus, without greater than 2 fold velocity | | | increase. 4. 3.3 fold increase in velocity at the anastomosis, | | | compared with 3.9 fold increase at the anastomosis on 11/17/2018. | | | Signed by: Anjum Valverde, Favian Sign Date/Time: 12/21/2018 4:41 PM | | + + + + + + | Narrative | Performed At | + + + | UV HEMODIALYSIS ACCESS DUPLEX-COMPLICATIONS CLINICAL INFORMATION: | | | ESRD (end stage renal disease) COMPARISON: US HEMODIALYSIS ACCESS | | | FISTULA OR GRAFT (11/17/2018); US RENAL LIMITED (01/23/2018); US KIDNEYS | | | AND BLADDER (03/08/2017); PROCEDURE: Grayscale, color Doppler and | | | Doppler with duplex imaging with attention to the right upper | | | extremity. FINDINGS: Subclavian vein: PSV: 72 cm/sec Axillary vein: | | | PSV 76 cm/sec Brachial artery: PSV: 174 cm/sec. Volume flow: | | | 05/23/2005 cc/min. Diameter: 6.8 mm. Anastomosis: PSV: 569 cm/sec. | | | Diameter: 5.5 mm. Cephalic vein: Basilic just proximal to the | | | anastomosis: PSV 381-746 cm/sec Distal basilic: PSV: 377-660 cm/sec. | | | Volume flow: 879 cc/min: Diameter: 4.6 mm. Mid basilic: PSV: 222 | | | cm/sec. Volume flow: 1272 cc/min: Diameter: 7 mm. Proximal | | | basilic:PSV: 130 cm/sec. Volume flow: 1112 cc/min: Diameter: 7 mm. | | + + + + + | Procedure Note | + + | Eddi, Rad Conversion - 01/22/2019 0918 PDT UV HEMODIALYSIS ACCESS DUPLEX-COMPLICATIONS | | CLINICAL INFORMATION: | | ESRD (end stage renal disease) | | COMPARISON: | | US HEMODIALYSIS ACCESS FISTULA OR GRAFT (11/17/2018); US RENAL LIMITED | | (01/23/2018); US KIDNEYS AND BLADDER (03/08/2017); | | PROCEDURE: | | Grayscale, color Doppler and Doppler with duplex imaging with attention | | to the right upper extremity. | | FINDINGS: | | Subclavian vein: PSV: 72 cm/sec | | Axillary vein: PSV 76 cm/sec | | Brachial artery: PSV: 174 cm/sec. Volume flow: 05/23/2005 cc/min. | | Diameter: 6.8 mm. | | Anastomosis: PSV: 569 cm/sec. Diameter: 5.5 mm. | | Cephalic vein: | | Basilic just proximal to the anastomosis: PSV 381-746 cm/sec | | Distal basilic: PSV: 377-660 cm/sec. Volume flow: 879 cc/min: Diameter: | | 4.6 mm. | | Mid basilic: PSV: 222 cm/sec. Volume flow: 1272 cc/min: Diameter: 7 mm. | | Proximal basilic:PSV: 130 cm/sec. Volume flow: 1112 cc/min: Diameter: 7 | | mm. | | IMPRESSION: | | 1. Patent right brachiobasilic AVF post transposition 11/26/2018. | | 2. Volume of flow within normal limits. | | 3. 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 | | 4. 3.3 fold increase in velocity at the anastomosis, compared with 3.9 | | fold increase at the anastomosis on 11/17/2018. | | Signed by: Anjum Valverde, Favian | | Sign Date/Time: 12/21/2018 4:41 PM | + + documented in this encounter Visit Diagnoses Not on filedocumented in this encounter"
--- OUTSIDE RECORDS SUMMARY | ~2019-02-17 | XMS | Clinical Summary ---
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 carcinoma of lung, | | | | | | unspecified | | | | | | laterality (HCC) | | + +--------+ + + + | CBC WITH | STAT | 12/15/2018 | Non-small cell | Results for this | | DIFFERENTIAL | | 11:33 PDT | lung cancer, | procedure are in the | | | | | unspecified | results section. | | | | | laterality (HCC) | | | | | | Squamous cell | | | | | | carcinoma of lung, | | | | | | unspecified | | | | | | laterality (HCC) | | + +--------+ + + + | LACTATE | STAT | 12/08/2018 | Non-small cell | Results for this | | DEHYDROGENASE | | 10:00 PDT | lung cancer, | procedure are in the | | | | | unspecified | results section. | | | | | laterality (HCC) | | | | | | Squamous cell | | | | | | carcinoma of lung, | | | | | | unspecified | | | | | | laterality (HCC) | | + +--------+ + + + | CBC WITH | STAT | 12/08/2018 | Non-small cell | Results for this | | DIFFERENTIAL | | 10:00 PDT | lung cancer, | procedure are in the | | | | | unspecified | results section. | | | | | laterality (HCC) | | | | | | Squamous cell | | | | | | carcinoma of lung, | | | | | | unspecified | | | | | | laterality (HCC) | | + +--------+ + + + | COMPREHENSIVE | STAT | 12/08/2018 | Non-small cell | Results for this | | METABOLIC PANEL | | 10:00 PDT | lung cancer, | procedure are in the | | | | | unspecified | results section. | | | | | laterality (HCC) | | | | | | Squamous cell | | | | | | carcinoma of lung, | | | | | | unspecified | | | | | | laterality (HCC) | | + +--------+ + + + | BASIC METABOLIC | Routin | 11/26/2018 | | Results for this | | PANEL | e | 11:50 PDT | | procedure are in the | | | | | | results section. | + +--------+ + + + | EXTERNAL LAB: CBC | Routin | 11/25/2018 | | Results for this | | | e | 11:17 PDT | | procedure are in the | | | | | | results section. | + +--------+ + + + | BASIC METABOLIC | Routin | 11/25/2018 | | Results for this | | PANEL | e | 11:17 PDT | | procedure are in the | | | | | | results section. | + +--------+ + + + | MRSA NAAT | Timed | 11/25/2018 | | Results for this | | | | 11:17 PDT | | procedure are in the | | | | | | results section. | + +--------+ + + + | VAS HEMODIALYSIS | Routin | 11/17/2018 | | Results for this | | GRAFT FISTULA | e | 15:21 PDT | | procedure are in the | | | | | | results section. | + +--------+ + + + from Last 3 Months Results CBC w/ Auto Differential (01/20/2019) + + + + + + | Component | Value | Ref Range | Performed | Pathologist | | | | | At | Signature | + + + + + + | WBC | 12.9 (A) | 4.5 - 11.0 | | | + + + + + + | RBC COUNT | 3 (A) | 4 - 6 | | | + + + + + + | Hemoglobin | 8.2 (A) | 13.5 - 17.5 | | | + + + + + + | Hematocrit, | 26.0 (A) | 40 - 50 | | | | BF | | | | | + + + + + + | MCV | 90.4 | 80 - 100 | | | + + + + + + | MCH | 28.5 | 25 - 34 | | | + + + + + + | MCHC, POC | 31.6 (A) | 32 - 36 | | | + + + + + + | RDW | 22.6 (A) | 11.5 - 15.5 | | | + + + + + + | Platelet | 320 | 150 - 450 | | | | Count | | | | | | Plasma | | | | | + + + + + + + + | Specimen | + + | Blood | + + Comprehensive Metabolic Panel (01/20/2019)Only the most recent of 3 results within the time period is included. + + + + + + | Component | Value | Ref Range | Performed | Pathologist | | | | | At | Signature | + + + + + + | Na | 136 | 136 - 145 | | | | | | mmol/L | | | + + + + + + | K | 5.0 (A) | 3.5 - 4.5 | | | | | | mmol/L | | | + + + + + + | Cl | 100 | 98 - 107 mmol/L | | | + + + + + + | CO2 | 25 | 22 - 32 mmol/L | | | + + + + + + | Anion Gap | 11 | 5 - 12 mmol/L | | | + + + + + + | Glucose | 135 (A) | 84 - 110 mg/dL | | | + + + + + + | BUN | 42 (A) | 8 - 21 mg/dL | | | + + + + + + | CREA | 6.31 (A) | 0.64 - 1.27 | | | | | | mg/dL | | | + + + + + + | eGFR if not | 9 (A) | 60 - 140 | | | | | | mL/min/1.73m2 | | | | QATARI | | | | | + + + + + + | Calcium | 10.0 | 8.4 - 10.8 | | | + + + + + + | PROTEIN | 7.0 | 6.0 - 8.0 | | | | (CALC) | | mg/24hrs | | | + + + + + + | Albumin | 2.9 (A) | 3.4 - 4.9 g/dL | | | + + + + + + | Globulin | 4.1 (A) | 2.3 - 3.5 | | | + + + + + + | Albumin/Pau | 0.7 (A) | 1.10 - 1.80 | | | | bulin Ratio | | | | | + + + + + + | Bilirubin | 0.3 | 0.3 - 1.2 mg/dL | | | | Total | | | | | + + + + + + | AST | 20 | 5 - 34 U/L | | | + + + + + + | ALT | 11 | 0 - 55 U/L | | | + + + + + + | Alkaline | 112 | 40 - 150 U/L | | | | Phosphatase | | | | | + + + + + + | Vancomycin | 23.5 (A) | 10 - 20 | | | + + + + + + + + | Specimen | + + | Blood | + + VAS Hemodialysis Graft Fistula (12/21/2018 9:31 PDT)Only the most recent of 2 results with in the time period is included. + + | Specimen | + + [...] 11/17/2018. | | | Signed by: Anjum Valverde Shawn Sign Date/Time: 12/21/2018 4:41 PM | | [...] | Procedure Note | + + | Melecio Montague Conversion - 01/22/2019 0918 PDT UV HEMODIALYSIS [...] on 11/17/2018. | | Signed by: Anjum Valverde Shawn | | Sign Date/Time: 12/21/2018 4:41 PM | + + CBC with Differential (12/15/2018 11:33 PDT)Only the most recent of 2 results within the ti me period is included. + + + + + + | Component | Value | Ref Range | Performed | Pathologist | | | | | At | Signature | + + + + + + | WBC | 8.8 | 4.0 - 11.0 K/uL | [facility] | | | | | | [facility] | | | | | | [facility] | | | | | | [facility] - | | | | | | LABORATORY | | + + + + + + | RBC | 3.65 (L) | 4.30 - 5.70 | [facility] | | | | | M/uL | [facility] | | | | | | [facility] | | | | | | C[facility] - | | | | | | LABORATORY | | + + + + + + | Hemoglobin | 9.6 (L) | 13.5 - 18.0 | [facility] | | | | | g/dL | [facility] | | | | | | [facility] | | | | | | C[facility] - | | | | | | LABORATORY | | + + + + + + | Hematocrit | 31.8 (L) | 40.0 - 51.0 % | [facility] | | | | | | [facility] | | | | | | [facility] | | | | | | [facility] - | | | | | | LABORATORY | | + + + + + + | MCV | 87.1 | 83.0 - 101.0 fL | [facility] | | | | | | [facility] | | | | | | [facility] | | | | | | C[facility] - | | | | | | LABORATORY | | + + + + + + | MCH | 26.3 (L) | 28.0 - 35.0 pg | [facility] | | | | | | [facility] | | | | | | [facility] | | | | | | [facility] - | | | | | | LABORATORY | | + + + + + + | MCHC | 30.2 (L) | 32.0 - 36.0 | [facility] | | | | | g/dL | [facility] | | | | | | [facility] | | | | | | CENTER - | | | | | | LABORATORY | | + + + + + + | RDW-CV | 15.9 (H) | <15.0 % | [facility] | | | | | | [facility] | | | | | | [facility] | | | | | | [facility] - | | | | | | LABORATORY | | + + + + + + | RDW-SD | 50.2 (H) | 35.1 - 46.3 fL | [facility] | | | | | | [facility] | | | | | | [facility] | | | | | | [facility] - | | | | | | LABORATORY | | + + + + + + | Platelet | 212 | 140 - 440 K/uL | [facility] | | | Count | | | [facility] | | | | | | [facility] | | | | | | C[facility] - | | | | | | LABORATORY | | + + + + + + | MPV | 9.8 | 6.5 - 12.4 fL | [facility] | | | | | | [facility] | | | | | | [facility] | | | | | | [facility] - | | | | | | LABORATORY | | + + + + + + | % | 84.3 (H) | 45.0 - 82.0 % | [facility] | | | Neutrophils | | | [facility] | | | | | | [facility] | | | | | | CENTER - | | | | | | LABORATORY | | + + + + + + | % | 13.2 (L) | 20.0 - 45.0 % | [facility] | | | Lymphocytes | | | [facility] | | | | | | [facility]ICAL | | | | | | CENTER - | | | | | | LABORATORY | | + + + + + + | % Monocytes | 0.9 (L) | 4.0 - 12.0 % | [facility] | | | | | | [facility] | | | | | | [facility] | | | | | | C[facility] - | | | | | | LABORATORY | | + + + + + + | % | 0.7 | 0.0 - 5.0 % | [facility] | | | Eosinophils | | | [facility] | | | | | | [facility]ICAL | | | | | | CENTER - | | | | | | LABORATORY | | + + + + + + | % Basophils | 0.1 | 0.0 - 1.0 % | [facility] | | | | | | [facility] | | | | | | [facility] | | | | | | CENTER - | | | | | | LABORATORY | | + + + + + + | % Immature | 0.8 (H)Comment: | 0.0 - 0.4 % | [facility] | | | Granulocyte | Preliminary studies have | | [facility] | | | s | indicated the IG% | | MEDICAL | | | | and/or IG# show promise | | CENTER - | | | | as an early indicator | | LABORATORY | | | | for infection. | | | | + + + + + + | Absolute | 7.45 | 1.80 - 8.50 | [facility] | | | Neutrophils | | K/uL | [facility] | | | | | | [facility] | | | | | | CENTER - | | | | | | LABORATORY | | + + + + + + | Absolute | 1.17 | 0.60 - 3.20 | [facility] | | | Lymphocytes | | K/uL | [facility] | | | | | | [facility] | | | | | | CENTER - | | | | | | LABORATORY | | + + + + + + | Absolute | 0.08 | 0.00 - 1.00 | [facility] | | | Monocytes | | K/uL | [facility] | | | | | | [facility] | | | | | | CENTER - | | | | | | LABORATORY | | + + + + + + | Absolute | 0.06 | 0.00 - 0.40 | [facility] | | | Eosinophils | | K/uL | [facility] | | | | | | MEDICAL | | | | | | CENTER - | | | | | | LABORATORY | | + + + + + + | Absolute | 0.01 | 0.00 - 0.10 | [facility] | | | Basophils | | K/uL | [facility] | | | | | | MEDICAL | | | | | | CENTER - | | | | | | LABORATORY | | + + + + + + | Absolute | 0.07 (H) | 0.00 - 0.03 | [facility] | | | Immature | | K/uL | [facility] | | | Granulocyte | | | MEDICAL | | | s | | | CENTER - | | | | | | LABORATORY | | + + + + + + | % nRBC | 0 | 0 - 2 per 100 | [facility] | | | | | WBCs | [facility] | | | | | | MEDICAL | | | | | | CENTER - | | | | | | LABORATORY | | + + + + + + | Absolute | 0.00 | 0.00 - 0.01 | [facility] | | | nRBC | | K/uL | [facility] | | | | | | MEDICAL | | | | | | CENTER - | | | | | | LABORATORY | | + + + + + + + + | Specimen | + + | Blood | + + + + + + + | Performing | Address | City/State/Zipcode | Phone Number | | Organization | | | | + + + + + | [facility] | [address] | [place] | [phone] | | [facility] | | [address] | | | - LABORATORY | | | | + + + + + Lactate Dehydrogenase (12/15/2018 11:33 PDT)Only the most recent of 2 results within the ti me period is included. + + + + + + | Component | Value | Ref Range | Performed | Pathologist | | | | | At | Signature | + + + + + + | LDH TOTAL | 185Comment: New method | 120 - 246 U/L | [facility] | | | | in use as of June | | [facility] | | | | 2018. Check | | MEDICAL | | | | reference range for | | CENTER - | | | | changes.Some analytes | | LABORATORY | | | | show significant | | | | | | variation from the | | | | | | previous method.It may | | | | | | be necessary to set a | | | | | | new baseline for this | | | | | | analyte. | | | | + + + + + + + + | Specimen | + + | Blood | + + + + + + + | Performing | Address | City/State/Zipcode | Phone Number | | Organization | | | | + + + + + | [facility] | [address] | [place], [place] | [phone] | | [facility] | | [address] | | | - LABORATORY | | | | + + + + + Basic Metabolic Panel (11/26/2018 11:50 PDT)Only the most recent of 2 results within the period is included. + + + + + + | Component | Value | Ref Range | Performed | Pathologist | | | | | At | Signature | + + + + + + | Na | 136 | 135 - 145 | EXTERNAL | | | | | mmol/L | LAB | | + + + + + + | K | 4.8 | 3.5 - 4.9 | EXTERNAL | | | | | mmol/L | LAB | | + + + + + + | Cl | 103 | 99 - 109 mmol/L | EXTERNAL | | | | | | LAB | | + + + + + + | CO2 | 23 | 23 - 32 mmol/L | EXTERNAL | | | | | | LAB | | + + + + + + | Anion Gap | 15 | 5 - 20 mmol/L | EXTERNAL | | | | | | LAB | | + + + + + + | Glucose, | 96 | 65 - 99 mg/dL | EXTERNAL | | | Fasting | | | LAB | | + + + + + + | BUN | 56 (H) | 8 - 25 mg/dL | EXTERNAL | | | | | | LAB | | + + + + + + | Creatinine | 6.20 (H) | 0.70 - 1.30 | EXTERNAL | | | | | mg/dL | LAB | | + + + + + + | BUN/Creatin | 9 | | EXTERNAL | | | ine Ratio | | | LAB | | + + + + + + | Calcium | 10.5 | 8.5 - 10.5 | EXTERNAL | | | | | mg/dL | LAB | | + + + + + + | Estimated | 9 (L)Comment: GFR <60: | mL/min/1.73m2 | EXTERNAL | | | GFR | CHRONIC KIDNEY DISEASE, | | LAB | | | | IF FOUND OVER A 3 MONTH | | | | | | PERIOD.GFR <15: KIDNEY | | | | | | FAILURE.FOR | | | | | | AMERICANS, MULTIPLY THE | | | | | | CALCULATED GFR BY | | | | | | 1.210.This eGFR is | | | | | | calculated using the | | | | | | MDRD IDLA traceable | | | | | | equation.Testing | | | | | | performed at [facility];[address] | | | | | | [facility];[place], [place] | | | | | | [address] | | | | + + + + + + + + | Specimen | + + | Blood | + + + +---------+ + + | Performing | Address | City/State/Zipcode | Phone Number | | Organization | | | | + +---------+ + + | EXTERNAL LAB | | | | + +---------+ + + External Lab: CBC (11/25/2018 11:17 PDT) + + + + + + | Component | Value | Ref Range | Performed | Pathologist | | | | | At | Signature | + + + + + + | WBC | 13.49 (H) | 3.80 - 11.00 | EXTERNAL | | | | | K/uL | LAB | | + + + + + + | RED CELL | 3.47 (L) | 4.20 - 5.70 | EXTERNAL | | | COUNT | | M/uL | LAB | | + + + + + + | Hgb | 9.9 (L) | 13.2 - 17.0 | EXTERNAL | | | | | g/dL | LAB | | + + + + + + | Hematocrit, | 31.2 (L) | 39.0 - 50.0 % | EXTERNAL | | | POC | | | LAB | | + + + + + + | MCV | 89.9 | 80.0 - 100.0 fl | EXTERNAL | | | | | | LAB | | + + + + + + | MCH | 28.5 | 27.0 - 34.0 pg | EXTERNAL | | | | | | LAB | | + + + + + + | MCHC | 31.7 (L) | 32.0 - 35.5 | EXTERNAL | | | | | g/dL | LAB | | + + + + + + | RDW-CV | 57.8 (H) | 37 - 53 fl | EXTERNAL | | | | | | LAB | | + + + + + + | Platelet | 332 | 150 - 400 K/uL | EXTERNAL | | | Count | | | LAB | | | Plasma | | | | | + + + + + + | MPV | 7.2 | fl | EXTERNAL | | | | | | LAB | | + + + + + + | Differentia | AUTOMATED | | EXTERNAL | | | l Type | | | LAB | | + + + + + + | % | 68.71 | % | EXTERNAL | | | Neutrophils | | | LAB | | + + + + + + | % | 19.61 | % | EXTERNAL | | | Lymphocytes | | | LAB | | + + + + + + | % Monocytes | 8.94 | % | EXTERNAL | | | | | | LAB | | + + + + + + | % | 2.13 | % | EXTERNAL | | | Eosinophils | | | LAB | | + + + + + + | % Basophils | 0.61 | % | EXTERNAL | | | | | | LAB | | + + + + + + | Absolute | 9.27 (H) | 1.90 - 7.40 | EXTERNAL | | | Neutrophils | | K/uL | LAB | | + + + + + + | Absolute | 2.65 | 1.00 - 3.90 | EXTERNAL | | | Lymphocytes | | K/uL | LAB | | + + + + + + | Absolute | 1.21 (H) | 0.00 - 0.80 | EXTERNAL | | | Monocytes | | K/uL | LAB | | + + + + + + | Absolute | 0.29 | 0.00 - 0.50 | EXTERNAL | | | Eosinophils | | K/uL | LAB | | + + + + + + | Absolute | 0.08 | 0.00 - 0.10 | EXTERNAL | | | Basophils | | K/uL | LAB | | + + + + + + | RBC | 2+Comment: ANISONORMAL | | EXTERNAL | | | Morphology | PLT MORPHTesting | | LAB | | | | performed at [facility], [address] | | | | | | [facility] | | | | | | [place] [address] | | | | | | | | | | + + + + + + + + | Specimen | + + | Blood | + + + +---------+ + + | Performing | Address | City/State/Zipcode | Phone Number | | Organization | | | | + +---------+ + + | EXTERNAL LAB | | | | + +---------+ + + MRSA NAAT (11/25/2018 11:17 PDT) + + | Specimen | + + | | + + + + + | Narrative | Performed At | + + + | SOURCE | EXTERNAL LAB | | NARES(NOSE) MRSA | | | PCR NEGATIVE | | | Testing performed at [facility];[address] [place] [address];[place] [address] | | + + + + +---------+ + + | Performing | Address | City/State/Zipcode | Phone Number | | Organization | | | | + +---------+ + + | EXTERNAL LAB | | | | + +---------+ + + from Last 3 Months Insurance + +--------+ +--------+-------+---------+--------+ | Payer | Benefi | Subscriber | Effect | Phone | Address | Type | | | t Plan | ID | phuc | | | | | | / | | Dates | | | | | | Group | | | | | | + +--------+ +--------+-------+---------+--------+ | [employer] | [employer] | [id number] | 05/19/19 | | | Medica | | | HEALTH | | 17-Pre | | | re | | | MDCR | | sent | | | | + +--------+ +--------+-------+---------+--------+ + +--------+ +--------+ + + | Guarantor Name | Accoun | Relation to | Date | Phone | Billing Address | | | t Type | Patient | of | | | | | | | | | | + +--------+ +--------+ + + | Shahbaz Gleason | Person | Self [birth year] | [address] | | | al/Fam | | 1956 | [phone] | [place] | | | [place] | | | [address] (Home) | [address] | + +--------+ +--------+ + + | VictorinoShahbaz Mcpherson | Person | Self [birth year] | [address] | | | al/Ravi | | 1956 | [phone] | [place] | | | [place] | | | [address] (Home) | [address] | + +--------+ +--------+ + + Advance Directives Patient has advance care planning documents, and code status on file. For more information, please contact:[facility] [place] [address] + + + + + | Code Status | Date | Date | Comments | | | Activated | Inactivated | | + + + + + | DNR (No | 01/21/2018 | 01/28/2018 | | | Code) | 16:17 | 18:34 | | + + + + + + + +---+ | RN or to pronounce: | RN may | | | | pronounce | | + + +---+
--- OUTSIDE RECORDS SUMMARY | ~2019-02-17 | XMS | Encounter Summary ---
Demographics + + + | Address | [address] | | | [place] [address] | + + + | Home Phone | | + + + | Preferred Language | Unknown | + + + | Marital Status | Single | + + + | Yazidism Affiliation | [id number] | + + + | Race | Unknown | + + + | Ethnic Group | Unknown | + + + Author + + + | Author | [facility] (Historical as of | | | 01-02-19) | + + + | Organization | [facility] (Historical as of | | | 01-02-19) | + + + | Address | Unknown | + + + | Phone | Unavailable | + + + Support + + + + + | Name | Relationship | Address | Phone | + + + + + | Sruthi Gleason | ECON | [place] | | | | | [address] | | + + + + + | Sole Gleason | ECON | [place] | | | | | [address] | | + + + + + Care Team Providers + +------+ + | Care Transferrer Name | Role | Phone | + +------+ + PCP | Unavailable | + +------+ + Reason for Visit +--------+ + | Reason | Comments | +--------+ + | Other | November 2018-[facility] Provider Dialysis Rounding Note | +--------+ + Encounter Details +--------+ + + + + | Date | Type | Department | Care Team | Description | +--------+ + + + + | 12/22/ | Documentati | [facility] | Cheo Joaquin MD | Other (November | | 2018 | on Only | [address] | [address] | 2019-Aby Provider | | | | [address] | [address] [place], [place] | Dialysis Rounding | | | | [place] [address] | [address] | Note) | | | | [phone] | | | +--------+ + + + [...]
--- OUTSIDE RECORDS SUMMARY | ~2019-02-17 | XMS | Encounter Summary ---
Demographics + + + | Address | [address] | | | [place] [address] | + + + | Home Phone | | + + + | Preferred Language | Unknown | + + + | Marital Status | | + + + | Congregation Affiliation | 1061 | + + + | Race | Unknown | + + + | Ethnic Group | Unknown | + + + Author + + + | Author | [facility] | | | and [place] | + + + | Organization | [facility] | | | and [place] | + + + | Address | Unknown | + + + | Phone | Unavailable | + + + Support + + + + + | Name | Relationship | Address | Phone | + + + + + | Sole Gleason | ECON | [place] | | | | | [address] | | + + + + + | Sruthi Gleason | ECON | [place] | | | | | [address] | | + + + + + | Sole Gleason | ECON | [place] | | | | | [address] | | + + + + + Care Team Providers + +------+ + | Care Power Equipment Mechanics Instructor Name | Role | Phone | + +------+ + | Jack Durand DO | PCP | | + +------+ + Encounter Details +--------+ + + + + | Date | Type | Department | Care Team | Description | +--------+ + + + + | 11/25/ | Hospital | [facility] | Conversion | | | 2019 | Encounter | [facility] | Transaction, | | | | | CLINIC [address] | Provider Unknown | | | | | [address] [place], [place] | [phone] | | | | | [address] | | | | | | [phone] | | | +--------+ + + + [...] | + +---+---+---+ + + | Comments: 2-3 per day | + + + + +---------+ + [...] + + documented as of this encounter Last Filed Vital Signs + + + + | Vital Sign | Reading | Time Taken | + + + + | Blood Pressure | 127/67 | 11/25/20181121 PDT | + + + + | Pulse | 113 | 11/25/20181121 PDT | + + + + | Temperature | - | - | + + + + | Respiratory Rate | - | - | + + + + | Oxygen Saturation | - | - | + + + + | Inhaled Oxygen | - | - | | Concentration | | | + + + + | Weight | 96 kg (211 lb 10.2 | 11/25/20181121 PDT | | | oz) | | + + + + | Height | 182.9 cm (6') | 11/25/20181121 PDT | + + + + | Body Mass Index | 28.7 | 11/25/20181121 PDT | + + + + documented in this encounter Medications at Time of Discharge [...] Inject 0.45 mLs | | 0 | 20 | | | polyethylene | under the [...] + + documented in this encounter Results MRSA NAAT (11/25/2018 11:17 PDT) + + | Specimen | + + | | + + + + + | Narrative | Performed At | + + + | SOURCE | EXTERNAL LAB | | NARES(NOSE) MRSA | | | PCR NEGATIVE | | | Testing performed at [facility];[address] [place] [address];[place] [address] | | + + + + +---------+ [...] LAB | | | | performed at [facility], [address] | | | | | [address], | | | | | | [place] [address] | | | | | | | | | | + + + + + + + + | Specimen | + + | Blood | + + + +---------+ + + | Performing | Address | City/State/Zipcode | Phone Number | | Organization | | | | + +---------+ + + | EXTERNAL LAB | | | | + +---------+ + + Basic Metabolic Panel (11/25/2018 11:17 PDT) + + + + + + | Component | Value | Ref Range | Performed | Pathologist | | | | | At | Signature | + + + + + + | Na | 135 | 135 - 145 | EXTERNAL | | | | | mmol/L | LAB | | + + + + + + | K | 5.4 (H) | 3.5 - 4.9 | EXTERNAL | | | | | mmol/L | LAB | | + + + + + + | Cl | 98 (L) | 99 - 109 mmol/L | EXTERNAL | | | | | | LAB | | + + + + + + | CO2 | 24 | 23 - 32 mmol/L | EXTERNAL | | | | | | LAB | | + + + + + + | Anion Gap | 18 | 5 - 20 mmol/L | EXTERNAL | | | | | | LAB | | + + + + + + | Glucose, | 123 (H) | 65 - 99 mg/dL | EXTERNAL | | | Fasting | | | LAB | | + + + + + + | BUN | 63 (H) | 8 - 25 mg/dL | EXTERNAL | | | | | | LAB | | + + + + + + | Creatinine | 6.8 (H) | 0.70 - 1.30 | EXTERNAL | | | | | mg/dL | LAB | | + + + + + + | BUN/Creatin | 9 | | EXTERNAL | | | ine Ratio | | | LAB | | + + + + + + | Calcium | 11.1 (H) | 8.5 - 10.5 | EXTERNAL | | | | | mg/dL | LAB | | + + + + + + | Estimated | 8 (L)Comment: GFR <60: | mL/min/1.73m2 | EXTERNAL [...] | | | | | | MDRD IDMS traceable | | | | | | equation.Testing | | | | | | performed at [facility], [address] | | | | | [facility], | | | | | | [place] [address] | | | | + + + + + + + + | Specimen | + + | Blood | + + + +---------+ + + | Performing | Address | City/State/Zipcode | Phone Number | | Organization | | | | + +---------+ + + | EXTERNAL LAB | | | | + +---------+ + + documented in this encounter Visit Diagnoses Not on filedocumented in this encounter
--- OUTSIDE RECORDS SUMMARY | ~2019-02-17 | XMS | Encounter Summary ---
Demographics + + + | Address | [address] | | | [place] [address] | + + + | Home Phone | | + + + | Preferred Language | Unknown | + + + | Marital Status | Single | + + + | Church Affiliation | Unknown | + + + | Race | White | + + + | Ethnic Group | Not or | + + + Author + + + | Author | [facility] | + + + | Organization | [facility] | + + + | Address | Unknown | + + + | Phone | Unavailable | + + + Support + + +---------+ + | Name | Relationship | Address | Phone | + + +---------+ + | Sole Gleason | ECON | Unknown | | + + +---------+ + Care Team Providers + +------+ + | Care Block Operator Name | Role | Phone | + +------+ + | Tigre Dwyer DO | PCP | | + +------+ + Encounter Details +--------+--------+ + + + | Date | Type | Department | Care Team | Description | +--------+--------+ + + + | 06/17/ | Intake | Transfer Center | | N/A | | 2019 | | [address] | | | | | | [place], | | | | | | [place] [address] | | | +--------+--------+ + + + Social History + + + +--------+------+ [...]
--- OUTSIDE RECORDS SUMMARY | ~2019-02-17 | XMS | Encounter Summary ---
Demographics + + + | Address | [address] | | | [place] [address] | + + + | Home Phone | | + + + | Preferred Language | Unknown | + + + | Marital Status | Single | + + + | Temple Affiliation | 1061 | + + + | Race | Unknown | + + + | Ethnic Group | Unknown | + + + Author + + + | Author | [facility] (Historical as of | | | 01-02-19) | + + + | Organization | [facility] (Historical as of | | | 01-02-19) | + + + | Address | Unknown | + + + | Phone | Unavailable | + + + Support + + + + + | Name | Relationship | Address | Phone | + + + + + | Sruthi Gleason | ECON | [place] | | | | | [address] | | + + + + + | Sole Gleason | ECON | [place] | | | | | [address] | | + + + + + Care Team Providers + +------+ + | Care Oil Burner Journeyman Name | Role | Phone | + +------+ + PCP | Unavailable | + +------+ + Reason for Visit +--------+ + | Reason | Comments | +--------+ + | Other | October 2018-[facility] Note | +--------+ + Encounter Details +--------+ + + + + | Date | Type | Department | Care Team | Description | +--------+ + + + + | 11/26/ | Documentati | [facility] | Cheo Joaquin MD | Other (October | 2018 | on Only | [address] | [address] | 2018-[facility] | | | | [address] | [address] [place], [place] | Dialysis Rounding | | | | [place] [address] | [id number] | Note) | | | | [phone] | | | +--------+ + + + [...]
--- OUTSIDE RECORDS SUMMARY | ~2019-02-17 | XMS | Encounter Summary ---
Demographics + + + | Address | [address] | | | [place] [address] | + + + | Home Phone | | + + + | Preferred Language | Unknown | + + + | Marital Status | | + + + | Jew Affiliation | 1061 | + + + | Race | Unknown | + + + | Ethnic Group | Unknown | + + + Author + + + | Author | [facility] | | | and [place] | + + + | Organization | [facility] | | | and [place] | + + + | Address | Unknown | + + + | Phone | Unavailable | + + + Support + + + + + | Name | Relationship | Address | Phone | + + + + + | Sole Gleason | ECON | [place] | | | | | [address] | | + + + + + | Sruthi Gleason | ECON | [place] | | | | | [address] | | + + + + + | Sole Gleason | ECON | [place] | | | | | [address] | | + + + + + Care Team Providers + +------+ + | Care Newspaper Photographer Name | Role | Phone | + +------+ + | Jack Durand DO | PCP | | + +------+ + Reason for Visit +--------+ + | Reason | Comments | +--------+ + | Other | | +--------+ + Encounter Details +--------+--------+ + + + | Date | Type | Department | Care Team | Description | +--------+--------+ + + + | 12/29/ | Refill | [facility] | [facility], | Other | | 2019 | | [facility] | Bart Cade MD [address] | | | | [facility] [address] | [facility] [place] | | | | | [address] | [place] [address] | | | | | [place] [address] | [phone] | | | | | [phone] | | | +--------+--------+ + + + Social History + +-------+ [...] + | Diagnosis | + + | 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
--- OUTSIDE RECORDS SUMMARY | ~2019-02-17 | XMS | Encounter Summary ---
Demographics + + + | Address | [address] | | | [place] [address] | + + + | Home Phone | | + + + | Preferred Language | Unknown | + + + | Marital Status | Single | + + + | Gnosticism Affiliation | 1061 | + + + | Race | Unknown | + + + | Ethnic Group | Unknown | + + + Author + + + | Author | [facility] (Historical as of | | | 01-02-19) | + + + | Organization | [facility] (Historical as of | | | 01-02-19) | + + + | Address | Unknown | + + + | Phone | Unavailable | + + + Support + + + + + | Name | Relationship | Address | Phone | + + + + + | Sruthi Gleason | ECON | [place] | | | | | [address] | | + + + + + | Sole Gleason | ECON | [place] | | | | | [address] | | + + + + + Care Team Providers + +------+ + | Care Salesperson Men'S Furnishings Name | Role | Phone | + +------+ + PCP | Unavailable | + +------+ + Encounter Details +--------+ + + + + | Date | Type | Department | Care Team | Description | +--------+ + + + + | 12/07/ | Telephone | [facility] | Nery Nath, | | | 2018 | | Vascular Surgery | RN | | | | | [address] | | | | | | [address] [place] | | | | | | [address] | | | | | | [phone] | | | +--------+ + + + [...]
--- OUTSIDE RECORDS SUMMARY | ~2019-02-17 | XMS | Encounter Summary ---
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 it is safe and appropriate to proceed with treatment with carboplat in/gemcitabine .Electronically signed by: Bart Marcano MD 12/08/2018 11:56. Order History Plans for discharge (Not Released) 12/08/18- MAKE SURE ALL CHEMO IS IN THE LEAST AMOUNT OF FLUID- PATIENT IS ON DIALYSIS. CARB O IS 240 MG/M2 FLAT DOSE. JR Plan: Carbo 240 MG/M2 DOSE Day1 with Gemzar 1000m2 Day 1 and 8 Q 21 days CAN ONLY COME ON TUESDAYS DUE TO DIALYSIS ON THE OTHER DAYS. [facility] LABS/PORT 1 HOUR RX IN 7 DAYS [facility]/PORT 3 HOUR RX IN 21 DAYS OrderHistory Line Care heparin 100 units/mL flush injection 500 Units (Discontinued - Patient Discharge) 500 Units (5 mL), Intracatheter, PRN, Line Care, Starting Fri12/08/18 at 1203 OrderHisto ry Pre-Medications palonosetron (ALOXI) injection 0.25 mg 0.25 mg, Intravenous, ONCE, Fri12/08/18 at 1230, For 1 dose Give IV push over 30 seconds. Flush with saline before and after giving. Administer 30 minutes prior to chemotherapy. (This product is restricted to outpatient use only. For inpatients please use ondansetron. If there are clinical circumstances that necessitate inpatient use of palonosetron, please contact pharmacy.) OrderHistory dexamethasone (DECADRON) tablet 4 mg 4 mg, Oral, ONCE, Fri12/08/18 at 1230, For 1 dose Administer 30 minutes prior to chemotherapy. OrderHistory aprepitant (CINVANTI) injection 130 mg 130 mg, IV Push, ONCE, 12/08/18 at 1230, For 1 dose Administer 30 minutes prior to chemotherapy. Administer slowly over 2 minutes OrderHistory CHEMOTHERAPY CARBOplatin (PARAPLATIN) 480 mg in sodium chloride 0.9% 102 mL infusion 480 mg, Intravenous, Administer over 60 Minutes, ONCE, 12/08/18 at 1300, For 1 dose Chemotherapy: Use appropriate handling precautions. OrderHistory Dosing Modification Condition Modification Breast AUC: 4 Bladder or Lung AUC: 5 gemcitabine (GEMZAR) 1,600 mg in sodium chloride 0.9% 107.92 mL infusion 1,600 mg, Intravenous, Administer over 30 Minutes, ONCE, 12/08/18 at 1330, For 1 dose 1000 mg/m2= 2280 mg; rounded to 2200 mg per rounding protocol Chemotherapy: Use appropriate handling precautions. Do not refrigerate. OrderHistory Dosing Modification Condition Modification Bladder or Lung Dose: 1,000 mg/m2 Breast Dose: 1,250 mg/m2 Bart Marcano MD Portions of this chart may have been created with [employer] voice recognition software. Occasi onal wrong-word or sound-alike substitutions may have occurred due to the inherent parnell itations of voice recognition software. Please read the chart carefully and recognize, using context, where these substitutions have occurred. documented in this encounter Plan of Treatment Not on filedocumented as of this encounter Visit Diagnoses + + | Diagnosis | + + | Chronic kidney disease, stage V (HCC) Chronic kidney disease, Stage V | + + | Squamous cell carcinoma of right lung (HCC) | + + documented in this encounter
--- OUTSIDE RECORDS SUMMARY | ~2019-02-17 | XMS | Encounter Summary ---
Demographics + + + | Address | [address] | | | [place] [address] | + + + | Home Phone [...] + | Author | [facility] | | | and [place] | + + + | Organization | [facility] | | | and [place] | + + + | Address | Unknown | + + + | Phone | Unavailable | + + + Support + + + + + | Name | Relationship | Address | Phone | + + + + + | Sole Gleason | ECON | [place] | | | | | [address] | | + + + + + | Sruthi Gleason | ECON | [place] | | | | | [address] | | + + + + + | Sole Gleason | ECON | [place] | | | | | [address] | | + + + + + Care Team Providers + +------+ + | Care Land Surveyor Name | Role | Phone | + +------+ + | Jack Durand DO | PCP | | + +------+ + Encounter Details +--------+ + + + + | Date | Type | Department | Care Team | Description | +--------+ + + + + | 12/08/ | Hospital | [facility] | Lorena Hope | Squamous cell | | 2019 | Encounter | [facility] | J, PharmD [address] | carcinoma of lung, | | | | ONCOLOGY CLINIC [address] | [facility] | unspecified | | | | [facility] | [place] [address] | laterality (HCC) | | | | [place] [address] | [phone] | (Primary Dx) | | | | [phone] | | | +--------+ + + + [...] documented as of this encounter Progress Notes Lorena Hope, PharmD - 12/08/2018 1144 PDT Clinical Oncology Pharmacy Services Progress Note Chemotherapy Education Session [facility] Pt. Name/Age/: Shahbaz Gleason 63 y.o. 1955 Med. Record Number: [id number] Identifying Statement: Shahbaz Gleason is a 63 y.o. male from [address] [place] [id number] with The encounter diagnosis was Squamous cell carcinoma of lung, u nspecified laterality (HCC). The patient chart and medications were reviewed in detail and the patient was seen and exam ined. Patient was referred to Clinical Oncology Pharmacist for chemotherapy education and side ef fect management. 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 Eyes: Denies change in visual acuity HEENT: Denies nasal congestion or sore throat Respiratory: Denies cough or shortness of breath Cardiovascular: Denies chest pain or edema GI: Denies abdominal pain, nausea, vomiting, bloody stools or diarrhea : Denies dysuria urgency or frequency. Musculoskeletal: Denies any bone pain Integument: Denies rash, bruising, petechia Neurologic: Denies headache, focal weakness or sensory changes Lymphatic: Denies swollen glands Review of systems as above, otherwise negative Scheduled Medications: Current Outpatient Medications on File Prior to Encounter Medication Sig Dispense Refill aspirin 81 MG [...] needed. After HD No current facility-administered medications on file prior to encounter. Objectives: Wt Readings from Last 3 Encounters: 12/08/18 93.9 kg (207 lb 0.2 oz) 04/27/18 105 kg (231 lb 7.7 oz) 01/28/18 100.1 kg (220 lb 10.9 oz) Patient Education: Provided teaching on the following, including but not limited to: Pathophysiology of cancer. Brief mechanism of action of anticancer agent(s) and their indications. Supportive medications How to take drug (ie. with or without food, swallow whole, do not crush) Drug/drug and drug/food interactions Lab tests necessary in monitoring the medication for toxicity and efficacy Precautions/warnings Reproductive alterations/precautions and impact on future fertility Side effects and side effect management tips Planned duration of treatment When to call the physician or oncology pharmacist Assesment/Plan: 1. We discussed the high risk nature of the treatment regimen, as well as side effect manag ement. The patient demonstrated understanding and all questions were answered, and wishes to proceed with Carbo/gem therapy. 2. Antiemetic regimen: Ondansetron 8 mg PO BID for 2 days after each chemotherapy, then eleanor ry 8 hours as needed for nausea. Lorazepam 1 mg PO every 4-6 hours as needed for nausea. 3. Patient information and handouts were given to the patient. 4. Chemotherapy consent form was signed. 5. Please consult clinical oncology pharmacist for any further medication related education . 6. Thank you. Electronically signed by: Lorena Hope PharmD 12/08/2018 11:44 documented in thi s encounter Plan of Treatment Not on filedocumented as of this encounter Visit Diagnoses + + | Diagnosis | + + | Squamous cell carcinoma of lung, unspecified laterality (HCC) - Primary | + + documented in this encounter
--- OUTSIDE RECORDS SUMMARY | ~2019-02-17 | XMS | Encounter Summary ---
Demographics + + + | Address | [address] | | | [place] [address] | + + + | Home Phone | | + + + | Preferred Language | Unknown | + + + | Marital Status | | + + + | Taoist Affiliation | 1061 | + + + | Race | Unknown | + + + | Ethnic Group | Unknown | + + + Author + + + | Author | [facility] | | | and [place] | + + + | Organization | [facility] | | | and [place] | + + + | Address | Unknown | + + + | Phone | Unavailable | + + + Support + + + + + | Name | Relationship | Address | Phone | + + + + + | Sole Gleason | ECON | [place] | | | | | [address] | | + + + + + | Sruthi Gleason | ECON | [place] | | | | | [address] | | + + + + + | Sole Gleason | ECON | [place] | | | | | [address] | | + + + + + Care Team Providers + +------+ + | Care Training Engineer Name | Role | Phone | + +------+ + | Jack Durand DO | PCP | | + +------+ + Encounter Details +--------+ + + + + | Date | Type | Department | Care Team | Description | +--------+ + + + + | 01/05/ | Care | [facility] | Krys, | | | 2019 | Coordinatio | MED CTR MEDICAL | Bart Cade MD [address] | | | | n | ONCOLOGY CLINIC [address] | [facility] | | | | | [facility] | [place] [address] | | | | | [place] [address] | [phone] | | | | | [phone] | | | +--------+ + + + [...]
--- OUTSIDE RECORDS SUMMARY | ~2019-02-17 | XMS | Encounter Summary ---
Demographics + + + | Address | [address] | | | [place] [address] | + + + | Home Phone | | + + + | Preferred Language | Unknown | + + + | Marital Status | | + + + | Christian Affiliation | 1061 | + + + | Race | Unknown | + + + | Ethnic Group | Unknown | + + + Author + + + | Author | [facility] | | | and [place] | + + + | Organization | [facility] | | | and [place] | + + + | Address | Unknown | + + + | Phone | Unavailable | + + + Support + + + + + | Name | Relationship | Address | Phone | + + + + + | Sole Gleason | ECON | [place] | | | | | [address] | | + + + + + | Sruthi Gleason | ECON | [place] | | | | | [address] | | + + + + + | Sole Gleason | ECON | [place] | | | | | [address] | | + + + + + Care Team Providers + +------+ + | Care Stripper Shovel Operator Name | Role | Phone | [...] | | | | | Squamous | [place], | [place] | | | | | cell | [place] | [address] Phone: | | | | | carcinoma of | [address] | [phone] | | | | | lung, | Phone: | Fax: | | | | | unspecified | [phone] | [phone] | | | | | laterality | Fax: | | | | | | (HCC) | [phone] | | | | | | Procedures | | | | | | | [address] | | | + +--------+ + + + + Encounter Details +--------+ + + + + | Date | Type | Department | Care Team | Description | +--------+ + + + + | 12/08/ | Hospital | [facility] | Krys, | Chronic kidney | | 2019 | Encounter | [facility] | Bart Cade MD [address] | disease, stage V | | | | ONCOLOGY CLINIC [address] | [address] [place] | (HCC); Squamous cell | | | | [address] | [place] [address] | carcinoma of right | | | | [place] [address] | [phone] | lung (HCC) | | | | [phone] | | | +--------+ + + + [...] f rom the original. Hematology/Oncology Progress [place] Pt. Name/Age/: Shahbaz Gleason 63 y.o. 1955 [facility]. Record Number: [id number] Date of admission: 12/08/2018 The patient's primary care provider is Jack Durand DO. Identifying Statement: Shahbaz Gleason is a 63 y.o. male from [address] [place] [phone] with metastatic squamous cell lung cancer, and diabetic glomerulosc lerosis on hemodialysis. The patient chart and medications were reviewed in detail and the patient was seen and exam ined. History of Present Illnesses, their Current Assessments and Plans: Problem List Chronic kidney disease, stage V Current Assessment & Plan Currently on hemodialysis on Friday, Friday an Friday in [place], [place] Squamous cell lung cancer Overview ACTIVE [...] the right lower lobe bronchus. Pathological specimen [id number]: Right lower bronchial lobe b ronchus biopsy [...] July 23, 2017 specimen number [id number] ([facility]) negative for malignant cells. 11. Laboratory evaluation [...] x 4 cm) lymphadenopathy. 19. Admit to [facility] between June 09, 2018 and 2018 where his left subclavian Port-A-Cath was removed due to fever of unknown origi n. 20. Admit to [facility] in [place], [place] between July 20, 2018 a July [...] cycle #1 of gemcitabine/carboplatin chemotherapy. 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 J. Clin. Oncol.: Bita Bojorquez., Maunel, RZainabH., Silvino Arredondo., Linda Coats, Tyson Garcia., [...] this chart may have been created with [employer] voice recognition software. Occasi onal wrong-word or [...]
--- OUTSIDE RECORDS SUMMARY | ~2019-02-17 | XMS | Encounter Summary ---
Demographics + + + | Address | [address] | | | [place] [address] | + + + | Home Phone | | + + + | Preferred Language | Unknown | + + + | Marital Status | | + + + | Zoroastrianism Affiliation | 1061 | + + + | Race | Unknown | + + + | Ethnic Group | Unknown | + + + Author + + + | Author | [facility] | | | and [place] | + + + | Organization | [facility] | | | and [place] | + + + | Address | Unknown | + + + | Phone | Unavailable | + + + Support + + + + + | Name | Relationship | Address | Phone | + + + + + | Sole Gleason | ECON | [place] | | | | | [address] | | + + + + + | Sruthi Gleason | ECON | [place] | | | | | [address] | | + + + + + | Sole Gleason | ECON | [place] | | | | | [address] | | + + + + + Care Team Providers + +------+ + | Care Bridges Supervisor Name | Role | Phone | + +------+ + | Jack Durand DO | PCP | | + +------+ + Encounter Details +--------+ + + + + | Date | Type | Department | Care Team | Description | +--------+ + + + + | 11/26/ | Hospital | [facility] | PoiDallas MD | | | 2019 | Encounter | [facility] | [address] | | | | | [address] | [place], [place] | | | | | [place], [place] | [address] | | | | | [address] | | | | | | [phone] | | | +--------+ + + + [...] + + + | Blood Pressure | 102/57 | 11/26/20181710 PDT | + + + + | Pulse | 85 | 11/26/20181710 PDT | + + + + | Temperature | 36.9 C (98.4 F) | 11/26/20181710 PDT | + + + + | Respiratory Rate | 18 | 11/26/20181710 PDT | + + + + | Oxygen Saturation | - | - | + + + + | Inhaled Oxygen | - | - | | Concentration | | | + + + + | Weight | 91.8 kg (202 lb 6.1 | 11/26/20181710 PDT | | | oz) | | + + + + | Height | 182.9 cm (6') | 11/26/20181710 PDT | + + + + | Body Mass Index | 27.45 | 11/26/20181710 PDT | + + + + documented [...] documented as of this encounter Progress Notes Conversion Transaction, Provider Unknown - 11/26/2018 1800 PDT Progress Notes by Dorcas Souza RN at 11/26/181799 Author: Dorcas Souza RN Service: (none) Author Type: Registered Nurse Filed: 11/26/181821 Date of Service: 11/26/181799 Status: Signed Senior Embedded Software Engineer: Dorcas Souza RN (Registered Nurse) Discharge instructions given to patient and family. Patient vitals WNL. Patient in no appa rent distress. All questions have been answered. Discussed signs and symptoms of surgical site infection, DVT and PE prevention. SLING IN PLACE. Dorcas Souza RN documente d in this encounter Plan of Treatment Not [...] + + documented in this encounter Results Basic Metabolic Panel (11/26/2018 11:50 PDT) + + + + + + [...] | | | | | performed at [facility] | | | | | | [facility];[place], [place] | | | | | | [address] | | | | + + + [...]
--- OUTSIDE RECORDS SUMMARY | ~2019-02-17 | XMS | Encounter Summary ---
Demographics + + + | Address | [address] | | | [place] [address] | + + + | Home Phone | | + + + | Preferred Language | Unknown | + + + | Marital Status | Single | + + + | Amish Affiliation | 1061 | + + + | Race | Unknown | + + + | Ethnic Group | Unknown | + + + Author + + + | Author | [email or web address] (Historical as of | | | 01-02-19) | + + + | Organization | [email or web address] (Historical as of | | | 01-02-19) | + + + | Address | Unknown | + + + | Phone | Unavailable | + + + Support + + + + + | Name | Relationship | Address | Phone | + + + + + | Sruthi Gleason | ECON | [place] | | | | | [address] | | + + + + + | Sole Gleason | ECON | [place] | | | | | [address] | | + + + + + Care Team Providers + +------+ + | Care Sweet Dough Mixer Name | Role | Phone | + [...] + + | 11/23/ | Telephone | [facility] | Dallas Velasquez MD | Question (requesting | | 2019 | | Vascular Surgery | [address] | call back from | | | | [address] | [place], [place] | [place]) | | | | [place], [place] | [address] | | | | | [address] | | | | | | [phone] | | | +--------+ + + + [...]
--- OUTSIDE RECORDS SUMMARY | ~2019-02-17 | XMS | Encounter Summary ---
Demographics + + + | Address | [address] | | | [place] [address] | + + + | Home Phone | | + + + | Preferred Language | Unknown | + + + | Marital Status | | + + + | Yarsani Affiliation | 1061 | + + + [...] + + + + + | Sole Glaeson | ECON | [place] | | | | | [address] | | + + + + + | Sruthi Gleason | ECON | [place] | | | | | [address] | | + + + + + | Sole Gleason | ECON | [place] | | | | | [address] | | + + + + + Care Team Providers + +------+ + | Care Labor Mediator Name | Role | Phone | + +------+ + | Jack Durand DO | PCP | | + +------+ + Reason for Visit Evaluate & Treat (Routine) + +--------+ + [...] | | | - 162.9 | Melvin Doyle | [address] | | | | | (ICD-9-CM) - | [address] [place] | | | | | Squamous | [place], | [place], [place] | | | | | cell | [place] | [address] Phone: | | | | | carcinoma of | [address] | [phone] | | | | | lung, | Phone: | Fax: | | | | | unspecified | [phone] | [phone] | | | | | laterality | Fax: | | | | | | (HCC) | [phone] | | | | | | Procedures | | | | | | | [address] | | | + +--------+ + + + + Encounter Details +--------+ + + + + | Date | Type | Department | Care Team | Description | +--------+ + + + + | 12/15/ | Hospital | [facility] | Krys, | Neoplasm related | | 2019 | Encounter | [facility] | Bart Cade MD [address] | pain; Squamous cell | | | | [facility] [address] [place] | carcinoma of right | | | | [address] [place] | [place] [address] | lung (HCC) | | | | [place] [address] | [phone] | | | | | [phone] | | | +--------+ + + + [...] + + + | Blood Pressure | 157/77 | 12/15/2018 1300 PDT | + + + + | Pulse | 93 | 12/15/2018 1300 PDT | + + + + | Temperature | 36.5 C (97.7 F) | 12/15/2018 1300 PDT | + + + + | Respiratory Rate | 20 | 12/15/2018 1300 PDT | + + + + | Oxygen Saturation | 99% | 12/15/2018 1300 PDT | + + + + | Inhaled Oxygen | - | - | | Concentration | | | + + + + | Weight | 92.2 kg (203 lb 4.2 | 12/15/2018 1300 PDT | | | oz) | | + + + + | Height | - | - | + + + + | Body Mass Index | 27.57 | 11/26/2018 1711 PDT | + + [...] every 8 | 40 | 5 | / | | | (ZOFRAN) 8 MG tablet [...] documented as of this encounter Progress Notes Krys, Bart C, MD - 12/15/2018 1230 PDTFormatting of this note might be different f rom the original. Hematology/Oncology Progress Note Located Within [facility] [place] Pt. Name/Age/: Shahbaz Gleason 63 y.o. 1955 Med. Record Number: [id number] Date of admission: 12/15/2018 The patient's primary care provider is Jack Durand DO. Identifying Statement: Shahbaz Gleason is a 63 y.o. male [place] [address] [place] [id number] with metastatic squamous cell lung cancer, and diabetic glomerulosc lerosis on hemodialysis. The patient chart and medications were reviewed in detail and the patient was seen and exam ined. History of Present Illnesses, their Current Assessments and Plans: Problem List Neoplasm related pain Squamous cell lung cancer Overview ACTIVE DIAGNOSIS: [...] the right lower lobe bronchus. Pathological specimen [id number]: Right lower bronchial lobe b ronchus biopsy demonstrating moderately differentiated invasive squamous cell carcinoma. Ri ght lung, bronchial brush and left lower lobe [...] July 23, 2017 specimen number [id number] ([facility]) negative for malignant cells. 11. Laboratory evaluation [...] x 4 cm) lymphadenopathy. 19. Admit to [facility] in [facility] between June 09, 2018 and 2018 where his left subclavian Port-A-Cath was removed due to fever of unknown origi n. 20. Admit to [facility] in [place], [place] between July 20, 2018 a July [...] Plan Shahbaz Gleason returned to clinic on 12/15/2018 with his daughter for follow up and c ycle #1 day #8 gemcitabine. Review of systems is positive for diarrhea and fatigue. Clinical exam is notable for the fact that Zackery has last 11 kg with the initiation of hemodi alysis. Laboratory exam is notable for stable anemia, without leukopenia or thrombocytopenia. 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 Plan: proceed with cycle #1 day #8 of gemcitabine. Return in two weeks to initiate cycle #2 of therapy. Review of Systems: Constitutional: Report low energy levels which continue. Reports nausea, appetite is good i n general per pt but low today. Denies high fevers, shaking chills, anorexia, nausea, vomit ing, weight loss, or night sweats. Appetite without changes. Ear, Nose, Mouth, Throat: Denies odynophagia, dysphagia, or tinnitus. Cardiovascular: Denies shortness of breath, dyspnea on exertion, chest pain, palpitations o r orthopnea. Respiratory: Reports productive cough with yellow to drummond sputum. Denies cough, hemoptysis, or sputum production. Gastrointestinal: Reports diarrhea for last several days. Denies abdominal pain, diarrhea, melena, or bright red blood per rectum. Genitourinary: Oliguria, on HD. "Little more than half a cup every day" per pt. Denies cecy turia or dysuria. Musculoskeletal: Reports generalized joint aches and pains, R knee injury after fall 12/07 i s sensitive. L leg and hip pain continues and is worse today per pt. Neurologic: Reports headaches occasionally, vision changes including needing readers now, o ngoing neuropathy in hands and feet unchanged. Endocrine: Reports edema in UEs and LEs, depending on HD. Denies heat/cold intolerance. Hematologic: Denies spontaneous bruising or bleeding. Integumentary: Multiple old scars to UEs which continue to slowly heal. Denies rash, wounds or other skin concerns. Pain: Reports L leg and hip pain (especially with ambulation) today 12/26. Note: F/U with labs and 1 hour treatment My chart: Declined. Review of systems as above otherwise negative Scheduled Medications: Current Outpatient Medications Medication Sig Dispense Refill aspirin 81 MG tablet Take 81 mg by mouth Daily. DULoxetine (CYMBALTA) [address] capsule Take 60 mg by mouth Daily. furosemide (LASIX) 80 mg tablet Take 1 tablet by mouth 2 times daily. (Patient not taki ng: Reported on 12/15/2018) 60 tablet 0 gabapentin (NEURONTIN) 100 mg [...] puff into the lungs Daily as needed. ondansetron (ZOFRAN) 8 MG tablet One tablet every 8 hours as needed for nausea 40 table t 5 oxyCODONE 20 MG TABS 1-4 tabs every four hours as needed for pain 270 tablet 0 OXYCONTIN 40 MG ER abuse-deterrent tablet 0 polyethylene glycol (MIRALAX) powder Take [...] operation Bilateral to osteomas LUMBAR LAMINECTOMY N/A [facility] PORTACATH PLACEMENT/REMOVAL Left 2017 SHUNT PLACEMENT/INSERTION Right 01/23/2018 Procedure: Tunneled Hemodialysis Catheter Placement; Surgeon: Catherine Bunch MD; Location : [facility] MAIN OR Social History Socioeconomic History [...] Diabetes Mother Colon cancer Father Objectives: Temp: 36.5 C (97.7 F) BP: 157/77 Pulse: 93 Resp: 20 SpO2: 99 % on Min/Max Temp past 24 hours:No data recorded No intake or output data in the 24 hours ending 12/19/18 1500 Wt. Admission: Weight: 92.2 kg (203 lb 4.2 oz) Wt. Current: Weight: 92.2 kg (203 lb 4.2 oz) Wt Readings from Last 3 Encounters: 12/15/18 92.2 kg (203 lb 4.2 oz) 12/08/18 93.9 kg (207 lb 0.2 oz) 04/27/18 105 kg (231 lb 7.7 oz) Physical Exam: General: The patient is [...] in Am. J. Clin. Oncol.: Bita Bojorquez., Shelia Jackson., Silvino Arredondo., Linda Coats, Tyson Garcia., Bettye Cheng., Kia, P ZainabP.: Toxicity And Response Criteria Of The Eastern [...] for SHAHBAZ GLEASON ( ) as of 12/19/2018 14:49 Ref. Range 12/15/2018 11:33 WBC Latest Ref Range: 4.0 - 11.0 K/uL 8.8 RBC COUNT Latest Ref Range: 4.30 - 5.70 M/uL 3.65 (L) Hemoglobin Latest Ref Range: 13.5 - 18.0 g/dL 9.6 (L) Hematocrit Latest Ref Range: 40.0 - 51.0 % 31.8 (L) MCV Latest Ref Range: 83.0 - 101.0 fL 87.1 MCH Latest Ref Range: 28.0 - 35.0 pg 26.3 (L) MCHC Latest Ref Range: 32.0 - 36.0 g/dL 30.2 (L) RDW-CV Latest Ref Range: <15.0 % 15.9 (H) RDW-SD Latest Ref Range: 35.1 - 46.3 fL 50.2 (H) Platelet Count Latest Ref Range: 140 - 440 K/uL 212 MPV Latest Ref Range: 6.5 - 12.4 fL 9.8 % nRBC Latest Ref Range: 0 - 2 per 100 WBCs 0 Absolute nRBC Latest Ref Range: 0.00 - 0.01 K/uL 0.00 Absolute Neutrophils Latest Ref Range: 1.80 - 8.50 K/uL 7.45 Absolute Lymphocytes Latest Ref Range: 0.60 - 3.20 K/uL 1.17 Absolute Monocytes Latest Ref Range: 0.00 - 1.00 K/uL 0.08 Absolute Eosinophils Latest Ref Range: 0.00 - 0.40 K/uL 0.06 Absolute Basophils Latest Ref Range: 0.00 - 0.10 K/uL 0.01 Absolute Immature Granulocytes Latest Ref Range: 0.00 - 0.03 K/uL 0.07 (H) % Neutrophils Latest Ref Range: 45.0 - 82.0 % 84.3 (H) % Lymphocytes Latest Ref Range: 20.0 - 45.0 % 13.2 (L) % Monocytes Latest Ref Range: 4.0 - 12.0 % 0.9 (L) % Eosinophils Latest Ref Range: 0.0 - 5.0 % 0.7 % Basophils Latest Ref Range: 0.0 - 1.0 % 0.1 % Immature Granulocytes Latest Ref Range: 0.0 - 0.4 % 0.8 (H) Na Latest Ref Range: 136 - 145 mmol/L 133 (L) K Latest Ref Range: 3.4 - 5.1 mmol/L 4.4 Chloride Latest Ref Range: 98 - 107 mmol/L 100 Carbon dioxide Latest Ref Range: 20 - 31 mmol/L 22 Anion Gap Latest Ref Range: 3 - 16 mmol/L 11 Glucose Latest Ref Range: 60 - 106 mg/dL 237 (H) BUN Latest Ref Range: 9 - 23 mg/dL 50 (H) Creatinine Latest Ref Range: 0.70 - 1.30 mg/dL 4.24 (H) BUN/Creatinine Ratio Unknown 11.8 Albumin Latest Ref Range: 3.2 - 4.8 g/dL 3.5 Albumin/Globulin Ratio Latest Ref Range: 0.8 - 1.9 0.9 Total Protein Latest Ref Range: 5.7 - 8.2 g/dL 7.2 EGFR IF NOT Latest Ref Range: >=60 mL/min/1.73m2 14 (L) Calcium Latest Ref Range: 8.7 - 10.4 mg/dL 9.4 ALK PHOS Latest Ref Range: 46 - 116 U/L 134 (H) ALT (SGPT) (REF) Latest Ref Range: 10 - 49 U/L 36 AST (SGOT) (REF) Latest Ref Range: 0 - 34 U/L 33 LDH TOTAL Latest Ref Range: 120 - 246 U/L 185 Bilirubin Total (Calculated) Latest Ref Range: 0.3 - 1.2 mg/dL <0.2 (L) Globulin Latest Ref Range: 2.1 - 3.8 g/dL 3.7 Pharmacovigilance: Palliative Care: Procedure: Day 8, Cycle 1 (21-day cycle) Completed; Released on 12/15/2018; Originally planned for 12/15/2018 Labs CBC with Differential STAT, ONE TIME, Fri12/15/18 at 1133, For 1 occurrence OrderHistory Lactate Dehydrogenase STAT, ONE TIME, Fri12/15/18 at 1133, For 1 occurrence OrderHistory Comprehensive Metabolic Panel STAT, ONE TIME, Fri12/15/18 at 1133, For 1 occurrence OrderHistory Nursing Orders Treatment [...] OK to proceed with chemotherapy (Not Released) 12/15/18-- INFORMED CONSENT: The nature and character of the proposed treatment with gemcitabine and t he anticipated results of the proposed treatment with gemcitabine;recognized alternative for ms of treatment, including non-treatment; the risks benefits, and side effects of proposed t reatment, alternative treatments and non-treatment were discussed with the patient who conse nts to proceed with treatment with gemcitabine. The treating provider has examined the patie nt and reviewed the diagnostic data, including laboratory data, and deems that it is safe an d appropriate to proceed with treatment with gemcitabine.Electronically signed by: Bart Marcano MD 12/15/2018 13:30. OrderHistory Plans for discharge (Not Released) 12/08/18- MAKE SURE ALL CHEMO IS IN THE LEAST AMOUNT OF FLUID- PATIENT IS ON DIALYSIS. CARB O IS 240 MG/M2 FLAT DOSE. JR Plan: Carbo 240 MG/M2 DOSE Day1 with Gemzar 1000m2 Day 1 and 8 Q 21 days CAN ONLY COME ON TUESDAYS DUE TO DIALYSIS ON THE OTHER DAYS. QFU LABS/PORT 3 HOUR RX IN 14 DAYS OrderHistory Line Care heparin 100 units/mL flush injection 500 Units (Discontinued - Patient Discharge) 500 Units (5 mL), Intracatheter, PRN, Line Care, Starting Fri12/15/18 at 1337 OrderHisto ry Pre-Medications ondansetron (ZOFRAN ODT) disintegrating tablet 8 mg 8 mg, Oral, ONCE, Fri12/15/18 at 1400, For 1 dose OrderHistory dexamethasone (DECADRON) tablet 4 mg 4 mg, Oral, ONCE, Fri12/15/18 at 1400, For 1 dose Administer prior to chemotherapy. OrderHistory CHEMOTHERAPY gemcitabine (GEMZAR) 2,000 mg in sodium chloride 0.9% 97.4 mL infusion 2,000 mg, Intravenous, Administer over 30 Minutes, ONCE, Fri12/15/18 at 1415, For 1 dose 1000 mg/m2= 2010 mg; rounded to 2000 mg per rounding protocol Reduced volume due to renal failure Chemotherapy: Use appropriate handling precautions. Do not refrigerate. OrderHistory Bart Marcano MD Portions of this chart may have been created with [employer] voice recognition software. Occasi onal wrong-word or [...] related pain (acute) (chronic) | + + | Squamous cell carcinoma of right lung (HCC) | + + documented in this encounter
--- OUTSIDE RECORDS SUMMARY | ~2019-02-17 | XMS | Encounter Summary ---
Demographics + + + | Address | [address] | | | [place] [address] | + + + | Home Phone | | + + + | Preferred Language | Unknown | + + + | Marital Status | | + + + | Rastafarian Affiliation | 1061 | + + + | Race | Unknown | + + + | Ethnic Group | Unknown | + + + Author + + + | Author | [facility] | | | and [place] | + + + | Organization | [facility] | | | and [place] | + + + | Address | Unknown | + + + | Phone | Unavailable | + + + Support + + + + + | Name | Relationship | Address | Phone | + + + + + | Sole Gleason | ECON | [place] | | | | | [address] | | + + + + + | Sruthi Gleason | ECON | [place] | | | | | [address] | | + + + + + | Sole Gleason | ECON | [place] | | | | | [address] | | + + + + + Care Team Providers + +------+ + | Care Water Plumber Name | Role | Phone | + [...] neoplasm of | Bart C, | [address] | | | | | unspecified | MD [address] | [place], | | | | | part of | [address] | [place] [address] | | | | | unspecified | [place], | Phone: | | | | | bronchus or | [place] [address] | [phone] | | | | | lung (HCC) | Phone: | Fax: | | | | | Procedures | [phone] | [phone] | | | | | [place] | Fax: | | | | | | PALONOSETRON | [phone] | | | | | | HCL, 25 MCG | | | | | | | DE ORAL | | | | | | | DEXAMETHASON | | | | | | | E, .25 MG | | | | | | | DE INJ., | | | | | | | APREPITANT, | | | | | | | 1 MG DE | | | | | | | LORAZEPAM | | | | | | | INJECTION, 2 | | | | | | | MG DE | | | | | | | CARBOPLATIN | | | | | | | INJECTION, | | | | | | | 50 MG DE | | | | | | | GEMCITABINE | | | | | | | HCL | | | | | | | INJECTION, | | | | | | | 200 MG DE | | | | | | | ADRENALIN | | | | | | | EPINEPHRINE | | | | | | | INJECT, .1 | | | | | | | MG DE | | | | | | | METHYLPREDNI | | | | | | | SOLONE | | | | | | | INJECTION, | | | | | | | 125 MG DE | | | | | | | DIPHENHYDRAM | | | | | | | INE HCL | | | | | | | INJECTIO, 50 | | | | | | | MG DE | | | | | | | ALBUTEROL | | | | | | | COMP CON, 1 | | | | | | | MG DE | | | | | | | ALBUTEROL | | | | | | | NON-COMP | | | | | | | CON, 1 MG | | | | | | | DE | | | | | | | INJECTION, | | | | | | | FAMOTIDINE, | | | | | | | 20 MG DE | | | | | | | NORMAL | | | | | | | SALINE | | | | | | | SOLUTION | | | | | | | INFUS, 500 | | | | | | | ML DE | | | | | | | NORMAL | | | | | | | SALINE | | | | | | | SOLUTION | | | | | | | INFUS, 250 | | | | | | | ML DE | | | | | | | STERILE | | | | | | | WATER/SALINE | | | | | | | , 10 ML DE | | | | | | | CHEMOTHER, | | | | | | | IV PUSH,EA | | | | | | | ADD DRUG DE | | | | | | | CHEMOTHER, | | | | | | | IV INFUSION, | | | | | | | 1 HR DE | | | | | | | CHEMOTHER, | | | | | | | IV INFUSION, | | | | | | | EA HR DE | | | | | | | CHEMOTHER,NO | | | | | | | N-HORMONE | | | | | | | ANTI-NEOPL, | | | | | | | SUB-Q/IM DE | | | | | | | [...] + + | 12/15/ | Hospital | [facility] | Krys, | Non-small cell lung | | 2019 | Encounter | MED CTR CHEMO | Bart Cade MD [address] | cancer, unspecified | | | | INFUSION [address] [place] | laterality (HCC) | | | | [place], | [place] [address] | (Primary Dx); | | | | [place] [address] | [phone] | Squamous cell | | | | [phone] | | carcinoma of lung, | | [...] Inject 0.45 mLs | | 0 | / | | | polyethylene | under the [...] mL/min/1.73m2 | [facility] | | | HUNGARIAN | RATE,ESTIMATED mL/min | | MEDICAL | | | | /1.66l4Fcve than 60 | | CENTER - | [...] [address] | [place] | [phone] | | [facility] | | [address] | | | - LABORATORY | | [...] + | [address] | [address] | [place] | [phone] | | [facility] | | [address] | | | - LABORATORY | | [...] | [address] | [place] | [phone] | | [facility] | | [address] | | | - LABORATORY | | [...]
--- OUTSIDE RECORDS SUMMARY | ~2019-02-17 | XMS | Encounter Summary ---
Demographics + + + | Address | [address] | | | [place] [address] | + + + | Home Phone | | + + + | Preferred Language | Unknown | + + + | Marital Status | Single | + + + | Moravian Affiliation | 1061 | + + + | Race | Unknown | + + + | Ethnic Group | Unknown | + + + Author + + + | Author | [facility] (Historical as of | | | 01-02-19) | + + + | Organization | [facility] (Historical as of | | | 01-02-19) | + + + | Address | Unknown | + + + | Phone | Unavailable | + + + Support + + + + + | Name | Relationship | Address | Phone | + + + + + | Sruthi Gleason | ECON | [place] | | | | | [address] | | + + + + + | Sole Gleason | ECON | [place] | | | | | [address] | | + + + + + Care Team Providers + +------+ + | Care Motorcycle Deliverer Name | Role | Phone | + +------+ + PCP | Unavailable | + +------+ + Encounter Details +--------+ + + + + | Date | Type | Department | Care Team | Description | +--------+ + + + + | 12/07/ | Telephone | [facility] | Jany Avila, | | | 2018 | | Vascular Surgery | [facility] | | | | | [address] | | | | | | [place] | | | | | | [address] | | | | | | [phone] | | | +--------+ + + + [...] Treatment Not on fileas of this encounter Results hemodialysis access fistula or graft (12/21/2018 9:31 AM) + + + | Impressions | Performed At | + + + | 1. Patent right brachiobasilic AVF post transposition 11/26/2018. 2. | [facility] | | Volume of flow within normal limits. 3. Tandem stenoses basilic vein | RADIOLOGY | | at the distal humerus, without [...] UV HEMODIALYSIS ACCESS DUPLEX-COMPLICATIONS CLINICAL INFORMATION: | [facility] | | ESRD (end stage renal disease) COMPARISON: US HEMODIALYSIS ACCESS | RADIOLOGY | | FISTULA OR GRAFT (11/17/2018); US [...] Note | + + | Eddi, Rad Results In - 12/21/2018 4:45 PM PDT UV HEMODIALYSIS ACCESS | | DUPLEX-COMPLICATIONSCLINICAL INFORMATION:ESRD (end stage renal disease)COMPARISON:US | | HEMODIALYSIS ACCESS FISTULA OR GRAFT (11/17/2018); US RENAL LIMITED(01/23/2018); US KIDNEYS | | AND BLADDER (03/08/2017);PROCEDURE:Grayscale, color Doppler and Doppler with duplex | | imaging with attentionto the right upper extremity.FINDINGS:Subclavian vein: PSV: 72 | | cm/secAxillary vein: PSV 76 cm/secBrachial artery: PSV: 174 cm/sec. Volume flow: | | 05/23/2005 cc/min.Diameter: 6.8 mm.Anastomosis: PSV: 569 cm/sec. Diameter: 5.5 mm.Cephalic | | vein:Basilic just proximal to the anastomosis: PSV 381-746 cm/secDistal basilic: PSV: | | 377-660 cm/sec. Volume flow: 879 cc/min: Diameter:4.6 mm.Mid basilic: PSV: 222 cm/sec. | | Volume flow: 1272 cc/min: Diameter: 7 mm.Proximal basilic:PSV: 130 cm/sec. Volume flow: | | 1112 cc/min: Diameter: 7mm.IMPRESSION:1. Patent right brachiobasilic AVF post | | transposition 11/26/2018.2. Volume of flow within normal limits.3. Tandem stenoses | | basilic vein at the distal humerus, without greaterthan 2 fold velocity increase.4. 3.3 | | fold increase in velocity at the anastomosis, compared with 3.9fold increase at the | | anastomosis on 11/17/2018.Signed by: Anjum Valverde, Kem Date/Time: 12/21/2018 4:41 PM | |Cephalic vein: | |Basilic just proximal to the anastomosis: PSV 381-746 cm/sec | |Distal basilic: PSV: 377-660 cm/sec. Volume flow: 879 cc/min: Diameter: | |4.6 mm. | |Mid basilic: PSV: 222 cm/sec. Volume flow: 1272 cc/min: Diameter: 7 mm. | |Proximal basilic:PSV: 130 cm/sec. Volume flow: 1112 cc/min: Diameter: 7 | |mm. | |IMPRESSION: | |1. Patent right brachiobasilic AVF post transposition 11/26/2018. | |2. Volume of flow within normal limits. | |3. 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 | |4. 3.3 fold increase in velocity at the anastomosis, compared with 3.9 | |fold increase at the anastomosis on 11/17/2018. | |Signed by: Anjum Valverde Shawn | |Sign Date/Time: 12/21/2018 4:41 PM | + + + + + + + | Performing | Address | City/State/Zipcode | Phone Number | | Organization | | | | + + + + + | [facility] | [address] | [place] [address] | | + + + + + in this encounter Visit Diagnoses + + | Diagnosis | + + | ESRD (end stage renal disease) (HCC) - Primary | + + | End stage renal disease | + +"
--- OUTSIDE RECORDS SUMMARY | ~2019-02-17 | XMS | Encounter Summary ---
Demographics + + + | Address | [address] | | | [place] [address] | + + + | Home Phone | | + + + | Preferred Language | Unknown | + + + | Marital Status | | + + + | Amish Affiliation | 1061 | + + + | Race | Unknown | + + + | Ethnic Group | Unknown | + + + Author + + + | Author | [facility] | | | and [place] | + + + | Organization | [facility] | | | and [place] | + + + | Address | Unknown | + + + | Phone | Unavailable | + + + Support + + + + + | Name | Relationship | Address | Phone | + + + + + | Sole Gleason | ECON | [place] | | | | | [address] | | + + + + + | Sruthi Gleason | ECON | [place] | | | | | [address] | | + + + + + | Sole Gleason | ECON | [place] | | | | | [address] | | + + + + + Care Team Providers + +------+ + | Care Senior Ios Developer Name | Role | Phone | + +------+ + | Jack Durand DO | PCP | | + +------+ + Reason for Referral Evaluate & Treat (Routine) +--------+ + + [...] Nutrition | Squamous | Krys, | Bella Lozano, | | | Required | | cell | Bart C, | RDN | | | | | carcinoma of | MD [address] | | | | | | lung, | [address] | | | | | | unspecified | [place], | | | | | | laterality | [place] [address] | | | | | | ([facility]) | Phone: | | | | | | | [phone] | | | | | | | Fax: | | | | | | | [phone] | | +--------+ + + + + + Reason for Visit + + + | Reason | Comments | + + + | IDT Note | | + + + Encounter Details +--------+ + + + + | Date | Type | Department | Care Team | Description | +--------+ + + + + | 12/02/ | Telephone | [facility] | Sherri Fitch, | IDT Note | | 2018 | | MED CTR CHEMO | RN | | | | | INFUSION [address] | | | | | | [place], | | | | | | [place] [address] | | | | | | [phone] | | | +--------+ + + + [...] as of this encounter Plan of Treatment + +--------+ + + | Name | Priori | Associated Diagnoses | Order Schedule | | | ty | | | + +--------+ + + | * [facility] | Routin | Squamous cell | Ordered: 12/02/2018 | | Referral | e | carcinoma of lung, | | | | | unspecified | | | | | laterality (HCC) | | + +--------+ + + documented as of this encounter Visit Diagnoses + + | Diagnosis | + + | Squamous cell carcinoma of lung, unspecified laterality (HCC) - Primary | + + documented in this encounter"
--- OUTSIDE RECORDS SUMMARY | ~2019-02-17 | XMS | Encounter Summary ---
Demographics + + + | Address | [address] | | | [place] [address] | + + + | Home Phone | | + + + | Preferred Language | Unknown | + + + | Marital Status | | + + + | Quaker Affiliation [...] [place] | | | | | [address] | | + + + + + | Sruthi lGeason | ECON | [place] | | | | | [address] | | + + + + + | Sole Gleason | ECON | [place] | | | | | [address] | | + + + + + Care Team Providers + +------+ + | Care Optics Engineer Name | Role | Phone | [...] + + | 01/04/ | Telephone | [facility] | Krys | Care Coordination | | 2019 | | [facility] | Bart Cade MD [address] | | | | | ONCOLOGY CLINIC [address] [place] | | | | | [address] [place] | [place] [address] | | | | | [place] [address] | [phone] | | | | | [phone] | | | +--------+ + + + [...]
--- OUTSIDE RECORDS SUMMARY | ~2019-02-17 | XMS | Encounter Summary ---
Demographics + + + | Address | [address] | | | [place] [address] | + + + | Home Phone | | + + + | Preferred Language | Unknown | + + + | Marital Status | | + + + | Nondenominational Affiliation | 1061 | + + + | Race | Unknown | + + + | Ethnic Group | Unknown | + + + Author + + + | Author | [facility] | | | and [place] | + + + | Organization | [facility] | | | and [place] | + + + | Address | Unknown | + + + | Phone | Unavailable | + + + Support + + + + + | Name | Relationship | Address | Phone | + + + + + | Sole Gleason | ECON | [place] | | | | | [address] | | + + + + + | Sruthi Gleason | ECON | [place] | | | | | [address] | | + + + + + | Sole Gleason | ECON | [place] | | | | | [address] | | + + + + + Care Team Providers + +------+ + | Care Business Affairs Manager Name | Role | Phone | + [...] neoplasm of | Bart C, | [address] | | | | | unspecified | MD [address] | [place], | | | | | part of | [address] | [place] [address] | | | | | unspecified | [place], | Phone: | | | | | bronchus or | [place] [address] | [phone] | | | | | lung (HCC) | Phone: | Fax: | | | | | Procedures | [phone] | [phone] | | | | | [place] | Fax: | | | | | | PALONOSETRON | [phone] | | | | | | HCL, 25 MCG | | | | | | | [place] ORAL | | | | | | | DEXAMETHASON | | | | | | | E, .25 MG | | | | | | | [place] INJ., | | | | | | | APREPITANT, | | | | | | | 1 MG [place] | | | | | | | LORAZEPAM | | | | | | | INJECTION, 2 | | | | | | | MG [place] | | | | | | | CARBOPLATIN | | | | | | | INJECTION, | | | | | | | 50 MG [place] | | | | | | | GEMCITABINE | | | | | | | HCL | | | | | | | INJECTION, | | | | | | | 200 MG [place] | | | | | | | ADRENALIN | | | | | | | EPINEPHRINE | | | | | | | INJECT, .1 | | | | | | | MG [place] | | | | | | | METHYLPREDNI | | | | | | | SOLONE | | | | | | | INJECTION, | | | | | | | 125 MG [place] | | | | | | | DIPHENHYDRAM | | | | | | | INE HCL | | | | | | | INJECTIO, 50 | | | | | | | MG [place] | | | | | | | ALBUTEROL | | | | | | | COMP CON, 1 | | | | | | | MG [place] | | | | | | | ALBUTEROL | | | | | | | NON-COMP | | | | | | | CON, 1 MG | | | | | | | [place] | | | | | | | INJECTION, | | | | | | | FAMOTIDINE, | | | | | | | 20 MG [place] | | | | | | | NORMAL | | | | | | | SALINE | | | | | | | SOLUTION | | | | | | | INFUS, 500 | | | | | | | ML [place] | | | | | | | NORMAL | | | | | | | SALINE | | | | | | | SOLUTION | | | | | | | INFUS, 250 | | | | | | | ML [place] | | | | | | | STERILE | | | | | | | WATER/SALINE | | | | | | | , 10 ML [place] | | | | | | | CHEMOTHER, | | | | | | | IV PUSH,EA | | | | | | | ADD DRUG [place] | | | | | | | CHEMOTHER, | | | | | | | IV INFUSION, | | | | | | | 1 HR [place] | | | | | | | CHEMOTHER, | | | | | | | IV INFUSION, | | | | | | | EA HR [place] | | | | | | | CHEMOTHER,NO | | | | | | | N-HORMONE | | | | | | | ANTI-NEOPL, | | | | | | | SUB-Q/IM [place] | | | | | | | [...] + + | 12/15/ | Hospital | [facility] | Krys, | Non-small cell lung | | 2019 | Encounter | MED CTR CHEMO | Bart Cade MD [address] | cancer, unspecified | | | | INFUSION [address] | [address] [place] | laterality (HCC) | | | | [place], | [place] [address] | (Primary Dx); | | | | [place] [address] | [phone] | Squamous cell | | | | [phone] | | carcinoma of lung, | | [...] mL/min/1.73m2 | Zainab TARIQ | | | JORDANIAN | RATE,ESTIMATED mL/min | | MEDICAL | | | | /1.31d5Ohwd than 60 | | CENTER - | [...] [address] | [place] | [phone] | | [facility] | | [address] | | | - LABORATORY | | [...] + | [address] | [address] | [place] | [phone] | | [facility] | | [address] | | | - LABORATORY | | [...] | [address] | [place] | [phone] | | [facility] | | [address] | | | - LABORATORY | | [...]
--- OUTSIDE RECORDS SUMMARY | ~2019-02-17 | XMS | Encounter Summary ---
Demographics + + + | Address | [address] | | | [place] [address] | + + + | Home Phone | | + + + | Preferred Language | Unknown | + + + | Marital Status | | + + + | Amish Affiliation | 1061 | + + + | Race | Unknown | + + + | Ethnic Group | Unknown | + + + Author + + + | Author | [facility] | | | and [place] | + + + | Organization | [facility] | | | and [place] | + + + | Address | Unknown | + + + | Phone | Unavailable | + + + Support + + + + + | Name | Relationship | Address | Phone | + + + + + | Sole Gleason | ECON | [place] | | | | | [address] | | + + + + + | Sruthi Gleason | ECON | [place] | | | | | [address] | | + + + + + | Sole Gleason | ECON | [place] | | | | | [address] | | + + + + + Care Team Providers + +------+ + | Care Woodworking Shop Hand Name | Role | Phone | + [...] Description | +--------+--------+ + + + | 01/11/ | Refill | [facility] | Krys, | Medication Refill | | 2019 | | MED CTR MEDICAL | Bart Cade MD [address] | | | | | ONCOLOGY CLINIC [address] | [address] [place] | | | | | [place] | [place] [address] | | | | | [place] [address] | [phone] | | | | | [phone] | | | +--------+--------+ + + + [...]
--- OUTSIDE RECORDS SUMMARY | ~2019-02-17 | XMS | Encounter Summary ---
Demographics + + + | Address | [address] | | | [place] [address] | + + + | Home Phone | | + + + | Preferred Language | Unknown | + + + | Marital Status | | + + + | Baptism Affiliation | 1061 | + + + [...] [place] | | | | | [address] | | + + + + + | Sruthi Gleason | ECON | [place] | | | | | [address] | | + + + + + | Sole Gleason | ECON | [place] | | | | | [address] | | + + + + + Care Team Providers + +------+ + | Care Medical Language Specialist Name | Role | Phone | [...] | | | | | Squamous | [place], | [place], [place] | | | | | cell | [place] | [address] Phone: | | | | | carcinoma of | [address] | [phone] | | | | | lung, | Phone: | Fax: | | | | | unspecified | [phone] | [phone] | | | | | laterality | Fax: | | | | | | (HCC) | [phone] | | | | | | Procedures | | | | | | | [address] | | | + +--------+ + + + + Encounter Details +--------+ + + + + | Date | Type | Department | Care Team | Description | +--------+ + + + + | 12/15/ | Hospital | [facility] | Krys, | Neoplasm related | | 2019 | Encounter | MED CTR MEDICAL | Bart Cade MD [address] | pain; Squamous cell | | | | ONCOLOGY CLINIC [address] | [address] [place] | carcinoma of right | | | | [address] [place] | [place] [address] | lung (HCC) | | | | [place] [address] | [phone] | | | | | [phone] | | | +--------+ + + + [...] f rom the original. Hematology/Oncology Progress Note [facility] [place] Pt. Name/Age/: Shahbaz Gleason 63 y.o. 1955 Med. Record Number: [id number] Date of admission: 12/15/2018 The patient's primary care provider is Jack Durand DO. Identifying Statement: Shahbaz Gleason is a 63 y.o. male from [address] [place] [id number] with metastatic squamous cell lung cancer, and [...] the right lower lobe bronchus. Pathological specimen [id number]: Right lower bronchial lobe b ronchus biopsy [...] July 23, 2017 specimen number [id number] ([facility] [employer]) negative for malignant cells. 11. Laboratory evaluation [...] x 4 cm) lymphadenopathy. 19. Admit to [facility] in [place] between June 09, 2018 and 2018 where his left subclavian Port-A-Cath was removed due to fever of unknown origi n. 20. Admit to [facility] in [place], [place] between July 20, 2018 a July [...] operation Bilateral to osteomas LUMBAR LAMINECTOMY N/A [facility] PORTACATH PLACEMENT/REMOVAL Left 2017 SHUNT PLACEMENT/INSERTION Right 01/23/2018 Procedure: Tunneled Hemodialysis Catheter Placement; Surgeon: Catherine Bunch MD; Location : [facility] MAIN OR Social History Socioeconomic History [...] this chart may have been created with [employer] voice recognition software. Occasi onal wrong-word or [...]
--- OUTSIDE RECORDS SUMMARY | ~2019-02-17 | XMS | Encounter Summary ---
Demographics + + + | Address | [address] | | | [place] [address] | + + + | Home Phone | | + + + | Preferred Language | Unknown | + + + | Marital Status | | + + + | Mandaen Affiliation | 1061 | + + + | Race | Unknown | + + + | Ethnic Group | Unknown | + + + Author + + + | Author | [facility] | | | and [place] | + + + | Organization | [facility] | | | and [place] | + + + | Address | Unknown | + + + | Phone | Unavailable | + + + Support + + + + + | Name | Relationship | Address | Phone | + + + + + | Sole Gleason | ECON | [place] | | | | | [address] | | + + + + + | Sruthi Gleason | ECON | [place] | | | | | [address] | | + + + + + | Sole Gleason | ECON | [place] | | | | | [address] | | + + + + + Care Team Providers + +------+ + | Care Medical Records Technician Name | Role | Phone | + [...] | | | | laterality | [place] [address] | | | | | | ([facility]) | Phone: | | | | | | | [phone] | | | | | | | Fax: | | | | | | | [phone] | | +--------+ + + + + + Encounter Details +--------+ + + + + | Date | Type | Department | Care Team | Description | +--------+ + + + + | 12/08/ | Hospital | [facility] | Krys, | Squamous cell | | 2019 | Encounter | MED CTR NUTRITION | Bart Cade MD [address] | carcinoma of lung, | | | | SERVICES [address] | [address] [place] | unspecified | | | | [place], | [place] [address] | laterality (HCC) | | | | [place] [address] | [phone] | | | | | [phone] | | | | | | | [...] for nausea and vomiting. OBJECTIVE: Diet: Renal 6969-6799 cc fluid restriction (per pt) Wt Readings [...]
--- OUTSIDE RECORDS SUMMARY | ~2019-02-17 | XMS | Encounter Summary ---
Demographics + + + | Address | [address] | | | [place] [address] | + + + | Home Phone | | + + + | Preferred Language | Unknown | + + + | Marital Status | Single | + + + | Pentecostalism Affiliation | Unknown | + + + | Race | White | + + + | Ethnic Group | Not or | + + + Author + + + | Author | [facility] | + + + | Organization | [facility] | + + + | Address | Unknown | + + + | Phone | Unavailable | + + + Support + + +---------+ + | Name | Relationship | Address | Phone | + + +---------+ + | Sole Gleason | ECON | Unknown | | + + +---------+ + Care Team Providers + +------+ + | Care Sergeant Of Corrections Name | Role | Phone | + +------+ + | Tigre Dwyer DO | PCP | | + +------+ + Reason for Visit + + + | Reason | Comments | + + + | LBP - Low back pain | | + + + | Leg Pain | | + + + Consultation (Routine) +--------+--------+ + + + + | Status | Reason | Specialty | Diagnoses / | Referred By | Referred To | | | | | Procedures | Contact | Contact | +--------+--------+ + + + + | Closed | | Pain | Diagnoses | Reymundo, | Drew, | | | | Management | Other and | Tigre Coombs DO | Neema Lozano, | | | | | unspecified | [address] | MD [address] | | | | | disc | [address] | [address] | | | | | disorder of | [place], | [place], [place] | | | | | lumbar | [place] [address] | [address] | | | | | region | Phone: | Phone: | | | | | Unspecified | [phone] | [phone] | | | | | drug | Fax: | Fax: | | | | | dependence, | [phone] | [phone] | | | | | unspecified | | | +--------+--------+ + + + + Encounter Details +--------+---------+ + + + | Date | Type | Department | Care Team | Description | +--------+---------+ + + + | 09/22/ | Office | [facility] | Neema Russell, | Lumbosacral | | 2009 | Visit | Pain Center at | MD [address] | spondylosis without | | | | [facility] | [address] [place], [place] | myelopathy (Primary | | | | [address] | [address] | Dx) | | | | Mailcode: CH15P | [phone] | | | | | [facility] | | | | | | and Healing, | | | | | | Building | | | | | | Floor [place], [place] | | | | | | [address] | | | | | | [phone] | | | +--------+---------+ + + + Social History + + [...] + + + documented in this encounter Patient Instructions Patient Instructions Maritza Codrova, Crissy - 09/22/2009 4:23 PM PDT1.) Obtain new imaging. 2.) After obtaining imaging, call us to review. May be a candidate for procedures or may n eed spine surgery. 3.) Trial TENS unit. 4.) Trial Lidoderm patches. 5.) Trial amitripytline/ketamine cream. 6.) Trial gabapentin. 7.) Trial Effexor or Cymbalta. 8.) Once medications are on board, retrial physical therapy. 9.) Acupuncture. 10.) Pain psychology documented in this encounter Progress Notes Maritza Cordova, Crissy - 09/22/2009 4:14 PM PDT [facility] Office Visit 09/22/2009 Shahbaz Gleason; ; : 1955 Mr. Gleason was referred for pain management consultation by [facility] [place] [address] Reason for visit Chief Complaint Patient presents with LBP - Low back pain Leg Pain History of Present Illness: Shahbaz Gleason is a 53 year-old male with pain located in lower back, legs and a small amount of pain in the mid-thoracic area. He reports that his m ost troublesome spots include the low back and wrapping around the left hip into the left gr oin. He has been diagnosed with no specific etiology for his pain. He is referred to [facility] for consultation regarding this ongoing pain problem. Mr. Gleason's pain began with an accident at work in November 2003. He states that he fell ba ckward while carrying a heavy stack of tin. Since the onset of his pain it has changed. Mr. Gleason describes his current pain as constant and worse in the mornings and evenings. His pain is made worse by bending forward, climbing stairs, cold, exercise and lifting. H is pain is improved by bath/shower, lying down and medications. He has not been treated at a pain management center previously. Mr. Gleason's treatment has included medications such as PAIN MEDICINES: Opioids: Hydrocod one (Vicodin, Lortab, [place]): Maximum Dose: 60 mg daily , Length of Therapy: 6 years, Why st opped?: He relapsed on street drugs (heroin) and his primary care physician would no longer prescribe the hydrocodone . his nonmedication treatment has included physical therapy and injections (facet joint injec tions). He has previously trialed drug detoxification, traction, pool therapy, and TENS uni t as well. He reports marijuana use when young, cocaine and methamphetamine use in the past and recent ly discontinued the use of heroin, approximately two weeks ago. As a result of his pain, Mr. Gleason notes multiple changes in his life, including not deanna ng able to hold down a job and now having financial stress. He reports that he may not be a ble to follow-up with us given the cost of gasoline to get to [facility] from [place]. 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 Brief Pain Inventory: (ten= worst possible pain or complete interference) Right Now: 8 (09/22/091447) Least in 24 hours: 6 (09/22/091447) Worst in 24 hours: 8 (09/22/091447) Average: 8 (09/22/091447) % Relief (med/treat): 70 (09/22/091447) General Activity: 8 (09/22/091447) Mood: 8 (09/22/091447) Walking Ability: 6 (09/22/091447) Normal Work: 8 (09/22/091447) Relations with Others: 8 (05/07/10 1448) Enjoyment of Life: 9 (09/22/09 144) Sexual Activity: 10 (09/22/091447) Sleep: 8 (09/22/091447) Past Medical History Diagnosis Date Other and unspecified disc disorder of lumbar region Unspecified drug dependence, unspecified abuse Hyperlipidemia Type 2 diabetes mellitus, uncontrolled Hypertension Hep C w/o coma, chronic Adjustment reaction with anxiety and depression GERD (gastroesophageal reflux disease) Past Surgical History Procedure Date Hx knee arthroscopy Family History Problem Relation Diabetes Mother History Alcohol Use No History Drug Use Yes Special: IV hx of herion use last use 09/13/09 History Social History Narrative No narrative on file Employment/Education: His education includes some high school but he has not been working since the accident in 2003 due to pain. Allergies NKDA Current outpatient prescriptions Medication Sig buprenorphine-naloxone (SUBOXONE) 8-2 mg Sublingual Tablet, Sublingual Place 1 Tab unde r tongue. Take 2 tablets twice daily glimepiride 4 mg Oral Tablet Take 4 mg by mouth two times daily. INSULIN GLARGINE,HUM.REC.ANLOG (LANTUS SUBQ) Inject under the skin (SUBC). 40units 1-2 times daily metformin 1,000 mg Oral Tablet Take 1,000 mg by mouth two times daily. Radiology/Diagnostic Tests: Left Hip and Pelvis 06/23/2008 Impression: Degenerative change. Lumbar MR with and without Contrast, 02/12/2005 Impression: 1. Stable right paramedian disk herniation at L5-S1. 2. Annular tear at L3-4, with stable mild stenosis. 3. Congenitally narrow spinal canal. 4. Stable right paramedian free-fragment disk herniation at L1-2, with possible descending right L2 nerve root impingement. 5. 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 Lumbar Spine MRI December 2003 Impression: 1. Right paramedian disc herniation L5-S1 2. Annular tear at L3-4 with mild canal stenosis 3. Congenitally narrow spinal canal 4. Right paramedian free fragment disc herniation at L1-2 with probably descending right L2 impingement As part of today's visit the [facility] new patient questionnaire was review ed. Please refer to this document for additional details of his current pain problem, PMH, PSH, FH, SH, and ROS. In the questionnaire, Mr. Gleason indicated that his goals and expectations from today's v isit included the followin. What do you expect from our pain program? Help in coping with the pain 47. What types of treatment do you expect from your visits to the [facility] ? Don't know Visit Vitals Item Reading BP 119/83 Pulse 91 Temp(Src) 36.7 C (98 F) (Oral) Resp 16 Ht 1.803 m (5' 11") Wt 114.306 kg (252 lb) SpO2 97% Body mass index is 35.15 kg/(m^2). Review of Systems Gastrointestinal: Positive for heartburn, abdominal pain, diarrhea and constipation. Hepatitis Musculoskeletal: Positive for myalgias. Neurological: Spinal cord injury, night sweats, difficulty with sleep, weight change Endo/Heme/Allergies: Hwgjmhpo-kqvymarkrp-gojnenvegc Psychiatric/Behavioral: Positive for depression. The patient is nervous/anxious. Physical Exam Constitutional: He is oriented to person, place, and time and well-developed, well-nourishe d, and in no distress. HENT: Head: Normocephalic and atraumatic. Eyes: Pupils are equal, round, and reactive to light. Cardiovascular: Normal rate, regular rhythm and normal heart sounds. Pulmonary/Chest: Effort normal and breath sounds normal. Neurological: He is alert and oriented to person, place, and time. GAIT & STATION: left antalgic SPINE: physiologic curvature Cervical spine Curvature: flexion bias Cervical active range of motion in degrees: Full Flexion: Full; not painful Extension: Full; not painful Right rotation + extension: not painful Left rotation + extension: not painful Thoracic Spine Curvature: physiologic kyphosis Lumbar curvature: physiologic Lumbar active range of motion in degrees: 5 degrees Flexion: 5; painful Extension: Full; not painful Right rotation + extension: painful in hip Left rotation + extension: painful in hip Myofascial tenderness: none Neurological: Sensory examination: intact light touch bilaterally in upper extremities, intact light steve ch bilaterally in lower extremities, intact cold bilaterally in upper extremities and intact cold bilaterally in lower extremities Allodynia: not present Hyperalgesia: not present Hyperpathia: not present Dysesthesia: not present Motor power: Motor strength:5/5 in upper extremities bilaterally, 4/5 left lower extremity, 5/5 RLE Reflexes: Bilaterally 1/4+: triceps, biceps, brachioradialis, 2/4+ knee and ankle Babinski: not present Cranial Nerves: vision bilaterally intact,extraocular movements intact,pupils equal and res ponsive to light,palatine reflex positive,tongue range of motion symmetrical,hearing bilater ally intact,facial sensation intact to light touch,sternocleidomastoid power bilaterally 5+ Straight Leg Raise (estimated degrees): Left: normal pain at 40 degrees Right: normal pain at 40 degrees Skin: Skin is warm and dry. Ortho Exam Neurologic Exam Mental Status Oriented to person, place, and time. Cranial Nerves CN III, IV, Pupils are equal, round, and reactive to light. Impressions/Discussion: Patient Active Problem List Diagnoses Date Noted Lumbago [724.2] 09/23/2009 Low back pain [724.2A] 09/23/2009 Lumbosacral spondylosis without myelopathy [721.3] 09/22/2009 721.3 Lumbosacral spondylosis without myelopathy Mr. Gleason is a very pleasant gentleman with a long-standing history of low back pain amarilis ing back to a work injury in 2003. He has two MRIS' both of which we received today, one fr om 2003 and one from 2004. On those imaging studies, it appears that there is an annular te ar at L3-4 and a free-fragment disc herniation at L1-2 with possible L2 nerve root impingeme nt. These two etiologies could definitely be contributing to his pain. My concern is that his back has not been imaged in five years and he reports changing and worsening low back pa in with weakness, most specifically of the left lower extremity. We have asked him to obtain new imaging and to call us to review this imaging once it is ob tained. In the meantime, he should trial a TENS unit which can be prescribed by either Dr. Martinez or Dr. Dwyer. He reports that he has not trialed one before although it is listed as a previous treatment on his questionnaire today. I would also like him to trial the Lidoder m patches, 5% and wear up to two patches a day , for twelve hours at a time over his painful areas. If the Lidoderm patches are too costly, he can purchase SpaPas at [employer] which is m uch cheaper and works in a similar fashion. I would also like him to trial the 5% amitriptyline cream and the 5% ketamine cream which c an be ordered through compounding pharmacies. Gabapentin, to start at 300 mg three times da cedrick and increased by 300 mg weekly until pain control is achieved, there are intolerable grisel e effects or until at a total dose of 2100 mg daily can also be instituted. I would trial t he non-tablet therapies first because Mr. Gleason is hoping to avoid all tablet or capsule medications. If the above-mentioned therapies are not effective, he can trial either Effexor or Cymbalta . Effexor should be started at 75 mg daily and worked up to a total dose of 225 mg. He shou ld not take it with other serotonergic agents. If Effexor is not effective, duloxetine, sta rted at 30 mg daily and worked up to no more than 120 mg should be trialed. We would prefer duloxetine over Effexor but due to financial concerns on the part of Mr. Gleason have chirag mmended the duloxetine first. Acupuncture, pain psychology and physical therapy should all be done concurrently with the medications. Recommendations: 1.) Obtain new imaging. 2.) After obtaining imaging, call us to review. May be a candidate for procedures or may n eed spine surgery. 3.) Trial TENS unit. 4.) Trial Lidoderm patches. 5.) Trial amitriptyline/ketamine cream. 6.) Trial gabapentin. 7.) Trial Effexor or Cymbalta. 8.) Once medications are on board, retrial physical therapy. 9.) Acupuncture. 10.) Pain psychology We have not implemented these treatment recommendations and suggested that he discuss our c onsultation findings with his PCP, Tigre Dwyer DO. NEEMA SALAS MD [facility] [address] [facility], 4th Floor Mail Code: CH4P [place], [place] [address] documented in this encount er Plan of Treatment Not on filedocumented as of this encounter Visit Diagnoses + + | Diagnosis | + + | Lumbosacral spondylosis without myelopathy - Primary | + + documented in this encounter
--- OUTSIDE RECORDS SUMMARY | ~2019-02-17 | XMS | Encounter Summary ---
Demographics + + + | Address | [address] | | | [place] [address] | + + + | Home Phone | | + + + | Preferred Language | Unknown | + + + | Marital Status | | + + + | Latter Day Affiliation | 1061 | + + + [...] [place] | | | | | [address] | | + + + + + | Sruthi Gleason | ECON | [place] | | | | | [address] | | + + + + + | Sole Gleason | ECON | [place] | | | | | [address] | | + + + + + Care Team Providers + +------+ + | Care Caustics Loader Name | Role | Phone | + +------+ + | Jack Durand DO | PCP | | + +------+ + Encounter Details +--------+ + + + + | Date | Type | Department | Care Team | Description | +--------+ + + + + | 12/10/ | Documentati | [facility] | Krys, | | | 2019 | on | [facility] | Bart Cade MD [address] | | | | | ON[address]OG[address] CLIN[facility] [address] | [facility] | | | | | [facility] | [place] [address] | | | | | [place] [address] | [phone] | | | | | [phone] | | | +--------+ + + + [...] | Diagnosis | + + | Chronic pain syndrome | + + documented in this encounter"
--- OUTSIDE RECORDS SUMMARY | ~2019-02-17 | XMS | Encounter Summary ---
Demographics + + + | Address | [address] | | | [place] [address] | + + + | Home Phone | | + + + | Preferred Language | Unknown | + + + | Marital Status | | + + + | Hoahaoism Affiliation | 1061 | + + + | Race | Unknown | + + + | Ethnic Group | Unknown | + + + Author + + + | Author | [facility] | | | and [place] | + + + | Organization | [facility] | | | and [place] | + + + | Address | Unknown | + + + | Phone | Unavailable | + + + Support + + + + + | Name | Relationship | Address | Phone | + + + + + | Sole Gleason | ECON | [place] | | | | | [address] | | + + + + + | Sruthi Gleason | ECON | [place] | | | | | [address] | | + + + + + | Sole Gleason | ECON | [place] | | | | | [address] | | + + + + + Care Team Providers + +------+ + | Care Helper Electrical Name | Role | Phone | + [...] | | | | | Squamous | [place], | [place] | | | | | cell | [place] | [address] Phone: | | | | | carcinoma of | [address] | [phone] | | | | | lung, | Phone: | Fax: | | | | | unspecified | [phone] | [phone] | | | | | laterality | Fax: | | | | | | (HCC) | [phone] | | | | | | Procedures | | | | | | | [address] | | | + +--------+ + + + + Encounter Details +--------+ + + + + | Date | Type | Department | Care Team | Description | +--------+ + + + + | 01/21/ | Hospital | [facility] | Krys, | Malignant neoplasm | | 2019 | Encounter | MED [facility] MED[facility] | Bart Cade MD [address] | of lung, unspecified | | | | ONCOLOGY CLINIC [address] | [address] [place] | laterality, | | | | [address] [facility] [place] | [place] [address] | unspecified part of | | | | [place] [address] | [phone] | lung (HCC); Neoplasm | | | | [phone] | | related pain; | | | [...] | 87.2 kg (192 lb 3.9 | 01/21/20191307 PDT | | | oz) | | [...] TABLETS BY | 60 | 2 | 01/12/20 | | | 0.5 mg | MOUTH EVERY 4 HOURS | tablet | | 19 | | | tabletIndications: | NEEDED FOR NAUEA, | | | | | | Squamous cell | ANXIETY, [place] | | | | | | carcinoma of lung, | RESTLESSNESS. | | | | | | unspecified [...] every four | 270 | 0 | 01/22/20 | | | TABSIndications: | hours as needed for | tablet | | 19 | | | Neoplasm related | pain | [...] encounter Progress Notes Bart Marcano MD - 01/21/2019 1311 PDTFormatting of this note might be different f rom the original. Hematology/Oncology Progress Note [facility] [place] Pt. Name/Age/: Shahbaz Gleason 63 y.o. 1955 Med. Record Number: [id number] Date of admission: 01/21/2019 The patient's primary care provider is Jack Durand DO. Identifying Statement: Shahbaz Gleason is a 63 y.o. male from [address] [place] [address] [place] [address] with metastatic squamous cell lung cancer, and diabetic glomerulosc lerosis on hemodialysis. The patient chart and medications were reviewed in detail and the patient was seen and exam ined. History of Present Illnesses, their Current Assessments and Plans: Problem List Malignant neoplasm of lung Neoplasm related pain Squamous cell lung cancer [...] the right lower lobe bronchus. Pathological specimen [id number]: Right lower bronchial lobe b ronchus biopsy [...] July 23, 2017 specimen number [id number] ([facility] BLAZER & FLIP FLOPS) negative for malignant cells. 11. Laboratory evaluation [...] x 4 cm) lymphadenopathy. 19. Admit to [facility] in [facility] between June 09, 2018 and 2018 where his left subclavian Port-A-Cath was removed due to fever of unknown origi n. 20. Admit to [facility] in [place], [place] between July 20, 2018 a July [...] to carboplatin/gemcitabine chemotherapy on December 08, 2018 for a single cycle, complicated by neutropenic sepsis. Current Assessment & Plan Shahbaz Gleason returned to clinic on 01/21/2019 with his daughter for follow up of his recurrent metastatic squamous cell carcinoma to the bone. Interval history is notable for the fact that Zackery received one cycle of carboplatin/gemcita bine on December 08 and December 15, 2018 respectively. Treatment was complicated by neutropenic sep sis requiring hospitalization at [facility] in [place]. Following discharge, Zackery had a ground level fall at home and fractured his right upper extremity, which is now in a c ast. Interval history is also notable for the fact that Zackery continues on outpatient hemodialysis with infusions of vancomycin in [place] under the direction of Dr. Cheo Joaquin. Review of systems is notable for right upper extremity pain from his recent fracture. This lead to an increase in his oxycodone consumption. Clinical exam is notable for a cast on the distal right upper extremity that terminates jus t below his right AV fistula. No laboratory data from today's visit. Assessment; Recurrent metastatic squamous cell carcinoma to contralateral lung and bone x 2 7 months. Plan; Zackery and I had an extended, 25 minute [id number] encounter. Zackery does not want to seek any further active cancer treatment. However, he does not want to enroll in hospice no w because it would mean giving up on hemodialysis. Zackery reports that he is working with Dr. Gabriel mcclellan on having a peritoneal dialysis catheter place for home dialysis, which may be acceptab le to his home hospice provider provided that family members are available to support him. I n the meantime, I will continue to supply Zackery with narcotic refills for his malignant neopla sm related pain. I will be seeing Zackery again on February 03, 2019 at [facility] in [place], [place]. Review of Systems: Constitutional: Report low energy levels which continue. Denies high fevers, shaking chills , anorexia, nausea, vomiting, or night sweats. Appetite without changes. Weight dec' d fro m 92.2kg to 87.2 kg since 12/15/2018~appetite has been good per pt. Ear, Nose, Mouth, Throat: Denies odynophagia, dysphagia, or tinnitus. Cardiovascular: Denies shortness of breath, dyspnea on exertion, chest pain, palpitations o r orthopnea. Respiratory: Denies cough, hemoptysis, or sputum production. States cough has improved some . Gastrointestinal: Denies abdominal pain, diarrhea, melena, or bright red blood per rectum. ABD pain, states its all along the rib area. Constipation has turned to diarrhea as pt state s he used a suppository. Genitourinary: Denies hematuria or dysuria. Musculoskeletal: Joint pain mostly L~hip and both hips. States falling and breaking arm in his drive way a few weeks ago. Neurologic: Reports headaches occasionally, vision changes including needing readers now, o ngoing neuropathy in hands and feet unchanged. Endocrine:Denies heat/cold intolerance. Hematologic: Denies spontaneous bruising or [...] by mouth 2 times daily. (Patient not rienaldo ng: Reported on 12/15/2018) 60 tablet 0 [...] BY MOUTH EVERY 4 HOURS NEEDED FOR NA UEA, ANXIETY, OR RESTLESSNESS. 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 Admission: Weight: 87.2 kg (192 lb 3.9 oz) Wt. Current: Weight: 87.2 kg (192 lb 3.9 oz) Wt Readings from Last 3 Encounters: 01/21/19 87.2 kg (192 lb 3.9 oz) 12/15/18 92.2 kg (203 lb 4.2 oz) 12/08/18 93.9 kg (207 lb 0.2 oz) Physical Exam: General: The patient is awake and alert. No acute distress. Eyes: Conjunctiva clear. Sclera anicteric. Pupils are pinpoint. ENMT: Oropharynx fee of lesions, mucous membranes moist. Cardiovascular: Regular rate and rhythm, no rubs, gallops, or murmurs. Lungs: Absent breath sounds at the right base. Chest: There is a right upper chest double-lumen Murray catheter for dialysis. There is a left upper chest Port-A-Cath for chemotherapy which was not re-accessed today. Abdomen: Soft, nontender, no hepatospenomegaly. No palpable masses. Bowel sounds present. Extremities: There is an AV fistula with a palpable thrill in the proximal right upper extr emity. The distal right upper extremity is in a cast. Skin: There are multiple pockmarks of the skin of the upper extremities from drug abuse. Lymph: No palpable nodes in the neck, supraclavicular fossa, axilla or groin. Neurological: Face symmetric, voice articulate. Station and gait are limited by pain, he i s using a wheelcharir to ambulate. Muscular/Skeletal: No acute bony tenderness. [...] Oncol.: Bita Bojorquez., Manuel, RZainabH., Silvino Arredondo., Lester Coats., Jose, TYessica., Skylar, E.T., Kia, P .P.: Toxicity And Response Criteria [...] here or in the Assessment and Plan. Pharmacovigilance: Palliative Care: Patient's Medications New Prescriptions No medications on file Modified Medications Modified Medication Previous Medication OXYCODONE 20 MG TABS oxyCODONE 20 MG TABS 1-4 tabs every four hours as needed for pain 1-4 tabs every four hours as needed for pain Discontinued Medications No medications on file Procedure: Bart Marcano MD Portions of this chart may have been created with Oppten recognition software. Occasi onal wrong-word or sound-alike [...] unspecified laterality, unspecified part of lung (HCC) | + + | Neoplasm related pain Neoplasm related pain (acute) (chronic) | + + | Squamous cell carcinoma of right lung (HCC) | + + documented in this encounter
--- OUTSIDE RECORDS SUMMARY | ~2019-02-17 | XMS | Encounter Summary ---
Demographics + + + | Address | [address] | | | [place] [address] | + + + | Home Phone | | + + + | Preferred Language | Unknown | + + + | Marital Status | | + + + | Christian Affiliation | 1061 | + + + | Race | Unknown | + + + | Ethnic Group | Unknown | + + + Author + + + | Author | [facility] | | | and [place] | + + + | Organization | [facility] | | | and [place] | + + + | Address | Unknown | + + + | Phone | Unavailable | + + + Support + + + + + | Name | Relationship | Address | Phone | + + + + + | Sole Gleason | ECON | [place] | | | | | [address] | | + + + + + | Sruthi Gleason | ECON | [place] | | | | | [address] | | + + + + + | Sole Gleason | ECON | [place] | | | | | [address] | | + + + + + Care Team Providers + +------+ + | Care Drafter Electronic Name | Role | Phone | + +------+ + | Jack Durand DO | PCP | | + +------+ + Encounter Details +--------+ + + + + | Date | Type | Department | Care Team | Description | +--------+ + + + + | 11/17/ | Orders Only | [facility] | Gertrudis Vivar, DNP | | | 2019 | | VASCULAR SURGERY | [address] | | | | | [address]TR[address] | [place], [place] | | | | | [place] | [address] | | | | | [place], [place] | | | | | | [address] | | | | | | [phone] | | | +--------+ + + + [...] this encounter Results VAS Hemodialysis Graft Fistula (11/17/2018 15:21 PDT) + + | Specimen | + + | | + + + + + | Impressions | Performed At | + + + | Elevation of velocity seen at the anastomosis, potentially | | | reflecting narrowing. Otherwise negative study. Signed by: Feliciano | | | Dillon Valero Sign Date/Time: 11/18/2018 1:27 PM | | + + + + + + | Narrative | Performed At | + + + | UV HEMODIALYSIS ACCESS DUPLEX-COMPLICATIONS CLINICAL INFORMATION: | | | AVF (arteriovenous fistula) COMPARISON: US RENAL LIMITED (01/23/2018); | | | US KIDNEYS AND BLADDER (03/08/2017); PROCEDURE: Grayscale, color | | | Doppler and Doppler with duplex imaging with attention to the left | | | upper extremity. FINDINGS: Axillary vein: PSV: 54 cm/sec Brachial | | | artery: PSV: 228 cm/sec. Volume flow: 1,879 cc/min. Diameter: 6.8 mm. | | | Anastomosis: PSV: 861 cm/sec. Diameter: 4.1 mm. Basilic vein: | | | Distal arm: PSV: 270 cm/sec. Volume flow: 2832 cc/min: Diameter: 9.1 | | | mm. Proximal arm: PSV: 149 cm/sec. Volume flow: 3,453 cc/min: | | | Diameter: 10.8 mm. | | + + + + + | Procedure Note | + + | Eddi, Rad Conversion - 01/07/2019 1258 PDT [facility] HEMODIALYSIS ACCESS DUPLEX-COMPLICATIONS | | CLINICAL INFORMATION: | | AVF (arteriovenous fistula) | | COMPARISON: | | US RENAL LIMITED (01/23/2018); US KIDNEYS AND BLADDER (03/08/2017); | | PROCEDURE: | | Grayscale, color Doppler and Doppler with duplex imaging with attention | | to the left upper extremity. | | FINDINGS: | | Axillary vein: PSV: 54 cm/sec | | Brachial artery: PSV: 228 cm/sec. Volume flow: 1,879 cc/min. Diameter: | | 6.8 mm. | | Anastomosis: PSV: 861 cm/sec. Diameter: 4.1 mm. | | Basilic vein: | | Distal arm: PSV: 270 cm/sec. Volume flow: 2832 cc/min: Diameter: 9.1 mm. | | Proximal arm: PSV: 149 cm/sec. Volume flow: 3,453 cc/min: Diameter: | | 10.8 mm. | | IMPRESSION: | | Elevation of velocity seen at the anastomosis, potentially reflecting | | narrowing. Otherwise negative study. | | Signed by: Anjum Wiggins Amit | | Sign Date/Time: 11/18/2018 1:27 PM | + + documented in this encounter Visit Diagnoses Not on filedocumented in this encounter"
--- OUTSIDE RECORDS SUMMARY | ~2019-02-17 | XMS | Encounter Summary ---
Demographics + + + | Address | [address] | | | [place] [address] | + + + | Home Phone | | + + + | Preferred Language | Unknown | + + + | Marital Status | | + + + | Lutheran Affiliation | 1061 | + + + | Race | Unknown | + + + | Ethnic Group | Unknown | + + + Author + + + | Author | [facility] | | | and [place] | + + + | Organization | [facility] | | | and [place] | + + + | Address | Unknown | + + + | Phone | Unavailable | + + + Support + + + + + | Name | Relationship | Address | Phone | + + + + + | Sole Gleason | ECON | [place] | | | | | [address] | | + + + + + | Sruthi Gleason | ECON | [place] | | | | | [address] | | + + + + + | Sole Gleason | ECON | [place] | | | | | [address] | | + + + + + Care Team Providers + +------+ + | Care Vegetable Ii Farmworker Name | Role | Phone | + +------+ + | Jack Durand DO | PCP | | + +------+ + Reason for Visit + + + | Reason | Comments | + + + | Hospitalization | | + + + Encounter Details +--------+ + + + + | Date | Type | Department | Care Team | Description | +--------+ + + + + | 12/28/ | Telephone | [facility] | Krys, | Hospitalization | | 2019 | | MED CTR MEDICAL | Bart Cade MD [address] | | | | | ON[address]OGY CLIN[address] | [address] [place] | | | | | [address] [employer] [place] | [place] [address] | | | | | [place] [address] | [phone] | | | | | [phone] | | | +--------+ + + + [...]
--- OUTSIDE RECORDS SUMMARY | ~2019-02-17 | XMS | Clinical Summary ---
Demographics + + + | Address | [address] | | | [place] [address] | + + + | Home Phone | | + + + | Preferred Language | Unknown | + + + | Marital Status | Single | + + + | Restorationism Affiliation | Unknown | + + + | Race | White | + + + | Ethnic Group | Not or | + + + Author + + + | Author | [facility] | + + + | Organization | [facility] | + + + | Address | Unknown | + + + | Phone | Unavailable | + + + Support + + +---------+ + | Name | Relationship | Address | Phone | + + +---------+ + | Sole Gleason | ECON | Unknown | | + + +---------+ + Care Team Providers + +------+ + | Care Member Of Technical Staff Name | Role | Phone | + +------+ + | Tigre Dwyer DO | PCP | | + +------+ + Source Comments CADEN is fully live on both [facility] Ambulatory and [facility] InPatient.[facility] Allergies No Known Allergies Medications [...]
--- OUTSIDE RECORDS SUMMARY | ~2019-02-17 | XMS | Encounter Summary ---
Demographics + + + | Address | [address] | | | [place] [address] | + + + | Home Phone | | + + + | Preferred Language | Unknown | + + + | Marital Status | | + + + | Mormonism Affiliation | 1061 | + + + | Race | Unknown | + + + | Ethnic Group | Unknown | + + + Author + + + | Author | [facility] | | | and [place] | + + + | Organization | [facility] | | | and [place] | + + + | Address | Unknown | + + + | Phone | Unavailable | + + + Support + + + + + | Name | Relationship | Address | Phone | + + + + + | Sole Gleason | ECON | [place] | | | | | [address] | | + + + + + | Sruthi Gleason | ECON | [place] | | | | | [address] | | + + + + + | Sole Gleason | ECON | [place] | | | | | [address] | | + + + + + Care Team Providers + +------+ + | Care Senior Energy Trader Name | Role | Phone | + +------+ + | Jack Durand DO | PCP | | + +------+ + Reason for Visit +---------+ + | Reason | Comments | +---------+ + | Results | 01/20/19 | +---------+ + Encounter Details +--------+ + + + + | Date | Type | Department | Care Team | Description | +--------+ + + + + | 02/03/ | Documentati | [facility] | Engel, | Results (01/20/19) | | 2019 | on | NEPHROLOGY MANOLO | Di Young | | | | | [address] | High Lift Operator | | | | | [address] [place] | | | | | | [address] | | | | | | [phone] | | | +--------+ + + + [...] in this encounter Results Comprehensive Metabolic Panel (01/20/2019) + + + + + + [...] | | mL/min/1.73m2 | | | | PORTUGUESE | | | | | + + [...] + + | Blood | + + CBC w/ Auto Differential (01/20/2019) + + [...] + + | Blood | + + documented in this encounter Visit Diagnoses Not on filedocumented in this encounter"
--- OUTSIDE RECORDS SUMMARY | ~2019-02-17 | XMS | Encounter Summary ---
Demographics + + + | Address | [address] | | | [place] [address] | + + + | Home Phone | | + + + | Preferred Language | Unknown | + + + | Marital Status | Single | + + + | Jain Affiliation | 1061 | + + + | Race | Unknown | + + + | Ethnic Group | Unknown | + + + Author + + + | Author | [facility] (Historical as of | | | 01-02-19) | + + + | Organization | [facility] (Historical as of | | | 01-02-19) | + + + | Address | Unknown | + + + | Phone | Unavailable | + + + Support + + + + + | Name | Relationship | Address | Phone | + + + + + | Sruthi Gleason | ECON | [place] | | | | | [address] | | + + + + + | Sole Gleason | ECON | [place] | | | | | [address] | | + + + + + Care Team Providers + +------+ + | Care Bi Lead Name | Role | Phone | + [...] Description | +--------+---------+ + + + | 11/26/ | Surgery | [facility] | Dallas Velasquez MD | AV FISTULA - | | 2019 | | [facility] | [address] | SUPERFICIALIZATION | | | | Operating Room [address] | [place], [place] | | | | | [place] | [address] | | | | | [place] [address] | | | | | | [phone] | | | +--------+---------+ + + + Social History + +-------+ [...] skin turning blue, or fainting Call 911. [facility] AV DIALYSIS SHUNT/FISTULA DISCHARGE INSTRUCTIONS Your physician [...] + + +---------+ + + | B Oiiyqbs-S-Lyvch | Take 1 tablet by | | [...] | | | | | labs to [phone] | | | | | + + + +---------+ + + | VELPHORO 500 MG | | | | 04/05/20 | | | chewable tablet | | | | 18 | | + + + +---------+ + + as of this encounter Progress Notes Dorcas Souza RN - 11/26/2018 6:00 PM PDTDischarge instructions [...] 136 | 135 - 145 mmol/L | [facility] | + + + + + [...] 15 | 5 - 20 mmol/L | [facility] | + + + + + | GLUCOSE | 96 | 65 - 99 mg/dL | [facility] | + + + + + | BUN | 56 (H) | 8 - 25 mg/dL | [facility] | + + + + + | CREATININE | 6.20 (H) | 0.70 - 1.30 mg/dL | [facility] | + + + + + | BUN/CREAT | 9 | | [facility] | + + + + + | CALCIUM | 10.5 | 8.5 - 10.5 mg/dL | [facility] | + + + + + | EGFR | 9 (L)Comment: GFR <60: | >60 mL/min/1.73m2 | [facility] | | | CHRONIC KIDNEY DISEASE, [...] the | | | | | MDRD [facility] traceable | | | | | equation.Testing | | | | | performed at [facility];[address] | | | | | [facility];[place], [place] | | | | | [address] | | | + + + + + + + | Specimen | + + | Blood | + + + + + + + | Performing | Address | City/State/Zipcode | Phone Number | | Organization | | | | + + + + + | [facility] | [address] | [place] [address] | | + + + + + [...] Pain (1-3), | | | Fever, Starting [facility] 11/26/18 at | | | 1712 | | + +---+ | | | + +---+ + +-------+ +--------+---+---+ | bupivacaine (PF) (MARCAINE) 0.5 | Given | | 17 mLs | | | | % 30 mL in lidocaine 1 % 20 mL | | 9 16:10 | | | | | OR medication mixture PRN, | | PDT | | | | | Starting [facility] 11/26/18 at 1610, | | | | | | | Intra-op | | | | | | + +-------+ +--------+---+---+ + +---+ | | | + +---+ | fentaNYL (SUBLIMAZE) injection | | | 25 mcg 25 mcg, Intravenous, | | | Every 5 Min PRN, Pain, Option Two | | | for pain scale 1-4/10.If no | | | relief, proceed to option 3., | | | Starting [facility] 11/26/18 at 1610, | | | PACU [...] | | | | | | Starting [facility] 11/26/18 at 1610, | | | | | | | PACU | | | | | | + +-------+ +--------+---+---+ +-------+ +--------+---+---+ | Given | | 50 mcg | | | | | 9 16:35 | | | | | | PDT | | | | +-------+ +--------+---+---+ +---+---+ | | | +---+---+ + +-------+ +---+---+---+ | heparin (porcine) 5,000 Units | Given | | | | | | in sodium chloride (IV) 0.9 % 500 | | 9 15:26 | | | | | mL OR medication mixture PRN, | | PDT | | | | | Starting [facility] 11/26/18 at 1526, | | | | | | | Intra-op | | | | | | + +-------+ +---+---+---+ + +---+ | | | + +---+ | heparin flush (PF) 100 unit/mL | | | injection 300 Units 300 Units (3 | | | mL), Intracatheter, PRN, Line | | | Care, Starting [facility] 11/26/18 at | | | 1714 | | + +---+ | | | + +---+ | HYDROmorphone (DILAUDID) | | | injection 0.25 mg 0.25 mg, | | | Intravenous, Every 5 Min PRN, | | | Pain, Option Three for pain scale | | | 1-410. If no relief, contact | | | anesthesia provider., Starting | | | [facility] 11/26/18 at 1610, PACU | | + [...] | | | | | | | 5-10/10. If no relief, contact | | | | | | | anesthesia provider., Starting | | | | | | | [facility] 11/26/18 at 1610, PACU | | | [...] PRN, Nausea, Vomiting, | | | Starting [facility] 11/26/18 at 1712 | | + +---+ | | | + +---+ | ondansetron (ZOFRAN-ODT) | | | disintegrating tablet 4 mg 4 mg, | | | Oral, Every 6 Hours PRN, Nausea, | | | Vomiting, Starting [facility] 11/26/18 | | | at 1712 | [...] tolerating oral fluids, | | | Starting [facility] 11/26/18 at 1712 | | + +---+ | | | + +---+ in this encounter
--- OUTSIDE RECORDS SUMMARY | ~2019-02-17 | XMS | Encounter Summary ---
Demographics + + + | Address | [address] | | | [place] [address] | + + + | Home Phone | | + + + | Preferred Language | Unknown | + + + | Marital Status | | + + + | Temple Affiliation | 1061 | + + + | Race | Unknown | + + + | Ethnic Group | Unknown | + + + Author + + + | Author | [facility] | | | and [place] | + + + | Organization | [facility] | | | and [place] | + + + | Address | Unknown | + + + | Phone | Unavailable | + + + Support + + + + + | Name | Relationship | Address | Phone | + + + + + | Sole Gleason | ECON | [place] | | | | | [address] | | + + + + + | Sruthi Gleason | ECON | [place] | | | | | [address] | | + + + + + | Sole Gleason | ECON | [place] | | | | | [address] | | + + + + + Care Team Providers + +------+ + | Care Client Portfolio Manager Name | Role | Phone | [...] + + | 01/05/ | Telephone | [facility] | Krys | Care Coordination | | 2019 | | [facility] | Bart Cade MD [address] | | | | | [address] CL[address] | [address] | | | | | [address] | [place] [address] | | | | | [place] [address] | [phone] | | | | | [phone] | | | +--------+ + + + [...]
--- OUTSIDE RECORDS SUMMARY | ~2019-02-17 | XMS | Encounter Summary ---
Demographics + + + | Address | [address] | | | [place] [address] | + + + | Home Phone | | + + + | Preferred Language | Unknown | + + + | Marital Status | | + + + | Episcopal Affiliation | 1061 | + + + | Race | Unknown | + + + | Ethnic Group | Unknown | + + + Author + + + | Author | [facility] | | | and [place] | + + + | Organization | [facility] | | | and [place] | + + + | Address | Unknown | + + + | Phone | Unavailable | + + + Support + + + + + | Name | Relationship | Address | Phone | + + + + + | Sole Gleason | ECON | [place] | | | | | [address] | | + + + + + | Sruthi Gleason | ECON | [place] | | | | | [address] | | + + + + + | Sole Gleason | ECON | [place] | | | | | [address] | | + + + + + Care Team Providers + +------+ + | Care Accountant Name | Role | Phone | + [...] Description | +--------+--------+ + + + | 11/23/ | Refill | [facility] | Krys, | Medication Refill | | 2019 | | MED CTR MED[facility] | Bart Cade MD [address] | | | | | ON[address]OGY CL[address] | [address] [place] | | | | | [address] [place] | [place] [address] | | | | | [place] [address] | [phone] | | | | | [phone] | | | +--------+--------+ + + + [...] (HCC) - Primary | + + | Malignant neoplasm of lung, unspecified laterality, unspecified part of lung (HCC) | + + | Macroglobulinemia (HCC) Macroglobulinemia | + + documented in this encounter"
--- OUTSIDE RECORDS SUMMARY | ~2019-02-17 | XMS | Encounter Summary ---
Demographics + + + | Address | [address] | | | [place] [address] | + + + | Home Phone | | + + + | Preferred Language | Unknown | + + + | Marital Status | | + + + | Confucianist Affiliation | 1061 | + + + [...] [place] | | | | | [address] | | + + + + + | Sruthi Gleason | ECON | [place] | | | | | [address] | | + + + + + | Sole Gleason | ECON | [place] | | | | | [address] | | + + + + + Care Team Providers + +------+ + | Care Dressed Poultry Grader Name | Role | Phone | + [...] | | | | | laterality | [place] [address] | | | | | | ([facility]) | Phone: | | | | | | | [phone] | | | | | | | Fax: | | | | | | | [phone] | | +--------+ + + + + + Reason for Visit + + + | Reason | Comments | + + + | IDT Note | | + + + Encounter Details +--------+ + + + + | Date | Type | Department | Care Team | Description | +--------+ + + + + | 12/02/ | Telephone | [facility] | Sherri Fitch, | IDT Note | | 2018 | | MED CTR CHEMO | RN | | | | | INFUSION [address] | | | | | | [place], | | | | | | [place] [address] | | | | | | [phone] | | | +--------+ + + + [...]
--- OUTSIDE RECORDS SUMMARY | ~2019-02-17 | XMS | Encounter Summary ---
Demographics + + + | Address | [address] | | | [place] [address] | + + + | Home Phone | | + + + | Preferred Language | Unknown | + + + | Marital Status | Single | + + + | Adventist Affiliation | 1061 | + + + | Race | Unknown | + + + | Ethnic Group | Unknown | + + + Author + + + | Author | [facility] (Historical as of | | | 01-02-19) | + + + | Organization | [facility] (Historical as of | | | 01-02-19) | + + + | Address | Unknown | + + + | Phone | Unavailable | + + + Support + + + + + | Name | Relationship | Address | Phone | + + + + + | Sruthi Gleason | ECON | [place] | | | | | [address] | | + + + + + | Sole Gleason | ECON | [place] | | | | | [address] | | + + + + + Care Team Providers + +------+ + | Care Applied Behavior Science Specialist Name | Role | Phone | + +------+ + PCP | Unavailable | + +------+ + Encounter Details +--------+ + + + + | Date | Type | Department | Care Team | Description | +--------+ + + + + | 11/25/ | Hospital | [facility] | PoiDallas MD | | | 2019 | [facility] | [address] | | | | | Preadmission | E [place], [place] | | | | | Services [address] | [address] | | | | | [address] [place], [place] | | | | | | [...] shunt, please contact your ph ysician at [phone]. Outpatient Prescriptions Marked as Taking for the 11/25/18 encounter (Hospital Encounter) [facility] ROOM 3 Medication Sig INSTRUCTIONS aspirin 81 MG tablet Take 81 mg by mouth daily. HOLD prior to procedure. Take last dose per Dr Instructions. B Fzaerxi-D-Pxhlm Acid (DIALYVITE TABLET) TABS Take 1 tablet [...] + + +---------+ + + | B Iszmvdt-S-Uipkb | Take 1 tablet by | | [...] | | | | | | | [phone] to | | | | | | | schedule follow | | | | | | | upPlease fax all | | | | | | | labs to [phone] | | | | | + + [...] + | SOURCE | NARES(NOSE) | | [facility] | + + + + + | MRSA PCR | NEGATIVEComment: Testing | NEGATIVE | [facility] | | | performed at [facility];[address] | | | | | [address];[place] | | | | | [address] | | | + + + + + + + | Specimen | + + | Nasopharyngeal - | | Nares(Nose) | + + + + + + + | Performing | Address | City/State/Zipcode | Phone Number | | Organization | | | | + + + + + | [facility] | [address] | [place] [address] | | + + + + + [...] [address], | | | | | [place] [address] | | | | | | | | + + + + + + + | Specimen | + + | Blood | + + + + + + + | Performing | Address | City/State/Zipcode | Phone Number | | Organization | | | | + + + + + | [facility] | [address] | [place] [address] | [phone] | | LABORATORY | [address] | | [...] (H) | 8.5 - 10.5 mg/dL | [facility] | | | | | LAB[facility] [...] | | | | | performed at [facility], [address] | | | | | [facility], | | | | | [place] [address] | | | + + + + + + + | Specimen | + + | Blood | + + + + + + + | Performing | Address | City/State/Zipcode | Phone Number | | Organization | | | | + + + + + | [facility] | [address] | [place] [address] | [phone] | | LABORATORY | [address] | | | + + + + + in this encounter Visit Diagnoses Not on filein this encounter
--- OUTSIDE RECORDS SUMMARY | ~2019-02-17 | XMS | Clinical Summary ---
Demographics + + + | Address | [address] | | | [place] [address] | + + + | Home Phone | | + + + | Preferred Language | Unknown | + + + | Marital Status | | + + + | Nondenominational Affiliation | 1061 | + + + | Race | Unknown | + + + | Ethnic Group | Unknown | + + + Author + + + | Author | [facility] | | | and [place] | + + + | Organization | [facility] | | | and [place] | + + + | Address | Unknown | + + + | Phone | Unavailable | + + + Support + + + + + | Name | Relationship | Address | Phone | + + + + + | Sole Gleason | ECON | [place] | | | | | [address] | | + + + + + | Sruthi Gleason | ECON | [place] | | | | | [address] | | + + + + + | Sole Gleason | ECON | [place] | | | | | [address] | | + + + + + Care Team Providers + +------+ + | Care Working Manager Name | Role | Phone | [...] | | lower lobe bronchus. Pathological specimen [id number]: Right | | lower bronchial lobe bronchus [...] July 23, 2017 specimen number | | [id number] ([id number]) negative for | | malignant cells.11. Laboratory [...] 4 cm) | | lymphadenopathy.19. Admit to [facility] in [place] | | [place] between June 09, 2018 and June 25, 2018 where | | his left subclavian Port-A-Cath was removed due to fever of | | unknown origin.20. Admit to [facility] in | | [place], [place] between July 20, 2018 and July [...] neutropenic sepsis | | requiring hospitalization at [facility] in [place]. | | Following discharge, Zackery had a ground level fall at home and | | fractured his right upper extremity, which is now in a | | cast.Interval history is also notable for the fact that Zackery | | continues on outpatient hemodialysis with infusions of vancomycin | | in [place] under the direction of Dr. Cheo Joaquin. [...] had an extended, 25 | | minute gwyru-ya-dnkcrci encounter. Zackery does not want to seek [...] | | on February 03, 2019 at [facility] in [place], | | [place]. | + + + [...] treat at this time. See how the ROQUE helps. | + + + [...] Medical | | | | | | Stamp Analyst | | +--------+ + + + + [...] | | mL/min/1.73m2 | | | | [place] | | | | | + + [...] [address] | [place] | [phone] | | [facility] | | [address] | | | - LABORATORY | | [...] method | 120 - 246 U/L | [facility] | | | | in use as of June | | [facility] | | | | 2018. [...] + | [address] | [address] | [place], [place] | [phone] | | [facility] | | [address] | | | - LABORATORY | | [...] | | | | | | MDRD IDKS traceable | | | | | | equation.Testing | | | | | | performed at [facility];[address] | | | | | | [facility];[place], [place] | | | | | | [address] | | | | + + + [...] LAB | | | | performed at [facility], [address] | | | | | | [facility], | | | | | | [place] [address] | | | | | | | [...] NEGATIVE | | | Testing performed at [facility];[address] [place] [address];[place] [address] | | + + + + +---------+ [...] | [employer] | [facility] | [id number] | 05/19/19 | | | Medica | [...] Person | Self | [birth year] | | [address] | | | al/Fam | | 1956 | [phone] | [place] | | | [place] | | | [address] (Home) | [address] | + +--------+ +--------+ + + | VictorinoShahbaz Mcpherson | Person | Self | [birth year] | | [address] | | | al/Ravi | | 1956 | [phone] | [place] | | | [place] | | | 6 (Home) | [address] | + +--------+ +--------+ + + Advance Directives Patient has advance care planning documents, and code status on file. For more information, please contact:[facility] [place] [address] + + + + + | Code [...]
--- OUTSIDE RECORDS SUMMARY | ~2019-02-17 | XMS | Encounter Summary ---
Demographics + + + | Address | [address] | | | [place] [address] | + + + | Home Phone | | + + + | Preferred Language | Unknown | + + + | Marital Status | | + + + | Restorationism Affiliation | 1061 | + + + | Race | Unknown | + + + | Ethnic Group | Unknown | + + + Author + + + | Author | [facility] | | | and [place] | + + + | Organization | [facility] | | | and [place] | + + + | Address | Unknown | + + + | Phone | Unavailable | + + + Support + + + + + | Name | Relationship | Address | Phone | + + + + + | Sole Gleason | ECON | [place] | | | | | [address] | | + + + + + | Sruthi Gleason | ECON | [place] | | | | | [address] | | + + + + + | Sole Gleason | ECON | [place] | | | | | [address] | | + + + + + Care Team Providers + +------+ + | Care Filter Helper Name | Role | Phone | [...] | | | | laterality | [place] [address] | | | | | | ([facility]) | Phone: | | | | | | | [phone] | | | | | | | Fax: | | | | | | | [phone] | | +--------+ + + + + + Encounter Details +--------+ + + + + | Date | Type | Department | Care Team | Description | +--------+ + + + + | 12/08/ | Hospital | [facility] | Krys, | 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 OBJECTIVE: Diet: Renal 3872-4606 cc fluid restriction (per pt) Wt Readings [...]
--- OUTSIDE RECORDS SUMMARY | ~2019-02-17 | XMS | Encounter Summary ---
Demographics + + + | Address | [address] | | | [place] [address] | + + + | Home Phone | | + + + | Preferred Language | Unknown | + + + | Marital Status | Single | + + + | Orthodox Affiliation | 1061 | + + + | Race | Unknown | + + + | Ethnic Group | Unknown | + + + Author + + + | Author | [facility] (Historical as of | | | 01-02-19) | + + + | Organization | [facility] (Historical as of | | | 01-02-19) | + + + | Address | Unknown | + + + | Phone | Unavailable | + + + Support + + + + + | Name | Relationship | Address | Phone | + + + + + | Sruthi Gleason | ECON | [place] | | | | | [address] | | + + + + + | Sole Gleason | ECON | [place] | | | | | [address] | | + + + + + Care Team Providers + +------+ + | Care Wire Spring Relay Adjuster Name | Role | Phone | + +------+ + PCP | Unavailable | + +------+ + Reason for Visit +--------+ + | Reason | Comments | +--------+ + | Other | Hematology and Oncology Progess note faxed Aby Mane ([phone]) | | | [phone] | +--------+ + Encounter Details +--------+ + + + + | Date | Type | Department | Care Team | Description | +--------+ + + + + | 12/21/ | Documentati | [facility] | Cheo Joaquin MD | Other (Hematology | | 2019 | on Only | [address] | and Oncology Progess | | | | [address] | [address] [place], [place] | note faxed Aby | | | | [place] [address] | [address] | Antonietta ([phone]) | | | | [phone] | | [phone]) | +--------+ + + + + Social [...]
--- OUTSIDE RECORDS SUMMARY | ~2019-02-17 | XMS | Encounter Summary ---
Demographics + + + | Address | [address] | | | [place] [address] | + + + | Home Phone | | + + + | Preferred Language | Unknown | + + + | Marital Status | | + + + | Protestant Affiliation | 1061 | + + + | Race | Unknown | + + + | Ethnic Group | Unknown | + + + Author + + + | Author | [facility] | | | and [place] | + + + | Organization | [facility] | [...] [place] | | | | | [address] | | + + + + + | Sruthi Gleason | ECON | [place] | | | | | [address] | | + + + + + | Sole Gleason | ECON | [place] | | | | | [address] | | + + + + + Care Team Providers + +------+ + | Care News Reporter Name | Role | Phone | + +------+ + | Jack Durand DO | PCP | | + +------+ + Encounter Details +--------+ + + + + | Date | Type | Department | Care Team | Description | +--------+ + + + + | 11/25/ | Hospital | [facility] | Conversion | | | 2019 | Encounter | CENTER [facility] | Transaction, | | | | | CLINIC [address] | Provider Unknown | | | | | [address] [place], [place] | [phone] | | | | | [address] | | | | | | [phone] | | | +--------+ + + + [...] NEGATIVE | | | Testing performed at [facility];[address] [place] [address];[place] [address] | | + + + + +---------+ [...] LAB | | | | performed at [facility], [address] | | | | | | [place], | | | | | | [place] [address] | | | | | | | [...] | | | | | performed at [facility], [address] | | | | | | [facility], | | | | | | [place] [address] | | | | + + + [...]
--- OUTSIDE RECORDS SUMMARY | ~2019-02-17 | XMS | Encounter Summary ---
Demographics + + + | Address | [address] | | | [place] [address] | + + + | Home Phone | | + + + | Preferred Language | Unknown | + + + | Marital Status | | + + + | Mu-Ism Affiliation | 1061 | + + + | Race | Unknown | + + + | Ethnic Group | Unknown | + + + Author + + + | Author | [facility] | | | and [place] | + + + | Organization | [facility] | | | and [place] | + + + | Address | Unknown | + + + | Phone | Unavailable | + + + Support + + + + + | Name | Relationship | Address | Phone | + + + + + | Sole Gleason | ECON | [place] | | | | | [address] | | + + + + + | Sruthi Gleason | ECON | [place] | | | | | [address] | | + + + + + | Sole Gleason | ECON | [place] | | | | | [address] | | + + + + + Care Team Providers + +------+ + | Care Inventory Specialist Name | Role | Phone | + +------+ + | Jack Durand DO | PCP | | + +------+ + Reason for Visit + + + | Reason | Comments | + + + | Results, Critical | | + + + Encounter Details +--------+ + + + + | Date | Type | Department | Care Team | Description | +--------+ + + + + | 01/04/ | Telephone | [facility] | Cheo Joaquin MD | Results, Critical | | 2019 | | NEPHROLOGY [place] | [address] [place] | | | | | [address] [place] | [address] [place] | | | | | [address] [place] | [id number] | | | | | [address] | | | | | | [phone] | | | +--------+ + + + [...]
--- OUTSIDE RECORDS SUMMARY | ~2019-02-17 | XMS | Encounter Summary ---
Demographics + + + | Address | [address] | | | [place] [address] | + + + | Home Phone | | + + + | Preferred Language | Unknown | + + + | Marital Status | | + + + | Samaritan Affiliation | 1061 | + + + | Race | Unknown | + + + | Ethnic Group | Unknown | + + + Author + + + | Author | [facility] | | | and [place] | + + + | Organization | [facility] | | | and [place] | + + + | Address | Unknown | + + + | Phone | Unavailable | + + + Support + + + + + | Name | Relationship | Address | Phone | + + + + + | Sole Gleason | ECON | [place] | | | | | [address] | | + + + + + | Sruthi Gleason | ECON | [place] | | | | | [address] | | + + + + + | Sole Gleason | ECON | [place] | | | | | [address] | | + + + + + Care Team Providers + +------+ + | Care Stemming Machine Operator Name | Role | Phone | [...] + + | 12/28/ | Telephone | [facility] | Krys, | Hospitalization | | 2019 | | MED CTR MEDICAL | Bart Cade MD [address] | | | | | [address] | [address] | | | | | [address] | [place] [address] | | | | | [place] [address] | [phone] | | | | | [phone] | | | +--------+ + + + [...]
--- OUTSIDE RECORDS SUMMARY | ~2019-02-17 | XMS | Encounter Summary ---
Demographics + + + | Address | [address] | | | [place] [address] | + + + | Home Phone | | + + + | Preferred Language | Unknown | + + + | Marital Status | Single | + + + | Temple Affiliation | 1061 | + + + | Race | Unknown | + + + | Ethnic Group | Unknown | + + + Author + + + | Author | [facility] [employer] (Historical as of | | | 01-02-19) | + + + | Organization | [facility] [employer] (Historical as of | | | 01-02-19) | + + + | Address | Unknown | + + + | Phone | Unavailable | + + + Support + + + + + | Name | Relationship | Address | Phone | + + + + + | Sruthi Gleason | ECON | [place] | | | | | [address] | | + + + + + | Sole Gleason | ECON | [place] | | | | | [address] | | + + + + + Care Team Providers + +------+ + | Care Landscape Technician Name | Role | Phone | + +------+ + | None, Per Pt | PCP | [id number] | + +------+ + Reason for Visit + + + | Reason | Comments | + + + | Follow-up | AVF check | + + + Encounter Details +--------+---------+ + + + | Date | Type | Department | Care Team | Description | +--------+---------+ + + + | 11/17/ | Office | [facility] | Gertrudis Vivar DNP | ESRD (end stage | | 2019 | Visit | Vascular Surgery | [address] | renal disease) ([facility]) | | | | [address] | [place], [place] | (Primary Dx); AVF | | | | [place], [place] | [address] | (arteriovenous | | | | [address] | | fistula) ([facility]) | | | | [phone] | | | +--------+---------+ + + + [...] this encounter Last Filed Vital Signs + +---------+ + | Vital Sign | Reading | Time Taken | + +---------+ + | Blood Pressure | 143/82 | 11/17/2018 3:15 PM PDT | + +---------+ + | Pulse | 113 | 11/17/2018 3:15 PM PDT | + +---------+ + | Temperature | - | - | + +---------+ + | Respiratory Rate | - | - | + +---------+ + | Oxygen Saturation | 94% | 11/17/2018 3:15 PM PDT | + +---------+ + | Inhaled Oxygen | - | - | | Concentration | | | + +---------+ + | Weight | - | - | + +---------+ + | Height | - | - | + +---------+ + | Body Mass Index | - | - | + +---------+ + in this encounter Progress Notes Gertrudis Vivar DNP - 11/17/2018 4:00 PM PDTFormatting of this note may be different from the or iginal. [facility] [address] [place] [address] [place] [address] Office: [phone] DATE OF VISIT: 11/17/2018 PATIENT NAME: Shahbaz Gleason : 1955; AGE: 62 y.o.; Sex:M PHONE NUMBER: ; ; PROVIDER: Gertrudis Vivar DNP PRIMARY CARE / REFERRING PHYSICIAN: Nancy Galvan / Wilfredo GARCIA None / No address on file REASON FOR EVALUATION / CHIEF COMPLAINT: right arm basilic Vein Elevation HISTORY OF PRESENT ILLNESS: Shahbaz Gleason is a 62 y.o. male patient who wa s diagnosed with end-staged renal disease and underwent a right brachiobasilic AVF creatio n on 04/30/2018. Although the AVF was patent, it has been difficult to palpate the AVF marc w on physical exam due in part to the patient's anatomy. The patient has returned to [facility] surgery clinic for the evaluation of the second staged procedure of basilic vein elevati on which will facilitate needle cannulation during hemodialysis. The patient voiced no compl aints as the patient is currently received hemodialysis via a jugular vein permacath without difficulty. The patient denied any wound infection, wound separation, significant arm swell ing or pain following the brachiobasilic AVF creation operation. He presently has a good marc w in his right brachiobasilic AVF. Patient's daughter reports he recently has chemo port chuy ce in his left upper chest and will start chemo therapy soon. PAST SURGICAL HISTORY: The patient's has a past surgical history that includes Adenoidecto my; unlisted procedure arthroscopy; Knee surgery; Mediport insertion, single; Hardware Prese nt; Colonoscopy; and AV fistula placement (Right, 04/30/2018). PAST MEDICAL HISTORY: The patient has a past medical history of Arthralgia; Chronic kidney disease; Chronic obstructive pulmonary disease (HCC); Diabetes mellitus type II; Diabetic n europathy (HCC); ESRD (end stage renal disease) (HCC); Hepatitis C; Heroin abuse (HCC); Hype rtension; Lung cancer (HCC); Malignant neoplasm (HCC); Neuromyopathy (HCC); Osteoarthritis; Osteochondritis; and Other chronic pain. FAMILY HISTORY: The patient's family history includes Cancer in his father and mother; Diab etes in his mother. CURRENT MEDICATIONS: Current Outpatient Prescriptions Medication Sig Dispense Refill B Zqzkmhh-Z-Ebyhi Acid (DIALYVITE TABLET) TABS Take 1 tablet by mouth. B-D INS SYRINGE 0.5CC/30GX1/2" 30G X 1/2" 0.5 ML MISC budesonide-formoterol (SYMBICORT) 80-4.5 MCG/ACT inhaler Inhale 2 puffs into the lungs 2 (two) times daily. 1 Inhaler 1 Cholecalciferol 1000 units capsule Take 1,000 Units by mouth daily. Doxercalciferol 2 MCG/ML SOLN Inject 0.5 mcg into the vein. DULoxetine (CYMBALTA) [address] capsule Take 60 mg by mouth. furosemide (LASIX) 80 MG tablet Take 80 mg by mouth. gabapentin (NEURONTIN) 800 MG tablet Take 100 mg by mouth 2 (two) times daily. 12 insulin glargine (LANTUS) 100 UNIT/ML injection Inject 30 Units into the skin nightly. (Patient not taking: Reported on 04/30/2018) 10 mL 12 lansoprazole (PREVACID) 30 MG capsule Take 30 mg by mouth nightly. lisinopril (ZESTRIL) 10 MG tablet Take 10 mg by mouth. LORazepam (ATIVAN) 0.5 MG tablet Take 0.5 mg by mouth every 4 (four) hours as needed fo r Anxiety (1-2 tablets). 4 ondansetron (ZOFRAN) 8 MG tablet Take 8 mg by mouth 2 (two) times daily as needed. 5 OxyCODONE (OXYCONTIN) 40 MG 12 hr tablet 0 sertraline (ZOLOFT) 50 MG tablet Take 50 mg by mouth daily. 11 sevelamer (RENVELA) 800 MG tablet Take 800 mg by mouth 3 (three) times daily with meals . vancomycin (VANCOCIN) 1000 mg injection 1000 mg after each hemodialysis unitl 08/23/18 Cbc cmp esr crp q Fridayand Vancomycin trough q Friday Follow up with DR. Haas in 1 weeks Please call to schedule follow up Please fax all labs to [phone] 7 each 3 VELPHORO 500 MG chewable tablet No current facility-administered medications for this visit. No Known Allergies SOCIAL HISTORY: reports that he has been smoking. He has a 22.50 pack-year smoking histor y. He has never used smokeless tobacco. He reports that he uses drugs, including Heroin. He reports that he does not drink alcohol. REVIEW OF SYSTEMS: General: negative for - night sweats, weight gain or weight loss. Ophthalmic: negative for - double vision or loss of vision. Positive for decreased vision. ENT: negative for - nasal congestion, oral lesions, sinus pain, earache, ear discharge, or tinnitus. Neck: negative for - neck pain, neck stiffness, swollen gland, or thyroid enlargement. Respiratory: no cough, sputum production, hemoptysis. He has COPD. Cardiovascular: no chest pain, orthopnea Gastrointestinal: no abdominal pain, change in bowel habits, jaundice, constipation, or gin ck or bloody stools Genito-Urinary: no dysuria, trouble voiding, or hematuria Musculoskeletal: negative for - joint stiffness, joint swelling or bone pain. He has chroni c lower back pain and neck pain secondary to an accident while working over five years ago, he reports he had back surgery 6 months ago. He also has right shoulder pain. Neurological: negative for - behavioral changes, headaches, impaired coordination, loss of balance, tingling sensation, dizziness, seizure or weakness. He reports he has memory diffic ulty. Dermatological: negative for - mole changes, nail changes, skin lesion changes, or skin dis coloration.Multiple bilateral arms scar from drug injection Hematological and Lymphatic: negative for - bleeding problems, blood clots, bruising, fatig ue, swollen lymph nodes. He has anemia with chronic disease, hep C, lung cancer starting santo motherapy. Endocrine: negative for thyroid disease, heat or cold intolerance, polyuria, or polydipsia. He gas Diabetes Mellitus. Psychiatric: negative for depression, sleep disturbance, suicidal ideation, anxiety disor rivas, history of hallucinations. He has history of IV drug use, his daughter reports he has n ot used it in 5-6 months. He is taking prescribed narcotic for chronic pain management. VITAL SIGNS: BP 143/82 (BP Location: Left forearm, Patient Position: Sitting) | Pulse 113 | SpO2 94% PHYSICAL EXAM: Constitutional: Well nourished, no signs of distress HENT: Normocephalic and atraumatic. Cranial nerves IIXI are grossly intact. Cardiovascular: Normal rate, regular rhythm. Pulmonary/Chest: No respiratory distress. Right upper chest tunneled catheter in place. Med iport in left upper chest. Abdominal: Soft. No abdominal distension or tenderness. Musculoskeletal: Normal range of motion. Extremities: No cyanosis or clubbing. Neurological: He is oriented x 2, somnolence appearing. VASCULAR: Examination of the right upper extremity showed the presence of good thrills in h is brachiobasilic AVF. IMAGINGS: 11/17/2018 US AVF Widely patent AVF Volume flow normal 3.9 fold increase at anastmosis ASSESSMENT & PLAN: End-Stage Renal Disease - The patient is status post first staged right brachiobasilic AVF creation. Due to his underlying arm anatomy, the patient will require a second staged b asilic vein elevation procedure to facilitate needle access for hemodialysis. We plan to pe rform a second staged right basilic vein transposition procedure to complete the right brach iobasilic AVF creation. The purpose of this operation is to elevate the basilic vein so the AVF is located in a superficial subcutanous space which will facilitate dialysis needle acce ss. Potential risks of the planned procedure is wound infection, bleeding, hematoma formatio n, and AVF thrombosis. Benefits and risks of operation were explained to the patient, and th e patient agreed to proceed. The planned procedure of right basilic vein transposition pro marylin is scheduled for 11/26/2018 at [facility] Operating Room. Gertrudis Vivar DNP in this encounter Plan of Treatment Not on fileas of this encounter Procedures + +--------+ + + + | Procedure Name | Priori | Date/Time | Associated Diagnosis | Comments | | | ty | | | | + +--------+ + + + | CASE REQUEST | Routin | 11/17/2018 | | | | OPERATING ROOM | e | 4:26 PM | | | | | | PDT | | | + +--------+ + + + in this encounter Visit Diagnoses + + | Diagnosis | + + | ESRD (end stage renal disease) ([facility]) - Primary | + + | End stage renal disease | + + | AVF (arteriovenous fistula) ([facility]) | + + | Arteriovenous fistula, acquired | + +
--- OUTSIDE RECORDS SUMMARY | ~2019-02-17 | XMS | Encounter Summary ---
Demographics + + + | Address | [address] | | | [place] [address] | + + + | Home Phone [...] Author + + + | Author | [employer] (Historical as of | | | 01-02-19) | + + + | Organization | [facility] [employer] (Historical as of | | | 01-02-19) | + + + | Address | Unknown | + + + | Phone | Unavailable | + + + Support + + + + + | Name | Relationship | Address | Phone | + + + + + | Sruthi Gleason | ECON | [place], [place] | | | | | [address] | | + + + + + | Sole Gleason | ECON | [place] | | | | | [address] | | + + + + + Care Team Providers + +------+ + | Care Ux Architect Name | Role | Phone | + +------+ + PCP | Unavailable | + +------+ + Encounter Details +--------+ + + + + | Date | Type | Department | Care Team | Description | +--------+ + + + + | 11/26/ | Procedure | [facility] | | | | 2019 | [facility] | | | | | | Operating Room [address] | | | | | | [facility] | | | | | | [place] [address] | | | | | | [phone] | | | +--------+ + + + [...]
--- OUTSIDE RECORDS SUMMARY | ~2019-02-17 | XMS | Encounter Summary ---
Demographics + + + | Address | [address] | | | [place] [address] | + + + | Home Phone [...] [place] | | | | | [address] | | + + + + + | Sruthi Gleason | ECON | [place] | | | | | [address] | | + + + + + | Sole Gleason | ECON | [place] | | | | | [address] | | + + + + + Care Team Providers + +------+ + | Care Network Architect Name | Role | Phone | [...] + + | 01/05/ | Telephone | [facility] | Krys | Care Coordination | | 2019 | | MED [facility] | Bart Cade MD [address] | | | | | [address] | [address] | | | | | [address] [place] | [place] [address] | | | | | [place] [address] | [phone] | | | | | [phone] | | | +--------+ + + + [...]
--- OUTSIDE RECORDS SUMMARY | ~2019-02-17 | XMS | Encounter Summary ---
Demographics + + + | Address | [address] | | | [place] [address] | + + + | Home Phone | | + + + | Preferred Language | Unknown | + + + | Marital Status | | + + + | Episcopalian Affiliation | 1061 | + + + | Race | Unknown | + + + | Ethnic Group | Unknown | + + + Author + + + | Author | [facility] | | | and [place] | + + + | Organization | [facility] | | | and [place] | + + + | Address | Unknown | + + + | Phone | Unavailable | + + + Support + + + + + | Name | Relationship | Address | Phone | + + + + + | Sole Gleason | ECON | [place] | | | | | [address] | | + + + + + | Sruthi Gleason | ECON | [place] | | | | | [address] | | + + + + + | Sole Gleason | ECON | [place] | | | | | [address] | | + + + + + Care Team Providers + +------+ + | Care [employer] Special Education Teacher Name | Role | Phone | + +------+ + | Jack Durand DO | PCP | | + +------+ + Encounter Details +--------+ + + + + | Date | Type | Department | Care Team | Description | +--------+ + + + + | 01/04/ | Care | [facility] | Krys, | | | 2019 | Coordinatio | MED CTR MEDICAL | Bart Cade MD [address] | | | | n | [address] CL[address] | [facility] | | | | | [address] [facility] | [place] [address] | | | | | [place] [address] | [phone] | | | | | [phone] | | | +--------+ + + + [...]
--- OUTSIDE RECORDS SUMMARY | ~2019-02-17 | XMS | Encounter Summary ---
Demographics + + + | Address | [address] | | | [place] [address] | + + + | Home Phone | | + + + | Preferred Language | Unknown | + + + | Marital Status | | + + + | Taoism Affiliation | 1061 | + + + | Race | Unknown | + + + | Ethnic Group | Unknown | + + + Author + + + | Author | [facility] | | | and [place] | + + + | Organization | [facility] | | | and [place] | + + + | Address | Unknown | + + + | Phone | Unavailable | + + + Support + + + + + | Name | Relationship | Address | Phone | + + + + + | Sole Gleason | ECON | [place] | | | | | [address] | | + + + + + | Sruthi Gleason | ECON | [place] | | | | | [address] | | + + + + + | Sole Gleason | ECON | [place] | | | | | [address] | | + + + + + Care Team Providers + +------+ + | Care Oncology Transplant Network Manager Name | Role | Phone | + +------+ + | Jack Durand DO | PCP | | + +------+ + Encounter Details +--------+ + + + + | Date | Type | Department | Care Team | Description | +--------+ + + + + | 11/17/ | Orders Only | [facility] | Gertrudis iVvar, DNP | | | 2019 | | VASCULAR SURGERY | [address] | | | | | [address] | [place], [place] | | | | | [address] | [address] | | | | | [place], [place] | | | | | | [address] | | | | | | [phone] | | | +--------+ + + + [...]
--- OUTSIDE RECORDS SUMMARY | ~2019-02-17 | XMS | Encounter Summary ---
Demographics + + + | Address | [address] | | | [place] [address] | + + + | Home Phone | | + + + | Preferred Language | Unknown | + + + | Marital Status | Single | + + + | Tenriism Affiliation | 1061 | + + + | Race | Unknown | + + + | Ethnic Group | Unknown | + + + Author + + + | Author | [employer] (Historical as of | | | 01-02-19) | + + + | Organization | [facility] [employer] (Historical as of | | | 01-02-19) | + + + | Address | Unknown | + + + | Phone | Unavailable | + + + Support + + + + + | Name | Relationship | Address | Phone | + + + + + | Sruthi Gleason | ECON | [place] | | | | | [address] | | + + + + + | Sole Gleason | ECON | [place] | | | | | [address] | | + + + + + Care Team Providers + +------+ + | Care Avionics Mechanic Name | Role | Phone | + +------+ + PCP | Unavailable | + +------+ + Encounter Details +--------+ + + + + | Date | Type | Department | Care Team | Description | +--------+ + + + + | 12/07/ | Telephone | [facility] | Jany Avila, | | | 2018 | | Vascular Surgery | [facility]TER | | | | | [address] | | | | | | [place] | | | | | | [address] | | | | | | [phone] | | | +--------+ + + + [...] | + + + + + | [facility] | [address] | [place] [address] | | + + + + + in this encounter Visit Diagnoses + + | Diagnosis | + + | ESRD (end stage renal disease) (HCC) - Primary | + + | End stage renal disease | + +"
--- OUTSIDE RECORDS SUMMARY | ~2019-02-17 | XMS | Encounter Summary ---
Demographics + + + | Address | [address] | | | [place] [address] | + + + | Home Phone | | + + + | Preferred Language | Unknown | + + + | Marital Status | | + + + | Judaism Affiliation | 1061 | + + + [...] [place] | | | | | [address] | | + + + + + | Sruthi Gleason | ECON | [place] | | | | | [address] | | + + + + + | Sole Gleason | ECON | [place] | | | | | [address] | | + + + + + Care Team Providers + +------+ + | Care Burner Machine Operator Name | Role | Phone [...] + + | 01/04/ | Telephone | [facility] | Krys | Care Coordination | | 2019 | | MED [facility] MEDICAL | Bart Cade MD [address] | | | | | [address] CL[address] | [address] | | | | | [address] | [place] [address] | | | | | [place] [address] | [phone] | | | | | [phone] | | | +--------+ + + + [...]
--- OUTSIDE RECORDS SUMMARY | ~2019-02-17 | XMS | Encounter Summary ---
Demographics + + + | Address | [address] | | | [place] [address] | + + + | Home Phone | | + + + | Preferred Language | Unknown | + + + | Marital Status | | + + + | Taoist Affiliation | 1061 | + + + | Race | Unknown | + + + | Ethnic Group | Unknown | + + + Author + + + | Author | [facility] | | | and [place] | + + + | Organization | [facility] | | | and [place] | + + + | Address | Unknown | + + + | Phone | Unavailable | + + + Support + + + + + | Name | Relationship | Address | Phone | + + + + + | Sole Gleason | ECON | [place] | | | | | [address] | | + + + + + | Sruthi Gleason | ECON | [place] | | | | | [address] | | + + + + + | Sole Gleason | ECON | [place] | | | | | [address] | | + + + + + Care Team Providers + +------+ + | Care Ceramic Tile Installer Name | Role | Phone | + [...] | | | ONCOLOGY CLINIC [address] | [facility] [place] | | | | | [address] | [place] [address] | | | | | [place] [address] | [phone] | | | | | [phone] | | | +--------+--------+ + + + [...]
--- OUTSIDE RECORDS SUMMARY | ~2019-02-17 | XMS | Encounter Summary ---
Demographics + + + | Address | [address] | | | [place] [address] | + + + | Home Phone | | + + + | Preferred Language | Unknown | + + + | Marital Status | Single | + + + | Episcopalian Affiliation | 1061 | + + + | Race | Unknown | + + + | Ethnic Group | Unknown | + + + Author + + + | Author | [employer] (Historical as of | | | 01-02-19) | + + + | Organization | [facility] [employer] (Historical as of | | | 01-02-19) | + + + | Address | Unknown | + + + | Phone | Unavailable | + + + Support + + + + + | Name | Relationship | Address | Phone | + + + + + | Sruthi Gleason | ECON | [place] | | | | | [address] | | + + + + + | Sole Gleason | ECON | [place] | | | | | [address] | | + + + + + Care Team Providers + +------+ + | Care Hospital Technician Name | Role | Phone | + +------+ + PCP | Unavailable | + +------+ + Encounter Details +--------+ + + + + | Date | Type | Department | Care Team | Description | +--------+ + + + + | 12/21/ | Clinical | [facility] | Jose Alfredo Waterman, | ESRD (end stage | | 2019 | Support | Vascular Surgery | RN | renal disease) (HCC) | | | | [address] | | (Primary Dx) | | | | [place] | | | | | | [address] | | | | | | [phone] | | | +--------+ + + + [...] + as of this encounter Progress Notes Nery Nath RN - 12/21/2018 9:00 AM PDTPatient here for follow up appt post superfic ialization with Dr. Velasquez on 11/26/18. Per Renetta in [facility], patient fell out of bed this [facility] and was bleeding from his right lower arm during ultrasound prior to nurse visit. Blo mark saturated bandage removed from lower right arm. Upon assessment, numerous small ruptured blood blisters noted that explained bleeding during ultrasound. Drainage minimal at this po int and new bandage applied over wound site. Upper right arm AVF incisional site assessed an d is noted to be pink and well approximated with baljit in place. Small amount of scabbing noted down incision with no drainage. Strong thrill present with palpation. All baljit dilma magda with minor amount of bleeding noted at baljit sites. Steri-strips placed and further at -home instructions given regarding these. Informed patient I will consult with MICAELA Braswell about her recommendations of when to follow up next when she is back in the office later th is afternoon. Patient and daughter state understanding with no further questions or concerns at this time.in this encounter Plan of Treatment Not on fileas of this encounter Visit Diagnoses + + | Diagnosis | + + | ESRD (end stage renal disease) ([facility]) - Primary | + + | End stage renal disease | + +"
--- OUTSIDE RECORDS SUMMARY | ~2019-02-17 | XMS | Encounter Summary ---
Demographics + + + | Address | [address] | | | [place] [address] | + + + | Home Phone | | + + + | Preferred Language | Unknown | + + + | Marital Status | | + + + | Episcopalian Affiliation | 1061 | + + + | Race | Unknown | + + + | Ethnic Group | Unknown | + + + Author + + + | Author | [facility] | | | and [place] | + + + | Organization | [facility] | | | and [place] | + + + | Address | Unknown | + + + | Phone | Unavailable | + + + Support + + + + + | Name | Relationship | Address | Phone | + + + + + | Sole Gleason | ECON | [place] | | | | | [address] | | + + + + + | Sruthi Gleason | ECON | [place] | | | | | [address] | | + + + + + | Sole Gleason | ECON | [place] | | | | | [address] | | + + + + + Care Team Providers + +------+ + | Care Custom Studio Coordinator Name | Role | Phone | + [...] | | | | | Squamous | [place], | [place] | | | | | cell | [place] | [address] Phone: | | | | | carcinoma of | [address] | [phone] | | | | | lung, | Phone: | Fax: | | | | | unspecified | [phone] | [phone] | | | | | laterality | Fax: | | | | | | (HCC) | [phone] | | | | | | Procedures | | | | | | | [address] | | | + +--------+ + + + + Encounter Details +--------+ + + + + | Date | Type | Department | Care Team | Description | +--------+ + + + + | 01/21/ | Hospital | [facility] | Krys, | Malignant neoplasm | | 2019 | Encounter | [facility] | Bart Cade MD [address] | of lung, unspecified | | | | ONCOLOGY CLINIC [address] | [address] [place] | laterality, | | | | [address] [place] | [place] [address] | unspecified part of | | | | [place] [address] | [phone] | lung (HCC); Neoplasm | | | | [phone] | | related pain; | | | [...] f rom the original. Hematology/Oncology Progress Note [facility] Bernie [place] Pt. Name/Age/: Shahbaz Gleason 63 y.o. 1955 Med. Record Number: [id number] Date of admission: 01/21/2019 The patient's primary care provider is Jack Durand DO. Identifying Statement: Shahbaz Gleason is a 63 y.o. male from [address] [place] [address] [place] [address] with metastatic squamous cell lung cancer, and [...] the right lower lobe bronchus. Pathological specimen [id number]: Right lower bronchial lobe b ronchus biopsy [...] July 23, 2017 specimen number [id number] ([facility] [employer]) negative for malignant cells. 11. Laboratory evaluation [...] x 4 cm) lymphadenopathy. 19. Admit to [facility] in [facility] between June 09, 2018 and 2018 where his left subclavian Port-A-Cath was removed due to fever of unknown origi n. 20. Admit to [facility] in [place], [place] between July 20, 2018 a July [...] by neutropenic sep sis requiring hospitalization at [facility] in [place]. Following discharge, Zackery had a ground level fall at home and fractured his right upper extremity, which is now in a c ast. Interval history is also notable for the fact that Zackery continues on outpatient hemodialysis with infusions of vancomycin in [place] under the direction of Dr. Cheo Joaquin. [...] and I had an extended, 25 minute ixdoo-ch-snwthwx encounter. Zackery does not want to seek [...] Zackery again on February 03, 2019 at [facility] in [place], [place]. Review of Systems: Constitutional: Report low [...] by mouth 2 times daily. 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 MAIN OR Social History Socioeconomic [...] this chart may have been created with [employer] recognition software. Occasi onal wrong-word or sound-alike [...]
--- OUTSIDE RECORDS SUMMARY | ~2019-02-17 | XMS | Encounter Summary ---
Demographics + + + | Address | [address] | | | [place] [address] | + + + | Home Phone | | + + + | Preferred Language | Unknown | + + + | Marital Status | | + + + | Mormon Affiliation | 1061 | + + + [...] [place] | | | | | [address] | | + + + + + | Sruthi Gleason | ECON | [place] | | | | | [address] | | + + + + + | Sole Gleason | ECON | [place] | | | | | [address] | | + + + + + Care Team Providers + +------+ + | Care Belly Dancer Name | Role | Phone | + +------+ + | Jack Durand DO | PCP | | + +------+ + Encounter Details +--------+ + + + + | Date | Type | Department | Care Team | Description | +--------+ + + + + | 01/04/ | Care | [facility] | Krys, | | | 2019 | Coordinatio | MED CTR MED[facility] | Bart Cade MD [address] | | | | n | ONCOLOGY CLINIC [address] | [facility] | | | | | [facility] | [place] [address] | | | | | [place] [address] | [phone] | | | | | [phone] | | | +--------+ + + + [...]
--- OUTSIDE RECORDS SUMMARY | ~2019-02-17 | XMS | Encounter Summary ---
Demographics + + + | Address | [address] | | | [place] [address] | + + + | Home Phone | | + + + | Preferred Language | Unknown | + + + | Marital Status | | + + + | Yazdanism Affiliation | 1061 | + + + | Race | Unknown | + + + | Ethnic Group | Unknown | + + + Author + + + | Author | [facility] | | | and [place] | + + + | Organization | [facility] | | | and [place] | + + + | Address | Unknown | + + + | Phone | Unavailable | + + + Support + + + + + | Name | Relationship | Address | Phone | + + + + + | Sole Gleason | ECON | [place] | | | | | [address] | | + + + + + | Sruthi Gleason | ECON | [place] | | | | | [address] | | + + + + + | Sole Gleason | ECON | [place] | | | | | [address] | | + + + + + Care Team Providers + +------+ + | Care Crime Prevention Worker Name | Role | Phone | + [...] + + | 11/23/ | Refill | [facility] | Krys, | Medication Refill | | 2019 | | MED CTR [facility] | Bart Cade MD [address] | | | | | ONCOLOGY CLINIC [address] | [address] [place] | | | | | [address] [place] | [place] [address] | | | | | [place] [address] | [phone] | | | | | [phone] | | | +--------+--------+ + + + [...]
--- OUTSIDE RECORDS SUMMARY | ~2019-02-17 | XMS | Encounter Summary ---
Demographics + + + | Address | [address] | | | [place] [address] | + + + | Home Phone | | + + + | Preferred Language | Unknown | + + + | Marital Status | | + + + | Yazidi Affiliation | 1061 | + + + | Race | Unknown | + + + | Ethnic Group | Unknown | + + + Author + + + | Author | [facility] | | | and [place] | + + + | Organization | [facility] | | | and [place] | + + + | Address | Unknown | + + + | Phone | Unavailable | + + + Support + + + + + | Name | Relationship | Address | Phone | + + + + + | Sole Gleason | ECON | [place] | | | | | [address] | | + + + + + | Sruthi Gleason | ECON | [place] | | | | | [address] | | + + + + + | Sole Gleason | ECON | [place] | | | | | [address] | | + + + + + Care Team Providers + +------+ + | Care Service Desk Specialist Name | Role | Phone | [...] + + | 01/11/ | Refill | [facility] | Krys, | Medication Refill | | 2019 | | MED CTR MED[facility] | Bart Cade MD [address] | | | | | ONCOLOGY CLINIC [address] | [address] [place] | | | | | [address] [place] | [place] [address] | | | | | [place] [address] | [phone] | | | | | [phone] | | | +--------+--------+ + + + [...]
--- OUTSIDE RECORDS SUMMARY | ~2019-02-17 | XMS | Encounter Summary ---
Demographics + + + | Address | [address] | | | [place] [address] | + + + | Home Phone [...] [place] | | | | | [address] | | + + + + + | Sruthi Gleason | ECON | [place] | | | | | [address] | | + + + + + | Sole Gleason | ECON | [place] | | | | | [address] | | + + + + + Care Team Providers + +------+ + | Care Shearer Operator Name | Role | Phone | + +------+ + | Jack Durand DO | PCP | | + +------+ + Encounter Details +--------+ + + + + | Date | Type | Department | Care Team | Description | +--------+ + + + + | 12/10/ | Documentati | [facility] | Krys, | | | 2019 | on | MED CTR MEDICAL | Bart Cade MD [address] | | | | | ONCOLOGY CLINIC [address] | [facility] | | | | | [facility] | [place] [address] | | | | | [place] [address] | [phone] | | | | | [phone] | | | +--------+ + + + [...]
--- OUTSIDE RECORDS SUMMARY | ~2019-02-17 | XMS | Encounter Summary ---
Demographics + + + | Address | [address] | | | [place] [address] | + + + | Home Phone | | + + + | Preferred Language | Unknown | + + + | Marital Status | Single | + + + | Orthodox Affiliation | 1061 | + + + | Race | Unknown | + + + | Ethnic Group | Unknown | + + + Author + + + | Author | [facility] (Historical as of | | | 01-02-19) | + + + | Organization | [facility] (Historical as of | | | 01-02-19) | + + + | Address | Unknown | + + + | Phone | Unavailable | + + + Support + + + + + | Name | Relationship | Address | Phone | + + + + + | Sruthi Gleason | ECON | [place] | | | | | [address] | | + + + + + | Sole Gleason | ECON | [place] | | | | | [address] | | + + + + + Care Team Providers + +------+ + | Care Software Technical Lead Name | Role | Phone | + +------+ + PCP | Unavailable | + +------+ + Encounter Details +--------+ + + + + | Date | Type | Department | Care Team | Description | +--------+ + + + + | 12/21/ | Clinical | [facility] | Jose Alfredo Waterman, | ESRD (end stage | | 2019 | Support | Vascular Surgery | RN | renal disease) (HCC) | | | | [address] | | (Primary Dx) | | | | [place] | | | | | | [address] | | | | | | [phone] | | | +--------+ + + + [...] Imaging, patient fell out of bed this [facility] and was bleeding from his right lower [...] + | ESRD (end stage renal disease) ([facility]) - Primary | + + | End stage renal disease | + +"
--- OUTSIDE RECORDS SUMMARY | ~2019-02-17 | XMS | Encounter Summary ---
Demographics + + + | Address | [address] | | | [place] [address] | + + + | Home Phone | | + + + | Preferred Language | Unknown | + + + | Marital Status | Single | + + + | Zoroastrian Affiliation | Unknown | + + + | Race | White | + + + | Ethnic Group | Not or | + + + Author + + + | Author | [facility] | + + + | Organization | [facility] | + + + | Address | Unknown | + + + | Phone | Unavailable | + + + Support + + +---------+ + | Name | Relationship | Address | Phone | + + +---------+ + | Sole Gleason | ECON | Unknown | | + + +---------+ + Care Team Providers + +------+ + | Care Instructional Interventionist Name | Role | Phone | + [...] Closed | | Radiology | Procedures | Practice Support Specialist Chh1 | Rad [facility] | | | | | MRI SPINE | [address] | [address] | | | | | LUMBAR WO | Ave | Lee Manning | | | | | CONT | Mailcode: | Rd | | | | | | CH15P | Mailcode: | | | | | | [facility] | [address] | | | | | | Health and | [place] | | | | | | Healing, | Research | | | | | | Building | Center | | | | | | 1,15th Floor | [place], [place] | | | | | | [place], | [address] | | | | | | [place] | Phone: | | | | | | [address] | [phone] | | | | | | Phone: | Fax: | | | | | | [phone] | [phone] | | | | | | Fax: | | | | | | | [phone] | | +--------+--------+ + + + + Encounter Details +--------+ + + + + | Date | Type | Department | Care Team | Description | +--------+ + + + + | 10/19/ | Documentati | [facility] Comprehensive | Jessica Russell, | | | 2009 | on | Pain Center at | MD [address] | | | | | [facility] | Ave [facility] [place] | | | | | [address] | [address] | | | | | Mailcode: CH15P | [phone] | | | | | [facility] | | | | | | and Healing, | | | | | | | | | | | | Floor [place], [place] | | | | | | [address] | | | | | | [phone] | | | +--------+ + + + [...]
--- OUTSIDE RECORDS SUMMARY | ~2019-02-17 | XMS | Encounter Summary ---
Demographics + + + | Address | [address] | | | [place] [address] | + + + | Home Phone [...] + + + | Author | [facility] | + + + | Organization | [facility] | + + + | Address | Unknown | + + + | Phone | Unavailable | + + + Support + + +---------+ + | Name | Relationship | Address | Phone | + + +---------+ + | Sole Gleason | ECON | Unknown | | + + +---------+ + Care Team Providers + +------+ + | Care Marriage And Family Social Worker Name | Role | Phone | [...] | | disorder of | [place], | [place], [place] | | | | | lumbar | [place] [address] | [address] | | | | | region | Phone: | Phone: | | | | | Unspecified | [phone] | [phone] | | | | | drug | Fax: | Fax: | | | | | dependence, | [phone] | [phone] | | | | | unspecified | [...] spondylosis without | | | | [facility] | Ave [place], [place] | myelopathy (Primary | | | | [address] | [address] | Dx) | | | | Mailcode: CH15P | [phone] | | | | | [facility] | | | | | | and Healing, | | | | | | Building | | | | | | Floor [place], [place] | | | | | | [address] | | | | | | [phone] | | | +--------+---------+ + + + [...] for pain management consultation by TIGRE SPANGLER [place] [address] Reason for visit Chief Complaint Patient presents [...] for his pain. He is referred to [facility] for consultation regarding [...] PAIN MEDICINES: Opioids: Hydrocod one (Vicodin, Lortab, [place]): Maximum Dose: 60 mg daily , Length [...] the cost of gasoline to get to [facility] from [place]. 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 The patient is [...] too costly, he can purchase Spa[employer] at [employer] which is m uch cheaper and works [...] DO. NEEMA SALAS MD [facility] [address] [facility], 4th Floor Mail Code: CH4P [place], [place] [address] documented in this encount er Plan of Treatment Not on filedocumented as of this encounter Visit Diagnoses + + | Diagnosis | + + | Lumbosacral spondylosis without myelopathy - Primary | + + documented in this encounter
--- OUTSIDE RECORDS SUMMARY | ~2019-02-17 | XMS | Encounter Summary ---
Demographics + + + | Address | [address] | | | [place] [address] | + + + | Home Phone [...] [place] | | | | | [address] | | + + + + + | Sruthi Gleason | ECON | [place] | | | | | [address] | | + + + + + | Sole Gleason | ECON | [place] | | | | | [address] | | + + + + + Care Team Providers + +------+ + | Care Cold Mill Supervisor Name | Role | Phone | [...] + + | 02/10/ | Telephone | [facility] | Lydia Waterman, | Follow-up | | 2019 | | VASCULAR SURGERY | RN | | | | | [address] | | | | | | [place] | | | | | | [address] | | | | | | [phone] | | | +--------+ + + + [...]
--- OUTSIDE RECORDS SUMMARY | ~2019-02-17 | XMS | Encounter Summary ---
Demographics + + + | Address | [address] | | | [place] [address] | + + + | Home Phone | | + + + | Preferred Language | Unknown | + + + | Marital Status | | + + + | Anabaptism Affiliation | 1061 | + + + | Race | Unknown | + + + | Ethnic Group | Unknown | + + + Author + + + | Author | [facility] | | | and [place] | + + + | Organization | [facility] | | | and [place] | + + + | Address | Unknown | + + + | Phone | Unavailable | + + + Support + + + + + | Name | Relationship | Address | Phone | + + + + + | Sole Gleason | ECON | [place] | | | | | [address] | | + + + + + | Sruthi Gleason | ECON | [place] | | | | | [address] | | + + + + + | Sole Gleason | ECON | [place] | | | | | [address] | | + + + + + Care Team Providers + +------+ + | Care Assembler Seat Name | Role | Phone | + [...] + + | 02/03/ | Documentati | [facility] | Engel, | Results (01/20/19) | | 2019 | on | [facility]PHR[facility] | Di Young | | | | | [address] | Customer Engagement Specialist | | | | | [address] [place] | | | | | | [address] | | | | | | [phone] | | | +--------+ + + + [...] | | mL/min/1.73m2 | | | | SOMALI | | | | | + + [...]
--- OUTSIDE RECORDS SUMMARY | ~2019-02-17 | XMS | Encounter Summary ---
Demographics + + + | Address | [address] | | | [place] [address] | + + + | Home Phone [...] [place] | | | | | [address] | | + + + + + | Surthi Gleason | ECON | [place] | | | | | [address] | | + + + + + | Sole Gleason | ECON | [place] | | | | | [address] | | + + + + + Care Team Providers + +------+ + | Care Manager Of Merchandising Name | Role | Phone | + [...] + + | 12/25/ | Telephone | [facility] | Krys | Care Coordination | | 2019 | | MED [facility] MED[facility] | Bart Cade MD [address] | | | | | ONCOLOGY CLINIC [address] | [address] | | | | | [address] [place] | [place] [address] | | | | | [place] [address] | [phone] | | | | | [phone] | | | +--------+ + + + [...] +---+---+---+ + + | Comments: switched to yontahan patel, last month | + + + [...]
--- OUTSIDE RECORDS SUMMARY | ~2019-02-17 | XMS | Encounter Summary ---
Demographics + + + | Address | [address] | | | [place] [address] | + + + | Home Phone | | + + + | Preferred Language | Unknown | + + + | Marital Status | Single | + + + | Restorationist Affiliation | 1061 | + + + | Race | Unknown | + + + | Ethnic Group | Unknown | + + + Author + + + | Author | [facility] (Historical as of | | | 01-02-19) | + + + | Organization | [facility] (Historical as of | | | 01-02-19) | + + + | Address | Unknown | + + + | Phone | Unavailable | + + + Support + + + + + | Name | Relationship | Address | Phone | + + + + + | Sruthi Gleason | ECON | [place] | | | | | [address] | | + + + + + | Sole Gleason | ECON | [place] | | | | | [address] | | + + + + + Care Team Providers + +------+ + | Care Laboratory Mechanical Technician Name | Role | Phone | [...] + + | 11/23/ | Telephone | [facility] | Dallas Velasquez MD | Question (requesting | | 2019 | | Vascular Surgery | [address] | call back from | | | | [address] | [place], [place] | [place]) | | | | [place], [place] | [address] | | | | | [address] | | | | | | [phone] | | | +--------+ + + + [...]
--- OUTSIDE RECORDS SUMMARY | ~2019-02-17 | XMS | Encounter Summary ---
Demographics + + + | Address | [address] | | | [place] [address] | + + + | Home Phone | | + + + | Preferred Language | Unknown | + + + | Marital Status | | + + + | Baptist Affiliation | 1061 | + + + | Race | Unknown | + + + | Ethnic Group | Unknown | + + + Author + + + | Author | [facility] | | | and [place] | + + + | Organization | [facility] | | | and [place] | + + + | Address | Unknown | + + + | Phone | Unavailable | + + + Support + + + + + | Name | Relationship | Address | Phone | + + + + + | Sole Gleason | ECON | [place] | | | | | [address] | | + + + + + | Sruthi Gleason | ECON | [place] | | | | | [address] | | + + + + + | Sole Gleason | ECON | [place] | | | | | [address] | | + + + + + Care Team Providers + +------+ + | Care Bookkeeping Teacher Name | Role | Phone | + +------+ + | Jack Durand DO | PCP | | + +------+ + Encounter Details +--------+ + + + + | Date | Type | Department | Care Team | Description | +--------+ + + + + | 01/05/ | Care | [facility] | Krys, | | | 2019 | Coordinatio | MED CTR MEDICAL | Bart Cade MD [address] | | | | n | ONCOLOGY CLINIC [address] | [facility] | | | | | W [facility] | [place] [address] | | | | | [place] [address] | [phone] | | | | | [phone] | | | +--------+ + + + [...]
--- OUTSIDE RECORDS SUMMARY | ~2019-02-17 | XMS | Encounter Summary ---
Demographics + + + | Address | [address] | | | [place] [address] | + + + | Home Phone | | + + + | Preferred Language | Unknown | + + + | Marital Status | Single | + + + | Church Affiliation | 1061 | + + + | Race | Unknown | + + + | Ethnic Group | Unknown | + + + Author + + + | Author | [facility] (Historical as of | | | 01-02-19) | + + + | Organization | [facility] [facility] (Historical as of | | | 01-02-19) | + + + | Address | Unknown | + + + | Phone | Unavailable | + + + Support + + + + + | Name | Relationship | Address | Phone | + + + + + | Sruthi Gleason | ECON | [place] | | | | | [address] | | + + + + + | Sole Gleason | ECON | [place] | | | | | [address] | | + + + + + Care Team Providers + +------+ + | Care Surgery Center Administrator Name | Role | Phone | + +------+ + PCP | Unavailable | + +------+ + Encounter Details +--------+ + + + + | Date | Type | Department | Care Team | Description | +--------+ + + + + | 12/07/ | Telephone | [facility] | Nery Nath, | | | 2018 | | Vascular Surgery | RN | | | | | [address] | | | | | | [facility] | | | | | | [address] | | | | | | [phone] | | | +--------+ + + + [...]
--- OUTSIDE RECORDS SUMMARY | ~2019-02-17 | XMS | Encounter Summary ---
Demographics + + + | Address | [address] | | | [place] [address] | + + + | Home Phone | | + + + | Preferred Language | Unknown | + + + | Marital Status | Single | + + + | Church Affiliation | 1061 | + + + | Race | Unknown | + + + | Ethnic Group | Unknown | + + + Author + + + | Author | [facility] (Historical as of | | | 01-02-19) | + + + | Organization | [facility] (Historical as of | | | 01-02-19) | + + + | Address | Unknown | + + + | Phone | Unavailable | + + + Support + + + + + | Name | Relationship | Address | Phone | + + + + + | Sruthi Gleason | ECON | [place] | | | | | [address] | | + + + + + | Sole Gleason | ECON | [place] | | | | | [address] | | + + + + + Care Team Providers + +------+ + | Care Cap Maker Name | Role | Phone | + +------+ + PCP | Unavailable | + +------+ + Reason for Visit +--------+ + | Reason | Comments | +--------+ + | Other | [facility] note faxed Aby Mane ([phone]) | | | [phone] | +--------+ + [...] [facility] | | | | [address] | [address] [place], [place] | note faxed Aby | | | | [place] [address] | [address] | Antonietta ([phone]) | | | | [phone] | | [phone]) | +--------+ + + [...]
--- OUTSIDE RECORDS SUMMARY | ~2019-02-17 | XMS | Encounter Summary ---
Demographics + + + | Address | [address] | | | [place] [address] | + + + | Home Phone | | + + + | Preferred Language | Unknown | + + + | Marital Status | | + + + | Congregation Affiliation | 1061 | + + + | Race | Unknown | + + + | Ethnic Group | Unknown | + + + Author + + + | Author | [facility] | | | and [place] | + + + | Organization | [facility] | | | and [place] | + + + | Address | Unknown | + + + | Phone | Unavailable | + + + Support + + + + + | Name | Relationship | Address | Phone | + + + + + | Sole Gleason | ECON | [place] | | | | | [address] | | + + + + + | Sruthi Gleason | ECON | [place] | | | | | [address] | | + + + + + | Sole Gleason | ECON | [place] | | | | | [address] | | + + + + + Care Team Providers + +------+ + | Care Rehabilitation Aide Name | Role | Phone | + +------+ + | Jack Durand DO | PCP | | + +------+ + Encounter Details +--------+ + + + + | Date | Type | Department | Care Team | Description | +--------+ + + + + | 12/08/ | Hospital | [facility] | Lorena Hope | Squamous cell | | 2019 | Encounter | [facility] | J, PharmD [address] | carcinoma of lung, | | | | ONCOLOGY CLINIC [address] | [facility] | unspecified | | | | [facility] | [place] [address] | laterality (HCC) | | | | [place] [address] | [phone] | (Primary Dx) | | | | [phone] | | | +--------+ + + + [...] Pharmacy Services Progress Note Chemotherapy Education Session [facility] Pt. Name/Age/: Shahbaz Gleason 63 y.o. 1955 Med. Record Number: [id number] Identifying Statement: Shahbaz Gleason is a 63 y.o. male from [address] [place] [id number] with The encounter diagnosis was Squamous cell [...] Placement; Surgeon: Catherine Bunch MD; Location : [facility] MAIN OR Social History Socioeconomic History [...]
--- OUTSIDE RECORDS SUMMARY | ~2019-02-17 | XMS | Encounter Summary ---
Demographics + + + | Address | [address] | | | [place] [address] | + + + | Home Phone | | + + + | Preferred Language | Unknown | + + + | Marital Status | | + + + | Scientology Affiliation | 1061 | + + + | Race | Unknown | + + + | Ethnic Group | Unknown | + + + Author + + + | Author | [facility] | | | and [place] | + + + | Organization | [facility] | | | and [place] | + + + | Address | Unknown | + + + | Phone | Unavailable | + + + Support + + + + + | Name | Relationship | Address | Phone | + + + + + | Sole Gleason | ECON | [place] | | | | | [address] | | + + + + + | Sruthi Gleason | ECON | [place] | | | | | [address] | | + + + + + | Sole Gleason | ECON | [place] | | | | | [address] | | + + + + + Care Team Providers + +------+ + | Care Communications Designer Name | Role | Phone | [...] neoplasm of | Bart C, | [address] | | | | | unspecified | MD [address] | [place], | | | | | part of | [address] | [place] [address] | | | | | unspecified | [place], | Phone: | | | | | bronchus or | [place] [address] | [phone] | | | | | lung (HCC) | Phone: | Fax: | | | | | Procedures | [phone] | [phone] | | | | | [place] | Fax: | | | | | | [address] | [phone] | | | | | | HCL, 25 MCG | | | | | | | [place] ORAL | | | | | | | DEXAMETHASON | | | | | | | E, .25 MG | | | | | | | [place] INJ., | | | | | | | APREPITANT, | | | | | | | 1 MG [place] | | | | | | | LORAZEPAM | | | | | | | INJECTION, 2 | | | | | | | MG [place] | | | | | | | CARBOPLATIN | | | | | | | INJECTION, | | | | | | | 50 MG [place] | | | | | | | GEMCITABINE | | | | | | | HCL | | | | | | | INJECTION, | | | | | | | 200 MG [place] | | | | | | | ADRENALIN | | | | | | | EPINEPHRINE | | | | | | | INJECT, .1 | | | | | | | MG [place] | | | | | | | METHYLPREDNI | | | | | | | SOLONE | | | | | | | INJECTION, | | | | | | | 125 MG [place] | | | | | | | DIPHENHYDRAM | | | | | | | INE HCL | | | | | | | INJECTIO, 50 | | | | | | | MG [place] | | | | | | | ALBUTEROL | | | | | | | COMP CON, 1 | | | | | | | MG [place] | | | | | | | ALBUTEROL | | | | | | | NON-COMP | | | | | | | CON, 1 MG | | | | | | | [place] | | | | | | | INJECTION, | | | | | | | FAMOTIDINE, | | | | | | | 20 MG [place] | | | | | | | NORMAL | | | | | | | SALINE | | | | | | | SOLUTION | | | | | | | INFUS, 500 | | | | | | | ML [place] | | | | | | | NORMAL | | | | | | | SALINE | | | | | | | SOLUTION | | | | | | | INFUS, 250 | | | | | | | ML [place] | | | | | | | STERILE | | | | | | | WATER/SALINE | | | | | | | , 10 ML [place] | | | | | | | CHEMOTHER, | | | | | | | IV PUSH,EA | | | | | | | ADD DRUG [place] | | | | | | | CHEMOTHER, | | | | | | | IV INFUSION, | | | | | | | 1 HR [place] | | | | | | | CHEMOTHER, | | | | | | | IV INFUSION, | | | | | | | EA HR [place] | | | | | | | CHEMOTHER,NO | | | | | | | N-HORMONE | | | | | | | ANTI-NEOPL, | | | | | | | SUB-Q/IM [place] | | | | | | | [...] + + | 12/08/ | Hospital | [facility] | Krys, | Non-small cell lung | | 2019 | Encounter | MED CTR CHEMO | Bart Cade MD [address] | cancer, unspecified | | | | INFUSION [address] | [address] [place] | laterality (HCC) | | | | [address] [place], | [place] [address] | (Primary Dx); | | | | [place] [address] | [phone] | 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 | [address] | [place] | [phone] | | [facility] | | [address] | | | - LABORATORY | | [...] | | GLOMERULAR FILTRATION | mL/min/1.73m2 | [facility] | | | [place]IAN | RATE,ESTIMATED mL/min | | MEDICAL | | | | /1.56d4Gbez than 60 | | PARK | | [...] + + + | [place] | [address] | [place] | [phone] | | [facility] | | [address] | | | [facility] | | [...]
--- OUTSIDE RECORDS SUMMARY | ~2019-02-17 | XMS | Encounter Summary ---
Demographics + + + | Address | [address] | | | [place] [address] | + + + | Home Phone | | + + + | Preferred Language | Unknown | + + + | Marital Status | Single | + + + | Nondenominational Affiliation | 1061 | + + + | Race | Unknown | + + + | Ethnic Group | Unknown | + + + Author + + + | Author | [facility] (Historical as of | | | 01-02-19) | + + + | Organization | [facility] (Historical as of | | | 01-02-19) | + + + | Address | Unknown | + + + | Phone | Unavailable | + + + Support + + + + + | Name | Relationship | Address | Phone | + + + + + | Sruthi Gleason | ECON | [place] | | | | | [address] | | + + + + + | Sole Gleason | ECON | [place] | | | | | [address] | | + + + + + Care Team Providers + +------+ + | Care Area Field Person Name | Role | Phone | + [...] | | 2018 | on Only | [place] [address] | [address] | 2019-Aby Provider | | | | [address] | [address] [place], [place] | Dialysis Rounding | | | | [place] [address] | [address] | Note) | | | | [phone] | | | +--------+ + + + [...]
--- OUTSIDE RECORDS SUMMARY | ~2019-02-17 | XMS | Encounter Summary ---
Demographics + + + | Address | [address] | | | [place] [address] | + + + | Home Phone | | + + + | Preferred Language | Unknown | + + + | Marital Status | Single | + + + | Worship Affiliation | 1061 | + + + | Race | Unknown | + + + | Ethnic Group | Unknown | + + + Author + + + | Author | [facility] (Historical as of | | | 01-02-19) | + + + | Organization | [facility] (Historical as of | | | 01-02-19) | + + + | Address | Unknown | + + + | Phone | Unavailable | + + + Support + + + + + | Name | Relationship | Address | Phone | + + + + + | Sruthi Gleason | ECON | [place] | | | | | [address] | | + + + + + | Sole Gleason | ECON | [place] | | | | | [address] | | + + + + + Care Team Providers + +------+ + | Care Telecommunications Manager Name | Role | Phone | [...] + + | 11/17/ | Office | [facility] | Gertrudis Vivar DNP | ESRD (end stage | | 2019 | Visit | Vascular Surgery | [address] | renal disease) ([facility]) | | | | [address] | [place], [place] | (Primary Dx); AVF | | | | [place], [place] | [address] | (arteriovenous | | | | [address] | | fistula) ([facility]) | | | | [phone] | | | +--------+---------+ + + + [...] may be different from the or iginal. [facility] [address] [place] [address] [place] [address] Office: [phone] DATE OF VISIT: 11/17/2018 PATIENT NAME: Shahbaz [...] patient's anatomy. The patient has returned to [facility] for the evaluation of [...] Outpatient Prescriptions Medication Sig Dispense Refill B Mxgfoof-O-Jnhig Acid (DIALYVITE TABLET) TABS Take 1 tablet [...] DR. Haas in 1 weeks Please call [phone] to schedule follow up Please fax all labs to [phone] 7 each 3 VELPHORO 500 MG chewable [...] pro marylin is scheduled for 11/26/2018 at [facility] Operating Room. Gertrudis Vivar DNP in [...] + | ESRD (end stage renal disease) ([facility]) - Primary | + + | End stage renal disease | + + | AVF (arteriovenous fistula) ([facility]) | + + | Arteriovenous fistula, acquired | + +
--- OUTSIDE RECORDS SUMMARY | ~2019-02-17 | XMS | Encounter Summary ---
Demographics + + + | Address | [address] | | | [place] [address] | + + + | Home Phone | | + + + | Preferred Language | Unknown | + + + | Marital Status | Single | + + + | Restorationism Affiliation | 1061 | + + + | Race | Unknown | + + + | Ethnic Group | Unknown | + + + Author + + + | Author | [facility] (Historical as of | | | 01-02-19) | + + + | Organization | [facility] (Historical as of | | | 01-02-19) | + + + | Address | Unknown | + + + | Phone | Unavailable | + + + Support + + + + + | Name | Relationship | Address | Phone | + + + + + | Sruthi Gleason | ECON | [place] | | | | | [address] | | + + + + + | Sole Gleason | ECON | [place] | | | | | [address] | | + + + + + Care Team Providers + +------+ + | Care Personal Computer Network Analyst Name | Role | Phone | + +------+ + PCP | Unavailable | + +------+ + Encounter Details +--------+ + + + + | Date | Type | Department | Care Team | Description | +--------+ + + + + | 12/02/ | Telephone | [facility] | Jany Avila, | | | 2018 | | Vascular Surgery | AUTOCLAVE OPERATOR | | | | | [address] | | | | | | [place] | | | | | | [address] | | | | | | [phone] | | | +--------+ + + + [...]
--- OUTSIDE RECORDS SUMMARY | ~2019-02-17 | XMS | Encounter Summary ---
Demographics + + + | Address | [address] | | | [place] [address] | + + + | Home Phone | | + + + | Preferred Language | Unknown | + + + | Marital Status | | + + + | Restoration Affiliation | 1061 | + + + | Race | Unknown | + + + | Ethnic Group | Unknown | + + + Author + + + | Author | [facility] | | | and [place] | + + + | Organization | [facility] | | | and [place] | + + + | Address | Unknown | + + + | Phone | Unavailable | + + + Support + + + + + | Name | Relationship | Address | Phone | + + + + + | Sole Gleason | ECON | [place] | | | | | [address] | | + + + + + | Sruthi Gleason | ECON | [place] | | | | | [address] | | + + + + + | Sole Gleason | ECON | [place] | | | | | [address] | | + + + + + Care Team Providers + +------+ + | Care Customer Services Coordinator Name | Role | Phone | [...] neoplasm of | Bart C, | [address] | | | | | unspecified | MD [address] | [place], | | | | | part of | [address] | [place] [address] | | | | | unspecified | [place], | Phone: | | | | | bronchus or | [place] [address] | [phone] | | | | | lung (HCC) | Phone: | Fax: | | | | | Procedures | [phone] | [phone] | | | | | [place] | Fax: | | | | | | [place] | [phone] | | | | | | HCL, 25 MCG | | | | | | | [place] ORAL | | | | | | | DEXAMETHASON | | | | | | | E, .25 MG | | | | | | | [place] INJ., | | | | | | | APREPITANT, | | | | | | | 1 MG [place] | | | | | | | LORAZEPAM | | | | | | | INJECTION, 2 | | | | | | | MG [place] | | | | | | | CARBOPLATIN | | | | | | | INJECTION, | | | | | | | 50 MG [place] | | | | | | | GEMCITABINE | | | | | | | HCL | | | | | | | INJECTION, | | | | | | | 200 MG [place] | | | | | | | ADRENALIN | | | | | | | EPINEPHRINE | | | | | | | INJECT, .1 | | | | | | | MG [place] | | | | | | | METHYLPREDNI | | | | | | | SOLONE | | | | | | | INJECTION, | | | | | | | 125 MG [place] | | | | | | | DIPHENHYDRAM | | | | | | | INE HCL | | | | | | | INJECTIO, 50 | | | | | | | MG [place] | | | | | | | ALBUTEROL | | | | | | | COMP CON, 1 | | | | | | | MG [place] | | | | | | | ALBUTEROL | | | | | | | NON-COMP | | | | | | | CON, 1 MG | | | | | | | [place] | | | | | | | INJECTION, | | | | | | | FAMOTIDINE, | | | | | | | 20 MG [place] | | | | | | | NORMAL | | | | | | | SALINE | | | | | | | SOLUTION | | | | | | | INFUS, 500 | | | | | | | ML [place] | | | | | | | NORMAL | | | | | | | SALINE | | | | | | | SOLUTION | | | | | | | INFUS, 250 | | | | | | | ML [place] | | | | | | | STERILE | | | | | | | WATER/SALINE | | | | | | | , 10 ML [place] | | | | | | | CHEMOTHER, | | | | | | | IV PUSH,EA | | | | | | | ADD DRUG [place] | | | | | | | CHEMOTHER, | | | | | | | IV INFUSION, | | | | | | | 1 HR [place] | | | | | | | CHEMOTHER, | | | | | | | IV INFUSION, | | | | | | | EA HR [place] | | | | | | | CHEMOTHER,NO | | | | | | | N-HORMONE | | | | | | | ANTI-NEOPL, | | | | | | | SUB-Q/IM [place] | | | | | | | [...] + + | 12/08/ | Hospital | [facility] | Krys, | Non-small cell lung | | 2019 | Encounter | MED CTR CHEMO | Bart Cade MD [address] | cancer, unspecified | | | | INFUSION [address] | [address] [place] | laterality (HCC) | | | | [address] [place], | [place] [address] | (Primary Dx); | | | | [place] [address] | [phone] | Squamous cell | | | | [phone] | | carcinoma of lung, | | [...] + + | [facility] | [address] | [place] | [phone] | | [facility] | | [address] | | | [facility] | | [...] + | [address] | [address] | [place] | [phone] | | [facility] | | [address] | | | - LABORATORY | | [...] | | GLOMERULAR FILTRATION | mL/min/1.73m2 | [facility] | | | [place] | RATE,ESTIMATED mL/min | | MEDICAL | | | | /1.73l2Dxcf than 60 | | PARK | | [...] + + + | [facility] | [address] | [place] | [phone] | | [facility] | | [address] | | | [place] | | [...]
--- OUTSIDE RECORDS SUMMARY | ~2019-02-17 | XMS | Encounter Summary ---
Demographics + + + | Address | [address] | | | [place] [address] | + + + | Home Phone | | + + + | Preferred Language | Unknown | + + + | Marital Status | | + + + | Gnosticist Affiliation | 1061 | + + + [...] [place] | | | | | [address] | | + + + + + | Sruthi Gleason | ECON | [place] | | | | | [address] | | + + + + + | Sole Gleason | ECON | [place] | | | | | [address] | | + + + + + Care Team Providers + +------+ + | Care Manufacturing Applications Engineer Name | Role | Phone | [...] + + | 01/04/ | Telephone | [facility] | Cheo Joaquin MD | Results, Critical | | 2019 | | NEPHROLOGY [place] | [address] [place] | | | | | [address] [place] | [address] [place] | | | | | [address] [place] | [id number] | | | | | [address] | | | | | | [phone] | | | +--------+ + + + [...]
--- OUTSIDE RECORDS SUMMARY | ~2019-02-17 | XMS | Encounter Summary ---
Demographics + + + | Address | [address] | | | [place] [address] | + + + | Home Phone | | + + + | Preferred Language | Unknown | + + + | Marital Status | | + + + | Moravian Affiliation [...] [place] | | | | | [address] | | + + + + + | Sruthi Gleason | ECON | [place] | | | | | [address] | | + + + + + | Sole Gleason | ECON | [place] | | | | | [address] | | + + + + + Care Team Providers + +------+ + | Care Geosciences Associate Professor Name | Role | Phone | + +------+ + | Jack Durand DO | PCP | | + +------+ + Encounter Details +--------+ + + + + | Date | Type | Department | Care Team | Description | +--------+ + + + + | 11/26/ | Hospital | [facility] | PoiD[place] MD | | | 2019 | Encounter | [facility] | [address] | | | | | [address] | [place], [place] | | | | | [place], [place] | [address] | | | | | [address] | | | | | | [phone] | | | +--------+ + + + [...] 11/26/181821 Date of Service: 11/26/181799 Status: Signed Coppersmith Helper: Dorcas Souza RN (Registered Nurse) Discharge instructions [...] | | | | | performed at [facility];[address] | | | | | | [facility];[place], [place] | | | | | | [address] | | | | + + + [...]
--- OUTSIDE RECORDS SUMMARY | ~2019-02-17 | XMS | Encounter Summary ---
Demographics + + + | Address | [address] | | | [place] [address] | + + + | Home Phone | | + + + | Preferred Language | Unknown | + + + | Marital Status | | + + + | Synagogue Affiliation | 1061 | + + + | Race | Unknown | + + + | Ethnic Group | Unknown | + + + Author + + + | Author | [facility] | | | and [place] | + + + | Organization | [facility] | | | and [place] | + + + | Address | Unknown | + + + | Phone | Unavailable | + + + Support + + + + + | Name | Relationship | Address | Phone | + + + + + | Sole Gleason | ECON | [place] | | | | | [address] | | + + + + + | Sruthi Gleason | ECON | [place] | | | | | [address] | | + + + + + | Sole Gleason | ECON | [place] | | | | | [address] | | + + + + + Care Team Providers + +------+ + | Care Practice Specialist Name | Role | Phone | [...] + + | 02/10/ | Telephone | [facility] | Lydia Waterman, | Follow-up | | 2019 | | VASCULAR SURGERY | RN | | | | | [address] | | | | | | [place] | | | | | | [address] | | | | | | [phone] | | | +--------+ + + + [...]
--- OUTSIDE RECORDS SUMMARY | ~2019-02-17 | XMS | Encounter Summary ---
Demographics + + + | Address | [address] | | | [place] [address] | + + + | Home Phone | | + + + | Preferred Language | Unknown | + + + | Marital Status | | + + + | Moravian Affiliation | 1061 | + + + | Race | Unknown | + + + | Ethnic Group | Unknown | + + + Author + + + | Author | [facility] | | | and [place] | + + + | Organization | [facility] | | | and [place] | + + + | Address | Unknown | + + + | Phone | Unavailable | + + + Support + + + + + | Name | Relationship | Address | Phone | + + + + + | Sole Gleason | ECON | [place] | | | | | [address] | | + + + + + | Sruthi Gleason | ECON | [place] | | | | | [address] | | + + + + + | Sole Gleason | ECON | [place] | | | | | [address] | | + + + + + Care Team Providers + +------+ + | Care Wildlife Conservationist Name | Role | Phone | + +------+ + | Jack Durand DO | PCP | | + +------+ + Encounter Details +--------+ + + + + | Date | Type | Department | Care Team | Description | +--------+ + + + + | 01/05/ | Care | [facility] | Krys, | | | 2019 | Coordinatio | MED CTR MEDICAL | Bart Cade MD [address] | | | | n | ONCOLOGY CLINIC [address] | [facility] | | | | | W [facility] | [place] [address] | | | | | [place] [address] | [phone] | | | | | [phone] | | | +--------+ + + + [...]
--- OUTSIDE RECORDS SUMMARY | ~2019-02-17 | XMS | Encounter Summary ---
Demographics + + + | Address | [address] | | | [place] [address] | + + + | Home Phone | | + + + | Preferred Language | Unknown | + + + | Marital Status | Single | + + + | Voodoo Affiliation | 1061 | + + + | Race | Unknown | + + + | Ethnic Group | Unknown | + + + Author + + + | Author | [facility] (Historical as of | | | 01-02-19) | + + + | Organization | [facility] (Historical as of | | | 01-02-19) | + + + | Address | Unknown | + + + | Phone | Unavailable | + + + Support + + + + + | Name | Relationship | Address | Phone | + + + + + | Sruthi Gleason | ECON | [place] | | | | | [address] | | + + + + + | Sole Gleason | ECON | [place] | | | | | [address] | | + + + + + Care Team Providers + +------+ + | Care Curatorial Assistant Name | Role | Phone | + +------+ + PCP | Unavailable | + +------+ + Encounter Details +--------+ + + + + | Date | Type | Department | Care Team | Description | +--------+ + + + + | 12/02/ | Telephone | [facility] | Jany Avila, | | | 2018 | | Vascular Surgery | TRANSLATOR | | | | | [address] | | | | | | [place] | | | | | | [address] | | | | | | [phone] | | | +--------+ + + + [...]
--- OUTSIDE RECORDS SUMMARY | ~2019-02-17 | XMS | Encounter Summary ---
Demographics + + + | Address | [address] | | | [place] [address] | + + + | Home Phone | | + + + | Preferred Language | Unknown | + + + | Marital Status | Single | + + + | Congregation Affiliation | Unknown | + + + | Race | White | + + + | Ethnic Group | Not or | + + + Author + + + | Author | [facility] | + + + | Organization | [facility] | + + + | Address | Unknown | + + + | Phone | Unavailable | + + + Support + + +---------+ + | Name | Relationship | Address | Phone | + + +---------+ + | Sole Gleason | ECON | Unknown | | + + +---------+ + Care Team Providers + +------+ + | Care Information Management Manager Name | Role | Phone | [...] Closed | | Radiology | Procedures | Program Director Chh1 | [facility] | | | | | MRI SPINE | [address] | [address] | | | | | [address] | [address] | [place] | | | | | CONT | Mailcode: | Rd | | | | | | [id number] | Mailcode: | | | | | | [facility] | [address] | | | | | | Health and | [place] | | | | | | Healing, | Research | | | | | | Building | Center | | | | | | [address] Floor | [place], [place] | | | | | | [place], | [address] | | | | | | [place] | Phone: | | | | | | [address] | [phone] | | | | | | Phone: | Fax: | | | | | | [phone] | [phone] | | | | | | Fax: | | | | | | | [phone] | | +--------+--------+ + + + + Encounter Details +--------+ + + + + | Date | Type | Department | Care Team | Description | +--------+ + + + + | 10/19/ | Documentati | [facility] Comprehensive | Jessica Russell, | | | 2009 | on | Pain Center at | MD [address] | | | | | [facility] | [address] [facility] [place] | | | | | [address] | [address] | | | | | Mailcode: [id number] | [phone] | | | | | [facility] | | | | | | and Healing, | | | | | | | | | | | | Floor [place], [place] | | | | | | [address] | | | | | | [phone] | | | +--------+ + + + [...]
--- OUTSIDE RECORDS SUMMARY | ~2019-02-17 | XMS | Encounter Summary ---
Demographics + + + | Address | [address] | | | [place] [address] | + + + | Home Phone | | + + + | Preferred Language | Unknown | + + + | Marital Status | | + + + | Worship Affiliation [...] [place] | | | | | [address] | | + + + + + | Sruthi Gleason | ECON | [place] | | | | | [address] | | + + + + + | Sole Gleason | ECON | [place] | | | | | [address] | | + + + + + Care Team Providers + +------+ + | Care Quality Compliance Coordinator Name | Role | Phone | + +------+ + | Jack Durand DO | PCP | | + +------+ + Encounter Details +--------+ + + + + | Date | Type | Department | Care Team | Description | +--------+ + + + + | // | Orders Only | [facility] | Gertrudis Vivar, DNP | | | 2019 | | VASCULAR SURGERY | [address] | | | | | [address] | [place] [address] [place], [place] | | | | | [address] | [address] | | | | | [place], [place] | | | | | | [address] | | | | | | [phone] | | | +--------+ + + + [...]
--- OUTSIDE RECORDS SUMMARY | ~2019-02-17 | XMS | Encounter Summary ---
Demographics + + + | Address | [address] | | | [place] [address] | + + + | Home Phone | | + + + | Preferred Language | Unknown | + + + | Marital Status | | + + + | Jewish Affiliation | 1061 | + + + [...] [place] | | | | | [address] | | + + + + + | Sruthi Gleason | ECON | [place] | | | | | [address] | | + + + + + | Sole Gleason | ECON | [place] | | | | | [address] | | + + + + + Care Team Providers + +------+ + | Care Auto Body Painter Name | Role | Phone | + +------+ + | Jack Durand DO | PCP | | + +------+ + Encounter Details +--------+ + + + + | Date | Type | Department | Care Team | Description | +--------+ + + + + | 12/03/ | Documentati | [facility] | Nilam Cooley, | | | 2019 | on | MED CTR PHARMACY | [facility] [address] | | | | | [address] | [place], [place] | | | | | [place] [address] | [address] | | | | | [phone] | | | +--------+ + + + [...] + documented as of this encounter Progress Nilam Agrawal, [facility] - 12/03/2018 1451 PDTFormatting of this note might be different from domingo alcantar. IDT PATIENT MEDICATION/PROFILE REVIEW [facility] CLINICAL PHARMACY SERVICES Pharmacy Recommendation Observation only -- increased risk of serotonin syndrome with home med list; see below Pharmacy Assessment: Therapy emetogenicity risk vs. supportive meds ordered: moderate/appropriate Drug interactions of concern: oxycodone + ondansetron + palonosetron + duloxetine can incre ase risk of serotonin syndrome--serotonin syndrome; symptoms include mental status changes ( eg, agitation, hallucinations, delirium, coma), autonomic instability (eg, tachycardia, labi le blood pressure, dizziness, diaphoresis, flushing, hyperthermia), neuromuscular abnormalit ies (eg, tremor, rigidity, myoclonus, hyperreflexia, incoordination), seizures, with or with out, gastrointestinal symptoms (eg, nausea, vomiting, diarrhea). Discontinue use of serotone rgic agents and begin supportive treatment if the patient exhibits signs and symptoms of ser otonin syndrome Allergy/Duplicate/Contraindications/Other: none Lab-based dose adjustments suggested: VTE Risk Factors Identified: 1 point Site of primary cancer High risk (lung) (1pt) XX__Khorana risk score= 1-2 (risk of symptomatic VTE 1.8-8.4%): Consider periodically re-as sessing risk for VTE. Cardiac toxicity risks/recommended monitoring: none Objective Data Shahbaz Gleason is a 63 y.o. male , Wt 105 kg , Ht 177.8 cm, BSA 2.28 m2, BMI 33.2 1 kg/m2, Est CrCl = 18 ml/min (C&G, AdjBW) Allergies: Patient has no known allergies. Diagnosis: NSCLC Treatment Regimen: CARBOPLATIN (D1) + GEMCITABINE (D1,8) Q 21D Chemotherapy/Supportive therapy: Carboplatin Gemcitabine Ondansetron Lorazepam Palonosetron Dexamethasone Aprepitant Reference/citation for therapy: LUNG: Phase III Study by the [place] Lung Cancer Study Gr oup: Pemetrexed Plus Carboplatin Compared With Gemcitabine Plus Carboplatin As First-Line Ch emotherapy in Advanced Non Small-Cell Lung Cancer Pertinent Medical History: has a past medical history of Chronic back pain (01/21/2018), Chr onic hepatitis C (HCC) (01/15/2018), Chronic kidney disease, stage III (moderate) (HCC) (01/15), Glomerulonephritis (01/15/2018), cocaine abuse, intravenous drug use in remission, 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 Other pertinent objective data: none Current Medications: Current Outpatient Medications on File Prior to Visit Medication Sig Dispense Refill DULoxetine (CYMBALTA) [address] capsule Take 60 mg by mouth Daily. furosemide (LASIX) 80 mg tablet Take 1 tablet by mouth 2 times daily. 60 tablet 0 gabapentin (NEURONTIN) 100 mg capsule Take 1 capsule by mouth 2 times daily. 90 capsule 0 insulin glargine (LANTUS) 100 units/mL injection (vial) [...] mLs under the skin every 14 days. oxyCODONE 20 MG TABS 1-4 tabs every four hours as needed for pain 270 tablet 0 renal multivitamin (DIALYVITE, VOL-CARE) TABS Take 1 tablet by mouth Daily. 30 tablet 0 No current facility-administered medications on file prior to visit. Pertinent Baseline Labs: WBC Date Value Ref Range Status 01/27/2018 14.0 (H) 4.0 - 11.0 K/uL Final Absolute Neutrophils Date Value Ref Range Status 01/27/2018 9.50 (H) 1.80 - 8.50 K/uL Final Platelet Count Date Value Ref Range Status 01/27/2018 285 140 - 440 K/uL Final Hemoglobin Date Value Ref Range Status 01/27/2018 11.7 (L) 13.5 - 18.0 g/dL Final Hematocrit Date Value Ref Range Status 01/27/2018 34.4 (L) 40.0 - 51.0 % Final Creatinine Date Value Ref Range Status 01/28/2018 5.12 (H) 0.60 - 1.30 mg/dL Final Bilirubin Total Date Value Ref Range Status 01/21/2018 0.2 0.1 - 1.5 mg/dL Final Comment: This is an appended report. These results have been appended to a previously prelimina ry verified report. AST Date Value Ref Range Status 01/21/2018 33 10 - 42 U/L Final Comment: This is an appended report. These results have been appended to a previously prelimina ry verified report. ALT Date Value Ref Range Status 01/21/2018 19 6 - 45 U/L Final Comment: This is an appended report. These results have been appended to a previously prelimina ry verified report. INR Date Value Ref Range Status 01/21/2018 1.00 0.90 - 1.10 Final Comment: Usual Oral Anticoagulation Range: 2.0 - 3.0 High Level Oral Anticoagulation Range: 2.5 - 3.5 Electronically signed by: Nilam Cooley, RZainabPh.,[facility];12/07/2018 10:25 documented in this enco unter Plan of Treatment Not on filedocumented as of this encounter Visit Diagnoses Not on filedocumented in this encounter
--- OUTSIDE RECORDS SUMMARY | ~2019-02-17 | XMS | Encounter Summary ---
Demographics + + + | Address | [address] | | | [place] [address] | + + + | Home Phone | | + + + | Preferred Language | Unknown | + + + | Marital Status | Single | + + + | Evangelical Affiliation | 1061 | + + + | Race | Unknown | + + + | Ethnic Group | Unknown | + + + Author + + + | Author | [employer] [facility] (Historical as of | | | 01-02-19) | + + + | Organization | [facility] (Historical as of | | | 01-02-19) | + + + | Address | Unknown | + + + | Phone | Unavailable | + + + Support + + + + + | Name | Relationship | Address | Phone | + + + + + | Sruthi Gleason | ECON | [place] | | | | | [address] | | + + + + + | Sole Gleason | ECON | [place] | | | | | [address] | | + + + + + Care Team Providers + +------+ + | Care Concrete Products Machine Operator Name | Role | Phone [...] + + | 11/26/ | Anesthesia | [facility] | Suman Mcginnis | | | 2018 | [facility] | [address] | | | | | Operating Room [address] | [address] | | | | | [address] | [place] [address] | | | | | [place] [address] | [phone] | | | | | [phone] | | | +--------+ + + + + Anesthesia Record + + + + + | Procedure Name | Responsible | Anesthesia Start | Anesthesia Stop Time | | | Anesthesiologist | Time | | + + + + + | AV FISTULA - | Suman Mcginnis, | 11/26/18 1431 | 11/26/18 1624 | | SUPERFICIALIZATION | PRODUCTION ASSEMBLER | | | | (Right Arm) | [...] Cath | 1745 | Jenna Gresham, | oDrcas Souza, RN | | | | RN [...] | | | | | 30 Minutes, C Java Developer To O.R., Silvia | | PDT | [...]
--- OUTSIDE RECORDS SUMMARY | ~2019-02-17 | XMS | Encounter Summary ---
Demographics + + + | Address | [address] | | | [place] [address] | + + + | Home Phone | | + + + | Preferred Language | Unknown | + + + | Marital Status | Single | + + + | Quaker Affiliation | 1061 | + + + | Race | Unknown | + + + | Ethnic Group | Unknown | + + + Author + + + | Author | [employer] [facility] (Historical as of | | | 01-02-19) | + + + | Organization | [facility] (Historical as of | | | 01-02-19) | + + + | Address | Unknown | + + + | Phone | Unavailable | + + + Support + + + + + | Name | Relationship | Address | Phone | + + + + + | Sruthi Gleason | ECON | [place] | | | | | [address] | | + + + + + | Sole Gleason | ECON | [place] | | | | | [address] | | + + + + + Care Team Providers + +------+ + | Care Chief Operator Hydroformer Name | Role | Phone | + [...] + + | 11/26/ | Hospital | [facility] | Dallas Velasquez MD | | | 2019 | Encounter | [facility] PACU | [address] | | | | | [address] [facility] | [place] | | | | | [place] [address] | [address] | | | | | [phone] | | | +--------+ + + + [...] + + +---------+ + + | B Qjnabxq-H-Cczoz | Take 1 tablet by | | [...] | | | | | labs to [phone] | | | | | + + [...] | | | | | MDRD [facility] traceable | | | | | equation.Testing | | | | | performed at [facility] | | | | | [facility];[place], [place] | | | | | [address] | | | + + + + + + + | Specimen | + + | Blood | + + + + + + + | Performing | Address | City/State/Zipcode | Phone Number | | Organization | | | | + + + + + | [facility] | [address] | [place] [address] | | + + + + + [...] | | | | | | Starting [facility] 11/26/18 at 1610, | | [...] PRN, Line | | | Care, Starting [facility] 11/26/18 at | | | 1714 | | + +---+ | | | + +---+ | HYDROmorphone (DILAUDID) | | | injection 0.25 mg 0.25 mg, | | | Intravenous, Every 5 Min PRN, | | | Pain, Option Three for pain scale | | | 1-410. If no relief, contact | | | anesthesia provider., Starting | | | [facility] 11/26/18 at 1610, PACU | [...] | | | | | | | [facility] 11/26/18 at 1610, PACU | [...] PRN, Nausea, Vomiting, | | | Starting [facility] 11/26/18 at 1712 | | + +---+ | | | + +---+ | ondansetron (ZOFRAN-ODT) | | | disintegrating tablet 4 mg 4 mg, | | | Oral, Every 6 Hours PRN, Nausea, | | | Vomiting, Starting [facility] 11/26/18 | | | at [...] tolerating oral fluids, | | | Starting [facility] 11/26/18 at 1712 | | + +---+ | | | + +---+ in this encounter
--- OUTSIDE RECORDS SUMMARY | ~2019-02-17 | XMS | Encounter Summary ---
Demographics + + + | Address | [address] | | | [place] [address] | + + + | Home Phone | | + + + | Preferred Language | Unknown | + + + | Marital Status | | + + + | Zoroastrian Affiliation | 1061 | + + + | Race | Unknown | + + + | Ethnic Group | Unknown | + + + Author + + + | Author | [facility] | | | and [place] | + + + | Organization | [facility] | | | and [place] | + + + | Address | Unknown | + + + | Phone | Unavailable | + + + Support + + + + + | Name | Relationship | Address | Phone | + + + + + | Sole Gleason | ECON | [place] | | | | | [address] | | + + + + + | Sruthi Gleason | ECON | [place] | | | | | [address] | | + + + + + | Sole Gleason | ECON | [place] | | | | | [address] | | + + + + + Care Team Providers + +------+ + | Care Helpdesk Administrator Name | Role | Phone | [...] + + | 12/25/ | Telephone | [facility] | Krys | Care Coordination | | 2019 | | MED [facility] | Bart Cade MD [address] | | | | | [address] | [address] | | | | | [address] | [place] [address] | | | | | [place] [address] | [phone] | | | | | [phone] | | | +--------+ + + + [...]
--- OUTSIDE RECORDS SUMMARY | ~2019-02-17 | XMS | Encounter Summary ---
Demographics + + + | Address | [address] | | | [place] [address] | + + + | Home Phone | | + + + | Preferred Language | Unknown | + + + | Marital Status | Single | + + + | Restoration Affiliation | 1061 | + + + | Race | Unknown | + + + | Ethnic Group | Unknown | + + + Author + + + | Author | [employer] [facility] (Historical as of | | | 01-02-19) | + + + | Organization | [facility] (Historical as of | | | 01-02-19) | + + + | Address | Unknown | + + + | Phone | Unavailable | + + + Support + + + + + | Name | Relationship | Address | Phone | + + + + + | Sruthi Gleason | ECON | [place] | | | | | [address] | | + + + + + | Sole Gleason | ECON | [place] | | | | | [address] | | + + + + + Care Team Providers + +------+ + | Care School Physical Therapist Name | Role | Phone | + [...] (October | 2018 | on Only | [address] | [address] | 2018-Aby Provider | | | | [address] | [address] [place] [place], [place] | Dialysis Rounding | | | | [place] [address] | [address] | Note) | | | | [phone] | | | +--------+ + + + [...]
--- OUTSIDE RECORDS SUMMARY | ~2019-02-17 | XMS | Encounter Summary ---
Demographics + + + | Address | [address] | | | [place] [address] | + + + | Home Phone [...] [place] | | | | | [address] | | + + + + + | Sruthi Gleason | ECON | [place] | | | | | [address] | | + + + + + | Sole Gleason | ECON | [place] | | | | | [address] | | + + + + + Care Team Providers + +------+ + | Care Estate And Trust Tax Principal Name | Role | Phone | + +------+ + | Jack Durand DO | PCP | | + +------+ + Encounter Details +--------+ + + + + | Date | Type | Department | Care Team | Description | +--------+ + + + + | 01/05/ | Care | [facility] | Krys, | | | 2019 | Coordinatio | MED CTR MEDICAL | Bart Cade MD [address] | | | | n | [address] CL[address] | [facility] | | | | | [address] [facility] | [place] [address] | | | | | [place] [address] | [phone] | | | | | [phone] | | | +--------+ + + + [...]
--- OUTSIDE RECORDS SUMMARY | ~2019-02-17 | XMS | Encounter Summary ---
Demographics + + + | Address | [address] | | | [place] [address] | + + + | Home Phone | | + + + | Preferred Language | Unknown | + + + | Marital Status | | + + + | Lutheran Affiliation | 1061 | + + + | Race | Unknown | + + + | Ethnic Group | Unknown | + + + Author + + + | Author | [facility] | | | and [place] | + + + | Organization | [facility] | | | and [place] | + + + | Address | Unknown | + + + | Phone | Unavailable | + + + Support + + + + + | Name | Relationship | Address | Phone | + + + + + | Sole Gleason | ECON | [place] | | | | | [address] | | + + + + + | Sruthi Gleason | ECON | [place] | | | | | [address] | | + + + + + | Sole Gleason | ECON | [place] | | | | | [address] | | + + + + + Care Team Providers + +------+ + | Care Scarfer Name | Role | Phone | + +------+ + | Jack Durand DO | PCP | | + +------+ + Encounter Details +--------+ + + + + | Date | Type | Department | Care Team | Description | +--------+ + + + + | 12/03/ | Documentati | [facility] | Nilam Cooley, | | | 2019 | on | MED CTR PHARMACY | [facility] [address] | | | | | [address] | [place], [place] | | | | | [place] [address] | [address] | | | | | [phone] | | | +--------+ + + + [...] as of this encounter Progress Nilam Agrawal, [facility] - 12/03/2018 1451 PDTFormatting of this note might be different from domingo alcantar. IDT PATIENT MEDICATION/PROFILE REVIEW [facility] CLINICAL PHARMACY SERVICES [...] therapy: LUNG: Phase III Study by the [place] Lung Cancer Study Gr oup: Pemetrexed Plus [...]
--- OUTSIDE RECORDS SUMMARY | ~2019-02-17 | XMS | Encounter Summary ---
Demographics + + + | Address | [address] | | | [place] [address] | + + + | Home Phone | | + + + | Preferred Language | Unknown | + + + | Marital Status | Single | + + + | Buddhist Affiliation | 1061 | + + + | Race | Unknown | + + + | Ethnic Group | Unknown | + + + Author + + + | Author | [employer] [facility] (Historical as of | | | 01-02-19) | + + + | Organization | [facility] [facility] (Historical as of | | | 01-02-19) | + + + | Address | Unknown | + + + | Phone | Unavailable | + + + Support + + + + + | Name | Relationship | Address | Phone | + + + + + | Sruthi Gleason | ECON | [place] | | | | | [address] | | + + + + + | Sole Gleason | ECON | [place] | | | | | [address] | | + + + + + Care Team Providers + +------+ + | Care Washing Machine Operator Name | Role | Phone [...] + + | 11/26/ | Surgery | [facility] | Dallas Velasquez MD | AV FISTULA - | | 2019 | | [facility] | [address] | SUPERFICIALIZATION | | | | Operating Room [address] | [place], [place] | | | | | [address] [place] | [address] | | | | | [place] [address] | | | | | | [phone] | | | +--------+---------+ + + + [...] skin turning blue, or fainting Call 911. [facility] AV DIALYSIS SHUNT/FISTULA DISCHARGE INSTRUCTIONS Your [...] + + +---------+ + + | B Umpgusm-B-Xlwsb | Take 1 tablet by | | [...] | | | | | labs to [phone] | | | | | + + [...] 136 | 135 - 145 mmol/L | [facility] | + + + + + [...] 10.5 | 8.5 - 10.5 mg/dL | [facility] | + + + + + | EGFR | 9 (L)Comment: GFR <60: | >60 mL/min/1.73m2 | [facility] | | | CHRONIC KIDNEY [...] the | | | | | MDRD [facility] traceable | | | | | equation.Testing | | | | | performed at [facility];[address] | | | | | [facility];[place], [place] | | | | | [address] | | | + + + + + + + | Specimen | + + | Blood | + + + + + + + | Performing | Address | City/State/Zipcode | Phone Number | | Organization | | | | + + + + + | [facility] | [address] | [place] [address] | | + + + + + [...] Pain (1-3), | | | Fever, Starting [facility] 11/26/18 at | | | [...] PDT | | | | | Starting [facility] 11/26/18 at 1610, | | [...] to option 3., | | | Starting [facility] 11/26/18 at 1610, | | [...] | | | | | | Starting [facility] 11/26/18 at 1610, | | [...] PDT | | | | | Starting [facility] 11/26/18 at 1526, | | | | | | | Intra-op | | | | | | + +-------+ +---+---+---+ + +---+ | | | + +---+ | heparin flush (PF) 100 unit/mL | | | injection 300 Units 300 Units (3 | | | mL), Intracatheter, PRN, Line | | | Care, Starting [facility] 11/26/18 at | | | 1714 | | + +---+ | | | + +---+ | HYDROmorphone (DILAUDID) | | | injection 0.25 mg 0.25 mg, | | | Intravenous, Every 5 Min PRN, | | | Pain, Option Three for pain scale | | | 1-410. If no relief, contact | | | anesthesia provider., Starting | | | [facility] 11/26/18 at 1610, PACU | [...] | | | | | | | [facility] 11/26/18 at 1610, PACU | [...] PRN, Nausea, Vomiting, | | | Starting [facility] 11/26/18 at 1712 | | + +---+ | | | + +---+ | ondansetron (ZOFRAN-ODT) | | | disintegrating tablet 4 mg 4 mg, | | | Oral, Every 6 Hours PRN, Nausea, | | | Vomiting, Starting [facility] 11/26/18 | | | at [...]
--- OUTSIDE RECORDS SUMMARY | ~2019-02-17 | XMS | Encounter Summary ---
Demographics + + + | Address | [address] | | | [place] [address] | + + + | Home Phone | | + + + | Preferred Language | Unknown | + + + | Marital Status | Single | + + + | Latter-Day Affiliation | 1061 | + + + | Race | Unknown | + + + | Ethnic Group | Unknown | + + + Author + + + | Author | [employer] [facility] (Historical as of | | | 01-02-19) | + + + | Organization | [facility] (Historical as of | | | 01-02-19) | + + + | Address | Unknown | + + + | Phone | Unavailable | + + + Support + + + + + | Name | Relationship | Address | Phone | + + + + + | Sruthi Gleason | ECON | [place] | | | | | [address] | | + + + + + | Sole Gleason | ECON | [place] | | | | | [address] | | + + + + + Care Team Providers + +------+ + | Care Painter Helper Spray Name | Role | Phone | + [...] + + | 11/26/ | Hospital | [facility] | Dallas Velasquez MD | | | 2019 | Encounter | [facility] PACU | [address] | | | | | [address] [facility] | [address] [place] | | | | | [place] [address] | [address] | | | | | [phone] | | | +--------+ + + + [...] skin turning blue, or fainting Call 911. [facility] AV DIALYSIS SHUNT/FISTULA DISCHARGE INSTRUCTIONS Your physician [...] + + +---------+ + + | B Dqgnxuw-O-Blgnk | Take 1 tablet by | | [...] | | | | | | | [phone] to | | | | | | | schedule follow | | | | | | | upPlease fax all | | | | | | | labs to [phone] | | | | | + + [...] (L)Comment: GFR <60: | >60 mL/min/1.73m2 | [facility] | | | CHRONIC KIDNEY DISEASE, [...] the | | | | | MDRD [facility] traceable | | | | | equation.Testing | | | | | performed at [facility] | | | | | [facility];[place], [place] | | | | | [address] | | | + + + + + + + | Specimen | + + | Blood | + + + + + + + | Performing | Address | City/State/Zipcode | Phone Number | | Organization | | | | + + + + + | [facility] | [address] | [place] [address] | | + + + + + [...] | | | | | | Starting [facility] 11/26/18 at 1610, | | [...] PRN, Line | | | Care, Starting [facility] 11/26/18 at | | | 1714 | | + +---+ | | | + +---+ | HYDROmorphone (DILAUDID) | | | injection 0.25 mg 0.25 mg, | | | Intravenous, Every 5 Min PRN, | | | Pain, Option Three for pain scale | | | 1-410. If no relief, contact | | | anesthesia provider., Starting | | | [facility] 11/26/18 at 1610, PACU | [...] | | | | | | | [facility] 11/26/18 at 1610, PACU | [...] PRN, Nausea, Vomiting, | | | Starting [facility] 11/26/18 at 1712 | | + +---+ | | | + +---+ | ondansetron (ZOFRAN-ODT) | | | disintegrating tablet 4 mg 4 mg, | | | Oral, Every 6 Hours PRN, Nausea, | | | Vomiting, Starting [facility] 11/26/18 | | | at [...] tolerating oral fluids, | | | Starting [facility] 11/26/18 at 1712 | | + +---+ | | | + +---+ in this encounter
--- OUTSIDE RECORDS SUMMARY | ~2019-02-17 | XMS | Clinical Summary ---
Demographics + + + | Address | [address] | | | [place] [address] | + + + | Home Phone | | + + + | Preferred Language | Unknown | + + + | Marital Status | Single | + + + | Druze Affiliation | 1061 | + + + | Race | Unknown | + + + | Ethnic Group | Unknown | + + + Author + + + | Author | [facility] (Historical as of | | | 01-02-19) | + + + | Organization | [facility] (Historical as of | | | 01-02-19) | + + + | Address | Unknown | + + + | Phone | Unavailable | + + + Support + + + + + | Name | Relationship | Address | Phone | + + + + + | Sruthi Gleason | ECON | [place] | | | | | [address] | | + + + + + | Sole Gleason | ECON | [place] | | | | | [address] | | + + + + + Care Team Providers + +------+ + | Care Seat Covers Trimmer Name | Role | Phone | + [...] | + + + +---------+------+------+-------+ | B Ikzqqur-D-Fxfwm | Take 1 tablet by | | [...] | | | | | labs to [phone] | | | | | | + [...] + | ESRD (end stage renal disease) ([facility]) | 04/06/2018 | + + + | Anemia | 04/06/2018 | + + + | Heroin abuse ([facility]) | 04/06/2018 | + + + | [...] 2018 | on Only | | | 2019-[facility] Provider | | | | | [...] | | | | | | Antonietta (046) | | | | | | [phone]) | +--------+ + + + + | 12/07/ | Telephone | | Nery Nath, | | | 2018 | | | RN | | +--------+ + + + + | 12/07/ | Telephone | | Jany Avila | | 2018 | | | SLICING MACHINE FEEDER | | +--------+ + + + + | 12/02/ | Telephone | | Jany Avila | | 2018 | | | SLICING MACHINE FEEDER | | +--------+ + + + + [...] | | Suman Mcginnis | | | 2019 | Event | | HECTOR Pedroza | | +--------+ + + + + | 11/23/ | Telephone | | Dallas Velasquez MD | Question (requesting | | 2018 | | | | call back from | | | | | | [place]) | +--------+ + + + + | 11/17/ | Office | | Gertrudis Vivar DNP | ESRD (end stage | | 2019 | Visit | | | renal disease) ([facility]) | | | | | | (Primary Dx); AVF | | | | | | (arteriovenous | | | | | | fistula) ([facility]) | +--------+ + + + + from [...] | | | Suman | | | [place], | | | CORRECTIONS SERGEANT | | | - | | | | | | 2019 | | | [...] | | | time: | | | // | | | 019 | | | [...] | | | lost | +---+--------+ + +--------+ + + + | AV [...] + | US HEMODIALYSIS | Routin | 11/17/2018 | AVF (arteriovenous | Results for this | | ACCESS FISTULA OR | e | 3:21 PM | fistula) ([facility]) | procedure are in the | | GRAFT | | PDT | | results section. | + +--------+ + + + from Last 3 Months Results hemodialysis access fistula or graft (12/21/2018 9:31 AM)Only the most recent of 2 resu lts within the time period is included. + + + | Impressions | Performed [...] | + + + + + | [facility] | [address] | [place] [address] | | + + + + + Basic metabolic panel (11/26/2018 11:50 AM)Only the most recent of 2 results within the is included. + + + + + | Component | Value | Ref Range | Performed At | + + + + + | SODIUM | 136 | 135 - 145 mmol/L | [facility] | + + + + + | POTASSIUM | 4.8 | 3.5 - 4.9 mmol/L | [facility] | + + + + + | CHLORIDE | 103 | 99 - 109 mmol/L | [facility] | + + + + + | CO2 | 23 | 23 - 32 mmol/L | [facility] [...] (H) | 0.70 - 1.30 mg/dL | [facility] | + + + + + | BUN/CREAT | 9 | | [facility] | + + + + + | CALCIUM | 10.5 | 8.5 - 10.5 mg/dL | [facility] | + + + + + | EGFR | 9 (L)Comment: GFR <60: | >60 mL/min/1.73m2 | [facility] | | | CHRONIC [...] | | | performed at [facility] | | | | | [facility];[place], [place] | | | | | [address] | | | + + + + + + + | Specimen | + + | Blood | + + + + + + + | Performing | Address | City/State/Zipcode | Phone Number | | Organization | | | | + + + + + | [facility] | [address] | [place] [address] | | + + + + + MRSA by PCR (11/25/2018 11:17 AM) + + + + + | Component | Value | Ref Range | Performed At | + + + + + | SOURCE | NARES(NOSE) | | [facility] | + + + + + | MRSA PCR | NEGATIVEComment: Testing | NEGATIVE | [facility] | | | performed at [facility] [place] | | | | | [address];[place] | | | | | [address] | | | + + + + + + + | Specimen | + + | Nasopharyngeal - | | Nares(Nose) | + + + + + + + | Performing | Address | City/State/Zipcode | Phone Number | | Organization | | | | + + + + + | [facility] | [address] | [place] [address] | | + + + + + [...] | LABORATORY | | | performed at [facility], [address] | | | | | [address], | | | | | [place] [address] | | | | | | | | + + + + + + + | Specimen | + + | Blood | + + + + + + + | Performing | Address | City/State/Zipcode | Phone Number | | Organization | | | | + + + + + | [facility] | [address] | [place] [address] | [phone] | | LABORATORY | [address] | | [...] [place] - [place] | [place] - | [id number] | [facility] | | | | | [...] | Self | [birth year] | Home: | [address] | | | al/Fam | | [phone] | [phone] [place] | | | [place] | | | [phone] | [phone] | + +--------+ +--------+ + +
--- OUTSIDE RECORDS SUMMARY | ~2019-02-17 | XMS | Encounter Summary ---
Demographics + + + | Address | [address] | | | [place] [address] | + + + | Home Phone | | + + + | Preferred Language | Unknown | + + + | Marital Status | Single | + + + | Christianity Affiliation | 1061 | + + + | Race | Unknown | + + + | Ethnic Group | Unknown | + + + Author + + + | Author | [facility] (Historical as of | | | 01-02-19) | + + + | Organization | [facility] (Historical as of | | | 01-02-19) | + + + | Address | Unknown | + + + | Phone | Unavailable | + + + Support + + + + + | Name | Relationship | Address | Phone | + + + + + | Sruthi Gleason | ECON | [place] | | | | | [address] | | + + + + + | Sole Gleason | ECON | [place] | | | | | [address] | | + + + + + Care Team Providers + +------+ + | Care Oncology Research Rn Name | Role | Phone | + +------+ + PCP | Unavailable | + +------+ + Encounter Details +--------+ + + + + | Date | Type | Department | Care Team | Description | +--------+ + + + + | 11/25/ | Hospital | [facility] | PoiDallas MD | | | 2019 | [facility] | [address] | | | | | Preadmission | [place], [place] | | | | | Services [address] | [address] | | | | | [address] [place], [place] | | | | | | [...] shunt, please contact your ph ysician at [phone]. Outpatient Prescriptions Marked as Taking for the 11/25/18 encounter (Hospital Encounter) [facility] ROOM 3 Medication Sig INSTRUCTIONS aspirin 81 MG tablet Take 81 mg by mouth daily. HOLD prior to procedure. Take last dose per Dr Instructions. B Jzatvqj-P-Cmslz Acid (DIALYVITE TABLET) TABS Take 1 tablet [...] + + +---------+ + + | B Xtmddmx-C-Azoyv | Take 1 tablet by | | [...] | | | | | labs to [phone] | | | | | + + [...] + | SOURCE | NARES(NOSE) | | [facility] | + + + + + | MRSA PCR | NEGATIVEComment: Testing | NEGATIVE | [facility] | | | performed at [facility];[address] | | | | | [address];[place] | | | | | [address] | | | + + + + + + + | Specimen | + + | Nasopharyngeal - | | Nares(Nose) | + + + + + + + | Performing | Address | City/State/Zipcode | Phone Number | | Organization | | | | + + + + + | [facility] | [address] | [place] [address] | | + + + + + [...] [address], | | | | | [place] [address] | | | | | | | | + + + + + + + | Specimen | + + | Blood | + + + + + + + | Performing | Address | City/State/Zipcode | Phone Number | | Organization | | | | + + + + + | [facility] | [address] | [place] [address] | [phone] | | LABORATORY | [address]vd[address] | | [...] (H) | 8.5 - 10.5 mg/dL | [facility] | | | | | LABORATORY [...] | | | | performed at [facility], [address] | | | | | [facility], | | | | | [place] [address] | | | + + + + + + + | Specimen | + + | Blood | + + + + + + + | Performing | Address | City/State/Zipcode | Phone Number | | Organization | | | | + + + + + | [facility] | [address] | [place] [address] | [phone] | | LABORATORY | [address] | | | + + + + + in this encounter Visit Diagnoses Not on filein this encounter
--- OUTSIDE RECORDS SUMMARY | ~2019-02-17 | XMS | Clinical Summary ---
Demographics + + + | Address | [address] | | | [place] [address] | + + + | Home Phone | | + + + | Preferred Language | Unknown | + + + | Marital Status | Single | + + + | Jainism Affiliation | 1061 | + + + | Race | Unknown | + + + | Ethnic Group | Unknown | + + + Author + + + | Author | [facility] [facility] (Historical as of | | | 01-02-19) | + + + | Organization | [facility] (Historical as of | | | 01-02-19) | + + + | Address | Unknown | + + + | Phone | Unavailable | + + + Support + + + + + | Name | Relationship | Address | Phone | + + + + + | Sruthi Gleason | ECON | [place] | | | | | [address] | | + + + + + | Sole Gleason | ECON | [place] | | | | | [address] | | + + + + + Care Team Providers + +------+ + | Care Auto Claims Adjuster Name | Role | Phone | [...] | + + + +---------+------+------+-------+ | B Dqiibno-F-Wbgav | Take 1 tablet by | | [...] | | | | | labs to [phone] | | | | | | + [...] + | ESRD (end stage renal disease) ([facility]) | 04/06/2018 | + + + | Anemia | 04/06/2018 | + + + | Heroin abuse ([facility]) | 04/06/2018 | + + [...] 2018 | on Only | | | [facility] | | | | | | [...] | | | | | | Antonietta (500) | | | | | | [phone]) | +--------+ + + + + | 12/07/ | Telephone | | Nery Nath, | | | 2018 | | | RN | | +--------+ + + + + | 12/07/ | Telephone | | Jany Avila | | 2018 | | | MAINTENANCE GROUNDSKEEPER | | +--------+ + + + + | 12/02/ | Telephone | | Jany Avila | | 2018 | | | MAINTENANCE GROUNDSKEEPER | | +--------+ + + + + [...] | Visit | | | renal disease) ([facility]) | | | | | | (Primary Dx); AVF | | | | | | (arteriovenous | | | | | | fistula) ([facility]) | +--------+ + + + + from [...] | | | Suman | | | [place], | | | END LATHE OPERATOR | | | - | | | [...] | e | 3:21 PM | fistula) ([facility]) | procedure are in the | | [...] [facility] | [address] | [place] [address] | | + + + + + Basic metabolic panel (11/26/2018 11:50 AM)Only the most recent of 2 results within the is included. + + + + + | Component | Value | Ref Range | Performed At | + + + + + | SODIUM | 136 | 135 - 145 mmol/L | [facility] | + + + + [...] (H) | 0.70 - 1.30 mg/dL | [facility] | + + + + + | BUN/CREAT | 9 | | [facility] | + + + + + | CALCIUM | 10.5 | 8.5 - 10.5 mg/dL | [facility] | + + + + + | EGFR | 9 (L)Comment: GFR <60: | >60 mL/min/1.73m2 | [facility] | | | CHRONIC KIDNEY [...] the | | | | | MDRD [facility] traceable | | | | | equation.Testing | | | | | performed at [facility] | | | | | [facility];[place], [place] | | | | | [address] | | | + + + + + + + | Specimen | + + | Blood | + + + + + + + | Performing | Address | City/State/Zipcode | Phone Number | | Organization | | | | + + + + + | [facility] | [address] | [place] [address] | | + + + + + MRSA by PCR (11/25/2018 11:17 AM) + + + + + | Component | Value | Ref Range | Performed At | + + + + + | SOURCE | NARES(NOSE) | | [facility] | + + + + + | MRSA PCR | NEGATIVEComment: Testing | NEGATIVE | [facility] | | | performed at [facility] | | | | | [address];[place] | | | | | [address] | | | + + + + + + + | Specimen | + + | Nasopharyngeal - | | Nares(Nose) | + + + + + + + | Performing | Address | City/State/Zipcode | Phone Number | | Organization | | | | + + + + + | [facility] | [address] | [place] [address] | | + + + + + [...] | LABORATORY | | | performed at [facility], [address] | | | | | [address], | | | | | [place] [address] | | | | | | | | + + + + + + + | Specimen | + + | Blood | + + + + + + + | Performing | Address | City/State/Zipcode | Phone Number | | Organization | | | | + + + + + | [facility] | [address] | [place] [address] | [phone] | | LABORATORY | [address] | | [...] [place] - [place] | [place] - | [id number] | [facility] | | | | | [...] | Self | [birth year] | Home: | [address] | | | al/Fam | | 1956 | [phone] | [place] | | | [place] | | | [phone] | [address] | + +--------+ +--------+ + +
--- OUTSIDE RECORDS SUMMARY | ~2019-02-17 | XMS | Encounter Summary ---
Demographics + + + | Address | [address] | | | [place] [address] | + + + | Home Phone | | + + + | Preferred Language | Unknown | + + + | Marital Status | Single | + + + | Samaritan Affiliation | 1061 | + + + | Race | Unknown | + + + | Ethnic Group | Unknown | + + + Author + + + | Author | [employer] [facility] (Historical as of | | | 01-02-19) | + + + | Organization | [facility] (Historical as of | | | 01-02-19) | + + + | Address | Unknown | + + + | Phone | Unavailable | + + + Support + + + + + | Name | Relationship | Address | Phone | + + + + + | Sruthi Gleason | ECON | [place] | | | | | [address] | | + + + + + | Sole Gleason | ECON | [place] | | | | | [address] | | + + + + + Care Team Providers + +------+ + | Care Clinic Assistant Name | Role | Phone | [...] + + | 11/26/ | Anesthesia | [facility] | Suman Mcginnis | | | 2018 | [facility] | HECTOR [address] | | | | | [address] | [address] | | | | [address] | [place] [address] | | | | | [place] [address] | [phone] | | | | | [phone] | | | +--------+ + + + + Anesthesia Record + + + + + | Procedure Name | Responsible | Anesthesia Start | Anesthesia Stop Time | | | Anesthesiologist | Time | | + + + + + | AV FISTULA - | Suman Mcginnis, | 11/26/18 1431 | 11/26/18 1624 | | SUPERFICIALIZATION | TUBE AND MANIFOLD BUILDER | | | | (Right Arm) | [...] | | | | | 30 Minutes, Performance Improvement Consultant To O.R., Silvia | | PDT | [...]
--- OUTSIDE RECORDS SUMMARY | ~2019-02-17 | XMS | Encounter Summary ---
Demographics + + + | Address | [address] | | | [place] [address] | + + + | Home Phone | | + + + | Preferred Language | Unknown | + + + | Marital Status | Single | + + + | Zoroastrianism Affiliation | Unknown | + + + | Race | White | + + + | Ethnic Group | Not or | + + + Author + + + | Author | [facility] | + + + | Organization | [facility] | + + + | Address | Unknown | + + + | Phone | Unavailable | + + + Support + + +---------+ + | Name | Relationship | Address | Phone | + + +---------+ + | Sole Gleason | ECON | Unknown | | + + +---------+ + Care Team Providers + +------+ + | Care Compliance Tester Name | Role | Phone | [...] | | | | | [address], | | | | | | [place] [address] | | | +--------+--------+ + + + [...]
--- OUTSIDE RECORDS SUMMARY | ~2019-02-17 | XMS | Encounter Summary ---
Demographics + + + | Address | [address] | | | [place] [address] | + + + | Home Phone | | + + + | Preferred Language | Unknown | + + + | Marital Status | Single | + + + | Confucianism Affiliation | 1061 | + + + | Race | Unknown | + + + | Ethnic Group | Unknown | + + + Author + + + | Author | [employer] [facility] (Historical as of | | | 01-02-19) | + + + | Organization | [facility] (Historical as of | | | 01-02-19) | + + + | Address | Unknown | + + + | Phone | Unavailable | + + + Support + + + + + | Name | Relationship | Address | Phone | + + + + + | Sruthi Gleason | ECON | [place] | | | | | [address] | | + + + + + | Sole Gleason | ECON | [place] | | | | | [address] | | + + + + + Care Team Providers + +------+ + | Care Master Scheduler Name | Role | Phone | + +------+ + PCP | Unavailable | + +------+ + Encounter Details +--------+ + + + + | Date | Type | Department | Care Team | Description | +--------+ + + + + | 11/26/ | Procedure | [facility] | | | | 2019 | [facility] | | | | | | Operating [address] | | | | | | [facility] | | | | | | [place] [address] | | | | | | [phone] | | | +--------+ + + + [...]
== END 2019-02-17 07:11 | disposition home or self-care (01) ==
LOC: ED 06:16
DX: E11.22 Type 2 diabetes mellitus with diabetic chronic kidney disease (principal); N18.9 Chronic kidney disease, unspecified; Z85.118 Personal history of other malignant neoplasm of bronchus and lung; Z85.830 Personal history of malignant neoplasm of bone; Z87.891 Personal history of nicotine dependence; Z79.82 Long term (current) use of aspirin; Z79.899 Other long term (current) drug therapy
CPT/HCPCS: 99283

== ENCOUNTER 2019-02-18 16:54 | Emergency (ER) | payer MEDICARE ==
[~2019-02-18] VITALS: Ht 182.9 cm; Wt 93.0 kg
--- OUTSIDE RECORDS SUMMARY | ~2019-02-18 | XMS | Encounter Summary ---
Demographics + + + | Address | [address] | | | [place] [address] | + + + | Home Phone | | + + + | Preferred Language | Unknown | + + + | Marital Status | | + + + | Sabianism Affiliation | 1061 | + + + | Race | Unknown | + + + | Ethnic Group | Unknown | + + + Author + + + | Author | [facility] | | | and [place] | + + + | Organization | [facility] | | | and [place] | + + + | Address | Unknown | + + + | Phone | Unavailable | + + + Support + + + + + | Name | Relationship | Address | Phone | + + + + + | Sole Gleason | ECON | [place] | | | | | [address] | | + + + + + | Sruthi Gleason | ECON | [place] | | | | | [address] | | + + + + + | Sole Gleason | ECON | [place] | | | | | [address] | | + + + + + Care Team Providers + +------+ + | Care Can Runner Name | Role | Phone | + +------+ + | Jack Durand DO | PCP | | + +------+ + Reason for Visit + + + | Reason | Comments | + + + | Nutrition Education | | + + + Evaluate & Treat (Routine) +--------+ + + + + + | Status | Reason | Specialty | Diagnoses / | Referred By | Referred To | | | | | Procedures | Contact | Contact | +--------+ + + + + + | Closed | Specialty | Dietitian / | Diagnoses | | House, | | | Services | Nutrition | Squamous | Krys, | Bella M, | | | Required | | cell | Bart C, | RDN | | | | | carcinoma of | MD [address] | | | | | | lung, | [address] | | | | | | unspecified | [place], | | | | | | laterality | [place] [address] | | | | | | ([facility]) | Phone: | | | | | | | [phone] | | | | | | | Fax: | | | | | | | [phone] | | +--------+ + + + + + Encounter Details +--------+ + + + + | Date | Type | Department | Care Team | Description | +--------+ + + + + | 12/08/ | Hospital | [facility] | Krys, | Squamous cell | | 2019 | Encounter | [facility] | Bart Cade MD [address] | carcinoma of lung, | | | | SERVICES [address] [place] | unspecified | | | | [place], | [place] [address] | laterality (HCC) | | | | [place] [address] | [phone] | | | | | [phone] | | | | | | | Bella Ruiz, | | | | | | DONITA | | +--------+ + + + + Social History + +-------+ +--------+------+ | Tobacco Use | Types | Packs/Day | Years | Date | | | | | Used | | + +-------+ +--------+------+ | Current Every Day | | 0.5 | | | | Smoker | | | | | + +-------+ +--------+------+ + +---+---+---+ | Smokeless Tobacco: | | | | | Never Used | | | | + +---+---+---+ + + | Comments: switched to vape pen, last month | + + + + +---------+ + | Alcohol Use | Drinks/We | oz/Week | Comments | | | ek | | | + + +---------+ + | No | | | | + + +---------+ + + + + | Sex Assigned at | Date Recorded | | | | + + + | Not on file | | + + + + + + + | Job Start Date | Occupation | Industry | + + + + | Not on file | Not on file | Not on file | + + + + + + + + | Travel History | Travel Start | Travel End | + + + + + + | No recent travel history available. | + + documented as of this encounter Medications at Time of Discharge + + + +---------+ + + | Medication | Sig | Dispensed | Refills | Start | End Date | | | | | | Date | | + + + +---------+ + + | aspirin 81 MG | Take 81 mg by mouth | | 0 | | | | tablet | Daily. | | | | | + + + +---------+ + + | DULoxetine | Take 60 mg by mouth | | 0 | | | | (CYMBALTA) [address] | Daily. | | | | | | capsule | | | | | | + + + +---------+ + + | furosemide (LASIX) | Take 1 tablet by | 60 | 0 | 01/29/20 | | | 80 mg tablet | mouth 2 times daily. | tablet | | 18 | | + + + +---------+ + + | gabapentin | Take 1 capsule by | 90 | 0 | 03/16/20 | | | (NEURONTIN) 100 mg | mouth 2 times daily. | capsule | | 18 | | | capsule | | | | | | + + + +---------+ + + | glycerin adult | Place 1 suppository | | 0 | | | | suppository | rectally Daily as | | | | | | | needed for | | | | | | | Constipation. | | | | | + + + +---------+ + + | insulin glargine | Inject 10 Units | 10 mL | 0 | 01/29/20 | | | (LANTUS) 100 | under the skin | | | 18 | | | units/mL injection | nightly. | | | | | | (vial) | | | | | | + + + +---------+ + + | Insulin | BD Insulin Syringe | | 0 | | | | Syringe-Needle U-100 | Ultra-Fine 1/2 mL 30 | | | | | | (B-D INS SYR | gauge x 1/2" | | | | | | ULTRAFINE .5CC/30G) | | | | | | | 30G X 1/2" 0.5 ML | | | | | | | MISC | | | | | | + + + +---------+ + + | lisinopril | Take 1 tablet by | 30 | 0 | 01/29/20 | | | (PRINIVIL, ZESTRIL) | mouth Daily. 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 | | | | | | (MIRCERA) 50 mcg/0.3 | | | | | | | mL injection | | | | | | + + + +---------+ + + | NARCAN 4 MG/0.1ML | Inhale 1 puff into | | 0 | 09/13/19 | | | | the lungs Daily as | | | 19 | | | | needed. | | | | | + + + +---------+ + + | oxyCODONE 20 MG | 1-4 tabs every four | 270 | 0 | 08/28/19 | | | TABSIndications: | hours as needed for | tablet | | 19 | 9 | | Neoplasm related | pain | | | | | | pain | | | | | | + + + +---------+ + + | OXYCONTIN 40 MG ER | | | 0 | 12/08/19 | | | abuse-deterrent | | | | 19 | | | tablet | | | | | | + + + +---------+ + + | polyethylene | Take 17 g by mouth | | 0 | | | | glycol (MIRALAX) | Daily as needed for | | | | | | powder | Constipation. | | | | | + + + +---------+ + + | renal multivitamin | Take 1 tablet by | 30 | 0 | 01/30/20 | | | (DIALYVITE, | mouth Daily. | tablet | | 18 | | | VOL-CARE) TABS | | | | | | + + + +---------+ + + | sevelamer | Take 800 mg by mouth | | 0 | | | | carbonate (RENVELA) | 3 times daily. | | | | | | 800 mg tablet | | | | | | + + + +---------+ + + | SYMBICORT 80-4.5 | Inhale 2 puffs into | | 0 | 04/16/20 | | | MCG/ACT inhaler | the lungs Daily. | | | 18 | | + + + +---------+ + + | vancomycin 1 g | Inject 1,000 mg into | | 0 | 07/24/19 | | | injection | the vein Daily as | | | 19 | | | | needed. After HD | | | | | + + + +---------+ + + documented as of this encounter Progress Notes Bella Ruiz RDN - 12/08/2018 1343 PDT Medical Nutrition Note SUBJECTIVE: Meet with pt today in the cancer center while he received treatment for squamo us cell lung cancer. He is also on dialysis. He states he is no longer DM and they took aw ay his insulin. He has meet with a dietitian at the dialysis center and he tries to follow a low phos low K diet. He states they are trying to have him loose weight. Provided educat ion to pt on nutritional MNT for nausea and vomiting. OBJECTIVE: Diet: Renal 6654-6363 cc fluid restriction (per pt) Wt Readings from Last 3 Encounters: 12/08/18 93.9 kg (207 lb 0.2 oz) 04/27/18 105 kg (231 lb 7.7 oz) 01/28/18 100.1 kg (220 lb 10.9 oz) Ht Readings from Last 1 Encounters: 01/21/18 1.778 m (5' 10") Labs: Glucose, POC Date/Time Value Ref Range Status 01/28/2018 12:52 155 (H) 70 - 109 mg/dL Final 01/28/2018 06:41 98 70 - 109 mg/dL Final 01/27/2018 20:03 180 (H) 70 - 109 mg/dL Final , Lab Results Component Value Date HBA1C 7.5 09/18/2016 , Lab Results Component Value Date HBA1C 7.5 09/18/2016 HBA1C 7.0 05/22/2015 Estimated needs (wt. 80kg) 1800 kcals/day 80 gm pro/day Medications: reviewed ASSESSMENT/PLAN: Nutrition Diagnosis: Food and nutrition related knowledge defict related to antiemetic reg imen as evidenced by verbalization from the pt. Interventions: 1. Provided and discussed written N/V MNT 2. Encourage him to continue to follow renal diet Nutrition Goals: 1. Prevent nausea 2. Meet nutritional needs Monitor: 1. Nutritional parameters 2. Follow up as needed in the cancer center Time spent: 30 minutes Thank you for the referral, Bella Ruiz RDN 12/08/2018 13:43 documented in this enc ounter Plan of Treatment Not on filedocumented as of this encounter Visit Diagnoses + + | Diagnosis | + + | Squamous cell carcinoma of lung, unspecified laterality (HCC) | + + documented in this encounter
--- OUTSIDE RECORDS SUMMARY | ~2019-02-18 | XMS | Clinical Summary ---
Demographics + + + | Address | [address] [place] [address] Rd | | | [place] [address] | + + + | Home Phone | | + + + | Preferred Language | Unknown | + + + | Marital Status | Single | + + + | Caodaism Affiliation | Unknown | + + + | Race | White | + + + | Ethnic Group | Not or | + + + Author + + + | Author | [facility] | + + + | Organization | [facility] | + + + | Address | Unknown | + + + | Phone | Unavailable | + + + Support + + +---------+ + | Name | Relationship | Address | Phone | + + +---------+ + | Sole Gleason | ECON | Unknown | | + + +---------+ + Care Team Providers + +------+ + | Care Memorial Marker Designer Name | Role | Phone | + +------+ + | Tigre Dwyer DO | PCP | | + +------+ + Source Comments [facility] is fully live on both [facility] and [facility] Allergies No Known Allergies Medications + + [...]
--- OUTSIDE RECORDS SUMMARY | ~2019-02-18 | XMS | Encounter Summary ---
Demographics + + + | Address | [address] | | | [place] [address] | + + + | Home Phone | | + + + | Preferred Language | Unknown | + + + | Marital Status | | + + + | Advent Affiliation | 1061 | + + + | Race | Unknown | + + + | Ethnic Group | Unknown | + + + Author + + + | Author | [facility] | | | and [place] | + + + | Organization | [facility] | | | and [place] | + + + | Address | Unknown | + + + | Phone | Unavailable | + + + Support + + + + + | Name | Relationship | Address | Phone | + + + + + | Sole Gleason | ECON | [place] | | | | | [address] | | + + + + + | Sruthi Gleason | ECON | [place] | | | | | [address] | | + + + + + | Sole Gleason | ECON | [place] | | | | | [address] | | + + + + + Care Team Providers + +------+ + | Care Software Engineering Analyst Name | Role | Phone | + +------+ + | Jack Durand DO | PCP | | + +------+ + Reason for Visit + + + | Reason | Comments | + + + | Care Coordination | | + + + Encounter Details +--------+ + + + + | Date | Type | Department | Care Team | Description | +--------+ + + + + | 01/04/ | Telephone | [facility] | Krys | Care Coordination | | 2019 | | [facility] | Bart Cade MD [address] | | | | | [facility] [address] | | | | | [address] | [place] [address] | | | | | [place] [address] | [phone] | | | | | [phone] | | | +--------+ + + + [...] +---+---+---+ + + | Comments: switched to yonathan patel, last month | + + + + [...] filedocumented as of this encounter Visit Diagnoses Not on filedocumented in this encounter"
--- OUTSIDE RECORDS SUMMARY | ~2019-02-18 | XMS | Encounter Summary ---
Demographics + + + | Address | [address] | | | [place] [address] | + + + | Home Phone | | + + + | Preferred Language | Unknown | + + + | Marital Status | Single | + + + | Anabaptism Affiliation | 1061 | + + + | Race | Unknown | + + + | Ethnic Group | Unknown | + + + Author + + + | Author | [facility] (Historical as of | | | 01-02-19) | + + + | Organization | [facility] (Historical as of | | | 01-02-19) | + + + | Address | Unknown | + + + | Phone | Unavailable | + + + Support + + + + + | Name | Relationship | Address | Phone | + + + + + | Sruthi Gleason | ECON | [place] | | | | | [address] | | + + + + + | Sole Gleason | ECON | [place] | | | | | [address] | | + + + + + Care Team Providers + +------+ + | Care Counter Sales Representative Name | Role | Phone | + +------+ + PCP | Unavailable | + +------+ + Encounter Details +--------+ + + + + | Date | Type | Department | Care Team | Description | +--------+ + + + + | 12/07/ | Telephone | [facility] | Nery Nath, | | | 2018 | | Vascular Surgery | RN | | | | | [address] | | | | | | [address] [facility] | | | | | | [address] | | | | | | [phone] | | | +--------+ + + + [...]
--- OUTSIDE RECORDS SUMMARY | ~2019-02-18 | XMS | Encounter Summary ---
Demographics + + + | Address | [address] | | | [place] [address] | + + + | Home Phone | | + + + | Preferred Language | Unknown | + + + | Marital Status | Single | + + + | Taoist Affiliation | 1061 | + + + | Race | Unknown | + + + | Ethnic Group | Unknown | + + + Author + + + | Author | [facility] (Historical as of | | | 01-02-19) | + + + | Organization | [facility] (Historical as of | | | 01-02-19) | + + + | Address | Unknown | + + + | Phone | Unavailable | + + + Support + + + + + | Name | Relationship | Address | Phone | + + + + + | Sruthi Gleason | ECON | [place] | | | | | [address] | | + + + + + | Sole Gleason | ECON | [place] | | | | | [address] | | + + + + + Care Team Providers + +------+ + | Care Licensed Mental Health Professional Name | Role | Phone | + +------+ + PCP | Unavailable | + +------+ + Reason for Visit + + + | Reason | Comments | + + + | Question | requesting call back from [place] | + + + Encounter Details +--------+ + + + + | Date | Type | Department | Care Team | Description | +--------+ + + + + | 11/23/ | Telephone | [facility] | Dallas Velasquez MD | Question (requesting | | 2019 | | Vascular Surgery | [address] | call back from | | | | [address] | [place], [place] | [place]) | | | | [place], [place] | [address] | | | | | [address] | | | | | | [phone] | | | +--------+ + + + [...]
--- OUTSIDE RECORDS SUMMARY | ~2019-02-18 | XMS | Encounter Summary ---
Demographics + + + | Address | [address] | | | [place] [address] | + + + | Home Phone | | + + + | Preferred Language | Unknown | + + + | Marital Status | | + + + | Muslim Affiliation | 1061 | + + + | Race | Unknown | + + + | Ethnic Group | Unknown | + + + Author + + + | Author | [facility] | | | and [place] | + + + | Organization | [facility] | | | and [place] | + + + | Address | Unknown | + + + | Phone | Unavailable | + + + Support + + + + + | Name | Relationship | Address | Phone | + + + + + | Sole Gleason | ECON | [place] | | | | | [address] | | + + + + + | Sruthi Gleason | ECON | [place] | | | | | [address] | | + + + + + | Sole Gleason | ECON | [place] | | | | | [address] | | + + + + + Care Team Providers + +------+ + | Care Light Bulb Tester Name | Role | Phone | + +------+ + | Jack Durand DO | PCP | | + +------+ + Reason for Visit Service/Procedure (Routine) + +--------+ + + + + | Status | Reason | Specialty | Diagnoses / | Referred By | Referred To | | | | | Procedures | Contact | Contact | + +--------+ + + + + | Authorized | | Infusion | Diagnoses | | [facility] | | | | Therapy | Malignant | [facility], | Infusion [address] | | | | | neoplasm of | Bart C, | [address] | | | | | unspecified | MD [address] | [place], | | | | | part of | [address] | [place] [address] | | | | | unspecified | [place], | Phone: | | | | | bronchus or | [place] [address] | [phone] | | | | | lung (HCC) | Phone: | Fax: | | | | | Procedures | [phone] | [phone] | | | | | PA | Fax: | | | | | | PALONOSETRON | [phone] | | | | | | HCL, 25 MCG | | | | | | | PA ORAL | | | | | | | DEXAMETHASON | | | | | | | E, .25 MG | | | | | | | PA INJ., | | | | | | | APREPITANT, | | | | | | | 1 MG PA | | | | | | | LORAZEPAM | | | | | | | INJECTION, 2 | | | | | | | MG PA | | | | | | | CARBOPLATIN | | | | | | | INJECTION, | | | | | | | 50 MG PA | | | | | | | GEMCITABINE | | | | | | | HCL | | | | | | | INJECTION, | | | | | | | 200 MG PA | | | | | | | ADRENALIN | | | | | | | EPINEPHRINE | | | | | | | INJECT, .1 | | | | | | | MG PA | | | | | | | METHYLPREDNI | | | | | | | SOLONE | | | | | | | INJECTION, | | | | | | | 125 MG PA | | | | | | | DIPHENHYDRAM | | | | | | | INE HCL | | | | | | | INJECTIO, 50 | | | | | | | MG PA | | | | | | | ALBUTEROL | | | | | | | COMP CON, 1 | | | | | | | MG PA | | | | | | | ALBUTEROL | | | | | | | NON-COMP | | | | | | | CON, 1 MG | | | | | | | PA | | | | | | | INJECTION, | | | | | | | FAMOTIDINE, | | | | | | | 20 MG PA | | | | | | | NORMAL | | | | | | | SALINE | | | | | | | SOLUTION | | | | | | | INFUS, 500 | | | | | | | ML PA | | | | | | | NORMAL | | | | | | | SALINE | | | | | | | SOLUTION | | | | | | | INFUS, 250 | | | | | | | ML PA | | | | | | | STERILE | | | | | | | WATER/SALINE | | | | | | | , 10 ML PA | | | | | | | CHEMOTHER, | | | | | | | IV PUSH,EA | | | | | | | ADD DRUG PA | | | | | | | CHEMOTHER, | | | | | | | IV INFUSION, | | | | | | | 1 HR PA | | | | | | | CHEMOTHER, | | | | | | | IV INFUSION, | | | | | | | EA HR PA | | | | | | | CHEMOTHER,NO | | | | | | | N-HORMONE | | | | | | | ANTI-NEOPL, | | | | | | | SUB-Q/IM PA | | | | | | | CHEMOTHER | | | | | | | HORMON | | | | | | | ANTINEOPL | | | | | | | SUB-Q/IM | | | + +--------+ + + + + Encounter Details +--------+ + + + + | Date | Type | Department | Care Team | Description | +--------+ + + + + | 12/15/ | Hospital | [facility] | [place], | Non-small cell lung | | 2019 | Encounter | [facility] | Bart Cade MD [address] | cancer, unspecified | | | | INFUSION [address] | [address] [place] | laterality (HCC) | | | | [place], | [place] [address] | (Primary Dx); | | | | [place] [address] | [phone] | Squamous cell | | | | [phone] | | carcinoma of lung, | | | | | | unspecified | | | | | | laterality (HCC) | +--------+ + + + + Social [...] + + + +---------+ + + | ondansetron | One tablet every 8 | 40 | 5 | 12/16/19 | | | (ZOFRAN) 8 MG tablet | hours as needed for | tablet | | 19 | | | | nausea | | | | | + + + +---------+ + + | oxyCODONE 20 MG | 1-4 tabs every four | 270 | 0 | 12/16/19 | | | TABSIndications: | hours as [...] documented as of this encounter Progress Notes Gui Lu RN - 12/15/2018 1503 PDTPatient discharged in satisfactory condition. Discharged ambulatory w/ walker. With family. To home. Verified that patient has antinausea medications at home. Future appointments and After Visit Summary (AVS) provided. documented in this encounter Plan of Treatment Not on [...] | | + +--------+ + + + documented in this encounter Results Comprehensive Metabolic Panel (12/15/2018 11:33 PDT) + + + + + + | Component | Value | Ref Range | Performed | Pathologist | | | | | At | Signature | + + + + + + | Na | 133 (L) | 136 - 145 | [facility] | | | | | mmol/L | [facility] | | | | | | [facility] | | | | | | [facility] - | | | | | | LABORATORY | | + + + + + + | K | 4.4 | 3.4 - 5.1 | [facility] | | | | | mmol/L | [facility] | | | | | | [facility] | | | | | | [facility] - | | | | | | LABORATORY | | + + + + + + | Cl | 100 | 98 - 107 mmol/L | [facility] | | | | | | [facility] | | | | | | [facility] | | | | | | CENTER - | | | | | | LABORATORY | | + + + + + + | CO2 | 22 | 20 - 31 mmol/L | [facility] | | | | | | [facility] | | | | | | [facility] | | | | | | CENTER - | | | | | | LABORATORY | | + + + + + + | Anion Gap | 11 | 3 - 16 mmol/L | [facility] | | | | | | [facility] | | | | | | [facility] | | | | | | CENTER - | | | | | | LABORATORY | | + + + + + + | Glucose | 237 (H) | 60 - 106 mg/dL | [facility] | | | | | | [facility] | | | | | | [facility] | | | | | | CENTER - | | | | | | LABORATORY | | + + + + + + | BUN | 50 (H) | 9 - 23 mg/dL | [facility] | | | | | | [facility] | | | | | | [facility] | | | | | | CENTER - | | | | | | LABORATORY | | + + + + + + | Creatinine | 4.24 (H) | 0.70 - 1.30 | [facility] | | | | | mg/dL | [facility] | | | | | | MEDICAL | | | | | | CENTER - | | | | | | LABORATORY | | + + + + + + | eGFR if not | 14 (L)Comment: | >=60 | [facility] | | | | GLOMERULAR FILTRATION | mL/min/1.73m2 | [facility] | | | [facility] | RATE,ESTIMATED mL/min | | MEDICAL | | | | /1.70q4Cflx than 60 | | CENTER - | | | | Chronic kidney | | LABORATORY | | | | disease,if found over a | | | | | | 3-month period.Less than | | | | | | 15 Kidney | | | | | | failureFor | | | | | | Americans,multiply the | | | | | | calculated GFR by 1.21. | | | | | | | | | | + + + + + + | Calcium | 9.4 | 8.7 - 10.4 | [facility] | | | | | mg/dL | [facility] | | | | | | MEDICAL | | | | | | CENTER - | | | | | | LABORATORY | | + + + + + + | Albumin | 3.5 | 3.2 - 4.8 g/dL | [facility] | | | | | | [facility] | | | | | | MEDICAL | | | | | | CENTER - | | | | | | LABORATORY | | + + + + + + | Bilirubin | <0.2 (L) | 0.3 - 1.2 mg/dL | [facility] | | | Total | | | [facility] | | | | | | MEDICAL | | | | | | CENTER - | | | | | | LABORATORY | | + + + + + + | Total | 7.2 | 5.7 - 8.2 g/dL | [facility] | | | Protein | | | [facility] | | | | | | MEDICAL | | | | | | CENTER - | | | | | | LABORATORY | | + + + + + + | AST | 33 | 0 - 34 U/L | [facility] | | | | | | [facility] | | | | | | MEDICAL | | | | | | CENTER - | | | | | | LABORATORY | | + + + + + + | ALT | 36 | 10 - 49 U/L | [facility] | | | | | | [facility] | | | | | | MEDICAL | | | | | | CENTER - | | | | | | LABORATORY | | + + + + + + | Alkaline | 134 (H) | 46 - 116 U/L | [facility] | | | Phosphatase | | | [facility] | | | | | | MEDICAL | | | | | | CENTER - | | | | | | LABORATORY | | + + + + + + | Globulin | 3.7 | 2.1 - 3.8 g/dL | [facility] | | | | | | [facility] | | | | | | [facility]ICAL | | | | | | CENTER - | | | | | | LABORATORY | | + + + + + + | Albumin/Pau | 0.9 | 0.8 - 1.9 | [facility] | | | bulin Ratio | | | [facility] | | | | | | MEDICAL | | | | | | CENTER - | | | | | | LABORATORY | | + + + + + + | BUN/Creatin | 11.8 | | [facility] | | | ine Ratio | | | [facility] | | [...] [address] | [place] | [phone] | | [facility] | | [address] | | | - LABORATORY | | | | + + + + + Lactate Dehydrogenase (12/15/2018 11:33 PDT) + + + + + + | Component | Value | Ref Range | Performed | Pathologist | | | | | At | Signature | + + + + + + | LDH TOTAL | 185Comment: New method | 120 - 246 U/L | [facility] | | | | in use as of June | | | | | | 2018. Check | [...] | + + + + + | [facility] | [address] | [place] | [phone] | | [facility] | | [address] | | | - LABORATORY | | | | + + + + + CBC with Differential (12/15/2018 11:33 PDT) + + + + + + | Component | Value | Ref Range | Performed | Pathologist | | | | | At | Signature | + + + + + + | WBC | 8.8 | 4.0 - 11.0 K/uL | [facility] | | | | | | [facility] | | | | | | MEDICAL | | | | | | CENTER - | | | | | | LABORATORY | | + + + + + + | RBC | 3.65 (L) | 4.30 - 5.70 | [facility] | | | | | M/uL | [facility] | | | | | | MEDICAL | | | | | | CENTER - | | | | | | LABORATORY | | + + + + + + | Hemoglobin | 9.6 (L) | 13.5 - 18.0 | [facility] | | | | | g/dL | [facility] | | | | | | [...] | | | | | | [facility] | | | | | | MEDICAL | | | | | | CENTER - | | | | | | LABORATORY | | + + + + + + | % Immature | 0.8 (H)Comment: | 0.0 - 0.4 % | [facility] | | | Granulocyte | Preliminary studies have | | [facility] | | | s | indicated [...] | Neutrophils | | K/uL | [facility] | | | | [...] | | Basophils | | K/uL | [facility] | | | | | | MEDICAL | | | | | | CENTER - | | | | | | LABORATORY | | + + + + + + | Absolute | 0.07 (H) | 0.00 - 0.03 | [facility] | | | Immature | | K/uL | [facility] | | | Granulocyte | | | MEDICAL | | | s | | | CENTER - | | | | | | LABORATORY | | + + + + + + | % nRBC | 0 | 0 - 2 per 100 | [facility] | | | | | WBCs | [facility] | | | | [...] + + | [facility] | [address] | [place] | [phone] | | [facility] | | [address] | | | - LABORATORY | | | | + + + + + documented in this encounter Visit Diagnoses + + | Diagnosis | + + | Non-small cell lung cancer, unspecified laterality (HCC) - Primary | + + | Squamous cell carcinoma of lung, unspecified laterality (HCC) | + + documented in this encounter Administered Medications + +--------+ +------+------+------+ | Medication Order | MAR | Action | Dose | Rate | Site | | | Action | Date | | | | + +--------+ +------+------+------+ | dexamethasone (DECADRON) tablet | Given | 12/16/19 | 4 mg | | | | 4 mg 4 mg, Oral, ONCE, Tue | | 19 13:43 | | | | | 12/15/18 at 1400, For 1 dose, | | PDT | | | | | Administer prior to | | | | | | | chemotherapy., | | | | | | + +--------+ +------+------+------+ +---+---+ | | | +---+---+ + +---------+ + +-------+---+ | gemcitabine (GEMZAR) 2,000 mg | New Bag | 12/16/19 | 2,000 mg | 300 | | | in sodium chloride 0.9% 97.4 mL | | 19 14:22 | | mL/hr | | | infusion 2,000 mg, Intravenous, | | PDT | | | | | Administer over 30 Minutes, ONCE, | | | | | | | 12/15/18 at 1415, For 1 dose, | | | | | | | 1000 mg/m2= 2010 mg; rounded to | | | | | | | 2000 mg per rounding protocol | | | | | | | Reduced volume due to renal | | | | | | | failure Chemotherapy: Use | | | | | | | appropriate handling precautions. | | | | | | | Do not refrigerate., | | | | | | + +---------+ + +-------+---+ +---+---+ | | | +---+---+ + +-------+ +-------+---+---+ | heparin 100 units/mL flush | Given | 12/16/19 | 500 | | | | injection 500 Units 500 Units (5 | | 19 14:58 | Units | | | | mL), Intracatheter, PRN, Line | | PDT | | | | | Care, Starting 12/15/18 at | | | | | | | 1337 | | | | | | + +-------+ +-------+---+---+ +---+---+ | | | +---+---+ + +-------+ +------+---+---+ | ondansetron (ZOFRAN ODT) | Given | 12/16/19 | 8 mg | | | | disintegrating tablet 8 mg 8 mg, | | 19 13:43 | | | | | Oral, ONCE, e 12/15/18 at 1400, | | PDT | | | | | For 1 dose | | | | | | + +-------+ +------+---+---+ +---+---+ | | | +---+---+ documented in this encounter
--- OUTSIDE RECORDS SUMMARY | ~2019-02-18 | XMS | Encounter Summary ---
Demographics + + + | Address | [address] | | | [place] [address] | + + + | Home Phone | | + + + | Preferred Language | Unknown | + + + | Marital Status | Single | + + + | Mu-Ism Affiliation | 1061 | + + + | Race | Unknown | + + + | Ethnic Group | Unknown | + + + Author + + + | Author | [facility] (Historical as of | | | 01-02-19) | + + + | Organization | [facility] (Historical as of | | | 01-02-19) | + + + | Address | Unknown | + + + | Phone | Unavailable | + + + Support + + + + + | Name | Relationship | Address | Phone | + + + + + | Sruthi Gleason | ECON | [place] | | | | | [address] | | + + + + + | Sole Gleason | ECON | [place] | | | | | [address] | | + + + + + Care Team Providers + +------+ + | Care Airset Caster Name | Role | Phone | + +------+ + PCP | Unavailable | + +------+ + Reason for Visit +--------+ + | Reason | Comments | +--------+ + | Other | November 2018-[facility] D[facility] Rounding Note | +--------+ + Encounter Details +--------+ + + + + | Date | Type | Department | Care Team | Description | +--------+ + + + + | 12/22/ | Documentati | [facility] | Cheo Joaquin MD | Other (November | | 2018 | on Only | [address] | [address] | 2019-[facility] | | | | [address] | [address] [place], [place] | Dialysis Rounding | | | | [place] [address] | [address] | Note) | | | | [phone] | | | +--------+ + + + [...]
--- OUTSIDE RECORDS SUMMARY | ~2019-02-18 | XMS | Encounter Summary ---
Demographics + + + | Address | [address] | | | [place] [address] | + + + | Home Phone | | + + + | Preferred Language | Unknown | + + + | Marital Status | Single | + + + | Temple Affiliation | 1061 | + + + | Race | Unknown | + + + | Ethnic Group | Unknown | + + + Author + + + | Author | [facility] (Historical as of | | | 01-02-19) | + + + | Organization | [facility] (Historical as of | | | 01-02-19) | + + + | Address | Unknown | + + + | Phone | Unavailable | + + + Support + + + + + | Name | Relationship | Address | Phone | + + + + + | Sruthi Gleason | ECON | [place] | | | | | [address] | | + + + + + | Sole Gleason | ECON | [place] | | | | | [address] | | + + + + + Care Team Providers + +------+ + | Care Fabrication Supervisor Name | Role | Phone | + +------+ + PCP | Unavailable | + +------+ + Encounter Details +--------+ + + + + | Date | Type | Department | Care Team | Description | +--------+ + + + + | 12/02/ | Telephone | [facility] | Jany Avila, | | | 2018 | | Vascular Surgery | [facility] | | | | | [address] | | | | | | [place] | | | | | | [address] | | | | | | [phone] | | | +--------+ + + + [...]
--- OUTSIDE RECORDS SUMMARY | ~2019-02-18 | XMS | Encounter Summary ---
Demographics + + + | Address | [address] | | | [place] [address] | + + + | Home Phone | | + + + | Preferred Language | Unknown | + + + | Marital Status | Single | + + + | Presybeterian Affiliation | [id number] | + + + | Race | Unknown | + + + | Ethnic Group | Unknown | + + + Author + + + | Author | [facility] (Historical as of | | | 01-02-19) | + + + | Organization | [facility] (Historical as of | | | 01-02-19) | + + + | Address | Unknown | + + + | Phone | Unavailable | + + + Support + + + + + | Name | Relationship | Address | Phone | + + + + + | Sruthi Gleason | ECON | [place] | | | | | [address] | | + + + + + | Sole Gleason | ECON | [place] | | | | | [address] | | + + + + + Care Team Providers + +------+ + | Care Senior Hr Business Partner Name | Role | Phone | + +------+ + PCP | Unavailable | + +------+ + Encounter Details +--------+ + + + + | Date | Type | Department | Care Team | Description | +--------+ + + + + | 11/25/ | Hospital | [facility] | PoiDallas MD | | | 2019 | [facility] | [address] | | | | | Preadmission | [place], [place] | | | | | Services [address] | [address] | | | | | [address] [place], [place] | | | | | | [address] | | | +--------+ + + + [...] + + + as of this encounter Last Filed Vital Signs + + + + | Vital Sign | Reading | Time Taken | + + + + | Blood Pressure | 127/67 | 11/25/2018 11:21 AM PDT | + + + + | Pulse | 113 | 11/25/2018 11:21 AM PDT | + + + + | Temperature | - | - | + + + + | Respiratory Rate | - | - | + + + + | Oxygen Saturation | 95% | 11/25/2018 11:21 AM PDT | + + + + | Inhaled Oxygen | - | - | | Concentration | | | + + + + | Weight | 96 kg (211 lb 10.3 | 11/25/2018 11:21 AM PDT | | | oz) | | + + + + | Height | 182.9 cm (6') | 11/25/2018 11:21 AM PDT | + + + + | Body Mass Index | 28.7 | 11/25/2018 11:21 AM PDT | + + + + in this encounter Discharge Instructions Alecia Xiong RN - 11/25/2018Formatting of this note may be different from the original. Dr. Hennessy AV DIALYSIS SHUNT/FISTULA DISCHARGE INSTRUCTIONS Your physician has placed/revised an arteriovenous (AV) shunt/fistula in your arm for your dialysis treatments. It is very important to protect your arm to prevent cutting off the marc w of blood in your shunt. Dressing Care: ? Keep the dressings clean and dry for 48 hours (2 days). Do not remove the dressing durin g that time. ? After 48 hours (2 days) remove the outer portion of the dressing, leaving the steri-strip s in place. ? Leave the steri-strips that cover the skin incision in place for 14 days. ? If your dressings get wet, remove the dressing and replace with sterile gauze. If you do not have any dressing supplies, call your physician s office. ? Do not use dressings that place pressure on the shunt or completely encircle your arm or wrist. Shunt Care: ? DO NOT let anyone take your blood pressure, place a tourniquet, start an IV or draw blood from the arm with the shunt. ? DO NOT wear jewelry or tight sleeves on the arm with the shunt. ? DO NOT sleep on your shunt or carry anything hanging over the arm that has the shunt. ? DO NOT let anyone access the shunt except the Dialysis Center nurse or physician. Notify your physician if you notice the following: ? Loss of the thrill over the shunt ? Loss of pulsation over the shunt ? Pain or hardness in the area of the shunt ? Redness or swelling in the arm or drainage from the incision If there is an injury to the shunt and it begins to bleed, keep continuous pressure to the site and seek emergency care immediately. Use the thumb on the opposite hand to hold pressur e until help is obtained. If you have any questions or concerns regarding your dialysis shunt, please contact your ph ysician at [phone]. Outpatient Prescriptions Marked as Taking for the 11/25/18 encounter (Hospital Encounter) [facility] ROOM 3 Medication Sig INSTRUCTIONS aspirin 81 MG tablet Take 81 mg by mouth daily. HOLD prior to procedure. Take last dose per Dr Instructions. B Xnoqlzq-X-Rlkom Acid (DIALYVITE TABLET) TABS Take 1 tablet by mouth. DO NOT TAKE day of procedure budesonide-formoterol (SYMBICORT) 80-4.5 MCG/ACT inhaler Inhale 2 puffs into the lungs 2 (two) times daily. TAKE day of procedure Cholecalciferol 1000 units capsule Take 1,000 Units by mouth daily. DO NOT TAKE day of procedure Doxercalciferol 2 MCG/ML SOLN Inject 0.5 mcg into the vein. DO NOT TAKE day of procedur e DULoxetine (CYMBALTA) [address] capsule Take 60 mg by mouth. TAKE day of procedure furosemide (LASIX) 80 MG tablet Take 80 mg by mouth. DO NOT TAKE day of procedure gabapentin (NEURONTIN) 800 MG tablet Take 100 mg by mouth 2 (two) times daily. TAKE day of procedure lansoprazole (PREVACID) 30 MG capsule Take 30 mg by mouth nightly. TAKE day of procedur e lisinopril (ZESTRIL) 10 MG tablet Take 10 mg by mouth. DO NOT TAKE day of procedure LORazepam (ATIVAN) 0.5 MG tablet Take 0.5 mg by mouth every 4 (four) hours as needed fo r Anxiety (1-2 tablets). DO NOT TAKE day of procedure ondansetron (ZOFRAN) 8 MG tablet Take 8 mg by mouth 2 (two) times daily as needed. DO N OT TAKE day of procedure OxyCODONE (OXYCONTIN) 40 MG 12 hr tablet TAKE day of procedure sertraline (ZOLOFT) 50 MG tablet Take 50 mg by mouth daily. TAKE day of procedure sevelamer (RENVELA) 800 MG tablet Take 800 mg by mouth 3 (three) times daily with meals . DO NOT TAKE day of procedure VELPHORO 500 MG chewable tablet DO NOT TAKE day of procedure in this encounter Medications at Time of Discharge + + + +---------+ + + | Medication | Sig. | Disp. | Refills | Start | End Date | | | | | | Date | | + + + +---------+ + + | aspirin 81 MG | Take 81 mg by mouth | | | | | | tablet | daily. | | | | | + + + +---------+ + + | B Xtmijwt-V-Zftnm | Take 1 tablet by | | | 01/30/20 | | | Acid (DIALYVITE | mouth. | | | 18 | | | TABLET) TABS | | | | | | + + + +---------+ + + | B-D INS SYRINGE | | | | 11/29/19 | | | 0.5CC/30GX1/2" 30G X | | | | 11 | | | 1/2" 0.5 ML MISC | | | | | | + + + +---------+ + + | | Inhale 2 puffs into | 1 | 1 | 04/09/20 | | | budesonide-formotero | the lungs 2 (two) | Inhaler | | 18 | 9 | | l (SYMBICORT) 80-4.5 | times daily. | | | | | | MCG/ACT inhaler | | | | | | + + + +---------+ + + | Cholecalciferol | Take 1,000 Units by | | | | | | 1000 units capsule | mouth daily. | | | | | + + + +---------+ + + | Doxercalciferol 2 | Inject 0.5 mcg into | | | | | | MCG/ML SOLN | the vein. | | | | | + + + +---------+ + + | DULoxetine | Take 60 mg by mouth. | | | | | | (CYMBALTA) [address] | | | | | | | capsule | | | | | | + + + +---------+ + + | furosemide (LASIX) | Take 80 mg by mouth. | | | 01/29/20 | | | 80 MG tablet | | | | 18 | | + + + +---------+ + + | gabapentin | Take 100 mg by mouth | | 12 | 01/19/20 | | | (NEURONTIN) 800 MG | 2 (two) times | | | 17 | | | tablet | daily. | | | | | + + + +---------+ + + | insulin glargine | Inject 30 Units into | 10 mL | 12 | 03/08/20 | | | (LANTUS) 100 UNIT/ML | the skin nightly. | | | 17 | | | injection | | | | | | + + + +---------+ + + | lansoprazole | Take 30 mg by mouth | | | 09/28/19 | | | (PREVACID) 30 MG | nightly. | | | 11 | | | capsule | | | | | | + + + +---------+ + + | lisinopril | Take 10 mg by mouth. | | | 01/29/20 | | | (ZESTRIL) 10 MG | | | | 18 | | | tablet | | | | | | + + + +---------+ + + | LORazepam (ATIVAN) | Take 0.5 mg by mouth | | 4 | 04/21/20 | | | 0.5 MG tablet | every 4 (four) | | | 18 | | | | hours as needed for | | | | | | | Anxiety (1-2 | | | | | | | tablets). | | | | | + + + +---------+ + + | ondansetron | Take 8 mg by mouth 2 | | 5 | 01/28/20 | | | (ZOFRAN) 8 MG tablet | (two) times daily | | | 17 | | | | as needed. | | | | | + + + +---------+ + + | OxyCODONE | | | 0 | 04/16/20 | | | (OXYCONTIN) 40 MG 12 | | | | 18 | | | hr tablet | | | | | | + + + +---------+ + + | sertraline | Take 50 mg by mouth | | 11 | 02/17/20 | | | (ZOLOFT) 50 MG | daily. | | | 17 | | | tablet | | | | | | + + + +---------+ + + | sevelamer | Take 800 mg by mouth | | | | | | (RENVELA) 800 MG | 3 (three) times | | | | | | tablet | daily with meals. | | | | | + + + +---------+ + + | vancomycin | 1000 mg after each | 7 each | 3 | 07/24/19 | | | (VANCOCIN) 1000 mg | hemodialysis unitl | | | 19 | | | injection | 08/23/18Cbc cmp esr | | | | | | | crp q | | | | | | | FridayandVancomycin | | | | | | | trough q | | | | | | | FridayFollow up with | | | | | | | DR. Haas in 1 | | | | | | | weeksPlease call | | | | | | | to | | | | | | | schedule follow | | | | | | | upPlease fax all | | | | | | | labs to [phone] | | | | | + + + +---------+ + + | VELPHORO 500 MG | | | | 04/05/20 | | | chewable tablet | | | | 18 | | + + + +---------+ + + as of this encounter Plan of Treatment Not on fileas of this encounter Procedures + +--------+ + + + | Procedure Name | Priori | Date/Time | Associated Diagnosis | Comments | | | ty | | | | + +--------+ + + + | MRSA BY PCR | Timed | 11/25/2018 | | Results for this | | | | 11:17 AM | | procedure are in the | | | | PDT | | results section. | + +--------+ + + + | CBC W/AUTO DIFF | Timed | 11/25/2018 | | Results for this | | (REFLEX TO MANUAL) | | 11:17 AM | | procedure are in the | | | | PDT | | results section. | + +--------+ + + + | BASIC METABOLIC | Timed | 11/25/2018 | | Results for this | | PANEL | | 11:17 AM | | procedure are in the | | | | PDT | | results section. | + +--------+ + + + in this encounter Results MRSA by PCR (11/25/2018 11:17 AM) + + + + + | Component | Value | Ref Range | Performed At | + + + + + | SOURCE | NARES(NOSE) | | [facility] | + + + + + | MRSA PCR | NEGATIVEComment: Testing | NEGATIVE | [facility] | | | performed at [facility];[address] | | | | | [address];[place] | | | | | [address] | | | + + + + + + + | Specimen | + + | Nasopharyngeal - | | Nares(Nose) | + + + + + + + | Performing | Address | City/State/Zipcode | Phone Number | | Organization | | | | + + + + + | [facility] | [address] | [place] [address] | | + + + + + CBC w/auto diff (reflex to manual) (11/25/2018 11:17 AM) + + + + + | Component | Value | Ref Range | Performed At | + + + + + | WBC | 13.49 (H) | 3.80 - 11.00 K/uL | [facility] | | | | | [facility] | + + + + + | RBC | 3.47 (L) | 4.20 - 5.70 M/uL | [facility] | | | | | [facility] | + + + + + | HGB | 9.9 (L) | 13.2 - 17.0 g/dL | [facility] | | | | | [facility] | + + + + + | HCT | 31.2 (L) | 39.0 - 50.0 % | [facility] | | | | | [facility] | + + + + + | MCV | 89.9 | 80.0 - 100.0 fl | [facility] | | | | | [facility] | + + + + + | MCH | 28.5 | 27.0 - 34.0 pg | [facility] | | | | | [facility] | + + + + + | MCHC | 31.7 (L) | 32.0 - 35.5 g/dL | [facility] | | | | | [facility] | + + + + + | RDW SD | 57.8 (H) | 37 - 53 fl | [facility] | | | | | [facility] | + + + + + | PLT | 332 | 150 - 400 K/uL | [facility] | | | | | [facility] | + + + + + | MPV | 7.2 | fl | [facility] | | | | | [facility] | + + + + + | DIFF TYPE | AUTOMATED | | [facility] | | | | | [facility] | + + + + + | NEUTROPHILS | 68.71 | % | [facility] | | | | | [facility] | + + + + + | LYMPHOCYTES | 19.61 | % | [facility] | | | | | [facility] | + + + + + | MONOCYTES | 8.94 | % | [facility] | | | | | [facility] | + + + + + | EOSINOPHILS | 2.13 | % | [facility] | | | | | [facility] | + + + + + | BASOPHILS | 0.61 | % | [facility] | | | | | [facility] | + + + + + | NEUTROPHILS ABS | 9.27 (H) | 1.90 - 7.40 K/uL | [facility] | | | | | [facility] | + + + + + | LYMPHOCYTES ABS | 2.65 | 1.00 - 3.90 K/uL | [facility] | | | | | [facility] | + + + + + | MONOCYTES ABS | 1.21 (H) | 0.00 - 0.80 K/uL | [facility] | | | | | [facility] | + + + + + | EOSINOPHILS ABS | 0.29 | 0.00 - 0.50 K/uL | [facility] | | | | | [facility] | + + + + + | BASOPHILS ABS | 0.08 | 0.00 - 0.10 K/uL | [facility] | | | | | [facility] | + + + + + | MORPHOLOGY | 2+Comment: ANISONORMAL | | [facility] | | | PLT MORPHTesting | | LABORATORY | | | performed at [facility], [address] | | | | [address], | | | | | [place] [address] | | | | | | | | + + + + + + + | Specimen | + + | Blood | + + + + + + + | Performing | Address | City/State/Zipcode | Phone Number | | Organization | | | | + + + + + | [facility] | [address] | [place] [address] | [phone] | | LABORATORY | [address] | | | + + + + + Basic metabolic panel (11/25/2018 11:17 AM) + + + + + | Component | Value | Ref Range | Performed At | + + + + + | SODIUM | 135 | 135 - 145 mmol/L | [facility] | | | | | LAB[facility] | + + + + + | POTASSIUM | 5.4 (H) | 3.5 - 4.9 mmol/L | [facility] | | | | | LAB[facility] | + + + + + | CHLORIDE | 98 (L) | 99 - 109 mmol/L | [facility] | | | | | LAB[facility] | + + + + + | CO2 | 24 | 23 - 32 mmol/L | [facility] | | | | | LAB[facility] | + + + + + | ANION GAP AGAP | 18 | 5 - 20 mmol/L | [facility] | | | | | LAB[facility] | + + + + + | GLUCOSE | 123 (H) | 65 - 99 mg/dL | [facility] | | | | | LABORATORY | + + + + + | BUN | 63 (H) | 8 - 25 mg/dL | [facility] | | | | | LABORATORY | + + + + + | CREATININE | 6.8 (H) | 0.70 - 1.30 mg/dL | [facility] | | | | | LABORATORY | + + + + + | BUN/CREAT | 9 | | [facility] | | | | | LAB[facility]ATORY | + + + + + | CALCIUM | 11.1 (H) | 8.5 - 10.5 mg/dL | [facility] | | | | | [facility] | + + + + + | EGFR | 8 (L)Comment: GFR <60: | >60 mL/min/1.73m2 | [facility] | | | CHRONIC KIDNEY DISEASE, | | LABORATORY | | | IF FOUND OVER A 3 MONTH | | | | | PERIOD.GFR <15: KIDNEY | | | | | FAILURE.FOR | | | | | AMERICANS, MULTIPLY THE | | | | | CALCULATED GFR BY | | | | | 1.210.This eGFR is | | | | | calculated using the | | | | | MDRD IDMS traceable | | | | | equation.Testing | | | | | performed at [facility], [address] | | | | [facility], | | | | | [place] [address] | | | + + + + + + + | Specimen | + + | Blood | + + + + + + + | Performing | Address | City/State/Zipcode | Phone Number | | Organization | | | | + + + + + | [facility] | [address] | [place] [address] | [phone] | | LABORATORY | [address] | | | + + + + + in this encounter Visit Diagnoses Not on filein this encounter
--- OUTSIDE RECORDS SUMMARY | ~2019-02-18 | XMS | Encounter Summary ---
Demographics + + + | Address | [address] | | | [place] [address] | + + + | Home Phone | | + + + | Preferred Language | Unknown | + + + | Marital Status | Single | + + + | Quaker Affiliation | 1061 | + + + | Race | Unknown | + + + | Ethnic Group | Unknown | + + + Author + + + | Author | [employer] [facility] (Historical as of | | | 01-02-19) | + + + | Organization | [facility] (Historical as of | | | 01-02-19) | + + + | Address | Unknown | + + + | Phone | Unavailable | + + + Support + + + + + | Name | Relationship | Address | Phone | + + + + + | Sruthi Gleason | ECON | [place] | | | | | [address] | | + + + + + | Sole Gleason | ECON | [place] | | | | | [phone] | | + + + + + Care Team Providers + +------+ + | Care Card Boxer Name | Role | Phone | + +------+ + PCP | Unavailable | + +------+ + Reason for Visit Auth/Cert +--------+--------+ + + + + | Status | Reason | Specialty | Diagnoses / | Referred By | Referred To | | | | | Procedures | Contact | Contact | +--------+--------+ + + + + | | | | Diagnoses | | | | | | | ESRD | | | | | | | Procedures | | | | | | | AV FISTULA - | | | | | | | | | | | | | | SUPERFICIALI | | | | | | | ZATION | | | +--------+--------+ + + + + Encounter Details +--------+ + + + + | Date | Type | Department | Care Team | Description | +--------+ + + + + | 11/26/ | Hospital | [facility] | Dallas Velasquez MD | | | 2019 | Encounter | [facility] | [address] | | | | | [address] [facility] | E CORPUS CHRISTI [place] | | | | | [place] [address] | [address] | | | | | [phone] | | | +--------+ + + + [...] + | Blood Pressure | 102/57 | 11/26/2018 5:00 PM PDT | + + + + | Pulse | 85 | 11/26/2018 5:00 PM PDT | + + + + | Temperature | 36.9 C (98.4 F) | 11/26/2018 5:00 PM PDT | + + + + | Respiratory Rate | 18 | 11/26/2018 4:45 PM PDT | + + + + | Oxygen Saturation | 93% | 11/26/2018 5:00 PM PDT | + + + + | Inhaled Oxygen | - | - | | Concentration | | | + + + + | Weight | 91.8 kg (202 lb 6.1 | 11/26/2018 12:04 PM PDT | | | oz) | | + + + + | Height | 182.9 cm (6') | 11/26/2018 12:04 PM PDT | + + + + | Body Mass Index | 27.45 | 11/26/2018 12:04 PM PDT | + + + + in this encounter Discharge Instructions Rena Grant RN - 11/26/2018After Your Surgery You ve just had surgery. During surgery, you received medication called anesthesia to angie p you comfortable and pain-free. After surgery, you may experience some pain or nausea. This is common. Going Home Have an adult family member or friend drive you home. For the first 24 hours after your vinita ilan: ? Do not drive or use heavy equipment. ? Do not make important decisions or sign legal documents. ? Avoid alcohol. ? Have someone stay with you, if needed. He or she can watch for problems and help keep you safe. Be sure to keep all follow-up appointments with your doctor. And rest after your procedure for as long as your doctor tells you to. Coping with Pain If you have pain after surgery, pain medication will help you feel better. Take your medica tion as directed, before pain becomes severe. Consider other ways to control pain, such as with heat, ice, and relaxation. To get the best relief possible, remember these points: ? Pain medications can upset your stomach. Taking them with a little food may help. ? Most pain relievers taken by mouth need at least 20 to 30 minutes to take effect. ? Taking medication on a schedule can help you remember to take it. Try to time your medica tion so that you can take it before beginning an activity, such as dressing, walking, or sit ting down for dinner. ? Don t drink alcohol while taking pain medication. ? Don t drive or operate machinery while taking pain medications as they can slow your re flexes. If your health care provider tells you to take acetaminophen or ibuprofen to help relieve y our pain, ask him or her how much you are supposed to take each day. Constipation ? Constipation is a common side effect of pain medications and anesthetics. Contact your do ctor before taking any medications like laxatives or stool softeners to help relieve constip ation, unless they have been prescribed for you. ? Drinking lots of non-alcoholic fluids and eating foods like fruits and vegetables that ar e high in fiber can also help. Managing Nausea Some people have an upset stomach after surgery. This is often due to anesthesia, pain, mimi n medications, or the stress of surgery. If you were on a special diet before surgery, ask your doctor if you should follow it during recovery. These tips may help: ? Don t push yourself to eat. Your body will tell you when to eat and how much. ? Start off with clear liquids and soup. They are easier to digest. Slowly move to solid f oods. Don t eat fatty, rich, or spicy foods at first. ? Don t force yourself to have three large meals a day. Instead, eat smaller amounts more often. Blood Clot Prevention Deep vein thrombosis (DVT) is a clot that forms in your deep veins usually in the leg o r thigh. A pulmonary embolism (PE) occurs when a clot in the bloodstream travels through th e heart and into the lungs. If the clot becomes stuck in a blood vessel in the lungs, blood flow can be blocked which causes life-threatening heart and lung problems. The following are prevention tips: ? Elevate your legs whenever they feel swollen or heavy ? Maintain a healthy weight ? Quit smoking ? Avoid sitting, standing, or lying down for long periods without moving your legs and feet . o When traveling by car, make frequent stops to get out and move around. o On long airplane, train, or bus rides, get up and move around when possible. o If you can t get up, wiggle your toes and tighten your calves to keep your blood moving . If you have any of these symptoms of DVT or PE, call your doctor: ? Swelling, pain, or both, often in one limb ? Redness or warmth, often in one limb ? Sudden, continuous pain deep in your muscle ? Worsening ache when you are active or when you stand still for a long time ? Rapid, pounding, or unusual heartbeat ? Sweating more than usual. ? Chest pain, trouble breathing, coughing up blood, skin turning blue, or fainting Call 911. [facility] AV DIALYSIS SHUNT/FISTULA DISCHARGE INSTRUCTIONS Your physician has placed/revised an arteriovenous (AV) shunt/fistula in your arm for your dialysis treatments. It is very important to protect your arm to prevent cutting off the marc w of blood in your shunt. Dressing Care: ? Keep the dressings clean and dry. Do not remove the dressing unless it gets wet. ? If your dressings get wet, remove [...] start an IV or draw blood from ? the arm with the shunt. ? DO [...] your dialysis shunt, please contact your ph ysician. in this encounter Medications at Time of [...] + + +---------+ + + | B Opqykiq-W-Kroqm | Take 1 tablet by | | [...] | | | | | labs to [phone] | | | | | + + + +---------+ + + | VELPHORO 500 MG | | | | 04/05/20 | | | chewable tablet | | | | 18 | | + + + +---------+ + + as of this encounter Progress Dorcas Choi RN - 11/26/2018 6:00 PM PDTDischarge instructions given to patient and aide east. Patient vitals WNL. Patient in no apparent distress. All questions have been answere d. Discussed signs and symptoms of surgical site infection, DVT and PE prevention. SLING IN PLACE. Dorcas Souza RNin this encounter Plan of Treatment Not on fileas of this encounter Procedures + +--------+ + + + | Procedure Name | Priori | Date/Time | Associated Diagnosis | Comments | | | ty | | | | + +--------+ + + + | AV FISTULA - | | 11/26/2018 | ESRD | | | SUPERFICIALIZATION | | 1:17 PM | | | | | | PDT | | | + +--------+ + + + | BASIC METABOLIC | STAT | 11/26/2018 | | Results for this | | PANEL | | 11:50 AM | | procedure are in the | | | | PDT | | results section. | + +--------+ + + + in this encounter Results Basic metabolic panel (11/26/2018 11:50 AM) + + + + + | Component | Value | Ref Range | Performed At | + + + + + | SODIUM | 136 | 135 - 145 mmol/L | [facility] | + + + + + | POTASSIUM | 4.8 | 3.5 - 4.9 mmol/L | [facility] | + + + + + | CHLORIDE | 103 | 99 - 109 mmol/L | [facility] | + + + + + | CO2 | 23 | 23 - 32 mmol/L | [facility] | + + + + + | ANION GAP AGAP | 15 | 5 - 20 mmol/L | [facility] | + + + + + | GLUCOSE | 96 | 65 - 99 mg/dL | [facility] | + + + + + | BUN | 56 (H) | 8 - 25 mg/dL | [facility] | + + + + + | CREATININE | 6.20 (H) | 0.70 - 1.30 mg/dL | [facility] | + + + + + | BUN/CREAT | 9 | | [facility] | + + + + + | CALCIUM | 10.5 | 8.5 - 10.5 mg/dL | [facility] | + + + + + | EGFR | 9 (L)Comment: GFR <60: | >60 mL/min/1.73m2 | [facility] | | | CHRONIC KIDNEY DISEASE, | | | | | IF FOUND OVER A 3 MONTH | | | | | PERIOD.GFR <15: KIDNEY | | | | | FAILURE.FOR | | | | | AMERICANS, MULTIPLY THE | | | | | CALCULATED GFR BY | | | | | 1.210.This eGFR is | | | | | calculated using the | | | | | [facility] traceable | | | | | equation.Testing | | | | | performed at [facility] | | | | | [facility];[place], [place] | | | | | [address] | | | + + + + + + + | Specimen | + + | Blood | + + + + + + + | Performing | Address | City/State/Zipcode | Phone Number | | Organization | | | | + + + + + | [facility] | [address] | [place] [address] | | + + + + + in this encounter Visit Diagnoses Not on filein this encounter Admitting Diagnoses + + | Diagnosis | + + | ESRD | + + Administered Medications + +--------+---------+------+------+------+ | Medication Order | MAR | Action | Dose | Rate | Site | | | Action | Date | | | | + +--------+---------+------+------+------+ + +---+ | acetaminophen (TYLENOL) | | | suppository 650 mg 650 mg, | | | Rectal, Every 6 Hours PRN, Mild | | | Pain (1-3), Fever, Starting Silvia | | | 11/26/18 at 1712 | | + +---+ | | | + +---+ | acetaminophen (TYLENOL) tablet | | | 650 mg 650 mg, Oral, Every 6 | | | Hours PRN, Mild Pain (1-3), | | | Fever, Starting [facility] 11/26/18 at | | | 1712 | | + +---+ | | | + +---+ | fentaNYL (SUBLIMAZE) injection | | | 25 mcg 25 mcg, Intravenous, | | | Every 5 Min PRN, Pain, Option Two | | | for pain scale 1-4/10.If no | | | relief, proceed to option 3., | | | Starting [facility] 11/26/18 at 1610, | | | PACU | | + +---+ | | | + +---+ + +-------+ +--------+---+---+ | fentaNYL (SUBLIMAZE) injection | Given | | 50 mcg | | | | 50 mcg 50 mcg, Intravenous, | | 9 16:30 | | | | | Every 5 Min PRN, Pain, Option Two | | PDT | | | | | for pain scale 5-10/10. If no | | | | | | | relief, proceed to option 3., | | | | | | | Starting [facility] 11/26/18 at 1610, | | | | | | | PACU | | | | | | + +-------+ +--------+---+---+ +-------+ +--------+---+---+ | Given | | 50 mcg | | | | | 9 16:35 | | | | | | PDT | | | | +-------+ +--------+---+---+ + +---+ | | | + +---+ | heparin flush (PF) 100 unit/mL | | | injection 300 Units 300 Units (3 | | | mL), Intracatheter, PRN, Line | | | Care, Starting [facility] 11/26/18 at | | | 1714 | | + +---+ | | | + +---+ | HYDROmorphone (DILAUDID) | | | injection 0.25 mg 0.25 mg, | | | Intravenous, Every 5 Min PRN, | | | Pain, Option Three for pain scale | | | 1-410. If no relief, contact | | | anesthesia provider., Starting | | | [facility] 11/26/18 at 1610, PACU | | + +---+ | | | + +---+ + +-------+ +--------+---+---+ | HYDROmorphone (DILAUDID) | Given | | 0.5 mg | | | | injection 0.5 mg 0.5 mg, | | 9 16:40 | | | | | Intravenous, Every 5 Min PRN, | | PDT | | | | | Pain, Option Three for pain scale | | | | | | | 5-02/25. If no relief, contact | | | | | | | anesthesia provider., Starting | | | | | | | [facility] 11/26/18 at 1610, PACU | | | | | | + +-------+ +--------+---+---+ +-------+ +--------+---+---+ | Given | | 0.5 mg | | | | | 9 16:45 | | | | | | PDT | | | | +-------+ +--------+---+---+ + +---+ | | | + +---+ | labetalol (NORMODYNE) 5 mg/mL | | | injection 5 mg 5 mg, | | | Intravenous, Every 10 Min PRN, | | | For MAP greater than 100, | | | Starting [facility] 11/26/18 at 1610, For | | | 4 doses, PACU | | + +---+ | | | + +---+ | meperidine (DEMEROL) injection | | | 25 mg 25 mg, Intravenous, Every | | | 15 Min PRN, shivering, Starting | | | [facility] 11/26/18 at 1610, For 2 doses, | | | PACU | | + +---+ | | | + +---+ | naloxone (NARCAN) injection 0.1 | | | mg 0.1 mg, Intravenous, PRN, | | | Opioid Reversal, if RR < 6, | | | Starting [facility] 11/26/18 at 1610, | | | PACU | | + +---+ | | | + +---+ | ondansetron (ZOFRAN) injection | | | 4 mg 4 mg, Intravenous, PRN, | | | Nausea, Vomiting, Option one for | | | nausea and vomiting, Starting [facility] | | | 11/26/18 at 1610, For 2 doses, | | | PACU | | + +---+ | | | + +---+ | ondansetron (ZOFRAN) injection | | | 4 mg 4 mg, Intravenous, Every 6 | | | Hours PRN, Nausea, Vomiting, | | | Starting [facility] 11/26/18 at 1712 | | + +---+ | | | + +---+ | ondansetron (ZOFRAN-ODT) | | | disintegrating tablet 4 mg 4 mg, | | | Oral, Every 6 Hours PRN, Nausea, | | | Vomiting, Starting [facility] 11/26/18 | | | at 1712 | | + +---+ | | | + +---+ | promethazine (PHENERGAN) IVPB | | | 6.25 mg 6.25 mg, Intravenous, | | | Administer over 15 Minutes, PRN, | | | Nausea, Vomiting, Option two for | | | nausea or vomiting, Starting [facility] | | | 11/26/18 at 1610, For 2 doses, May | | | repeat x 1 dose after 15 | | | minutes. If no relief in 10 | | | minutes, proceed to option three. | | | Notify Pharmacy to send | | | promethazine IVPB dose. | | + +---+ | | | + +---+ | sodium chloride (PF) 0.9 % | | | flush 10 mL 10 mL, Intravenous, | | | Every 8 Hours PRN, Line Care, | | | when tolerating oral fluids, | | | Starting [facility] 11/26/18 at 1712 | | + +---+ | | | + +---+ in this encounter
--- OUTSIDE RECORDS SUMMARY | ~2019-02-18 | XMS | Encounter Summary ---
Demographics + + + | Address | [address] | | | [place] [address] | + + + | Home Phone | | + + + | Preferred Language | Unknown | + + + | Marital Status | | + + + | Jainism Affiliation | 1061 | + + + | Race | Unknown | + + + | Ethnic Group | Unknown | + + + Author + + + | Author | [facility] | | | and [place] | + + + | Organization | [facility] | | | and [place] | + + + | Address | Unknown | + + + | Phone | Unavailable | + + + Support + + + + + | Name | Relationship | Address | Phone | + + + + + | Sole Gleason | ECON | [place] | | | | | [address] | | + + + + + | Sruthi Gleason | ECON | [place] | | | | | [address] | | + + + + + | Sole Gleason | ECON | [place] | | | | | [address] | | + + + + + Care Team Providers + +------+ + | Care Motor Inspection Mechanic Name | Role | Phone | + +------+ + | Jack Durand DO | PCP | | + +------+ + Encounter Details +--------+ + + + + | Date | Type | Department | Care Team | Description | +--------+ + + + + | 12/08/ | Hospital | [facility] | Lorena Hope | 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 | unspecified | | | | [address] [facility] | [place] [address] | laterality (HCC) | | | | [place] [address] | [phone] | (Primary Dx) | | | | [phone] | | | +--------+ + + + [...] | 270 | 0 | 08/28/19 | 07/30/201 | | TABSIndications: | hours as needed [...] Pharmacy Services Progress Note Chemotherapy Education Session [facility] Pt. Name/Age/: Shahbaz Gleason 63 y.o. 1955 Med. Record Number: [id number] Identifying Statement: Shahbaz Gleason is a 63 y.o. male from [address] [place] [id number] with The encounter diagnosis was Squamous cell [...] Placement; Surgeon: Catherine Bunch MD; Location : [facility] Social History Socioeconomic History [...]
--- OUTSIDE RECORDS SUMMARY | ~2019-02-18 | XMS | Encounter Summary ---
Demographics + + + | Address | [address] | | | [place] [address] | + + + | Home Phone | | + + + | Preferred Language | Unknown | + + + | Marital Status | | + + + | Gnosticism Affiliation | 1061 | + + + | Race | Unknown | + + + | Ethnic Group | Unknown | + + + Author + + + | Author | [facility] | | | and [place] | + + + | Organization | [facility] | | | and [place] | + + + | Address | Unknown | + + + | Phone | Unavailable | + + + Support + + + + + | Name | Relationship | Address | Phone | + + + + + | Sole Gleason | ECON | [place] | | | | | [address] | | + + + + + | Sruthi Gleason | ECON | [place] | | | | | [address] | | + + + + + | Sole Gleason | ECON | [place] | | | | | [address] | | + + + + + Care Team Providers + +------+ + | Care Service Worker Helper Name | Role | Phone | + +------+ + | Jack Durand DO | PCP | | + +------+ + Reason for Visit + + + | Reason | Comments | + + + | Follow-up | | + + + Encounter Details +--------+ + + + + | Date | Type | Department | Care Team | Description | +--------+ + + + + | 02/10/ | Telephone | [facility] | Lydia Waterman, | Follow-up | | 2019 | | VASCULAR SURGERY | RN | | | | | [address] | | | | | | [place] | | | | | | [address] | | | | | | [phone] | | | +--------+ + + + [...]
--- OUTSIDE RECORDS SUMMARY | ~2019-02-18 | XMS | Encounter Summary ---
Demographics + + + | Address | [address] | | | [place] [address] | + + + | Home Phone | | + + + | Preferred Language | Unknown | + + + | Marital Status | Single | + + + | Adventism Affiliation | 1061 | + + + | Race | Unknown | + + + | Ethnic Group | Unknown | + + + Author + + + | Author | [facility] (Historical as of | | | 01-02-19) | + + + | Organization | [facility] (Historical as of | | | 01-02-19) | + + + | Address | Unknown | + + + | Phone | Unavailable | + + + Support + + + + + | Name | Relationship | Address | Phone | + + + + + | Sruthi Gleason | ECON | [place] | | | | | [address] | | + + + + + | Sole Gleason | ECON | [place] | | | | | [address] | | + + + + + Care Team Providers + +------+ + | Care Head Operator Name | Role | Phone | [...] + + + + | 11/26/ | Anesthesia | [facility] | Suman Mcginnis | | | 2018 | [facility] | [address] | | | | | Operating Room [address] | [address] | | | | | [address] | [place] [address] | | | | | [place] [address] | [phone] | | | | | [phone] | | | +--------+ + + + + Anesthesia Record + + + + + | Procedure Name | Responsible | Anesthesia Start | Anesthesia Stop Time | | | Anesthesiologist | Time | | + + + + + | AV FISTULA - | Suman Mcginnis, | 11/26/18 1431 | 11/26/18 1624 | | SUPERFICIALIZATION | CUSTOM SEAMSTRESS | | | | (Right Arm) | | | | + + + + + +----+---+ + + | Da | T | Event | Comment | | te | i | | | | | m | | | | | e | | | +----+---+ + + | 07 | 1 | Block Start | Pre-anesthetic vitals signs reassessed. | | /1 | 4 | | | | 1/ | 2 | | | | 20 | 2 | | | | 19 | | | | +----+---+ + + | | 1 | Block Stop | | | | 4 | | | | | 2 | | | | | 8 | | | +----+---+ + + | | 1 | An Start | Pre-anesthetic vital signs reassessed. | | | 4 | | | | | 3 | | | | | 1 | | | +----+---+ + + | | 1 | Quick Note | Time out | | | 4 | | | | | 5 | | | | | 4 | | | +----+---+ + + | | 1 | Quick Note | Skin incision | | | 4 | | | | | 5 | | | | | 5 | | | +----+---+ + + | | 1 | an stop | | | | 6 | data | | | | 1 | | | | | 9 | | | +----+---+ + + | | 1 | An Stop | | | | 6 | | | | | 2 | | | | | 4 | | | +----+---+ + + +------+ | Meds | +------+ + + + | Name | Total | + + + | midazolam 1 mg/mL | 1 mg | + + + | fentanyl 50 mcg/mL | 100 mcg | + + + | propofol bolus | 120 mg | + + + | dexamethasone 4 mg/mL | 4 mg | + + + | ePHEDrine 5 mg/mL | 5 mg | + + + | ceFAZolin (ANCEF) IVPB 2 g | 2 g | + + + | propofol infusion | 502.08 mg | + + + | bupivacaine 0.5% | 10 mL | + + + | mepivacaine 2% | 10 mL | + + + | NS | 350 mL | + + + + + | Name | + + | Aux O2 (L/min) | + + | N2O | + + | O2 | + + | Air | + + | N2O | + + + + | No blood administrations on file. | + + +--------+ + + + | Type | Details | Placement | Removal | +--------+ + + + | Hemodi | 04/07/18; Catheter; Right; | 04/07/18 0000 by | | | alysis | Subclavian | Graham Berger RN | | | | | | | | Cathet | | | | | er | | | | +--------+ + + + | Wound | 11/26/18; 1312; Incision; Arm; | 11/26/18 1312 by | | | | Right | Ratna Ramirez, | | | | | RN | | +--------+ + + + | Port A | 11/26/18; Left; Chest; 11/26/18; | 11/26/18 0000 by | 11/26/18 1745 by | | Cath | 1745 | Jenna Gresham, | Dorcas Souza, RN | | | | RN | | +--------+ + + + in this encounter Social History + +-------+ +--------+------+ | Tobacco [...] Visit Diagnoses Not on filein this encounter Administered Medications + +--------+ +--------+------+------+ | Medication Order | MAR | Action | Dose | Rate | Site | | | Action | Date | | | | + +--------+ +--------+------+------+ | bupivacaine (PF) (MARCAINE) 0.5 | Given | | 10 mLs | | | | % injection PRN, Starting Silvia | | 9 14:28 | | | | | 11/26/18 at 1428, Anesthesia | | PDT | | | | | Intra-op | | | | | | + +--------+ +--------+------+------+ +---+---+ | | | +---+---+ + +-------+ +-----+---+---+ | ceFAZolin (ANCEF) IVPB 2 g 2 | Given | | 2 g | | | | g, Intravenous, Administer over | | 9 14:39 | | | | | 30 Minutes, Trust Advisor To O.R., Silvia | | PDT | | | | | 11/26/18 at 1230, For 1 dose, Must | | | | | | | be completely infused before | | | | | | | incision is made. Redose every 4 | | | | | | | hours during procedure. | | | | | | + +-------+ +-----+---+---+ +---+---+ | | | +---+---+ + +-------+ +------+---+---+ | dexamethasone (DECADRON) 4 | Given | | 4 mg | | | | MG/ML injection PRN, Starting | | 9 14:28 | | | | | Silvia 11/26/18 at 1428, Anesthesia | | PDT | | | | | Intra-op | | | | | | + +-------+ +------+---+---+ +---+---+ | | | +---+---+ + +-------+ +------+---+---+ | ephedrine injection | Given | | 5 mg | | | | Intravenous, PRN, Starting Silvia | | 9 15:49 | | | | | 11/26/18 at 1549, Anesthesia | | PDT | | | | | Intra-op | | | | | | + +-------+ +------+---+---+ +---+---+ | | | +---+---+ + +-------+ +--------+---+---+ | fentaNYL (SUBLIMAZE) injection | Given | | 50 mcg | | | | Intravenous, PRN, Starting Silvia | | 9 14:46 | | | | | 11/26/18 at 1446, Anesthesia | | PDT | | | | | Intra-op | | | | | | + +-------+ +--------+---+---+ +-------+ +--------+---+---+ | Given | | 50 mcg | | | | | 9 15:04 | | | | | | PDT | | | | +-------+ +--------+---+---+ +---+---+ | | | +---+---+ + +-------+ +--------+---+---+ | mepivacaine (CARBOCAINE) 2 % | Given | | 10 mLs | | | | injection PRN, Starting Silvia | | 9 14:28 | | | | | 11/26/18 at 1428, Anesthesia | | PDT | | | | | Intra-op | | | | | | + +-------+ +--------+---+---+ +---+---+ | | | +---+---+ + +-------+ +------+---+---+ | midazolam (VERSED) injection | Given | | 1 mg | | | | PRN, Starting Silvia 11/26/18 at | | 9 14:21 | | | | | 1421, Anesthesia Intra-op | | PDT | | | | + +-------+ +------+---+---+ +---+---+ | | | +---+---+ + +-------+ +-------+---+---+ | propofol (DIPRIVAN) injection | Given | | 40 mg | | | | Intravenous, PRN, Starting Silvia | | 9 14:47 | | | | | 11/26/18 at 1456, Anesthesia | | PDT | | | | | Intra-op | | | | | | + +-------+ +-------+---+---+ +-------+ +-------+---+---+ | Given | | 40 mg | | | | | 9 14:56 | | | | | | PDT | | | | +-------+ +-------+---+---+ | Given | | 40 mg | | | | | 9 15:14 | | | | | | PDT | | | | +-------+ +-------+---+---+ +---+---+ | | | +---+---+ + +---------+ + +-------+---+ | propofol infusion Continuous | New Bag | | 50 | 28.8 | | | PRN, Starting Silvia 11/26/18 at | | 9 14:39 | mcg/kg/m | mL/hr | | | 1439, Anesthesia Intra-op | | PDT | in | | | + +---------+ + +-------+---+ + + + +-------+---+ | Rate/Dose Change | | 60 | 34.6 | | | | 9 15:14 | mcg/kg/m | mL/hr | | | | PDT | in | | | + + + +-------+---+ +---+---+ | | | +---+---+ + +---------+ +---+---+---+ | sodium chloride 0.9 % infusion | New Bag | | | | | | Continuous PRN, Starting Silvia | | 9 14:31 | | | | | 11/26/18 at 1431, Anesthesia | | PDT | | | | | Intra-op | | | | | | + +---------+ +---+---+---+ +---+---+ | | | +---+---+ in this encounter"
--- OUTSIDE RECORDS SUMMARY | ~2019-02-18 | XMS | Encounter Summary ---
Demographics + + + | Address | [address] | | | [place] [address] | + + + | Home Phone | | + + + | Preferred Language | Unknown | + + + | Marital Status | | + + + | Bahai Affiliation | 1061 | + + + | Race | Unknown | + + + | Ethnic Group | Unknown | + + + Author + + + | Author | [facility] | | | and [place] | + + + | Organization | [facility] | | | and [place] | + + + | Address | Unknown | + + + | Phone | Unavailable | + + + Support + + + + + | Name | Relationship | Address | Phone | + + + + + | Sole Gleason | ECON | [place] | | | | | [address] | | + + + + + | Sruthi Gleason | ECON | [place] | | | | | [address] | | + + + + + | Sole Gleason | ECON | [place] | | | | | [address] | | + + + + + Care Team Providers + +------+ + | Care Wind Turbine Mechanic Name | Role | Phone | [...] | | | | | Squamous | [place], | [place], [place] | | | | | cell | [place] | [address] Phone: | | | | | carcinoma of | [address] | [phone] | | | | | lung, | Phone: | Fax: | | | | | unspecified | [phone] | [phone] | | | | | laterality | Fax: | | | | | | (HCC) | [phone] | | | | | | Procedures | | | | | | | [address] | | | + +--------+ + + + + Encounter Details +--------+ + + + + | Date | Type | Department | Care Team | Description | +--------+ + + + + | 12/15/ | Hospital | [facility] | Krys, | Neoplasm related | | 2019 | Encounter | [facility] | Bart Cade MD [address] | pain; Squamous cell | | | | ONCOLOGY CLINIC [address] | [address] [place] | carcinoma of right | | | | [address] [place] | [place] [address] | lung (HCC) | | | | [place] [address] | [phone] | | | | | [phone] | | | +--------+ + + + [...] Inject 0.45 mLs | | 0 | // | | | polyethylene | under the [...] 1 puff into | | 0 | / | | | | the lungs Daily as | | | 19 | | | | needed. | | | | | + + + +---------+ + + | ondansetron | One tablet every 8 | 40 | 5 | //20 | | | (ZOFRAN) 8 MG tablet [...] f rom the original. Hematology/Oncology Progress Note [facility] [place] Pt. Name/Age/: Shahbaz Gleason 63 y.o. 1955 Med. Record Number: [id number] Date of admission: 12/15/2018 The patient's primary care provider is Jack Durand DO. Identifying Statement: Shahbaz Gleason is a 63 y.o. male from [address] [place] [id number] with metastatic squamous cell lung cancer, and [...] the right lower lobe bronchus. Pathological specimen [id number]: Right lower bronchial lobe b ronchus biopsy [...] July 23, 2017 specimen number [id number] ([facility]) negative for malignant cells. 11. Laboratory evaluation [...] x 4 cm) lymphadenopathy. 19. Admit to [facility] in [facility] between June 09, 2018 and 2018 where his left subclavian Port-A-Cath was removed due to fever of unknown origi n. 20. 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 PORTACATH PLACEMENT/REMOVAL Left 2017 SHUNT PLACEMENT/INSERTION Right 01/23/2018 Procedure: Tunneled Hemodialysis Catheter Placement; Surgeon: Catherine Bunch MD; Location : [facility] MAIN OR Social History Socioeconomic History Marital [...] this chart may have been created with [employer] voice recognition software. Occasi onal wrong-word or [...]
--- OUTSIDE RECORDS SUMMARY | ~2019-02-18 | XMS | Encounter Summary ---
Demographics + + + | Address | [address] | | | [place] [address] | + + + | Home Phone | | + + + | Preferred Language | Unknown | + + + | Marital Status | Single | + + + | Orthodoxy Affiliation | Unknown | + + + | Race | White | + + + | Ethnic Group | Not or | + + + Author + + + | Author | [facility] | + + + | Organization | [facility] | + + + | Address | Unknown | + + + | Phone | Unavailable | + + + Support + + +---------+ + | Name | Relationship | Address | Phone | + + +---------+ + | Sole Gleason | ECON | Unknown | | + + +---------+ + Care Team Providers + +------+ + | Care Agricultural Consultant Name | Role | Phone | + +------+ + | Tigre Dwyer DO | PCP | | + +------+ + Reason for Referral Diagnostic Testing +--------+--------+ + + + + | Status | Reason | Specialty | Diagnoses / | Referred By | Referred To | | | | | Procedures | Contact | Contact | +--------+--------+ + + + + | Closed | | Radiology | Procedures | Service Coordinator Chh1 | [facility] | | | | | MRI SPINE | [address] | [address] | | | | | LUMBAR [address] | [address] | Lee Manning | | | | | CONT | Mailcode: | Rd | | | | | | [id number] | Mailcode: | | | | | | [facility] | [address] | | | | | | Health and | [place] | | | | | | Healing, | Research | | | | | | Building | Center | | | | | | 1,15th Floor | [place], [place] | | | | | | [place], | [address] | | | | | | [place] | Phone: | | | | | | [address] | [phone] | | | | | | Phone: | Fax: | | | | | | [phone] | [phone] | | | | | | Fax: | | | | | | | [phone] | | +--------+--------+ + + + + Encounter Details +--------+ + + + + | Date | Type | Department | Care Team | Description | +--------+ + + + + | 10/19/ | Documentati | [facility] Comprehensive | Jessica Russell, | | | 2009 | on | Pain Center at | MD [address] | | | | | [facility] | Ave [facility] [place] | | | | | [address] | [address] | | | | | Mailcode: CH15P | [phone] | | | | | [facility] | | | | | | and Healing, | | | | | | | | | | | | Floor [place], [place] | | | | | | [address] | | | | | | [phone] | | | +--------+ + + + + Social History + + [...] | + +--------+ + + + | MRI SPINE LUMBAR WO | Routin | 10/02/2009 | | Results for this | | CONT | e | | | procedure are in the | | | | | | results section. | + +--------+ + + + documented in this encounter Results MRI SPINE LUMBAR WO CONT (10/02/2009) + + + | Impressions | Performed At | + + + | Impression: 1. Disc protrusion likely present at L5-S1 and L1-2 | | | without definite nerve root impingement. 2. Canal and foraminal | | | stenoses as described above. 3. Posterior annular tear at L5-S1. 4. | | | Mild retrolisthesis of L5 on S1 and mild spondylolisthesis of L3 on | | | L4. | | + + + documented in this encounter Visit Diagnoses Not on filedocumented in this encounter"
--- OUTSIDE RECORDS SUMMARY | ~2019-02-18 | XMS | Encounter Summary ---
Demographics + + + | Address | [address] | | | [place] [address] | + + + | Home Phone | | + + + | Preferred Language | Unknown | + + + | Marital Status | | + + + | Orthodoxy Affiliation | 1061 | + + + | Race | Unknown | + + + | Ethnic Group | Unknown | + + + Author + + + | Author | [facility] | | | and [place] | + + + | Organization | [facility] | | | and [place] | + + + | Address | Unknown | + + + | Phone | Unavailable | + + + Support + + + + + | Name | Relationship | Address | Phone | + + + + + | Sole Gleason | ECON | [place] | | | | | [address] | | + + + + + | Sruthi Gleason | ECON | [place] | | | | | [address] | | + + + + + | Sole Gleason | ECON | [place] | | | | | [address] | | + + + + + Care Team Providers + +------+ + | Care Network Programmer Name | Role | Phone | + [...] + + | 12/25/ | Telephone | [facility] | Krys | Care Coordination | | 2019 | | [facility] | Bart Cade MD [address] | | | | | ONCOLOGY CLINIC [address] | [address] [place] | | | | | [address] [place] | [place] [address] | | | | | [place] [address] | [phone] | | | | | [phone] | | | +--------+ + + + [...]
--- OUTSIDE RECORDS SUMMARY | ~2019-02-18 | XMS | Encounter Summary ---
Demographics + + + | Address | [address] | | | [place] [address] | + + + | Home Phone | | + + + | Preferred Language | Unknown | + + + | Marital Status | | + + + | Mu-Ism Affiliation | 1061 | + + + | Race | Unknown | + + + | Ethnic Group | Unknown | + + + Author + + + | Author | [facility] | | | and [place] | + + + | Organization | [facility] | | | and [place] | + + + | Address | Unknown | + + + | Phone | Unavailable | + + + Support + + + + + | Name | Relationship | Address | Phone | + + + + + | Sole Gleason | ECON | [place] | | | | | [address] | | + + + + + | Sruthi Gleason | ECON | [place] | | | | | [address] | | + + + + + | Sole Gleason | ECON | [place] | | | | | [address] | | + + + + + Care Team Providers + +------+ + | Care Cloth Mender Name | Role | Phone | + [...] | | | | | Squamous | [place], | [place] | | | | | cell | [place] | [address] Phone: | | | | | carcinoma of | [address] | [phone] | | | | | lung, | Phone: | Fax: | | | | | unspecified | [phone] | [phone] | | | | | laterality | Fax: | | | | | | (HCC) | [phone] | | | | | | Procedures | | | | | | | [address] | | | + +--------+ + + + + Encounter Details +--------+ + + + + | Date | Type | Department | Care Team | Description | +--------+ + + + + | 12/08/ | Hospital | [facility] | Krys, | Chronic kidney | | 2019 | Encounter | [facility] | Bart Cade MD [address] | disease, stage V | | | | ONCOLOGY CLINIC [address] | [address] | (HCC); Squamous cell | | | | [address] [place] | [place] [address] | carcinoma of right | | | | [place] [address] | [phone] | lung (HCC) | | | | [phone] | | | +--------+ + + + [...] f rom the original. Hematology/Oncology Progress [place] Pt. Name/Age/: Shahbaz Gleason 63 y.o. 1955 [facility]. Record Number: [id number] Date of admission: 12/08/2018 The patient's primary care provider is Jack Durand DO. Identifying Statement: Shahbaz Gleason is a 63 y.o. male from [address] [place] [id number] with metastatic squamous cell lung cancer, and diabetic glomerulosc lerosis on hemodialysis. The patient chart and medications were reviewed in detail and the patient was seen and exam ined. History of Present Illnesses, their Current Assessments and Plans: Problem List Chronic kidney disease, stage V Current Assessment & Plan Currently on hemodialysis on Friday, Friday an Friday in [place], [place] Squamous cell lung cancer Overview ACTIVE [...] the right lower lobe bronchus. Pathological specimen [id number]: Right lower bronchial lobe b ronchus biopsy [...] July 23, 2017 specimen number [id number] ([facility]) negative for malignant cells. 11. Laboratory evaluation [...] x 4 cm) lymphadenopathy. 19. Admit to [facility] in [facility] between June 09, 2018 and 2018 where his left subclavian Port-A-Cath was removed due to fever of unknown origi n. 20. [facility] to [facility] in [place], [place] between July 20, 2018 a July [...] cycle #1 of gemcitabine/carboplatin chemotherapy. 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 Occasi onal wrong-word or [...]
--- OUTSIDE RECORDS SUMMARY | ~2019-02-18 | XMS | Encounter Summary ---
Demographics + + + | Address | [address] | | | [place] [address] | + + + | Home Phone | | + + + | Preferred Language | Unknown | + + + | Marital Status | | + + + | Hoahaoism Affiliation | 1061 | + + + | Race | Unknown | + + + | Ethnic Group | Unknown | + + + Author + + + | Author | [facility] | | | and [place] | + + + | Organization | [facility] | | | and [place] | + + + | Address | Unknown | + + + | Phone | Unavailable | + + + Support + + + + + | Name | Relationship | Address | Phone | + + + + + | Sole Gleason | ECON | [place] | | | | | [address] | | + + + + + | Sruthi Gleason | ECON | [place] | | | | | [address] | | + + + + + | Sole Gleason | ECON | [place] | | | | | [address] | | + + + + + Care Team Providers + +------+ + | Care Custodial Manager Name | Role | Phone | + +------+ + | Jack Durand DO | PCP | | + +------+ + Encounter Details +--------+ + + + + | Date | Type | Department | Care Team | Description | +--------+ + + + + | 01/05/ | Care | [facility] | Krys, | | | 2019 | Coordinatio | [facility] | Bart Cade MD [address] | | | | n | ONCOLOGY CLINIC [address] | [facility] | | | | | W [facility] | [place] [address] | | | | | [place] [address] | [phone] | | | | | [phone] | | | +--------+ + + + [...]
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
--- OUTSIDE RECORDS SUMMARY | ~2019-02-18 | XMS | Encounter Summary ---
Demographics + + + | Address | [address] | | | [place] [address] | + + + | Home Phone | | + + + | Preferred Language | Unknown | + + + | Marital Status | | + + + | Advent Affiliation | 1061 | + + + | Race | Unknown | + + + | Ethnic Group | Unknown | + + + Author + + + | Author | [facility] | | | and [place] | + + + | Organization | [facility] | | | and [place] | + + + | Address | Unknown | + + + | Phone | Unavailable | + + + Support + + + + + | Name | Relationship | Address | Phone | + + + + + | Sole Gleason | ECON | [place] | | | | | [address] | | + + + + + | Sruthi Gleason | ECON | [place] | | | | | [address] | | + + + + + | Sole Gleason | ECON | [place] | | | | | [address] | | + + + + + Care Team Providers + +------+ + | Care Loader Operator Name | Role | Phone | + +------+ + | Jack Durand DO | PCP | | + +------+ + Encounter Details +--------+ + + + + | Date | Type | Department | Care Team | Description | +--------+ + + + + | 01/04/ | Care | [facility] | [place], | | | 2019 | Coordinatio | [facility] | Bart Cade MD [address] | | | | n | [facility] | [facility] | | | | | [facility] | [place] [address] | | | | | [place] [address] | [phone] | | | | | [phone] | | | +--------+ + + + [...]
--- OUTSIDE RECORDS SUMMARY | ~2019-02-18 | XMS | Encounter Summary ---
Demographics + + + | Address | [address] | | | [place] [address] | + + + | Home Phone | | + + + | Preferred Language | Unknown | + + + | Marital Status | | + + + | Yarsanism Affiliation | 1061 | + + + | Race | Unknown | + + + | Ethnic Group | Unknown | + + + Author + + + | Author | [facility] | | | and [place] | + + + | Organization | [facility] | | | and [place] | + + + | Address | Unknown | + + + | Phone | Unavailable | + + + Support + + + + + | Name | Relationship | Address | Phone | + + + + + | Sole Gleason | ECON | [place] | | | | | [address] | | + + + + + | Sruthi Gleason | ECON | [place] | | | | | [address] | | + + + + + | Sole Gleason | ECON | [place] | | | | | [address] | | + + + + + Care Team Providers + +------+ + | Care Supervisor Drawing Name | Role | Phone | + [...] | | | | | laterality | [place] [address] | | | | | | ([facility]) | Phone: | | | | | | | [phone] | | | | | | | Fax: | | | | | | | [phone] | | +--------+ + + + + + Reason for Visit + + + | Reason | Comments | + + + | IDT Note | | + + + Encounter Details +--------+ + + + + | Date | Type | Department | Care Team | Description | +--------+ + + + + | 12/02/ | Telephone | [facility] | Sherri Fitch, | IDT Note | | 2018 | | MED CTR CHEMO | RN | | | | | INFUSION [address] | | | | | | [place], | | | | | | [place] [address] | | | | | | [phone] | | | +--------+ + + + [...]
--- OUTSIDE RECORDS SUMMARY | ~2019-02-18 | XMS | Encounter Summary ---
Demographics + + + | Address | [address] | | | [place] [address] | + + + | Home Phone | | + + + | Preferred Language | Unknown | + + + | Marital Status | Single | + + + | Islam Affiliation | 1061 | + + + | Race | Unknown | + + + | Ethnic Group | Unknown | + + + Author + + + | Author | [employer] [facility] (Historical as of | | | 01-02-19) | + + + | Organization | [facility] (Historical as of | | | 01-02-19) | + + + | Address | Unknown | + + + | Phone | Unavailable | + + + Support + + + + + | Name | Relationship | Address | Phone | + + + + + | Sruthi Gleason | ECON | [place] | | | | | [address] | | + + + + + | Sole Gleason | ECON | [place] | | | | | [address] | | + + + + + Care Team Providers + +------+ + | Care Supervisor Line Department Name | Role | Phone | + +------+ + PCP | Unavailable | + +------+ + Encounter Details +--------+ + + + + | Date | Type | Department | Care Team | Description | +--------+ + + + + | 11/26/ | Procedure | [facility] | | | | 2019 | Pass [facility] | | | | | | Operating [address] | | | | | | [facility] | | | | | | [place] [address] | | | | | | [phone] | | | +--------+ + + + [...]
--- OUTSIDE RECORDS SUMMARY | ~2019-02-18 | XMS | Encounter Summary ---
Demographics + + + | Address | [address] | | | [place] [address] | + + + | Home Phone | | + + + | Preferred Language | Unknown | + + + | Marital Status | Single | + + + | Yazdanism Affiliation | 1061 | + + + | Race | Unknown | + + + | Ethnic Group | Unknown | + + + Author + + + | Author | Unyqe Koalah (Historical as of | | | 01-02-19) | + + + | Organization | [facility] (Historical as of | | | 01-02-19) | + + + | Address | Unknown | + + + | Phone | Unavailable | + + + Support + + + + + | Name | Relationship | Address | Phone | + + + + + | Sruthi Gleason | ECON | [place] | | | | | [address] | | + + + + + | Sole Gleason | ECON | [place] | | | | | [address] | | + + + + + Care Team Providers + +------+ + | Care Rn Spine Name | Role | Phone | + [...] + + | 11/26/ | Surgery | [facility] | Dallas Velasquez MD | AV FISTULA - | | 2019 | | [facility] | [address] | SUPERFICIALIZATION | | | | Operating Room [address] | [place], [place] | | | | | [place] | [address] | | | | | [place] [address] | | | | | | [phone] | | | +--------+---------+ + + + [...] skin turning blue, or fainting Call 911. [facility] AV DIALYSIS SHUNT/FISTULA DISCHARGE INSTRUCTIONS Your physician [...] + + +---------+ + + | B Rcpvnsf-L-Nqxdh | Take 1 tablet by | | [...] | | | | | | | [phone] to | | | | | | | schedule follow | | | | | | | upPlease fax all | | | | | | | labs to [phone] | | | | | + + [...] 136 | 135 - 145 mmol/L | [email or web address] | + + + + + [...] 10.5 | 8.5 - 10.5 mg/dL | [facility] | + + + + + | EGFR | 9 (L)Comment: GFR <60: | >60 mL/min/1.73m2 | [facility] | | | CHRONIC KIDNEY DISEASE, [...] | | | | | MDRD [facility] traceable | | | | | equation.Testing | | | | | performed at [facility];[address] | | | | | [facility];[place], [place] | | | | | [address] | | | + + + + + + + | Specimen | + + | Blood | + + + + + + + | Performing | Address | City/State/Zipcode | Phone Number | | Organization | | | | + + + + + | [facility] | [address] | [place] [address] | | + + + + + [...] Pain (1-3), | | | Fever, [facility] 11/26/18 at | | | 1712 | [...] PDT | | | | | [facility] 11/26/18 at 1610, | | | | [...] to option 3., | | | [facility] 11/26/18 at 1610, | | | PACU [...] | | | | | | [facility] 11/26/18 at 1610, | | | | [...] PDT | | | | | [facility] 11/26/18 at 1526, | | | | | | | Intra-op | | | | | | + +-------+ +---+---+---+ + +---+ | | | + +---+ | heparin flush (PF) 100 unit/mL | | | injection 300 Units 300 Units (3 | | | mL), Intracatheter, PRN, Line | | | Care, [facility] 11/26/18 at | | | 1714 | | + +---+ | | | + +---+ | HYDROmorphone (DILAUDID) | | | injection 0.25 mg 0.25 mg, | | | Intravenous, Every 5 Min PRN, | | | Pain, Option Three for pain scale | | | 1-410. If no relief, contact | | | anesthesia provider., Starting | | | [facility] 11/26/18 at 1610, PACU | | + [...] | | | | | | | [facility] 11/26/18 at 1610, PACU | | | [...] PRN, Nausea, Vomiting, | | | [facility] 11/26/18 at 1712 | | + +---+ | | | + +---+ | ondansetron (ZOFRAN-ODT) | | | disintegrating tablet 4 mg 4 mg, | | | Oral, Every 6 Hours PRN, Nausea, | | | Vomiting, [facility] 11/26/18 | | | at 1712 | [...]
--- OUTSIDE RECORDS SUMMARY | ~2019-02-18 | XMS | Encounter Summary ---
Demographics + + + | Address | [address] | | | [place] [address] | + + + | Home Phone | | + + + | Preferred Language | Unknown | + + + | Marital Status | Single | + + + | Gnosticism Affiliation | Unknown | + + + | Race | White | + + + | Ethnic Group | Not or | + + + Author + + + | Author | [facility] | + + + | Organization | [facility] | + + + | Address | Unknown | + + + | Phone | Unavailable | + + + Support + + +---------+ + | Name | Relationship | Address | Phone | + + +---------+ + | Sole Gleason | ECON | Unknown | | + + +---------+ + Care Team Providers + +------+ + | Care Beating Machine Operator Name | Role | Phone [...] | | disorder of | [place], | [place], [place] | | | | | lumbar | [place] [address] | [address] | | | | | region | Phone: | Phone: | | | | | Unspecified | [phone] | [phone] | | | | | drug | Fax: | Fax: | | | | | dependence, | [phone] | [phone] | | | | | unspecified | [...] spondylosis without | | | | [facility] | [address] [place], [place] | myelopathy (Primary | | | | [address] | [address] | Dx) | | | | Mailcode: CH15P | [phone] | | | | | [facility] | | | | | | and Healing, | | | | | | Building | | | | | | Floor [place], [place] | | | | | | [address] | | | | | | [phone] | | | +--------+---------+ + + + [...] this encounter Patient Instructions Patient Instructions Maritza Cordova, Crissy - 09/22/2009 4:23 PM PDT1.) Obtain [...] for pain management consultation by TIGRE SPANGLER [facility] [place] [address] Reason for visit Chief Complaint Patient presents [...] for his pain. He is referred to [facility] for consultation regarding [...] PAIN MEDICINES: Opioids: Hydrocod one (Vicodin, Lortab, [place]): Maximum Dose: 60 mg daily , Length [...] the cost of gasoline to get to [facility] from [place]. SOLE [employer]AYER Brief Pain Inventory: (ten= worst possible pain [...] sweats, difficulty with sleep, weight change Endo/Heme/Allergies: Quopwjyt-svubupunaa-diagfknvgs Psychiatric/Behavioral: Positive for depression. The patient is [...] too costly, he can purchase [employer] at [employer] which is m uch cheaper and works [...] DO. NEEMA SALAS MD [facility] [facility], 4th Floor Mail Code: CH4P [place], [place] [address] documented in this encount er Plan of Treatment Not on filedocumented as of this encounter Visit Diagnoses + + | Diagnosis | + + | Lumbosacral spondylosis without myelopathy - Primary | + + documented in this encounter
--- OUTSIDE RECORDS SUMMARY | ~2019-02-18 | XMS | Encounter Summary ---
Demographics + + + | Address | [address] | | | [place] [address] | + + + | Home Phone [...] [place] | | | | | [address] | | + + + + + | Sruthi Gleason | ECON | [place] | | | | | [address] | | + + + + + | Sole Gleason | ECON | [place] | | | | | [address] | | + + + + + Care Team Providers + +------+ + | Care Special Crimes Investigator Name | Role | Phone | + +------+ + | Jack Durand DO | PCP | | + +------+ + Encounter Details +--------+ + + + + | Date | Type | Department | Care Team | Description | +--------+ + + + + | 11/26/ | Hospital | [facility] | PoiDallas MD | | | 2019 | Encounter | [facility] | [address] | | | | | [address] | [place], [place] | | | | | [place], [place] | [address] | | | | | [address] | | | | | | [phone] | | | +--------+ + + + [...] 11/26/181821 Date of Service: 11/26/181799 Status: Signed [employer] Member: Dorcas Souza RN (Registered Nurse) Discharge instructions [...] | | | | | performed at [facility];[address] | | | | | | [facility];[place], [place] | | | | | | [address] | | | | + + + [...]
--- OUTSIDE RECORDS SUMMARY | ~2019-02-18 | XMS | Encounter Summary ---
Demographics + + + | Address | [address] | | | [place] [address] | + + + | Home Phone [...] [place] | | | | | [address] | | + + + + + | Sruthi Gleason | ECON | [place] | | | | | [address] | | + + + + + | Sole Gleason | ECON | [place] | | | | | [address] | | + + + + + Care Team Providers + +------+ + | Care Dust Collector Operator Name | Role | Phone | [...] + + | 11/23/ | Refill | [facility] | Krys, | Medication Refill | | 2019 | | [facility] | Bart Cade MD [address] | | | | | [facility] [address] | [address] [place] | | | | | [address] [place] | [place] [address] | | | | | [place] [address] | [phone] | | | | | [phone] | | | +--------+--------+ + + + [...]
--- OUTSIDE RECORDS SUMMARY | ~2019-02-18 | XMS | Clinical Summary ---
Demographics + + + | Address | [address] | | | [place] [address] | + + + | Home Phone | | + + + | Preferred Language | Unknown | + + + | Marital Status | | + + + | Mosque Affiliation | 1061 | + + + [...] + | Sole Gleason | ECON | [place] | | | | | [address] | | + + + + + | Sruthi Gleason | ECON | [place] | | | | | [address] | | + + + + + | Sole Gleason | ECON | [place] | | | | | [address] | | + + + + + Care Team Providers + +------+ + | Care Alteration Worker Name | Role | Phone | [...] Syringe | | 0 | | | [place] | | Syringe-Needle U-100 | Ultra-Fine 1/2 mL 30 | | | | | nded | | (B-D INS SYR | gauge [...] mouth | | 0 | | | [place] | | (CYMBALTA) [address] | Daily. | | | | | nded | | capsule | | | | | | | + + + +---------+------+------+-------+ | lisinopril | Take 1 tablet by | 30 | 0 | 09/1 | | [facility] | | (PRINIVIL, ZESTRIL) | mouth Daily. | tablet | | 2/20 | | nded | | 10 mg tablet | | | | 18 | | | + + + +---------+------+------+-------+ | renal multivitamin | Take 1 tablet by | 30 | 0 | 09/1 | | [facility] | | (DIALYVITE, | mouth Daily. | tablet | | 3/20 | | nded | | VOL-CARE) TABS | | | | 18 | | | + + + +---------+------+------+-------+ | insulin glargine | Inject 10 Units | 10 mL | 0 | 09/1 | | [facility] | | (LANTUS) 100 | under the skin | | | 2/20 | | nded | | units/mL injection | nightly. | | | 18 | | | | (vial) | | | | | | | + + + +---------+------+------+-------+ | furosemide (LASIX) | Take 1 tablet by | 60 | 0 | 09/1 | | [facility] | | 80 mg tablet | mouth 2 times daily. | tablet | | 2/20 | | nded | | | | | | 18 | | | + + + +---------+------+------+-------+ | gabapentin | Take 1 capsule by | 90 | 0 | 10/2 | | [place] | | (NEURONTIN) 100 mg | mouth 2 times daily. | capsule | | 9/20 | | nded | | capsule | | | | 18 | | | + + + +---------+------+------+-------+ | methoxy | Inject 0.45 mLs | | 0 | 03/1 | | [place] | | polyethylene | under the skin every | | | 7/20 | | nded | | glycol-epoetin beta | 14 days. | | | 19 | | | | (MIRCERA) 50 mcg/0.3 | | | | | | | | mL injection | | | | | | | + + + +---------+------+------+-------+ | aspirin 81 MG | Take 81 mg by mouth | | 0 | | | [facility] | | tablet | Daily. | | | | | nded | + + + +---------+------+------+-------+ | SYMBICORT 80-4.5 | Inhale 2 puffs into | | 0 | 11/2 | | [facility] | | MCG/ACT inhaler | the lungs Daily. | | | 9/20 | | nded | | | | | | 18 | | | + + + +---------+------+------+-------+ | NARCAN 4 MG/0.1ML | Inhale 1 puff into | | 0 | 04/2 | | [facility] | | | the lungs Daily as | | | 20 | | nded | | | needed. | | | 19 | | | + + + +---------+------+------+-------+ | vancomycin 1 g | Inject 1,000 mg into | | 0 | 03/0 | | [facility] | | injection | the vein Daily as | | | 7/20 | | nded | | | needed. After HD | | | 19 | | | + + + +---------+------+------+-------+ | sevelamer | Take 800 mg by mouth | | 0 | | | [facility] | | carbonate (RENVELA) | 3 times daily. | | | | | nded | | 800 mg tablet | | | | | | | + + + +---------+------+------+-------+ | polyethylene | Take 17 g by mouth | | 0 | | | [facility] | | glycol (MIRALAX) | Daily as needed for | | | | | nded | | powder | Constipation. | | | | | | + + + +---------+------+------+-------+ | glycerin adult | Place 1 suppository | | 0 | | | [facility] | | suppository | rectally Daily as | | | | | nded | | | needed for | | | | | | | | Constipation. | | | | | | + + + +---------+------+------+-------+ | OXYCONTIN 40 MG ER | | | 0 | 07/2 | | [facility] | | abuse-deterrent | | | | 2/20 | | nded | | tablet | | | | 19 | | | + + + +---------+------+------+-------+ | ondansetron | One tablet every 8 | 40 | 5 | 07/3 | | [facility] | | (ZOFRAN) 8 MG tablet | hours as needed for | tablet | | 0/20 | | nded | | | nausea | | | [...] 60 | 2 | 08/2 | | [facility] | | 0.5 mg | MOUTH EVERY 4 HOURS | tablet | | 6/20 | | nded | | tabletIndications: | NEEDED FOR NAUEA, [...] 270 | 0 | 09/0 | | [facility] | | TABSIndications: | hours as needed for | tablet | | 5/20 | | nded | | Neoplasm related | pain | | | 19 | | | | pain | | | | | | | + + + +---------+------+------+-------+ Active Problems + + + | Problem | Noted Date | + + + | Hypercalcemia | 02/18/2019 | + + + | Non-small cell [...] | | lower lobe bronchus. Pathological specimen [id number]: Right | | lower bronchial lobe bronchus [...] July 23, 2017 specimen number | | [id number] ([employer]) negative for | | malignant cells.11. Laboratory [...] CT scan on April 29 | | 2018 mixed response with complete resolution of malignant | | axillary lymphadenopathy and stable extent of disease within the | | right infrahilar mass (4 cm x 5 cm) and subcarinal (2 cm x 4 cm) | | lymphadenopathy.19. Admit to [facility] in [place] | | [place] between June 09, 2018 and June 25, 2018 where | | his left subclavian Port-A-Cath was removed due to fever of | | unknown origin.20. Admit to [facility] in | | [place], [place] between July 20, 2018 and July [...] neutropenic sepsis | | requiring hospitalization at [facility] in [place]. | | Following discharge, Zackery had a ground level fall at home and | | fractured his right upper extremity, which is now in a | | cast.Interval history is also notable for the fact that Zackery | | continues on outpatient hemodialysis with infusions of vancomycin | | in [place] under the direction of Dr. Cheo Joaquin. [...] had an extended, 25 | | minute yylpd-bu-zjxgpid encounter. Zackery does not want to seek [...] | | on February 03, 2019 at [facility] in [place], | | [place]. | + + + [...] & Plan: | | Treatment per Dr Sen. | + + [...] | +--------+ + + + + | 02/18/ | Hospital | | Johnie Mejia | | | 2019 | Encounter | | MD Francesco | | +--------+ + + + + | 02/10/ | Telephone | Vascular Surgery | Lydia Waterman, | Follow-up | | 2018 | | | RN | | +--------+ + + + + | 02/03/ | Documentati | Nephrology | Toro | Results (01/20/19) | | 2019 | on | | Di Young | | | | | | Build Master | | +--------+ + + + + [...] | 01/05/ | Care | Oncology | Krys | | | 2019 | Coordinatio | | Bart Cade MD | | | | n | | | | +--------+ + + + + | 01/05/ | Care | Oncology | Krys, | | | 2018 | Coordinatio | | Bart Cade MD | | | | n | | | | +--------+ + + + + | 01/04/ | Telephone | Oncology | Krys, | Care Coordination | | 2018 | | | Bart Cade MD | | +--------+ + + + + | 01/04/ | Care | Oncology | Krys, | | | 2018 | Coordinatio | | Bart Cade MD | | | | n | | | | +--------+ + + + + | 01/04/ | Telephone | Nephrology | Cheo Joaquin MD | Results, Critical | | 2018 | | | | | +--------+ + + + + | 12/29/ | Refill | Oncology | [facility] | Terri | | 2018 | | | Bart Cade MD | | +--------+ + + + + | 12/28/ | Telephone | Oncology | Krys | Ubaldo | | 2018 | | | Bart [...] | 12/15/ | Hospital | Oncology | Krys, | Neoplasm related | | 2018 | Encounter | | [...] cell | | 2019 | Encounter | | Bart Cade MD House, | carcinoma of lung, | | | | | Bella Lozano RDN | unspecified | | | | | | laterality (HCC) | +--------+ + + + + | 12/08/ | Hospital | Oncology | Lorena Hope | Squamous cell | | 2019 | Encounter | | Alysha Batista | [...] Pharmacy | Nilam Cooley, | | | 2018 | on | | RPH | | [...] + + + | Blood Pressure | 143/72 | 02/18/20192117 PDT | + + + + | Pulse | 144 | 02/18/20192117 PDT | + + + + | Temperature | 37 C (98.6 F) | 02/18/20192117 PDT | + + + + | Respiratory Rate | 15 | 02/18/20192117 PDT | + + + + | Oxygen Saturation | 95% | 02/18/20192119 PDT | + + + + | Inhaled Oxygen | - | - | | Concentration | | | + + + + | Weight | 91 kg (200 lb 9.9 | 02/18/20192117 PDT | | | oz) | | + + + + | Height | 182.9 cm (6') | 02/18/20192117 PDT | + + + + | Body Mass Index | 27.21 | 02/18/20192117 PDT | + + + + Plan [...] | + + + + + Procedures The patient is currently admitted. The information in this section might not be complete un til the patient is discharged. + +--------+ + + + | Procedure Name | Priori | Date/Time | Associated Diagnosis | Comments | | | ty | | | | + +--------+ + + + | ECG 12 LEAD | STAT | 02/18/2019 | | | | | | 21:21 PDT | | | + +--------+ + [...] | | mL/min/1.73m2 | | | | CYMRO | | | | | + + [...] + VAS Hemodialysis Graft Fistula (12/21/2018 9:31 PDT) [...] | | | | | | [facility] | | | | | | [facility] | | | | | | [facility] - | | | | | | LABORATORY | | + + + + + + | RBC | 3.65 (L) | 4.30 - 5.70 | [facility] | | | | | M/uL | [facility] | | | | [...] | Preliminary studies have | | [facility] | | | s | indicated the [...] | nRBC | | K/uL | [facility] | [...] [address] | [place] | [phone] | | [facility] | | [address] | | | - LABORATORY | | [...] of June | | | | | 2018. Check [...] | + + + + + | [facility] | [address] | [place] | [phone] | | [facility] | | [address] | | | - LABORATORY | | [...] | | | | | performed at [facility];[address] | | | | | | [facility];[place], [place] | | | | | | [address] | | | | + + + [...] LAB | | | | performed at [facility], [address] | | | | | | [place], | | | | | | [place] [address] | | | | | | | [...] NEGATIVE | | | Testing performed at [facility];[address] [facility];[place] [address] | | + + + + +---------+ [...] | [employer] | [facility] | [id number] | 05/19/19 | | | Medica | [...] Person | Self | [birth year] | | [address] | | | al/Fam | | 1956 | [phone] | [place] | | | [place] | | | [address] (Home) | [address] | + +--------+ +--------+ + + | Shahbaz Gleason [place] | Person | Self | [birth year] | | [address] | | | izaiah/Ravi | | 1956 | [phone] | [place] | | | [place] | | | [address] (Home) | [address] | + +--------+ +--------+ + + Advance Directives Patient has advance care planning documents, and code status on file. For more information, please contact:[facility] [place] [address] + + + + + | Code Status | Date | Date | Comments | | | Activated | Inactivated | | + + + + + | DNR (No | 02/18/2019 | | | | Code) | 21:09 | | | + + + + + + + +---+ | RN or MD to pronounce: | RN may | | | | pronounce | | + + +---+ + + + +---+ | | | | | + + + +---+ | DNR (No | 01/21/2018 | 01/28/2018 | | | Code) | 16:17 | 18:34 | | + + + +---+ + + +---+ | RN or MD to pronounce: | RN may | | | | pronounce | | + + +---+
--- OUTSIDE RECORDS SUMMARY | ~2019-02-18 | XMS | Encounter Summary ---
Demographics + + + | Address | [address] | | | [place] [address] | + + + | Home Phone | | + + + | Preferred Language | Unknown | + + + | Marital Status | | + + + | Alevism Affiliation | 1061 | + + + | Race | Unknown | + + + | Ethnic Group | Unknown | + + + Author + + + | Author | [facility] | | | and [place] | + + + | Organization | [facility] | | | and [place] | + + + | Address | Unknown | + + + | Phone | Unavailable | + + + Support + + + + + | Name | Relationship | Address | Phone | + + + + + | Sole Gleason | ECON | [place] | | | | | [address] | | + + + + + | Sruthi Gleason | ECON | [place] | | | | | [address] | | + + + + + | Sole Gleason | ECON | [place] | | | | | [address] | | + + + + + Care Team Providers + +------+ + | Care Systems Security Analyst Name | Role | Phone | [...] | | | [facility] CLIN[facility] [address] | [facility] [place] | | | | | [address] | [place] [address] | | | | | [place] [address] | [phone] | | | | | [phone] | | | +--------+--------+ + + + [...]
--- OUTSIDE RECORDS SUMMARY | ~2019-02-18 | XMS | Encounter Summary ---
Demographics + + + | Address | [address] | | | [place] [address] | + + + | Home Phone [...] [place] | | | | | [address] | | + + + + + | Sruthi Gleason | ECON | [place] | | | | | [address] | | + + + + + | Sole Gleason | ECON | [place] | | | | | [address] | | + + + + + Care Team Providers + +------+ + | Care Brick Burner Name | Role | Phone | + [...] neoplasm of | Bart C, | [address] [place] | | | | | unspecified | MD [address] | [place], | | | | | part of | [address] | [place] [address] | | | | | unspecified | [place], | Phone: | | | | | bronchus or | [place] [address] | [phone] | | | | | lung (HCC) | Phone: | Fax: | | | | | Procedures | [phone] | [phone] | | | | | [place] | Fax: | | | | | | [place] | [phone] | | | | | | HCL, [...] + + | 12/08/ | Hospital | [facility] | Krys, | Non-small cell lung | | 2019 | Encounter | MED [facility] | Bart Cade MD [address] | cancer, unspecified | | | | INFUSION [address] | [address] [place] | laterality (HCC) | | | | [place], | [place] [address] | (Primary Dx); | | | | [place] [address] | [phone] | Squamous cell | | | | [phone] | | carcinoma of lung, | | [...] + + documented in this encounter Results Lactate Dehydrogenase (12/08/2018 10:00 PDT) + + + + + + | Component | Value | Ref Range | Performed | Pathologist | | | | | At | Signature | + + + + + + | LDH TOTAL | 244 (H)Comment: LDH AND | 85 - 227 U/L | [facility] | | | | DIRECT BILIRUBIN may be | | [facility] | | | | adversely affected by | | [facility] | | | | 1+ hemolysis. | | [facility] | | | | | | LABORATORY | | + + + + + + + + | Specimen | + + | Blood | + + + + + + + | Performing | Address | City/State/Zipcode | Phone Number | | Organization | | | | + + + + + | [facility] | [address] | [place] | [phone] | | [facility] | | [address] | | | [facility] | | | | + + + + + CBC with Differential (12/08/2018 10:00 PDT) + + + + + + | Component | Value | Ref Range | Performed | Pathologist | | | | | At | Signature | + + + + + + | WBC | 13.4 (H) | 4.0 - 11.0 K/uL | [facility] | | | | | | [facility] | | [facility] | | [facility] | | | | | | [facility] - | | | | | | LABORATORY | | + + + + + + | RBC | 3.37 (L) | 4.30 - 5.70 | [facility] | | | | | M/uL | [facility] | | | | | | [facility] | | | | | | CENTER - | | | | | | LABORATORY | | + + + + + + | Hemoglobin | 9.0 (L) | 13.5 - 18.0 | [facility] | | | | | g/dL | [facility] | | | | | | [facility] | | | | | | CENTER - | | | | | | LABORATORY | | + + + + + + | Hematocrit | 29.9 (L) | 40.0 - 51.0 % | [facility] | | | | | | [facility] | | | | | | [facility] | | | | | | CENTER - | | | | | | LABORATORY | | + + + + + + | MCV | 88.7 | 83.0 - 101.0 fL | [facility] | | | | | | [facility] | | | | | | [facility] | | | | | | CENTER - | | | | | | LABORATORY | | + + + + + + | MCH | 26.7 (L) | 28.0 - 35.0 pg | [facility] | | | | | | [facility] | | | | | | MEDICAL | | | | | | CENTER - | | | | | | LABORATORY | | + + + + + + | MCHC | 30.1 (L) | 32.0 - 36.0 | [facility] | | | | | g/dL | [facility] | | | | | | MEDICAL | | | | | | CENTER - | | | | | | LABORATORY | | + + + + + + | RDW-CV | 16.4 (H) | <15.0 % | [facility] | | | | | | [facility] | | | | | | MEDICAL | | | | | | CENTER - | | | | | | LABORATORY | | + + + + + + | RDW-SD | 53.5 (H) | 35.1 - 46.3 fL | [facility] | | | | | | [facility] | | | | | | [facility] | | | | | | CENTER - | | | | | | LABORATORY | | + + + + + + | Platelet | 339 | 140 - 440 K/uL | [facility] | | | Count | | | [facility] | | | | | | [facility] | | | | | | CENTER - | | | | | | LABORATORY | | + + + + + + | MPV | 8.7 | 6.5 - 12.4 fL | [facility] | | | | | | [facility] | | | | | | [facility] | | | | | | CENTER - | | | | | | LABORATORY | | + + + + + + | % | 70.2 | 45.0 - 82.0 % | [facility] | | | Neutrophils | | | [facility] | | | | | | MEDICAL | | | | | | CENTER - | | | | | | LABORATORY | | + + + + + + | % | 17.1 (L) | 20.0 - 45.0 % | [facility] | | | Lymphocytes | | | [facility] | | | | | | MEDICAL | | | | | | CENTER - | | | | | | LABORATORY | | + + + + + + | % Monocytes | 9.2 | 4.0 - 12.0 % | [facility] | | | | | | [facility] | | | | | | MEDICAL | | | | | | CENTER - | | | | | | LABORATORY | | + + + + + + | % | 2.5 | 0.0 - 5.0 % | [facility] | | | Eosinophils | | | [facility] | | | | | | MEDICAL | | | | | | CENTER - | | | | | | LABORATORY | | + + + + + + | % Basophils | 0.5 | 0.0 - 1.0 % | [facility] | | | | | | [facility] | | | | | | MEDICAL | | | | | | CENTER - | | | | | | LABORATORY | | + + + + + + | % Immature | 0.5 (H)Comment: | 0.0 - 0.4 % | [...] + + + + | Absolute | 9.42 (H) | 1.80 - 8.50 | [facility] | | | Neutrophils | | K/uL | [facility] | | | | | | MEDICAL | | | | | | CENTER - | | | | | | LABORATORY | | + + + + + + | Absolute | 2.29 | 0.60 - 3.20 | [facility] | | | Lymphocytes | | K/uL | [facility] | | | | | | MEDICAL | | | | | | CENTER - | | | | | | LABORATORY | | + + + + + + | Absolute | 1.24 (H) | 0.00 - 1.00 | [facility] | | | Monocytes | | K/uL | [facility] | | | | | | MEDICAL | | | | | | CENTER - | | | | | | LABORATORY | | + + + + + + | Absolute | 0.34 | 0.00 - 0.40 | [facility] | | | Eosinophils | | K/uL | [facility] | | | | | | MEDICAL | | | | | | CENTER - | | | | | | LABORATORY | | + + + + + + | Absolute | 0.07 | 0.00 - 0.10 | [facility] | [...] | | | | | WBCs | . [facility] | | | | [...] | + + + + + | [facility] [facility] | [address] | [place] | [phone] | | [facility] | | [address] | | | - LABORATORY | | | | + + + + + Comprehensive Metabolic Panel (12/08/2018 10:00 PDT) + + + + + + | Component | Value | Ref Range | Performed | Pathologist | | | | | At | Signature | + + + + + + | Na | 134 (L) | 136 - 145 | [facility] | | | | | mmol/L | [facility] | | | | | | [facility] | | | | | | [facility] | | | | | | LABORATORY | | + + + + + + | K | 5.5 (H) | 3.5 - 5.1 | [facility] | | | | | mmol/L | [facility] | | | | | | [facility] | | | | | | [facility] | | | | | | LABORATORY | | + + + + + + | Cl | 99 | 98 - 107 mmol/L | [facility] | | | | | | [facility] | | | | | | [facility] | | | | | | [facility] | | | | | | LABORATORY | | + + + + + + | CO2 | 24 | 21 - 32 mmol/L | [facility] | | | | | | [facility] | | | | | | [facility] | | | | | | [facility] | | | | | | LABORATORY | | + + + + + + | Anion Gap | 11 | 2 - 16 mmol/L | [facility] | | | | | | [facility] | | | | | | [facility] | | | | | | [facility] | | | | | | LAB[facility]ATORY | | + + + + + + | Glucose | 132 (H) | 74 - 106 mg/dL | [facility] | | | | | | [facility] | | | | | | [facility] | | | | | | [facility] | | | | | | LAB[facility]ORY | | + + + + + + | BUN | 51 (H) | 7 - 18 mg/dL | [facility] | | | | | | [facility] | | | | | | [facility] | | | | | | [facility] | | | | | | LAB[facility]ATORY | | + + + + + + | Creatinine | 5.66 (H) | 0.70 - 1.30 | [facility] | | | | | mg/dL | [facility] | | | | | | [facility] | | | | | | [facility] | | | | | | LABORATORY | | + + + + + + | eGFR if not | 10 (L)Comment: | >=60 | [facility] | | | | GLOMERULAR FILTRATION | mL/min/1.73m2 | [facility] | | | [place] | RATE,ESTIMATED mL/min | | MEDICAL | | | | /1.50d0Vlsz than 60 | | [facility]ARK | | | | Chronic kidney | [...] + + + + | Calcium | 10.7 (H) | 8.5 - 10.1 | [facility] | | | | | mg/dL | [facility] | | | | | | [facility] | | | | | | [facility] | | | | | | LABORATORY | | + + + + + + | Albumin | 2.2 (L) | 3.4 - 5.0 g/dL | [facility] | | | | | | [facility] | | | | | | [facility] | | | | | | [facility] | | | | | | LAB[facility]ATORY | | + + + + + + | Bilirubin | 0.4 | 0.2 - 1.0 mg/dL | [facility] | | | Total | | | [facility] | | | | | | [facility] | | | | | | [facility] | | | | | | LABORATORY | | + + + + + + | Total | 7.2 | 6.4 - 8.2 g/dL | [facility] | | | Protein | | | [facility] | | | | | | [facility] | | | | | | [facility] | | | | | | LABORATORY | | + + + + + + | AST | 30 | 15 - 37 U/L | [facility] | | | | | | [facility] | | | | | | [facility] | | | | | | [facility] | | | | | | LAB[facility]ATORY | | + + + + + + | ALT | 16 | 16 - 63 U/L | [facility] | | | | | | [facility] | | | | | | [facility] | | | | | | [facility] | | | | | | LABORATORY | | + + + + + + | Alkaline | 158 (H) | 46 - 116 U/L | [facility] | | | Phosphatase | | | [facility] | | | | | | [facility] | | | | | | [facility] | | | | | | LABORATORY | | + + + + + + | Globulin | 5.0 (H) | 2.1 - 3.8 g/dL | [facility] | | | | | | [facility] | | | | | | [facility] | | | | | | [facility] | | | | | | LABORATORY | | + + + + + + | Albumin/Pau | 0.4 (L) | 0.8 - 2.0 | [facility] | | | bulin Ratio | | | [facility] | | | | | | [facility] | | | | | | [facility] | | | | | | LABORATORY | | + + + + + + | BUN/Creatin | 9.0 | | [facility] | | | ine Ratio | | | [facility] | | | | | | [facility] | | | | | | [facility]ARK | | | | | | LABORATORY | | + + + + + + + + | Specimen | + + | Blood | + + + + + + + | Performing | Address | City/State/Zipcode | Phone Number | | Organization | | | | + + + + + | [facility] | [address] | [place] | [phone] | | [facility] | | [address] | | | [place] | | | | + + + + + documented in this encounter Visit Diagnoses + + | Diagnosis | + + | Non-small cell lung cancer, unspecified laterality (HCC) - Primary | + + | Squamous cell carcinoma of lung, unspecified laterality (HCC) | + + documented in this encounter Administered Medications + +--------+ +--------+------+------+ | Medication Order | MAR | Action | Dose | Rate | Site | | | Action | Date | | | | + +--------+ +--------+------+------+ | aprepitant (CINVANTI) injection | Given | 12/09/19 | 130 mg | | | | 130 mg 130 mg, IV Push, ONCE, | | 19 12:16 | | | | | 12/08/18 at 1230, For 1 dose, | | PDT | | | | | Administer 30 minutes prior to | | | | | | | chemotherapy. Administer slowly | | | | | | | over 2 minutes, | | | | | | + +--------+ +--------+------+------+ +---+---+ | | | +---+---+ + +---------+ +--------+-------+---+ | CARBOplatin (PARAPLATIN) 480 mg | New Bag | 12/09/19 | 480 mg | 150 | | | in sodium chloride 0.9% 102 mL | | 19 12:42 | | mL/hr | | | infusion 480 mg, Intravenous, | | PDT | | | | | Administer over 60 Minutes, ONCE, | | | | | | | 12/08/18 at 1300, For 1 dose, | | | | | | | Chemotherapy: Use appropriate | | | | | | | handling precautions., | | | | | | + +---------+ +--------+-------+---+ +---+---+ | | | +---+---+ + +-------+ +------+---+---+ | dexamethasone (DECADRON) tablet | Given | 12/09/19 | 4 mg | | | | 4 mg 4 mg, Oral, ONCE, Fri | | 19 12:12 | | | | | 12/08/18 at 1230, For 1 dose, | | PDT | | | | | Administer 30 minutes prior to | | | | | | | chemotherapy., | | | | | | + +-------+ +------+---+---+ +---+---+ | | | +---+---+ + +---------+ + +-------+---+ | gemcitabine (GEMZAR) 1,600 mg | New Bag | 12/09/19 | 1,600 mg | 300 | | | in sodium chloride 0.9% 107.92 mL | | 19 13:46 | | mL/hr | | | infusion 1,600 mg, Intravenous, | | PDT | | | | | Administer over 30 Minutes, | | | | | | | ONCE, e 12/08/18 at 1330, For 1 | | | | | | | dose, 1000 mg/m2= 2280 mg; | | | | | | | rounded to 2200 mg per rounding | | | | | | | protocol Chemotherapy: Use | | | | | | | appropriate handling precautions. | | | | | | | Do not refrigerate., | | | | | | + +---------+ + +-------+---+ +---+---+ | | | +---+---+ + +-------+ +-------+---+---+ | heparin 100 units/mL flush | Given | 12/09/19 | 500 | | | | injection 500 Units 500 Units (5 | | 19 14:20 | Units | | | | mL), Intracatheter, PRN, Line | | PDT | | | | | Care, Starting Fri12/08/18 at | | | | | | | 1203 | | | | | | + +-------+ +-------+---+---+ +---+---+ | | | +---+---+ + +-------+ +---------+---+---+ | palonosetron (ALOXI) injection | Given | 12/09/19 | 0.25 mg | | | | 0.25 mg 0.25 mg, Intravenous, | | 19 12:13 | | | | | ONCE, 12/08/18 at 1230, For 1 | | PDT | | | | | dose, Give IV push over 30 | | | | | | | seconds. Flush with saline before | | | | | | | and after giving. Administer 30 | | | | | | | minutes prior to chemotherapy. | | | | | | | (This product is restricted to | | | | | | | outpatient use only. For | | | | | | | inpatients please use | | | | | | | ondansetron. If there are | | | | | | | clinical circumstances that | | | | | | | necessitate inpatient use of | | | | | | | palonosetron, please contact | | | | | | | pharmacy.), | | | | | | + +-------+ +---------+---+---+ +---+---+ | | | +---+---+ documented in this encounter
--- OUTSIDE RECORDS SUMMARY | ~2019-02-18 | XMS | Encounter Summary ---
Demographics + + + | Address | [address] | | | [place] [address] | + + + | Home Phone | | + + + | Preferred Language | Unknown | + + + | Marital Status | | + + + | Methodist Affiliation | 1061 | + + + | Race | Unknown | + + + | Ethnic Group | Unknown | + + + Author + + + | Author | [facility] | | | and [place] | + + + | Organization | [facility] | | | and [place] | + + + | Address | Unknown | + + + | Phone | Unavailable | + + + Support + + + + + | Name | Relationship | Address | Phone | + + + + + | Sole Gleason | ECON | [place] | | | | | [address] | | + + + + + | Sruthi Gleason | ECON | [place] | | | | | [address] | | + + + + + | Sole Gleason | ECON | [place] | | | | | [address] | | + + + + + Care Team Providers + +------+ + | Care Concrete Curer Name | Role | Phone | + +------+ + | Jack Durand DO | PCP | | + +------+ + Encounter Details +--------+ + + + + | Date | Type | Department | Care Team | Description | +--------+ + + + + | // | Orders Only | [facility] | Gertrudis Vivar, DNP | | | 2019 | | VASCULAR SURGERY | [address] | | | | | ULTRASOUND [address] | [place], [place] | | | | | [address] | [address] | | | | | [place], [place] | | | | | | [address] | | | | | | [phone] | | | +--------+ + + + [...]
--- OUTSIDE RECORDS SUMMARY | ~2019-02-18 | XMS | Encounter Summary ---
Demographics + + + | Address | [address] | | | [place] [address] | + + + | Home Phone | | + + + | Preferred Language | Unknown | + + + | Marital Status | | + + + | Islam Affiliation [...] [place] | | | | | [address] | | + + + + + | Sruthi Gleason | ECON | [place] | | | | | [address] | | + + + + + | Sole Gleason | ECON | [place] | | | | | [address] | | + + + + + Care Team Providers + +------+ + | Care Foam Rubber Fabricator Name | Role | Phone | + +------+ + | Jack Durand DO | PCP | | + +------+ + Encounter Details +--------+ + + + + | Date | Type | Department | Care Team | Description | +--------+ + + + + | 11/25/ | Hospital | [facility] | Conversion | | | 2019 | Encounter | [facility] | Transaction, | | | | | CLINIC [address] | Provider Unknown | | | | | [address] [place], [place] | [phone] | | | | | [address] | | | | | | [phone] | | | +--------+ + + + [...] | | | | | | | ([facility]) | | | | | | + [...] at [facility];[address] [place] [address];[place] [address] | | + + + + +---------+ [...] LAB | | | | performed at [facility] [address], [address] | | | | | | [place], | | | | | | [place] [address] | | | | | | | [...] | | | | | performed at [facility] [address], [address] | | | | | | [facility], | | | | | | [place] [address] | | | | + + + [...]
--- OUTSIDE RECORDS SUMMARY | ~2019-02-18 | XMS | Encounter Summary ---
Demographics + + + | Address | [address] | | | [place] [address] | + + + | Home Phone | | + + + | Preferred Language | Unknown | + + + | Marital Status | | + + + | Pentecostal Affiliation | 1061 | + + + | Race | Unknown | + + + | Ethnic Group | Unknown | + + + Author + + + | Author | [facility] | | | and [place] | + + + | Organization | [facility] | | | and [place] | + + + | Address | Unknown | + + + | Phone | Unavailable | + + + Support + + + + + | Name | Relationship | Address | Phone | + + + + + | Sole Gleason | ECON | [place] | | | | | [address] | | + + + + + | Sruthi Gleason | ECON | [place] | | | | | [address] | | + + + + + | Sole Gleason | ECON | [place] | | | | | [address] | | + + + + + Care Team Providers + +------+ + | Care Terminal Superintendent Name | Role | Phone | + [...] + + | 12/28/ | Telephone | [facility] | Krys, | Hospitalization | | 2019 | | [facility] | Bart Cade MD [address] | | | | | ON[facility]OGY CLINIC [address] | [address] [place] | | | | | [address] [place] | [place] [address] | | | | | [place] [address] | [phone] | | | | | [phone] | | | +--------+ + + + [...]
--- OUTSIDE RECORDS SUMMARY | ~2019-02-18 | XMS | Encounter Summary ---
Demographics + + + | Address | [address] | | | [place] [address] | + + + | Home Phone [...] [place] | | | | | [address] | | + + + + + | Sruthi Gleason | ECON | [place] | | | | | [address] | | + + + + + | Sole Gleason | ECON | [place] | | | | | [address] | | + + + + + Care Team Providers + +------+ + | Care Agent Contract Clerk Name | Role | Phone | [...] | | | | | Squamous | [place], | [place] | | | | | cell | [place] | [address] Phone: | | | | | carcinoma of | [address] | [phone] | | | | | lung, | Phone: | Fax: | | | | | unspecified | [phone] | [phone] | | | | | laterality | Fax: | | | | | | (HCC) | [phone] | | | | | | Procedures | | | | | | | [address] | | | + +--------+ + + + + Encounter Details +--------+ + + + + | Date | Type | Department | Care Team | Description | +--------+ + + + + | 01/21/ | Hospital | [facility] | Krys, | Malignant neoplasm | | 2019 | Encounter | [facility] | Bart Cade MD [address] | of lung, unspecified | | | | ONCOLOGY CLINIC [address] | [address] [place] | laterality, | | | | [address] [place] | [place] [address] | unspecified part of | | | | [place] [address] | [phone] | lung (HCC); Neoplasm | | | | [phone] | | related pain; | | | [...] f rom the original. Hematology/Oncology Progress Note [facility] [place] Pt. Name/Age/: Shahbaz Gleason 63 y.o. 1955 Med. Record Number: [id number] Date of admission: 01/21/2019 The patient's primary care provider is Jack Durand DO. Identifying Statement: Shahbaz Gleason is a 63 y.o. male [place] [address] [place] [address] [place] [address] with metastatic squamous cell lung cancer, and [...] the right lower lobe bronchus. Pathological specimen [id number]: Right lower bronchial lobe b ronchus biopsy [...] July 23, 2017 specimen number [id number] ([facility]) negative for malignant cells. 11. Laboratory evaluation [...] 4 cm) lymphadenopathy. 19. Admit to [facility] in [facility] between June 09, 2018 and 2018 where his left subclavian Port-A-Cath was removed due to fever of unknown origi n. 20. Admit to [facility] in [place], [place] between July 20, 2018 a July [...] by neutropenic sep sis requiring hospitalization at [facility] in [place]. Following discharge, Zackery had a ground level fall at home and fractured his right upper extremity, which is now in a c ast. Interval history is also notable for the fact that Zackery continues on outpatient hemodialysis with infusions of vancomycin in [place] under the direction of Dr. Cheo Joaquin. [...] and I had an extended, 25 minute [id number] encounter. Zackery does not want to seek any further active cancer treatment. However, he does not want to enroll in hospice no w because it would mean giving up on hemodialysis. Zackery reports that he is working with Dr. Gbariel mcclellan on having a peritoneal dialysis catheter place for home dialysis, which may be acceptab le to his home hospice provider provided that family members are available to support him. I n the meantime, I will continue to supply Zackery with narcotic refills for his malignant neopla sm related pain. I will be seeing Zackery again on February 03, 2019 at [facility] in [place], [place]. 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 Occasi onal wrong-word or sound-alike [...]
--- OUTSIDE RECORDS SUMMARY | ~2019-02-18 | XMS | Encounter Summary ---
Demographics + + + | Address | [address] | | | [place] [address] | + + + | Home Phone [...] [place] | | | | | [address] | | + + + + + | Sruthi Gleason | ECON | [place] | | | | | [address] | | + + + + + | Sole Gleason | ECON | [place] | | | | | [address] | | + + + + + Care Team Providers + +------+ + | Care Innersole Maker Name | Role | Phone | + +------+ + | Jack Durand DO | PCP | | + +------+ + Encounter Details +--------+ + + + + | Date | Type | Department | Care Team | Description | +--------+ + + + + | 12/10/ | Documentati | [facility] | Krys, | | | 2019 | on | [facility] CTR MED[facility] | Bart Cade MD [address] | | | | | ONCOLOGY CLINIC [address] | [facility] | | | | | [address] [facility] | [place] [address] | | | | | [place] [address] | [phone] | | | | | [phone] | | | +--------+ + + + [...]
--- OUTSIDE RECORDS SUMMARY | ~2019-02-18 | XMS | Encounter Summary ---
Demographics + + + | Address | [address] | | | [place] [address] | + + + | Home Phone | | + + + | Preferred Language | Unknown | + + + | Marital Status | Single | + + + | Cheondoism Affiliation | Unknown | + + + | Race | White | + + + | Ethnic Group | Not or | + + + Author + + + | Author | [facility] | + + + | Organization | [facility] | + + + | Address | Unknown | + + + | Phone | Unavailable | + + + Support + + +---------+ + | Name | Relationship | Address | Phone | + + +---------+ + | Sole Gleason | ECON | Unknown | | + + +---------+ + Care Team Providers + +------+ + | Care Lead Furnace Operator Name | Role | Phone | [...] | | | | | [place], | | | | | | [place] [address] | | | +--------+--------+ + + + [...]
--- OUTSIDE RECORDS SUMMARY | ~2019-02-18 | XMS | Encounter Summary ---
Demographics + + + | Address | [address] | | | [place] [address] | + + + | Home Phone | | + + + | Preferred Language | Unknown | + + + | Marital Status | | + + + | Catholic Affiliation | 1061 | + + + | Race | Unknown | + + + | Ethnic Group | Unknown | + + + Author + + + | Author | [facility] | | | and [place] | + + + | Organization | [facility] | | | and [place] | + + + | Address | Unknown | + + + | Phone | Unavailable | + + + Support + + + + + | Name | Relationship | Address | Phone | + + + + + | Sole Gleason | ECON | [place] | | | | | [address] | | + + + + + | Sruthi Gleason | ECON | [place] | | | | | [address] | | + + + + + | Sole Gleason | ECON | [place] | | | | | [address] | | + + + + + Care Team Providers + +------+ + | Care Sales Development Director Name | Role | Phone | + +------+ + | Jack Durand DO | PCP | | + +------+ + Encounter Details +--------+ + + + + | Date | Type | Department | Care Team | Description | +--------+ + + + + | 12/03/ | Documentati | [facility] | Nilam Cooley, | | | 2019 | on | MED CTR PH[facility]Y | [facility] [address] | | | | | [address] | [place], [place] | | | | | [place] [address] | [address] | | | | | [phone] | | | +--------+ + + + [...] as of this encounter Progress Nilam Agrawal, [facility] - 12/03/2018 1451 PDTFormatting of this note might be different from domingo alcantar. IDT PATIENT MEDICATION/PROFILE REVIEW [facility] CLINICAL [facility]ARMAC[facility] SERVICES Pharmacy [...] therapy: LUNG: Phase III Study by the [place] Lung Cancer Study Gr oup: Pemetrexed Plus [...] - 3.5 Electronically signed by: Nilam Cooley, RZainabPh.,[facility];12/07/2018 10:25 documented in this enco unter Plan of Treatment Not on filedocumented as of this encounter Visit Diagnoses Not on filedocumented in this encounter
--- OUTSIDE RECORDS SUMMARY | ~2019-02-18 | XMS | Encounter Summary ---
Demographics + + + | Address | [address] | | | [place] [address] | + + + | Home Phone [...] [place] | | | | | [address] | | + + + + + | Sruthi Gleason | ECON | [place] | | | | | [address] | | + + + + + | Sole Gleason | ECON | [place] | | | | | [address] | | + + + + + Care Team Providers + +------+ + | Care Canal Structure Operator Name | Role | Phone | [...] + + | 01/05/ | Telephone | [facility] | Krys | Care Coordination | | 2019 | | MED [facility] | Bart Cade MD [address] | | | | | [address] | [address] | | | | | [address] | [place] [address] | | | | | [place] [address] | [phone] | | | | | [phone] | | | +--------+ + + + [...]
--- OUTSIDE RECORDS SUMMARY | ~2019-02-18 | XMS | Encounter Summary ---
Demographics + + + | Address | [address] | | | [place] [address] | + + + | Home Phone [...] [place] | | | | | [address] | | + + + + + | Sruthi Gleason | ECON | [place] | | | | | [address] | | + + + + + | Sole Gleason | ECON | [place] | | | | | [address] | | + + + + + Care Team Providers + +------+ + | Care Tax Collector Name | Role | Phone | + +------+ + | Jack Durand DO | PCP | | + +------+ + Encounter Details +--------+ + + + + | Date | Type | Department | Care Team | Description | +--------+ + + + + | 01/05/ | Care | [facility] | Krys, | | | 2019 | Coordinatio | MED CTR MEDICAL | Bart Cade MD [address] | | | | n | [address]OG[address] CL[address] | [facility] | | | | | [facility] | [place] [address] | | | | | [place] [address] | [phone] | | | | | [phone] | | | +--------+ + + + [...]
--- OUTSIDE RECORDS SUMMARY | ~2019-02-18 | XMS | Encounter Summary ---
Demographics + + + | Address | [address] | | | [place] [address] | + + + | Home Phone | | + + + | Preferred Language | Unknown | + + + | Marital Status | | + + + | Worship Affiliation | 1061 | + + + | Race | Unknown | + + + | Ethnic Group | Unknown | + + + Author + + + | Author | [facility] | | | and [place] | + + + | Organization | [facility] | | | and [place] | + + + | Address | Unknown | + + + | Phone | Unavailable | + + + Support + + + + + | Name | Relationship | Address | Phone | + + + + + | Sole Gleason | ECON | [place] | | | | | [address] | | + + + + + | Sruthi Gleason | ECON | [place] | | | | | [address] | | + + + + + | Sole Gleason | ECON | [place] | | | | | [address] | | + + + + + Care Team Providers + +------+ + | Care Security Door Installer Name | Role | Phone | [...] + + | 01/11/ | Refill | [facility] | Krys, | Medication Refill | | 2019 | | MED CTR MEDICAL | Bart Cade MD [address] | | | | | [address] | [address] | | | | | [address] | [place] [address] | | | | | [place] [address] | [phone] | | | | | [phone] | | | +--------+--------+ + + + [...]
--- OUTSIDE RECORDS SUMMARY | ~2019-02-18 | XMS | Encounter Summary ---
Demographics + + + | Address | [address] | | | [place] [address] | + + + | Home Phone | | + + + | Preferred Language | Unknown | + + + | Marital Status | | + + + | Yazidi Affiliation | 1061 | + + + | Race | Unknown | + + + | Ethnic Group | Unknown | + + + Author + + + | Author | [facility] | | | and [place] | + + + | Organization | [facility] | | | and [place] | + + + | Address | Unknown | + + + | Phone | Unavailable | + + + Support + + + + + | Name | Relationship | Address | Phone | + + + + + | Sole Gleason | ECON | [place] | | | | | [address] | | + + + + + | Sruthi Gleason | ECON | [place] | | | | | [address] | | + + + + + | Sole Gleason | ECON | [place] | | | | | [address] | | + + + + + Care Team Providers + +------+ + | Care College Advisor Name | Role | Phone | + [...] + + | 01/04/ | Telephone | [facility] | Cheo Joaquin MD | Results, Critical | | 2019 | | NEPHROLOGY [place] | [address] [place] | | | | | [address] [place] | [address] [place] | | | | | [address] [place] | [id number] | | | | | [address] | | | | | | [phone] | | | +--------+ + + + [...]
--- OUTSIDE RECORDS SUMMARY | ~2019-02-18 | XMS | Encounter Summary ---
Demographics + + + | Address | [address] | | | [place] [address] | + + + | Home Phone | | + + + | Preferred Language | Unknown | + + + | Marital Status | Single | + + + | Restorationism Affiliation | 1061 | + + + | Race | Unknown | + + + | Ethnic Group | Unknown | + + + Author + + + | Author | [facility] (Historical as of | | | 01-02-19) | + + + | Organization | [facility] (Historical as of | | | 01-02-19) | + + + | Address | Unknown | + + + | Phone | Unavailable | + + + Support + + + + + | Name | Relationship | Address | Phone | + + + + + | Sruthi Gleason | ECON | [place] | | | | | [address] | | + + + + + | Sole Gleason | ECON | [place] | | | | | [address] | | + + + + + Care Team Providers + +------+ + | Care Cylinder Press Operator Apprentice Name | Role | Phone | + +------+ + PCP | Unavailable | + +------+ + Reason for Visit +--------+ + | Reason | Comments | +--------+ + | Other | [facility]ology [facility] On[facility] note faxed Aby Mane ([id number]) | | | [phone] | +--------+ + [...] | | [address] | [address] [place], [place] | note faxed Aby | | | | [place] [address] | [phone] | Antonietta ([id number]) | | | | [phone] | | [phone]) | +--------+ + + [...]
--- OUTSIDE RECORDS SUMMARY | ~2019-02-18 | XMS | Encounter Summary ---
Demographics + + + | Address | [address] | | | [place] [address] | + + + | Home Phone | | + + + | Preferred Language | Unknown | + + + | Marital Status | Single | + + + | Lutheran Affiliation | 1061 | + + + | Race | Unknown | + + + | Ethnic Group | Unknown | + + + Author + + + | Author | [facility] (Historical as of | | | 01-02-19) | + + + | Organization | [facility] (Historical as of | | | 01-02-19) | + + + | Address | Unknown | + + + | Phone | Unavailable | + + + Support + + + + + | Name | Relationship | Address | Phone | + + + + + | Sruthi Gleason | ECON | [place] | | | | | [address] | | + + + + + | Sole Gleason | ECON | [place] | | | | | [address] | | + + + + + Care Team Providers + +------+ + | Care Groundskeeper Porter Name | Role | Phone | + +------+ + PCP | Unavailable | + +------+ + Encounter Details +--------+ + + + + | Date | Type | Department | Care Team | Description | +--------+ + + + + | 12/21/ | Clinical | [facility] | Jose Alfredo Waterman, | ESRD (end stage | | 2019 | Support | Vascular Surgery | RN | renal disease) (HCC) | | | | [address] | | (Primary Dx) | | | | [place] | | | | | | [address] | | | | | | [phone] | | | +--------+ + + + [...] Imaging, patient fell out of bed this [facility] and was bleeding from his right [...] ESRD (end stage renal disease) ([facility]) - Primary | + + | End stage renal disease | + +"
--- OUTSIDE RECORDS SUMMARY | ~2019-02-18 | XMS | Encounter Summary ---
Demographics + + + | Address | [address] | | | [place] [address] | + + + | Home Phone | | + + + | Preferred Language | Unknown | + + + | Marital Status | | + + + | Oriental Orthodox [...] [place] | | | | | [address] | | + + + + + | Sruthi Gleason | ECON | [place] | | | | | [address] | | + + + + + | Sole Gleason | ECON | [place] | | | | | [address] | | + + + + + Care Team Providers + +------+ + | Care Live In Housekeeper Nanny Name | Role | Phone | + [...] + + | 02/03/ | Documentati | [facility] | Engel, | Results (01/20/19) | | 2019 | on | NEPHROLOGY [place] | Di Young | | | | | [address] | Picker Box Operator | | | | | [address] [place] | | | | | | [address] | | | | | | [phone] | | | +--------+ + + + [...]
--- OUTSIDE RECORDS SUMMARY | ~2019-02-18 | XMS | Encounter Summary ---
Demographics + + + | Address | [address] | | | [place] [address] | + + + | Home Phone | | + + + | Preferred Language | Unknown | + + + | Marital Status | Single | + + + | Yazidism Affiliation | 1061 | + + + | Race | Unknown | + + + | Ethnic Group | Unknown | + + + Author + + + | Author | [facility] (Historical as of | | | 01-02-19) | + + + | Organization | [facility] (Historical as of | | | 01-02-19) | + + + | Address | Unknown | + + + | Phone | Unavailable | + + + Support + + + + + | Name | Relationship | Address | Phone | + + + + + | Surthi Gleason | ECON | [place] | | | | | [address] | | + + + + + | Sole Gleason | ECON | [place] | | | | | [address] | | + + + + + Care Team Providers + +------+ + | Care Cold Food Packer Name | Role | Phone | + [...] (October | 2018 | on Only | [address] | [address] | 2018-Aby Provider | | | | [address] | [address] [place], [place] | Dialysis Rounding | | | | [place] [address] | [address] | Note) | | | | [phone] | | | +--------+ + + + [...]
--- OUTSIDE RECORDS SUMMARY | ~2019-02-18 | XMS | Encounter Summary ---
Demographics + + + | Address | [address] | | | [place] [address] | + + + | Home Phone | | + + + | Preferred Language | Unknown | + + + | Marital Status | Single | + + + | Hindu Affiliation | 1061 | + + + | Race | Unknown | + + + | Ethnic Group | Unknown | + + + Author + + + | Author | [facility] (Historical as of | | | 01-02-19) | + + + | Organization | [facility] (Historical as of | | | 01-02-19) | + + + | Address | Unknown | + + + | Phone | Unavailable | + + + Support + + + + + | Name | Relationship | Address | Phone | + + + + + | Sruthi Gleason | ECON | [place] | | | | | [address] | | + + + + + | Sole Gleason | ECON | [place] | | | | | [address] | | + + + + + Care Team Providers + +------+ + | Care Community Planner Name | Role | Phone | + +------+ + PCP | Unavailable | + +------+ + Encounter Details +--------+ + + + + | Date | Type | Department | Care Team | Description | +--------+ + + + + | 12/07/ | Telephone | [facility] | Jany Avila, | | | 2018 | | Vascular Surgery | [facility] | | | | | [address] | | | | | | [place] | | | | | | [address] | | | | | | [phone] | | | +--------+ + + + [...] | + + + + + | [facility] | [address] | [place] [address] | | + + + + + in this encounter Visit Diagnoses + + | Diagnosis | + + | ESRD (end stage renal disease) (HCC) - Primary | + + | End stage renal disease | + +"
--- NOTE | 2019-02-19 13:10 | EKG ---
[facility] [address] [place], [place] [address] Signed Supraventricular tachycardia Left anterior fascicular block Abnormal ECG When compared with ECG of 11-FEB-2019 15:17, Vent. rate has increased BY 62 BPM Non-specific change in ST segment in Inferior leads Confirmed by SOLOMON SIMPSON DO ([id number]) on 02/19/2019 1:10:31 PM Electronically Signed By: SOLOMON SIMPSON DO 02/19/19 1310 PATIENT NAME: SAMAN FELDER Electrocardiogram DATE OF : 55 PHYSICIAN: SOLOMON SIMPSON DO REPORT #: [id number] REPORT IS CONFIDENTIAL AND NOT TO BE RELEASED WITHOUT AUTHORIZATION
== END 2019-02-18 20:14 | disposition short-term general hospital (02) ==
LOC: ED 16:54
DX: E83.52 Hypercalcemia (principal); E11.9 Type 2 diabetes mellitus without complications; Z87.891 Personal history of nicotine dependence; Z79.899 Other long term (current) drug therapy; Z79.82 Long term (current) use of aspirin
CPT/HCPCS: 71045; 80053; 83605; 84484; 85025; 93005; 93010; 96361; 96374; 99291; J7030